=== PATIENT | male | born 1980 | race Caucasian/White ===

== ENCOUNTER → 2017-11-24 14:37 | Outpatient (CLI) | payer OTHER, SELFPAY ==
--- NOTE | 2017-11-24 14:41 | RAD_ITS ---
STUDY: X-RAY - RIGHT WRIST REASON FOR EXAM: Chronic pain. TECHNIQUE: 3 view(s) of the wrist were obtained. COMPARISON: None. FINDINGS: Normal visualized distal radius and ulna. Normal radiocarpal articulation. Normal distal radioulnar articulation. Normal carpal bones. Normal carpal articulations. Normal carpometacarpal articulation of the thumb. Normal second through fifth carpometacarpal articulations. Normal visualized metacarpal bones. The soft tissue structures are unremarkable. RAD/Wrist min 3 Views IMPRESSION: Normal x-ray examination of the right wrist. Electronically Signed: Josse Dumont MD at 16:17 EDT Tel , Service support ,
== END ==
PROVIDERS: Family Provider Family Medicine; PCP Family Medicine; Visit Provider Orthopaedic Surgery
DX: M25.531 Pain in right wrist (principal)
CPT/HCPCS: 73110

== ENCOUNTER → 2017-12-10 06:41 | Outpatient (CLI) | payer OTHER, SELFPAY ==
--- NOTE | 2017-12-10 06:46 | ECHOD_ITS ---
Reason For Study: PVC Procedure This was a 2D Doppler, Color Flow transthoracic echocardiogram. The exam was of poor technical quality due to body habitus. The study was technically difficult. Contrast injection was performed. Exam performed in department. Left Ventricle Normal LV size. Left ventricular systolic function is normal. The estimated ejection fraction is 60 %. No evidence for diastolic dysfunction. No regional wall motion abnormalities noted. Right Ventricle Normal RV size. Normal systolic function. Atria Normal left atrium. Normal right atrium. No doppler evidence for ASD. Mitral Valve There is no mitral annular calcification. Normal mitral valve. Trivial mitral valve insufficiency. Tricuspid Valve Normal tricuspid valve. Trivial tricuspid valve insufficiency. Unable to estimate RV systolic pressure/pulmonary artery pressure due to technically difficult study. Aortic Valve The aortic valve is not well visualized. Pulmonic Valve The pulmonic valve is not well visualized. Great Vessels Normal sized aortic root. Pericardium/Pleural No pericardial effusion. Medication Diluted definity 3ml given slow IV push to enhance endocardial definition. MMode/2D Measurements & Calculations LVIDd: 4.2 cm IVSd: 1.0 cm Ao root diam: 3.2 cm LVIDs: 2.9 cm LVPWd: 1.1 cm RVDd: 4.2 cm FS: 31.3 % LAV(MOD-bp): 49.5 ml EDV(MOD-sp4): 118.2 ml EDV(MOD-sp2): 125.6 ml LAV(MOD-bp) Indexed: 18.4 ml/m2 ESV(MOD-sp4): 48.7 ml EF(MOD-sp2): 60.9 % LAV(MOD-sp2): 53.4 ml EF(MOD-sp4): 58.8 % LAV(MOD-sp4): 47.7 ml SV(MOD-sp4): 69.5 ml SV(MOD-sp2): 76.4 ml LA A4 area: 18.3 cm2 RA A4 area: 14.3 cm2 Doppler Measurements & Calculations MV E max sav: 88.1 cm/sec Lat Peak E' Sav: 13.9 cm/sec Med Peak E' Sav: 10.8 cm/sec MV A max sav: 76.1 cm/sec E/E' lat: 6.3 E/E' med: 8.1 MV E/A: 1.2 Ao V2 max: 159.0 cm/sec LV V1 max: 146.6 cm/sec PA V2 max: 130.8 cm/sec Ao max P.1 mmHg LV V1 max P.6 mmHg Interpretation Summary The study was technically difficult. Contrast injection was performed. Left ventricular systolic function is normal. The estimated ejection fraction is 60 %. Trivial mitral valve insufficiency. Trivial tricuspid valve insufficiency. Unable to estimate RV systolic pressure/pulmonary artery pressure due to technically difficult study. No evidence for diastolic dysfunction. Ordering Physician: Gaston Matt Referring Physician: GASTON ARROYO Performed By: Becki Lema, TRAVISCS, RVT
--- NOTE | 2017-12-10 12:19 | STRESSREP_ITS ---
Stress Test Report Date: 12/10/2017 Procedure: Exercise tolerance test/imaging study Indications: Palpitations; PVCs Consent: Per the patient Procedure: The patient exercised on a Rick protocol for 7 minutes and 30 seconds completing Stage II and 1 minute 30 seconds of Stage III achieving a peak heart rate of 171 bpm (92% predicted maximal heart rate) with a peak blood pressure 180/84 mmHg and a peak MET capacity of 9 METs. The baseline ECG demonstrated normal sinus rhythm. The peak exercise ECG demonstrated somatic/motion artifact with no obvious ECG changes. There were no cardiac dysrhythmias pretest, during exercise, or recovery. The functional capacity was considered average. There was no complaint of chest discomfort during exercise or recovery. The examination was discontinued secondary to dyspnea. Impression: 1. Technically adequate (percent predicted maximal heart rate greater than 85% ) exercise tolerance test 2. Peak exercise ECG demonstrated somatic/motion artifact with no obvious ECG changes 3. There were no cardiac dysrhythmias pretest, during exercise, or recovery. 4. Nuclear images pending Myocardial perfusion imaging study: Technique: The patient was injected with 14.9 mCi of technetium 99m Cardiolite and subsequently rest SPECT Cardiolite nuclear imaging was obtained in the horizontal long, vertical long, and short axis views. The patient exercised on a Rick protocol for 7 minutes and 30 seconds completing Stage II and 1 minute 30 seconds of Stage III achieving a peak heart rate of 171 bpm (92 % predicted maximal heart rate) with a peak blood pressure 180/84 mmHg and a peak MET capacity of 9 METs. The patient was injected with 45 mCi of technetium 99m Cardiolite and subsequently stress SPECT Cardiolite nuclear imaging was obtained in the horizontal long, vertical long, and short axis views. A gated Cardiolite study at peak stress was obtained. Interpretation: Rest and stress SPECT Cardiolite nuclear imaging status post realignment, normalization, and attenuation correction, demonstrates the appearance of relative uniform tracer uptake and myocardial perfusion appearing within normal limits. There is end systolic thickening and brightening. The gated Cardiolite study demonstrates myocardial thickening and inward wall motion. The reported LVEF is 67 %. Impression: 1. Rest and stress SPECT Cardiolite nuclear imaging demonstrate relative uniform tracer uptake and myocardial perfusion appearing within normal limits. 2. The gated Cardiolite study reports an LVEF of 67 %. This note was generated with [employer] software. It may contain incorrect words, spelling, and punctuation that were not noted in checking the note before signing.
== END ==
LOC: CVS 06:42
PROVIDERS: Family Provider Family Medicine; PCP Family Medicine; Visit Provider Internal Medicine Cardiovascular Disease
DX: I49.3 Ventricular premature depolarization (principal)
CPT/HCPCS: 78452; 93017; 93306; A9500; A4216; C8929

== ENCOUNTER → 2017-12-10 06:51 | Outpatient (CLI) | payer OTHER, SELFPAY | LOC: CVS 06:52 | PROVIDERS: Family Provider Family Medicine; PCP Family Medicine; Visit Provider Internal Medicine Cardiovascular Disease | DX: I49.3 Ventricular premature depolarization (principal) | CPT/HCPCS: Q9957 ==

== ENCOUNTER → 2020-07-10 16:50 | Outpatient (CLI) | payer OTHER, SELFPAY ==
[2018-09-17 13:03] VITALS: BMI 50.5
== END ==
PROVIDERS: PCP Family Medicine; Visit Provider Registered Nurse
DX: U07.1 COVID-19 (principal)
CPT/HCPCS: 87635; U0003

== ENCOUNTER → 2021-01-02 14:15 | Outpatient (CLI) | payer OTHER, SELFPAY ==
[2018-09-17 13:03] VITALS: BMI 50.5
--- NOTE | 2021-01-02 14:19 | BI_ITS ---
MAMMOGRAPHY - BILATERAL DIAGNOSTIC REASON FOR EXAM: Male, 40 years old. Two-month history of right breast lump. PERTINENT HISTORY: Mother with breast cancer. Grandmother with breast cancer. Grandfather with breast cancer. TECHNIQUE: Digital bilateral breast ian (3D mammographic acquisition) in the CC and MLO projections. 2-D mediolateral oblique (MLO) and craniocaudad (CC) views of both breasts were obtained. CAD: Full Field Digital Mammography with Computer Added Detection was performed. COMPARISON: None. Baseline examination. FINDINGS: Breast Composition: The breasts are almost entirely fatty. Bilateral benign-appearing axillary lymph nodes. There is a 6.8 mm well-defined nodule in the retroareolar inferior thyroidal region of the left breast. A similar appearing nodule measuring 5.5 mm is seen adjacent. Correlation with ultrasound of the retroareolar region of the left breast is recommended as well as targeted ultrasound of the palpable lump in the right breast. No other significant abnormalities are identified. BI/DIAG MAMM W/CAD, BILAT IMPRESSION: 2 well-defined nodular densities in the retroareolar region of the left breast as described. Correlation with ultrasound of both breasts is recommended as described. ASSESSMENT CATEGORY: BIRADS Category 0: Incomplete. Need additional imaging evaluation. A letter regarding these results will be sent to the patient by the facility within 30 days. Approximately 10% of breast cancers are not detected by mammography. A normal mammogram should not delay biopsy of a clinically suspicious abnormality. Electronically Signed: Yann Peralta MD at 15:36 EDT , Service support ,
--- NOTE | 2021-01-02 14:19 | US_ITS ---
STUDY: ULTRASOUND BREAST - RIGHT REASON FOR EXAM: Male, 40 years old. Palpable lump in the right breast. TECHNIQUE: Axial and longitudinal images of the RIGHT breast were performed with a high resolution ultrasound transducer. # OF IMAGES: 31 COMPARISON: Comparison is made with prior mammogram done earlier in the day. FINDINGS: RIGHT Breast: The area of the palpable lump in the right breast was examined by ultrasound. This is in the lateral aspect of the right breast. No sonographic abnormality is seen. IMPRESSION: No sonographic abnormality is seen. ASSESSMENT CATEGORY: BIRADS Category 1: Negative. A letter regarding these results will be sent to the patient by the facility within 30 days. Electronically Signed: Yann Peralta MD at 15:44 EDT , Service support , STUDY: ULTRASOUND BREAST - LEFT REASON FOR EXAM: Male, 40 years old. Abnormal screening mammogram. TECHNIQUE: Axial and longitudinal images of the LEFT breast were performed with a high resolution ultrasound transducer. # OF IMAGES: 31 COMPARISON: Comparison is made with prior mammogram done earlier today. FINDINGS: LEFT Breast: There is a 4 mm x 4 mm x 2 mm cyst at the 5 o''clock position of the breast at 3 cm from the nipple. US/Breast Limited Unilateral IMPRESSION: 4 mm x 4 mm x 2 mm cyst at the 5 o''clock position in the breast at 3 cm from the nipple. ASSESSMENT CATEGORY: BIRADS Category 2: Benign. A letter regarding these results will be sent to the patient by the facility within 30 days. Electronically Signed: Yann Peralta MD at 15:44 EDT , Service support ,
== END ==
PROVIDERS: PCP Family Medicine; Referring Provider Family Medicine; Visit Provider Family Medicine
DX: N63.10 Unspecified lump in the right breast, unspecified quadrant (principal); R92.8 Other abnormal and inconclusive findings on diagnostic imaging of breast
CPT/HCPCS: 76642; 77062; 77066; G0279

== ENCOUNTER → 2021-05-27 | Outpatient (CLI) | payer OTHER, SELFPAY | END | disposition home or self-care (01) | PROVIDERS: PCP Family Medicine; Visit Provider Nurse Practitioner Family | DX: Z20.822 Contact with and (suspected) exposure to COVID-19 (principal) | CPT/HCPCS: 87635; U0005; U0003 ==

== ENCOUNTER 2022-05-04 15:09 | Inpatient (IN) | payer BC, SELFPAY ==
[2022-05-04] VITALS (11 sets, daily range): BP systolic 99–171; BP diastolic 61–96; PULSE 59–106; RESP 16–18; TEMP 36.1–37.3; O2SAT 92–98; BMI 48.7
--- NOTE | 2022-05-04 15:24 | RAD_ITS ---
EXAM: XR RIGHT FOOT COMPLETE, 3 OR MORE VIEWS CLINICAL INDICATION: trauma Technologist Notes injury to 1st and 2nd toe with lawnmower amputation of 2nd toe, wound to 1st toe TECHNIQUE: Frontal, lateral and oblique views of the right foot. This report was created using [email or web address] report generation technology. COMPARISON: None. FINDINGS: BONES/JOINTS: Traumatic amputation of the bone and soft tissue and fracture of the tuft of the 1st digit, amputation of the head of the 2nd proximal phalanx and entire 2nd middle and distal phalanx. There is a calcaneal spur. There is an enthesophyte involving the posterior superior calcaneus at the site of insertion of the Achilles tendon. Preservation of the joint space. No sclerotic or destructive changes observed. SOFT TISSUES: Unremarkable. No soft tissue swelling or gas. No radiopaque foreign body. RAD/Foot min 3 Views IMPRESSION: Traumatic amputation of the bone and soft tissue and fracture of the tuft of the 1st digit, amputation of the head of the 2nd proximal phalanx and entire 2nd middle and distal phalanx. Electronically Signed: Gen Kemp MD at 16:12 EDT ,
--- NOTE | 2022-05-04 15:29 | EX.ED.DYSGE1 ---
HPI <GARY Moses - Last Filed: 05/04/22 17:02> History of Present Illness Chief Complaint: Trauma Narrative Narrative: 41-year-old male with history of hypertension presents to the emergency department the right foot injury. Patient states that he was mowing, he fell backwards lifting of the mower striking his right foot into the mower. Patient presents the emergency department with almost complete amputation of his second right toe as well as significant damage to the right great toe. Patient states that this happened 45 minutes ago. He does have feeling, states that it feels a throbbing sensation, he cannot find the toe in the yard. Patient's tetanus vaccination is up-to-date and last 5 years. He denies any blood thinners. PFSH <GARY Moses - Last Filed: 05/04/22 17:02> [facility] Medical History (Updated 04/14/19 @ 15:15 by Ting Lynch) Essential hypertension REYES (obstructive sleep apnea) Palpitations Home Medications bupropion HCl 150 mg tablet,12 hr sustained-release (Wellbutrin SR) 150 mg PO BID 09/18/17 [History Last Taken Unknown] losartan 100 mg-hydrochlorothiazide 25 mg tablet (Hyzaar) 1 tab PO QDAY 09/18/17 [History Last Taken Unknown] atenolol 25 mg tablet 25 mg PO QDAY #90 tabs 08/07/21 [Rx Last Taken Unknown] Allergy/AdvReac Type Severity Reaction Status Date / Time No Known Allergies Allergy Verified 05/04/22 15:10 Family History Grandfather Myocardial infarction Grandfather Myocardial infarction Father Hypertension Grandmother Hypertension Grandmother Hypertension Surgical History History of shoulder surgery Social History (Updated 09/20/18 @ 08:34 by Alejandro Eubanks PET HOUSE SITTER, PET HOUSE SITTER-C) Smoking Status: Never smoker alcohol intake: never substance use type: does not use caffeine: Yes Type: coffee Number of servings: 2 what type of physical activity do you participate in: none ROS <GARY Moses - Last Filed: 05/04/22 17:02> ROS ED ROS Narrative Constitutional: Negative for fever, chills, weight loss, weakness Eyes: Negative for vision loss, vision change, double vision ENT: Negative for any sore throat, ear pain, congestion Cardiovascular: Negative for any chest pain, tightness, palpitations Respiratory: Negative for any cough, sputum production, hemoptysis, dyspnea, dyspnea on exertion, orthopnea Gastrointestinal: Negative for any abdominal pain, nausea, vomiting, diarrhea, constipation, blood in stool, blood in vomit : Negative for any urinary frequency, dysuria, retention, blood in urine Muscle skeletal: Negative for any muscle joint pain, stiffness, myalgias, arthralgias, neck pain, back pain. Positive right foot pain, right great toe, right second toe Neurological: Negative for any headache, syncope, numbness or tingling, dizziness Skin: Negative for any rashes, lumps, itching, abrasions, lacerations Psychiatric: Negative for any depression, anxiety, stress, suicidal ideation, homicidal ideation Hematologic: Negative for any easy bruising, excessive bruising, easy bleeding Allergies: Negative for any eczema, hives, rash EXAM <GARY Moses - Last Filed: 05/04/22 17:02> Physical Exam Narrative Exam Narrative: Vital signs reviewed. HEET: Head normocephalic atraumatic, TMs clear bilaterally. Posterior pharynx is clear, moist mucous membranes. Nares clear bilaterally. Neck: Supple with no lymphadenopathy or tenderness. No signs of meningismus, negative jolt sign. Cardiac: Regular rate and rhythm no murmurs gallops or rubs, equal peripheral pulses bilaterally. Respiratory: Lungs clear to auscultation bilaterally. No chest tenderness. Abdomen: Soft, nontender, nondistended. No abdominal bruit or pulsatile masses. No hepatosplenomegaly Extremities: Patient has obvious deformity of the right great toe, right second toe. Patient's right great toe sustained significant damage with bone exposure, patient's second toe is almost completely amputated. Patient does have feeling to the great toe, palpable pedal pulse. Neuro: Cranial nerves II through XII intact, no focal neurological deficits. Skin: Clean dry and intact with no rash, purpura, petechiae, vesicles or pustules. Backs/flank: No CVA tenderness, no midline spinal tenderness, no deformity. Psych: Normal mood and affect. No SI, HI or acute psychosis. Const Vital Signs: 05/04/22 15:10 05/04/22 16:46 Temperature 98.1 F 98.1 F Temperature Source Temporal Temporal Pulse Rate 106 H 79 Respiratory Rate 18 18 Blood Pressure 171/96 H 154/91 H Blood Pressure Mean 121 112 Blood Pressure Location Left Arm Pulse Ox 97 98 Oxygen Delivery Method Room Air Room Air Positive well nourished and well developed General Appearance ED: well developed <Dr. Guy Casas MD - Last Filed: 05/04/22 15:38> Physical Exam Const Vital Signs: 05/04/22 15:10 05/04/22 16:46 Temperature 98.1 F 98.1 F Temperature Source Temporal Temporal Pulse Rate 106 H 79 Respiratory Rate 18 18 Blood Pressure 171/96 H 154/91 H Blood Pressure Mean 121 112 Blood Pressure Location Left Arm Pulse Ox 97 98 Oxygen Delivery Method Room Air Room Air MDM <GARY Moses - Last Filed: 05/04/22 17:02> MDM Radiography Diagnostic Testing: Clinical Impression(s) from Imaging Studies Foot X-Ray 05/04/22 15:24 IMPRESSION: Traumatic amputation of the bone and soft tissue and fracture of the tuft of the 1st digit, amputation of the head of the 2nd proximal phalanx and entire 2nd middle and distal phalanx. Electronically Signed: Gen Kemp MD at 16:12 EDT Reading Location ID and State: [facility] / [place] , Service support , Treatment and Re-Evaluation Narrative: Patient presents to the emerge department in minor distress secondary to pain to the right foot. Patient did strike his right foot on a lawnmower while falling backwards. Patient is obvious deformity of the right foot. Patient did receive x-rays of the right foot, this did show a traumatic amputation of the bone of the soft tissue and fracture of the tuft of the first digit, amputation of the head of the second proximal phalanx and entire second middle and distal phalanx. Patient was given IV fluids, IV morphine 8 mg. He also was given IV Ancef. We did contact podiatry, the the plan will be to have surgery on the patient's foot today. Patient's last known eating or drinking was at noon today. Dr. Vuong was consulted Patient is stable for surgery. Patient received all proper medications. Patient is verbally understand that he is going to surgery, he is in a position of comfort. Patient stable for surgery <Dr. Guy Casas MD - Last Filed: 05/04/22 15:38> [facility] Narrative Medical decision making narrative: I have personally performed a face to face assessment of the patient and have reviewed the TANNER Note. I performed a substantive portion of the visit including all aspects of the following. My bailey findings include: History is [41-year-old male history of hypertension. Evaluate the patient with our nurse practitioner. Patient was cutting across grass slipped the mower went up in the air and he caused significant injury to his right great and second toe. The second toe is avulsed the distal end. This occurred less than an hour ago. His tetanus is up-to-date. He denies other injuries.] Exam is [41-year-old gentleman vital signs stable afebrile. HEENT exam normal. Neck nontender. Lungs are clear. Heart regular rhythm rate about 105 no murmur. Chest wall nontender. Abdomen soft nontender. Moving all 4 extremities. The right great toe the nail has been avulsed. There is injury to the nailbed. There is a laceration of the proximal anterior top of the great toe. Second toe has been avulsed on the distal half. It is an open wound and amputation. DP pulse intact. He is able to wiggle his toes.] Medical Decision Making [tetanus is up-to-date. He will be given IV Ancef. X-ray. Pain medication. Podiatry will be consulted.] Other additions or changes: [None] Radiography Diagnostic Testing: Clinical Impression(s) from Imaging Studies Foot X-Ray 05/04/22 15:24 IMPRESSION: Traumatic amputation of the bone and soft tissue and fracture of the tuft of the 1st digit, amputation of the head of the 2nd proximal phalanx and entire 2nd middle and distal phalanx. Electronically Signed: Gen Kemp MD at 16:12 EDT Reading Location ID and State: [facility] / [place] , Service support , Discharge Plan Triage Chief Complaint: Trauma ED Midlevel Provider: Gaston Lambert ED Provider: Guy Casas Dx/Rx/DC Orders Prescriptions: No Action bupropion HCl [Wellbutrin SR] 150 mg tablet extended release 12 hr 150 mg PO BID losartan-hydrochlorothiazide [Hyzaar] 100-25 mg tablet 1 tab PO QDAY atenolol 25 mg tablet 25 mg PO QDAY Qty: 90 4RF Primary Care Provider: Gaston Smith
[2022-05-04] MEDS: Ondansetron 4 MG/2 ML Vial IV (15:35)
[2022-05-04] MEDS: Morphine 4 MG/ML Syringe IV ×2 (15:35→15:48)
[2022-05-04] MEDS: Cefazolin 1 GM/50 ML BAG IV (16:04)
--- NOTE | 2022-05-04 16:24 | PCM.HP.STD ---
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 He was mowing his lawn today and blade his right foot, it sliced through 1st and 2nd toes, he is now missing part of 2nd toe and part of 1st toe, it went through the shoe. He presented to ER due to this. He was given a dose of IV antibiotic in the ER. He was given pain medication there as well so pain is controlled at this time. Bleeding is controlled at this time. The wounds are contaminated. He is afebrile. He has history of hypertension. 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 His is with him. [facility] Medical History (Updated 05/04/22 @ 17:04 by Alta Carlisle) Essential hypertension REYES (obstructive sleep apnea) Palpitations Home Medications bupropion HCl 150 mg tablet,12 hr sustained-release (Wellbutrin SR) 150 mg PO BID 09/18/17 [History Last Taken Unknown] losartan 100 mg-hydrochlorothiazide 25 mg tablet (Hyzaar) 1 tab PO QDAY 09/18/17 [History Last Taken Unknown] atenolol 25 mg tablet 25 mg PO QDAY #90 tabs 08/07/21 [Rx Last Taken Unknown] Allergy/AdvReac Type Severity Reaction Status Date / Time No Known Allergies Allergy Verified 05/04/22 15:10 Family History Grandfather Myocardial infarction Grandfather Myocardial infarction Father Hypertension Grandmother Hypertension Grandmother Hypertension Surgical History History of shoulder surgery Social History (Updated 09/20/18 @ 08:34 by Alejandro Eubanks QUALITY DIRECTOR, QUALITY DIRECTOR-C) Smoking Status: Never smoker alcohol intake: never substance use type: does not use caffeine: Yes Type: coffee Number of servings: 2 what type of physical activity do you participate in: none ROS Constitutional Constitutional: Denies fever(s) Vital Signs Vital Signs Vital Signs: 05/04/22 15:10 Temperature 98.1 F Temperature Source Temporal Pulse Rate 106 H Respiratory Rate 18 Blood Pressure 171/96 H Blood Pressure Mean 121 Pulse Ox 97 Oxygen Delivery Method Room Air Weight Weight: 154.221 kg Body Mass Index (BMI) 48.7 Physical Exam Narrative Right foot with partial 2nd toe amputation, as well as distal 1st toe amputation with lacerations and exposed bone, there is dried blood, no active bleeding at this time, pain appears controlled to the site, no other lacerations to the foot, ankle or leg. CFT < 2 seconds to 3, 4, 5 toes on the right foot, pedal pulses intact to the right foot, no evidence of compartment syndrome. Const alert, oriented x3 and no apparent distress Results Radiology Impression Foot X-Ray 05/04/22 15:24 IMPRESSION: Traumatic amputation of the bone and soft tissue and fracture of the tuft of the 1st digit, amputation of the head of the 2nd proximal phalanx and entire 2nd middle and distal phalanx. Electronically Signed: Gen Kemp MD at 16:12 EDT Reading Location ID and State: [facility] / [place] , Service support , Assessment & Plan Assessment/Plan (1) Traumatic amputation of toe: (2) Laceration of toe: (3) Fracture of toe, open: (4) Injury of foot, right: PLAN: Plan Evaluation performed. Reviewed diagnostic data, including labs and right foot xrays. I discussed with Dr. Casas the ER physician. Discussed options with patient and at this time we will plan to proceed to the OR for debridement and irrigation of the site. This was discussed with patient and he agreed. We will plan to admit patient for IV antibiotics as well. No weightbearing right foot, keep foot elevated. The patient has hx of hypertension, REYES, and also takes bupropion, the hospitalist will be consulted. Appreciate assistance.
[2022-05-04] MEDS: morphine 8 MG/ML Syringe 6 MG IV (16:39)
--- NOTE | 2022-05-04 18:00 | BON_PTH ---
PATIENT: SONAM GUPTA LOC: MS3 U#:[id number] AGE/SX: 41/M ROOM: MD317 RE05/04/[address]: Dr. Phillip Torrse DPM : 1980 BED: 1 DIS: 05/08/2022 SPEC #: [id number] RECD: 05/05/22 11:10 STATUS: SAMUEL RELaura #: [id number] KINDRA: 05/04/22 18:[address]: Phillip Torres DEPT: SURGICAL PATHOLOGY RECD BY: Meme Cullen ENTERED: 05/05/22 13:27 SP TYPE: Bone OTHR DR: MD Dr. Francisco Cameron DO Dr. David Kittoe, MD Dr. Efewongbe Oleghe, MD Dr. Loren Kirchner, MD Dr. Paul Nielsen, MD Dr. Robert Leininger, MD Barbara Tickton, TIMOTHY-C Param Archibald, FLAT BED KNITTERCurtisC TEJA Barillas Tissues: Foot, NOS Procedures: Decalcification bone/plaque Surgery Specimen Level IV HEADER OPERATION: Debridement wound first and second toes with primary closure PRE-OP DIAGNOSIS: Traumatic amputation of toe; laceration of toe, fracture of toe, right foot injury TISSUE SUBMITTED: Bone and soft tissue, right foot, first and second toes MICROSCOPIC DIAGNOSIS Bone and soft tissue of right foot first and second toes, amputations: Bone with focal reparative and reactive change. Skin with hyperkeratosis. AM:satish 05/08/2022 MICROSCOPIC DESCRIPTION Slides are reviewed. GROSS DESCRIPTION Received in fixative is one container labeled with the patient's name and designated bone and tissue right foot first and second toes. The specimen consists of multiple fragments of skin with underlying tissue and bone that in aggregate measure 8 x 5 x 2 cm. The skin with underlying tissue shows focal area of hemorrhage. [employer] sections are submitted in three cassettes as follows: 1 ? skin with underlying tissue, 2 & 3 ? bone after decalcification. / KEVIN:satish 05/05/2022 TC:5 CPT: 92846, 91055
--- NOTE | 2022-05-04 19:26 | RAD_ITS ---
EXAM: XR RIGHT FOOT COMPLETE, 3 OR MORE VIEWS CLINICAL INDICATION: post op TECHNIQUE: Frontal, lateral and oblique views of the right foot. This report was created using [employer] report generation technology. COMPARISON: Study done earlier today. FINDINGS: BONES/JOINTS: There hs been surgical amputation of the head of the 1st proximal phalanx and distal 1st digit. Surgical amputation of the head of the 2nd proximal phalanx and entire 2nd middle and distal phalanx. There is a calcaneal spur. There is an enthesophyte involving the posterior superior calcaneus at the site of insertion of the Achilles tendon. No acute fracture. No subluxation. Normal alignment. Preservation of the joint space. No sclerotic or destructive changes observed. SOFT TISSUES: Unremarkable. No soft tissue swelling or gas. No radiopaque foreign body. RAD/Foot min 3 Views IMPRESSION: There hs been surgical amputation of the head of the 1st proximal phalanx and distal 1st digit. Surgical amputation of the head of the 2nd proximal phalanx and entire 2nd middle and distal phalanx. Electronically Signed: Gen Kemp MD at 20:29 EDT ,
--- NOTE | 2022-05-04 19:27 | PCM.OPRPT ---
Report of Operation Date of Procedure: 05/04/22 Pre-Operative Diagnosis: Traumatic laceration and amputation of the 1st and 2nd toes, also subungual hematoma and onycholysis right 3rd toenail- right foot Post-Operative Diagnosis: Same Surgery/Procedure Performed:: Irrigation right foot. Debridement of all nonviable, necrotic, unhealthy soft tissue and bone right 1st and 2nd toes, avulsion/removal of right 3rd toenail Surgeon: Phillip Torres volcanology professor: None Type of Anesthesia: General and Local Specimen's removed: 1. Bone from right 1st and 2nd toes sent to microbiology 2. Deep wound culture right 1st and 2nd toes sent to microbiology 3. Debrided soft tissue and bone right 1st and 2nd toes sent to pathology Estimated Blood Loss (mL): 5mL Description of Procedure: Indications: This is a 41 year old gentleman who sustained a traumatic injury to the right foot at level of 1,2,3 toes. 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 There is severe injury to the does with partial amputation to the 1st and 2nd toes, the right 3rd toenail is loose with subungual hematoma. He had pain. The blade went through his shoe. He took his shoe off and came to the ER. Diagnostic data reviewed, including right foot xrays. The options were discussed with him and he elected to proceed with irritation and debridement of the right foot, as well as partial right 1st and 2nd toes. The procedure was discussed with him in detail, reviewed possible benefits vs risks, goals, expectations and estimated healing time. Advised patient the risks include, but not limited to pain, need for further surgery, infection, blood clots, numbness, nerve injury, swelling, nonhealing, delayed healing, deformity, loss of limb, loss of life. The consent form was reviewed with him and he freely signed it. All of his questions were answered. His was present. No guarantees were given nor implied. No warranties were given. Operative Procedure: The patient was brought back and placed on the operating room table in the supine position. The patient had recently had just received Ancef in the ER. A timeout was performed and the patient was properly identified and the surgical plan was confirmed. The patient was secured to the operating room table with a safety belt around his waist. The patient received anesthesia per the anesthesia team. The skin was cleansed with 70% Isopropyl alcohol and and 1st, 2nd and 3rd ray block was completed on the right foot using a total of 20mL of 0.25% Bupivacaine plain. A well padded pneumatic tourniquet was applied around the right ankle. The right foot was scrubbed, prepped, and draped in the usual aseptic fashion. Further attention was directed to the right foot - there was mangled 1st and 2nd toes - the distal phalanx of the 1st toe was destroyed and severely fragmented, part of it was missing as well, the nail and nail bed were completely gone on the 1st toe, the joints of the interphalangeal joint of the 1st toe was destroyed, there was dirt and grass in the wound of the distal to mid 1st toe down to bone, the surrounding soft tissues were shredded and nonviable from the interphalangeal joint distally. The right 2nd toe was missing from the head of the proximal phalanx to tip of the toe, the distal aspect of the remaining 2nd toe proximal phalanx was severely fragmented, and there was dirt and grass in the wound of the remaining distal aspect of the 2nd toe. The right foot was elevated and exsanguinated using an Esmarch bandage and the right ankle pneumatic tourniquet was inflated to 250mmHg. At this time all nonviable soft tissue and bone, fragmented bone and shredded soft tissue, as well as all dirt, grass and debris were debrided from the sites. This was done using a 15 scalpel blade, as well as a bone cutting rongeur, and also a powered sagittal saw. This was debrided down to healthy viable bone and soft tissue. The debrided tissue was sent to pathology. sample of the bone from the 1st and 2nd toes were sent to microbiology as culture. Also a deep wound culture was obtained of the 1st and 2nd toe wounds prior to debridement. The total area debrided measured 4cm x 2cm and down to bone. The sites were flushed with copious amounts of normal saline solution. The remaining tissues appeared healthy and viable. Flaps were created on the 1st and 2nd toes and the skin edges were reapproximated using 3-0 Nylon. Also of note the right 3rd toenail was lysed and there was subungual hematoma. The nail was avulsed. The underlying nail bed was healthy and viable with no lacerations. The site was flushed with copious amounts of normal saline solution. The pneumatic tourniquet was deflated. There was immediate return of perfusion to the foot and tissues. Total tourniquet time was 52 minutes. A dressing was applied which consisted of Betadine soaked adaptic, 4x4 gauze, kerlix and randlel bandage. The patient tolerated the above procedure well and anesthesia well with no complications. The patient was transported from the operating room to the recovery room with vital signs stable and in good condition. The patient will be admitted and followed as inpatient. Grafts/Implants Used: None Complications None
--- NOTE | 2022-05-04 21:05 | PCM.PN.HOSP ---
Documented by User: GARY Uribe 05/04/22 21:12 Subjective Subjective Patient seen and examined. Patient lying in bed no distress noted. Patient in PACU, at bedside. Patient drowsy but able to arouse and answer questions appropriately. Objective Data Objective Data Vital Signs: Vital Signs Temp Pulse Resp BP Pulse Ox O2 Del Method O2 Flow Rate 97 F L 68 16 150/88 H 93 Room Air 2 05/04/22 20:29 05/04/22 20:29 05/04/22 20:29 05/04/22 20:29 05/04/22 20:29 05/04/22 20:29 05/04/22 20:15 Oxygen Flow Rate (L/min) 2 Oxygen Delivery Method Room Air Weight: 340 lb Body Mass Index (BMI) 48.7 Intake & Output: Intake and Output for Last 24 Hours 05/02/22 05/03/22 05/04/22 23:59 23:59 23:59 Intake Total 1050 / 1050 Balance 1050 / 1050 Lab / Micro Data Result Diagrams: 05/04/22 21:26 05/04/22 21:26 Radiography Diagnostic Testing: Radiology Impression Foot X-Ray 05/04/22 15:24 IMPRESSION: Traumatic amputation of the bone and soft tissue and fracture of the tuft of the 1st digit, amputation of the head of the 2nd proximal phalanx and entire 2nd middle and distal phalanx. Electronically Signed: Gen Kemp MD at 16:12 EDT , Foot X-Ray 05/04/22 19:26 IMPRESSION: There hs been surgical amputation of the head of the 1st proximal phalanx and distal 1st digit. Surgical amputation of the head of the 2nd proximal phalanx and entire 2nd middle and distal phalanx. Electronically Signed: Gen Kemp MD at 20:29 EDT , Physical Exam Const alert, oriented x3 and no apparent distress Constitutional Narrative: Patient slightly drowsy postop HEENT head/scalp atraumatic and moist oral mucous membranes Eyes conjunctivae normal and no scleral icterus Neck full ROM, no lymphadenopathy and supple General: trachea midline Resp normal respiratory effort, normal air movement and clear to auscultation bilaterally Effort and Inspection: able to speak in complete sentences and symmetric chest movement Cardio regular rate, regular rhythm, S1 normal heart sound and S2 normal heart sound GI normal to inspection, nondistended, normoactive bowel sounds, soft to palpation and non-tender Extremity Extremity Narrative: Surgical dressing with Jesse wrap to right foot intact. Neuro oriented x3, moves all extremities, no focal motor deficits and no sensory deficits noted Psych affect normal Assessment & Plan Assessment/Plan (1) Palpitations: (2) Essential hypertension: PLAN: Plan 1. Hypertension -Continue losartan hydrochlorothiazide -Vital signs per protocol, currently stable -Educated patient that his blood pressure may be slightly elevated over the next few days due to pain, verbalized understanding -CBC and BMP ordered 2. Palpitations -Continue atenolol 3. Depression -Continue Wellbutrin 4. Sleep apnea -CPAP ordered 5. Traumatic laceration and amputation of the first and second toes -Pain management per podiatry -Zosyn IV per podiatry -Cultures pending -Nonweightbearing to right lower extremity -Elevate right lower extremity -Wound nurse consulted DVT prophylaxis-SCDs This patient was seen by GARY Uribe under the supervision of Dr. Gerber. 14 minutes spent in clinical coordination of patient's plan of care. Documented by User: Dr. Smith Gerber MD 05/04/22 23:46 Objective Data Lab / Micro Data Result Diagrams: 05/04/22 21:26 05/04/22 21:26 Assessment & Plan Assessment/Plan (1) Palpitations: (2) Essential hypertension: Charges/Coding Addendum Addendum: Patient was seen and examined independently. I agree with assessment and plan by Morena Gomes NP-Jamel Patient is a 41-year-old male with a significant history of hypertension; obstructive sleep apnea; palpitation who had traumatic laceration and amputation of the 1st and 2nd toes, also subungual hematoma and onycholysis right 3rd toenail- right foot- with the use of a lawnmower. Patient has been admitted to the Hospital by podiatry and has had Irrigation right foot. Debridement of all nonviable, necrotic, unhealthy soft tissue and bone right 1st and 2nd toes, avulsion/removal of right 3rd toenail postop day 0 Internal medicine service has been consulted to help with management of chronic medical conditions that includes hypertension; and obstructive sleep apnea. Physical exam: General: Well-nourished, well-developed. Head: Normocephalic, atraumatic, no tenderness Eyes: Vision is grossly intact. EOMI ENT, no trauma, moist mucous membranes, no rhinorrhea Neck: Nontender, full range of motion, no spinal tenderness, deformities, step-off CVS: Regular rate and rhythm. S1-S2 present. No murmur, gallop or rub. Respiratory : clear to auscultation bilaterally, chest wall nontender, no wheezing Abdomen: Soft, nontender, nondistended, normal bowel sounds, no masses : Deferred Back: Nontender, no CVA tenderness, no midline spinal tenderness, deformities, step-offs Extremities: Right foot with Jesse wrap. Left foot with no swelling. Skin: Normal color, no trauma, abrasions Neuro: Alert, oriented, cranial nerves II through XII grossly intact. Psychiatry: Normal mood. Normal affect. Not depressed. Not anxious. Assessment and plan Traumatic laceration and amputation of the 1st and 2nd toes, also subungual hematoma and onycholysis right 3rd toenail- right foot- with the use of a lawnmower s/p Irrigation right foot. Debridement of all nonviable, necrotic, unhealthy soft tissue and bone right 1st and 2nd toes, avulsion/removal of right 3rd toenail. CBC and BMP reviewed was unrevealing. Management by general surgery. Hypertension Blood pressure is not within goal Home blood pressure medication continued. Trend blood pressure and adjust blood pressure medications. Depression stable Bupropion continue Obstructive sleep apnea: BiPAP continued Morbid Obesity BMI: 48.8 kg/m?. Complicates care. Lifestyle modification recommended. DVT prophylaxis: Agree with SCDs. Fifteen minutes (15) spent independently seeing patient and reviewing charts. Visit Charges Inpatient E&M: 08843 Subs Hosp L2
[2022-05-04] MEDS: buPROPion (SR) 150 MG Tablet.SA PO (21:20)
[2022-05-04 21:38] LABS: Absolute Lymphocyte Count 1.51 X10^3/uL (0.83-4.51); Absolute Neutrophil Count 6.9 X10^3/uL (2.0-7.7); Basophil# 0.08 X10^3/uL; Basophil% 0.9 % (0-1); Eosinophil# 0.16 X10^3/uL; Eosinophils% 1.7 % (0-5); Hematocrit 44.6 % (40-54); Hemoglobin 14.9 g/dL (13.0-16.5); Lymphocyte # 1.51 X10^3/ul (0.83-4.51); Lymphocyte % 16.4 % (19-41); Mean Corp Hgb Conc 33.4 g/dL (32-36); Mean Corpuscular Hgb 29.7 pg (27.0-32.0); Mean Platelet Vol. 9.6 fl (6.2-12.0); Monocyte# 0.48 X10^3/uL; Monocyte% 5.2 % (0-10); NRBC Flagged by Analyzer 0 % (0-5); Neutrophil # 6.94 X10^3/uL (2.7-7.7); Neutrophil % 75.5 % (47-70); Platelet Count 302 K/mm3 (150-450); RBC Distribution Width SD 42.6 fl (35.1-43.9); Red Blood Count 5.01 M/mm3 (4.6-6.2); White Blood Count 9.2 K/mm3 (4.4-11.0)
[2022-05-04 21:50] LABS: Anion Gap 9 (5-15); BUN 16 mg/dL (7-18); BUN/Creat Ratio 17.8 RATIO (10-20); Calcium,Total 8.5 mg/dL (8.5-10.1); Chloride 106 mmol/L (98-107); EST Glomerular Filtration Rate 99 mL/min (>60); Est Glom Filt Rate - Afr Amer 120 mL/min (>60); Estimated Creatinine Clearance 113.78 ml/min; Glucose 130 mg/dL (74-106); Potassium 3.6 mmol/L (3.5-5.1); Sodium Level 142 mmol/L (136-145)
[2022-05-05] VITALS (7 sets, daily range): BP systolic 112–140; BP diastolic 56–79; PULSE 72–89; RESP 16–18; TEMP 36.6–37.4; O2SAT 96–100
[2022-05-05] MEDS: oxyCODONE 5 MG Tablet PO ×4 (03:05→21:37)
[2022-05-05] MEDS: HYDROmorphone 1 MG/ML Syringe IV ×4 (06:36→19:50)
[2022-05-05] MEDS: 0.9% Saline Lock 10 ML Syringe IV ×3 (06:36→14:50)
[2022-05-05 07:04] LABS: Absolute Lymphocyte Count 2.26 X10^3/uL (0.83-4.51); Absolute Neutrophil Count 6.8 X10^3/uL (2.0-7.7); Basophil# 0.07 X10^3/uL; Basophil% 0.7 % (0-1); Eosinophil# 0.26 X10^3/uL; Eosinophils% 2.5 % (0-5); Hematocrit 44.9 % (40-54); Lymphocyte # 2.26 X10^3/ul (0.83-4.51); Lymphocyte % 22.1 % (19-41); Mean Corp Hgb Conc 33.4 g/dL (32-36); Mean Corpuscular Hgb 29.9 pg (27.0-32.0); Mean Corpuscular Volume 89.6 fL (80-94); Mean Platelet Vol. 9.8 fl (6.2-12.0); Monocyte# 0.79 X10^3/uL; Monocyte% 7.7 % (0-10); NRBC Flagged by Analyzer 0 % (0-5); Neutrophil % 66.7 % (47-70); Platelet Count 291 K/mm3 (150-450); RBC Distribution Width CV 13.2 % (11.6-14.6); RBC Distribution Width SD 43.1 fl (35.1-43.9); Red Blood Count 5.01 M/mm3 (4.6-6.2); White Blood Count 10.2 K/mm3 (4.4-11.0)
--- NOTE | 2022-05-05 07:19 | PN_ITS ---
Subjective Subjective Patient was seen this morning for follow up on foot. He relates pain is controlled at this time. No fevers or any other complaints. Objective Data Objective Data Vital Signs: Vital Signs Temp Pulse Resp BP Pulse Ox O2 Del Method O2 Flow Rate 98.7 F 80 18 124/79 H 97 Room Air 2 05/05/22 06:22 05/05/22 06:22 05/05/22 06:22 05/05/22 06:22 05/05/22 06:22 05/05/22 06:22 05/04/22 20:15 FiO2 21 05/05/22 01:51 Oxygen Flow Rate (L/min) 2 Oxygen Delivery Method Room Air Weight: 154.221 kg Body Mass Index (BMI) 48.7 Intake & Output: Intake and Output for Last 24 Hours 05/03/22 05/04/22 05/05/22 23:59 23:59 23:59 Intake Total 1050 / 1290 490 / 490 Output Total 800 / 800 Balance 1050 / 1290 -310 / -310 Lab / Micro Data Result Diagrams: 05/05/22 06:38 05/05/22 06:38 Labs: Laboratory Results - last 24 hr 05/04/22 21:26: WBC 9.2, RBC 5.01, Hgb 14.9, Hct 44.6, MCV 89.0, MCH 29.7, MCHC 33.4, RDW Std Deviation 42.6, RDW Coeff of Samm 13.0, Plt Count 302, MPV 9.6, Immature Gran % (Auto) 0.300, Neut % (Auto) 75.5 H, Lymph % (Auto) 16.4 L, [place] % (Auto) 5.2, Eos % (Auto) 1.7, Baso % (Auto) 0.9, Absolute Neuts (auto) 6.9, Absolute Lymphs (auto) 1.51, Nucleated RBC % 0 05/04/22 21:26: Sodium 142, Potassium 3.6, Chloride 106, Carbon Dioxide 27.0, Anion Gap 9, BUN 16, Creatinine 0.90, Estim Creat Clear Calc 113.78, Est GFR (MDRD) Af Amer 120, Est GFR (MDRD) Non-Af 99, BUN/Creatinine Ratio 17.8, Glucose 130 H, Calcium 8.5 05/05/22 06:38: WBC 10.2, RBC 5.01, Hgb 15.0, Hct 44.9, MCV 89.6, MCH 29.9, MCHC 33.4, RDW Std Deviation 43.1, RDW Coeff of Samm 13.2, Plt Count 291, MPV 9.8, Immature Gran % (Auto) 0.300, Neut % (Auto) 66.7, Lymph % (Auto) 22.1, [place] % (Auto) 7.7, Eos % (Auto) 2.5, Baso % (Auto) 0.7, Absolute Neuts (auto) 6.8, Absolute Lymphs (auto) 2.26, Nucleated RBC % 0 Radiography Diagnostic Testing: Radiology Impression Foot X-Ray 05/04/22 15:24 IMPRESSION: Traumatic amputation of the bone and soft tissue and fracture of the tuft of the 1st digit, amputation of the head of the 2nd proximal phalanx and entire 2nd middle and distal phalanx. Electronically Signed: Gen Kemp MD at 16:12 EDT , Foot X-Ray 05/04/22 19:26 IMPRESSION: There hs been surgical amputation of the head of the 1st proximal phalanx and distal 1st digit. Surgical amputation of the head of the 2nd proximal phalanx and entire 2nd middle and distal phalanx. Electronically Signed: Gen Kemp MD at 20:29 EDT , Physical Exam Narrative Right foot with partial 1st and 2nd toe amputation, as well as absent 3rd toenail - no active bleeding, tissues are healthy and viable, CFT < 2 seconds to 1st and 2nd toe stumps, and to 3, 4, 5 toes on the right foot, pedal pulses intact to the right foot, no evidence of compartment syndrome, muscle strength intact, no cellulitis, no visible abscess, no streaking, no maloder, no fluctuance, no crepitus. Const alert, oriented x3 and no apparent distress Assessment & Plan Assessment/Plan (1) Traumatic amputation of toe: (2) Laceration of toe: (3) Fracture of toe, open: (4) Injury of foot, right: PLAN: Plan s/p right foot debridement - site healing well at this time. Cultures have been obtained and results pending - patient is on Zosyn at this time - Infectious Disease consultation. Wound care - betadine soln topically with overlying gauze, kerlix and randell - change daily. No weightbearing right foot, keep foot elevated. The patient has hx of hypertension, REYES, and also takes bupropion, the hospitalist was consulted. Appreciate assistance.
[2022-05-05 07:33] LABS: Anion Gap 8 (5-15); BUN 12 mg/dL (7-18); BUN/Creat Ratio 15.1 RATIO (10-20); Calcium,Total 8.8 mg/dL (8.5-10.1); Chloride 103 mmol/L (98-107); Creatinine, Serum 0.79 mg/dL (0.70-1.30); EST Glomerular Filtration Rate 115 mL/min (>60); Est Glom Filt Rate - Afr Amer 139 mL/min (>60); Estimated Creatinine Clearance 129.62 ml/min; Glucose 101 mg/dL (74-106); Potassium 3.3 mmol/L (3.5-5.1); Sodium Level 139 mmol/L (136-145)
--- NOTE | 2022-05-05 07:38 | WOUNDNOTE ---
wound photo: right foot
--- NOTE | 2022-05-05 07:48 | PCM.PN.HOSP ---
Subjective Subjective Patient is a 41-year-old gentleman with traumatic laceration amputation of the first and second toes with subsequent subungual hematoma who underwent irrigation and debridement of all nonviable necrotic and unhealthy soft tissue and avulsion/removal of the right third toenail by Dr. Torres on 05/04/2022 the hospitalist service was consulted to assist with management of patient medical comorbidities Objective Data Objective Data Vital Signs: Vital Signs Temp Pulse Resp BP Pulse Ox O2 Del Method O2 Flow Rate 98.7 F 80 18 124/79 H 97 Room Air 2 05/05/22 06:22 05/05/22 06:22 05/05/22 06:22 05/05/22 06:22 05/05/22 06:22 05/05/22 06:22 05/04/22 20:15 FiO2 21 05/05/22 01:51 Oxygen Flow Rate (L/min) 2 Oxygen Delivery Method Room Air Weight: 154.221 kg Body Mass Index (BMI) 48.7 Intake & Output: Intake and Output for Last 24 Hours 05/03/22 05/04/22 05/05/22 23:59 23:59 23:59 Intake Total 1050 / 1290 490 / 490 Output Total 800 / 800 Balance 1050 / 1290 -310 / -310 Lab / Micro Data Result Diagrams: 05/05/22 06:38 05/05/22 06:38 Labs: Laboratory Results - last 24 hr 05/04/22 21:26: WBC 9.2, RBC 5.01, Hgb 14.9, Hct 44.6, MCV 89.0, MCH 29.7, MCHC 33.4, RDW Std Deviation 42.6, RDW Coeff of Samm 13.0, Plt Count 302, MPV 9.6, Immature Gran % (Auto) 0.300, Neut % (Auto) 75.5 H, Lymph % (Auto) 16.4 L, [place] % (Auto) 5.2, Eos % (Auto) 1.7, Baso % (Auto) 0.9, Absolute Neuts (auto) 6.9, Absolute Lymphs (auto) 1.51, Nucleated RBC % 0 05/04/22 21:26: Sodium 142, Potassium 3.6, Chloride 106, Carbon Dioxide 27.0, Anion Gap 9, BUN 16, Creatinine 0.90, Estim Creat Clear Calc 113.78, Est GFR (MDRD) Af Amer 120, Est GFR (MDRD) Non-Af 99, BUN/Creatinine Ratio 17.8, Glucose 130 H, Calcium 8.5 05/05/22 06:38: WBC 10.2, RBC 5.01, Hgb 15.0, Hct 44.9, MCV 89.6, MCH 29.9, MCHC 33.4, RDW Std Deviation 43.1, RDW Coeff of Samm 13.2, Plt Count 291, MPV 9.8, Immature Gran % (Auto) 0.300, Neut % (Auto) 66.7, Lymph % (Auto) 22.1, [place] % (Auto) 7.7, Eos % (Auto) 2.5, Baso % (Auto) 0.7, Absolute Neuts (auto) 6.8, Absolute Lymphs (auto) 2.26, Nucleated RBC % 0 05/05/22 06:38: Sodium 139, Potassium 3.3 L, Chloride 103, Carbon Dioxide 28.0, Anion Gap 8, BUN 12, Creatinine 0.79, Estim Creat Clear Calc 129.62, Est GFR (MDRD) Af Amer 139, Est GFR (MDRD) Non-Af 115, BUN/Creatinine Ratio 15.1, Glucose 101, Calcium 8.8 Radiography Diagnostic Testing: Radiology Impression Foot X-Ray 05/04/22 15:24 IMPRESSION: Traumatic amputation of the bone and soft tissue and fracture of the tuft of the 1st digit, amputation of the head of the 2nd proximal phalanx and entire 2nd middle and distal phalanx. Electronically Signed: Gen Kemp MD at 16:12 EDT , Foot X-Ray 05/04/22 19:26 IMPRESSION: There hs been surgical amputation of the head of the 1st proximal phalanx and distal 1st digit. Surgical amputation of the head of the 2nd proximal phalanx and entire 2nd middle and distal phalanx. Electronically Signed: Gen Kepm MD at 20:29 EDT , Physical Exam Narrative GENERAL: cooperative HEENT: Atraumatic; normocephalic EYES; Anicteric, Normal Conjunctiva NECK; supple, normal thyroid, RESPIRATORY: Diminished to auscultation CARDIOVASCULAR: Regular S1 S2, GI: soft, normoactive bowel sounds, : No Renal angle tenderness; EXTREMITIES: Right foot in surgical dressing MUSCULOSKELETAL: no muscle wasting NEURO: Awake; no lateralizing signs. SKIN: No Rash PSYCH; Flat affect Assessment & Plan Assessment/Plan (1) Palpitations: (2) Essential hypertension: PLAN: Plan Patient is a 41-year-old gentleman with traumatic laceration amputation of the first and second toes with subsequent subungual hematoma who underwent irrigation and debridement of all nonviable necrotic and unhealthy soft tissue and avulsion/removal of the right third toenail by Dr. Trores on 05/04/2022 the hospitalist service was consulted to assist with management of patient medical comorbidities 1. Traumatic laceration and amputation of the first and second toes ? Status post debridement of all nonviable necrotic and unhealthy soft tissue and avulsion/removal of the right third toenail by Dr. Torres on 05/04/2022 2. Hypertension - Blood pressure controlled, home medications continued with dose adjustment as needed 3. Depression ? Patient is on Wellbutrin 4. Class III obesity with BMI of 48.8 ? Weight loss advised 5. Obstructive sleep apnea ? CPAP at night 6. DVT prophylaxis ? Will defer to primary service Charges/Coding Visit Charges Inpatient E&M: 62555 Subs Hosp L2
[2022-05-05] MEDS: Losartan Potassium 100 MG Tablet PO (08:41)
[2022-05-05] MEDS: hydroCHLOROthiazide 25 MG Tablet PO (08:41)
[2022-05-05] MEDS: Atenolol 25 MG Tablet PO (08:42)
[2022-05-05] MEDS: buPROPion (SR) 150 MG Tablet.SA PO ×2 (08:42→21:21)
--- NOTE | 2022-05-05 11:38 | CASEMGMT ---
JOVON BARRETT Assessment: Face to Face with pt for initial transition planning/care coordination assessment. JOVON BARRETT introduced self and role at [facility], pt voices understanding and consents to assessment. Pt is A/O x4 and answers all questions appropriately at this time. Pt sitting up in chair in no distress. Care providers, pharmacy, and demographics verified/updated. Admitting Dx: mangled toes PCP:Luis Specialists:Brian, pod; Shaka, cardio; Sibilia, pulm Preferred Pharmacy: [facility] Retail Insurance: [place] Prescription Benefit: yes LW/HPOA: Pt denies having a LW/DPOA and denies need for info regarding AD. LNOK: Kiley Powell, ; Guerita Powell, mother Living Arrangements: Pt lives with in a two story house with 3 steps to enter with a rail. Pt reports he is typically I in ADL's and denies concerns at home. Transportation: Pt drives self and denies concerns with transportation. Pt able to transport to medical appts as well. DME/HHC/SNF: Pt has a CPAP at home. He has a surgical shoe in the room. Pt is planning on borrowing a knee scooter and a shower chair from family. He will need a FWW per therapy. Provided pt with a local in network list of DME providers and pt chose [employer]. Pt states his is able to complete dressing changes for him. Pt states the wound nurse stated she will teach her. He declines need for HHC. Pt states no concerns with going home at time of dc. Once pt is in the home, he can live on the main level. Pt states no further concerns/needs. CM to follow. Advised pt to ask CM if any further question/concerns/needs arise, voices understanding. Pt Goal: Home Plan: Home, will set up with FWW.
--- NOTE | 2022-05-05 14:44 | PCM.RX.CS ---
Consult Pharmacy has been consulted to manage selected antiobiotic: Vancomycin Type of Consult: New start Suspected Infection: Skin/Soft tissue Prior Doses of Antibiotics Received/Current Regimen: 05/05/22 @ 1419 Labs: Sodium 139 mmol/L (136-145) 05/05/22 06:38 Potassium 3.3 mmol/L (3.5-5.1) L 05/05/22 06:38 Chloride 103 mmol/L (98-107) 05/05/22 06:38 Carbon Dioxide 28.0 mmol/L (21.0-32.0) 05/05/22 06:38 Anion Gap 8 (5-15) 05/05/22 06:38 BUN 12 mg/dL (7-18) 05/05/22 06:38 Creatinine 0.79 mg/dL (0.70-1.30) 05/05/22 06:38 Est GFR (MDRD) Af Amer 139 mL/min (>60) 05/05/22 06:38 Est GFR (MDRD) Non-Af 115 mL/min (>60) 05/05/22 06:38 BUN/Creatinine Ratio 15.1 RATIO (10-20) 05/05/22 06:38 Glucose 101 mg/dL (74-106) 05/05/22 06:38 Microbiology: Microbiology 05/04/22 Unknown Wound - Toe Gram Stain - Final 05/04/22 Unknown Wound - Toe Wound Culture - Preliminary Gram positive organism 05/04/22 Unknown Bone - Toe Gram Stain - Final 05/04/22 Unknown Bone - Toe Wound Culture - Preliminary Gram positive organism Weight used for dosin.2 kg Estimated Creatinine Clearance: 129 Goal Trough: 15-20 mcg/mL Pharmacy Plan for Drug Dosing: GIVE 1500MG EVERY 8 HOURS STARTING 05/05/22 @2200 Pharmacy Service will continue to monitor and adjust dosing as required. Follow-Up Labs: Trough Vancomycin Labs to be done on [date and time ordered]: 05/06/22 @ 3713
--- NOTE | 2022-05-05 14:55 | CON.PCM.ID_ITS ---
Assessment & Plan Assessment/Plan (1) Traumatic amputation of toe: PLAN: Lawnmower accident on 05/04 to R foot, taken to OR that day by Dr. Torres. Surg cxs with gram positive seen. On zosyn, will add vanc. Will follow, thank you HPI Consult Data Date of Consult: 05/05/22 HPI Narrative Reason for Consultation: foot infection HPI Narrative: SONAM GUPTA, is a 41 M who presented 05/04 after R foot got caught in lawnmower. Taken to OR emergently by Dr. Torres. Toe amputations done. On zosyn. Feeling ok, pain controlled, no fever. Full ROS performed and neg except as noted above. [facility] Medical History Essential hypertension REYES (obstructive sleep apnea) Palpitations Home Medications bupropion HCl 150 mg tablet,12 hr sustained-release (Wellbutrin SR) 150 mg PO BID 09/18/17 [History Last Taken Unknown] losartan 100 mg-hydrochlorothiazide 25 mg tablet (Hyzaar) 1 tab PO QDAY 09/18/17 [History Last Taken Unknown] atenolol 25 mg tablet 25 mg PO QDAY #90 tabs 08/07/21 [Rx Last Taken Unknown] Allergy/AdvReac Type Severity Reaction Status Date / Time No Known Allergies Allergy Verified 05/04/22 15:10 Family History Grandfather Myocardial infarction Grandfather Myocardial infarction Father Hypertension Grandmother Hypertension Grandmother Hypertension Surgical History History of shoulder surgery Social History (Updated 09/20/18 @ 08:34 by Alejandro Eubanks NP, PRO[employer]S MANAGER-[employer]) Smoking Status: Never smoker alcohol intake: never substance use type: does not use caffeine: Yes Type: coffee Number of servings: 2 what type of physical activity do you participate in: none Physical Exam Const alert, oriented x3 and no apparent distress General Appearance: cooperative HEENT normocephalic and head/scalp atraumatic Eyes PERRL and EOMs intact bilaterally Neck supple and No nodes Resp normal air movement and clear to auscultation bilaterally Cardio regular rate and regular rhythm GI soft to palpation, non-tender and non-distended Extremity General Extremity: Negative for edema Skin Skin Narrative: R foot wrapped, reviewed photo Lab / Micro Data Attestation: I reviewed the patient's lab results. Result Diagrams: 05/05/22 06:38 05/05/22 06:38 Labs: Laboratory Results - last 24 hr 05/04/22 21:26: WBC 9.2, RBC 5.01, Hgb 14.9, Hct 44.6, MCV 89.0, MCH 29.7, MCHC 33.4, RDW Std Deviation 42.6, RDW Coeff of Samm 13.0, Plt Count 302, MPV 9.6, Immature Gran % (Auto) 0.300, Neut % (Auto) 75.5 H, Lymph % (Auto) 16.4 L, [place] % (Auto) 5.2, Eos % (Auto) 1.7, Baso % (Auto) 0.9, Absolute Neuts (auto) 6.9, Absolute Lymphs (auto) 1.51, Nucleated RBC % 0 05/04/22 21:26: Sodium 142, Potassium 3.6, Chloride 106, Carbon Dioxide 27.0, Anion Gap 9, BUN 16, Creatinine 0.90, Estim Creat Clear Calc 113.78, Est GFR (MDRD) Af Amer 120, Est GFR (MDRD) Non-Af 99, BUN/Creatinine Ratio 17.8, Glucose 130 H, Calcium 8.5 05/05/22 06:38: WBC 10.2, RBC 5.01, Hgb 15.0, Hct 44.9, MCV 89.6, MCH 29.9, MCHC 33.4, RDW Std Deviation 43.1, RDW Coeff of Samm 13.2, Plt Count 291, MPV 9.8, Immature Gran % (Auto) 0.300, Neut % (Auto) 66.7, Lymph % (Auto) 22.1, [place] % (Auto) 7.7, Eos % (Auto) 2.5, Baso % (Auto) 0.7, Absolute Neuts (auto) 6.8, Absolute Lymphs (auto) 2.26, Nucleated RBC % 0 05/05/22 06:38: Sodium 139, Potassium 3.3 L, Chloride 103, Carbon Dioxide 28.0, Anion Gap 8, BUN 12, Creatinine 0.79, Estim Creat Clear Calc 129.62, Est GFR (MDRD) Af Amer 139, Est GFR (MDRD) Non-Af 115, BUN/Creatinine Ratio 15.1, Glucose 101, Calcium 8.8 Micro: Microbiology 05/04/22 Unknown Wound - Toe Gram Stain - Final 05/04/22 Unknown Wound - Toe Wound Culture - Preliminary Gram positive organism 05/04/22 Unknown Bone - Toe Gram Stain - Final 05/04/22 Unknown Bone - Toe Wound Culture - Preliminary Gram positive organism Radiology Impression Foot X-Ray 05/04/22 15:24 IMPRESSION: Traumatic amputation of the bone and soft tissue and fracture of the tuft of the 1st digit, amputation of the head of the 2nd proximal phalanx and entire 2nd middle and distal phalanx. Electronically Signed: Gen Kemp MD at 16:12 EDT , Foot X-Ray 05/04/22 19:26 IMPRESSION: There hs been surgical amputation of the head of the 1st proximal phalanx and distal 1st digit. Surgical amputation of the head of the 2nd proximal phalanx and entire 2nd middle and distal phalanx. Electronically Signed: Gen Kemp MD at 20:29 EDT ,
[2022-05-05] MEDS: Juven (unflavored) Packet 1 PACKET PO (17:11)
[2022-05-05] MEDS: Acetaminophen 325 MG Tablet 650 MG PO (17:11)
[2022-05-05] MEDS: Gabapentin 300 MG Capsule PO (18:59)
[2022-05-06 02:00] VITALS: BP 165/83; PULSE 85; RESP 16; TEMP 36.6; O2SAT 98
[2022-05-06] MEDS: Acetaminophen 325 MG Tablet 650 MG PO ×2 (03:30→18:41)
[2022-05-06] MEDS: Gabapentin 300 MG Capsule PO ×2 (06:20→15:41)
[2022-05-06 06:33] LABS: Absolute Lymphocyte Count 1.93 X10^3/uL (0.83-4.51); Basophil# 0.07 X10^3/uL; Basophil% 0.8 % (0-1); Eosinophil# 0.23 X10^3/uL; Eosinophils% 2.5 % (0-5); Hematocrit 45.7 % (40-54); Hemoglobin 15.3 g/dL (13.0-16.5); Lymphocyte # 1.93 X10^3/ul (0.83-4.51); Lymphocyte % 20.8 % (19-41); Mean Corp Hgb Conc 33.5 g/dL (32-36); Mean Corpuscular Hgb 30.1 pg (27.0-32.0); Mean Corpuscular Volume 89.8 fL (80-94); Mean Platelet Vol. 9.5 fl (6.2-12.0); Monocyte# 1.01 X10^3/uL; Monocyte% 10.9 % (0-10); NRBC Flagged by Analyzer 0 % (0-5); Neutrophil # 5.98 X10^3/uL (2.7-7.7); Neutrophil % 64.6 % (47-70); Platelet Count 281 K/mm3 (150-450); RBC Distribution Width CV 12.9 % (11.6-14.6); RBC Distribution Width SD 42.8 fl (35.1-43.9); Red Blood Count 5.09 M/mm3 (4.6-6.2); White Blood Count 9.3 K/mm3 (4.4-11.0)
[2022-05-06 07:09] LABS: Anion Gap 5 (5-15); BUN 14 mg/dL (7-18); BUN/Creat Ratio 14.9 RATIO (10-20); Calcium,Total 8.9 mg/dL (8.5-10.1); Chloride 101 mmol/L (98-107); Creatinine, Serum 0.94 mg/dL (0.70-1.30); EST Glomerular Filtration Rate 95 mL/min (>60); Est Glom Filt Rate - Afr Amer 115 mL/min (>60); Estimated Creatinine Clearance 108.94 ml/min; Glucose 116 mg/dL (74-106); Magnesium 2.2 mg/dL (1.6-2.6); Potassium 4.3 mmol/L (3.5-5.1); Sodium Level 138 mmol/L (136-145)
--- NOTE | 2022-05-06 07:15 | PCM.PROGNOTE ---
Subjective Subjective Patient was seen this morning for follow up on right foot. He relates right now the pain is well controlled, but was painful yesterday. He relates the Neurontin helped. He is currently afebrile. Objective Data Objective Data Vital Signs: Vital Signs Temp Pulse Resp BP Pulse Ox O2 Del Method O2 Flow Rate 97.8 F 85 16 165/83 H 98 CPAP 2 05/06/22 02:00 05/06/22 02:00 05/06/22 02:00 05/06/22 02:00 05/06/22 02:00 05/06/22 02:00 05/06/22 02:00 FiO2 21 05/06/22 02:00 Oxygen Flow Rate (L/min) 2 Oxygen Delivery Method CPAP Weight: 154.221 kg Body Mass Index (BMI) 48.7 Intake & Output: Intake and Output for Last 24 Hours 05/04/22 05/05/22 05/06/22 23:59 23:59 23:59 Intake Total 1050 / 1290 1660 / 2260 1150 / 1150 Output Total 2300 / 2800 950 / 950 Balance 1050 / 1290 -640 / -540 200 / 200 Lab / Micro Data Result Diagrams: 05/06/22 06:25 05/06/22 06:25 Labs: Laboratory Results - last 24 hr 05/05/22 06:38: Sodium 139, Potassium 3.3 L, Chloride 103, Carbon Dioxide 28.0, Anion Gap 8, BUN 12, Creatinine 0.79, Estim Creat Clear Calc 129.62, Est GFR (MDRD) Af Amer 139, Est GFR (MDRD) Non-Af 115, BUN/Creatinine Ratio 15.1, Glucose 101, Calcium 8.8 05/06/22 06:25: WBC 9.3, RBC 5.09, Hgb 15.3, Hct 45.7, MCV 89.8, MCH 30.1, MCHC 33.5, RDW Std Deviation 42.8, RDW Coeff of Samm 12.9, Plt Count 281, MPV 9.5, Immature Gran % (Auto) 0.400, Neut % (Auto) 64.6, Lymph % (Auto) 20.8, [place] % (Auto) 10.9 H, Eos % (Auto) 2.5, Baso % (Auto) 0.8, Absolute Neuts (auto) 6.0, Absolute Lymphs (auto) 1.93, Nucleated RBC % 0 05/06/22 06:25: Sodium 138, Potassium 4.3, Chloride 101, Carbon Dioxide 32.0, Anion Gap 5, BUN 14, Creatinine 0.94, Estim Creat Clear Calc 108.94, Est GFR (MDRD) Af Amer 115, Est GFR (MDRD) Non-Af 95, BUN/Creatinine Ratio 14.9, Glucose 116 H, Calcium 8.9, Magnesium 2.2 Micro: Microbiology 05/04/22 Unknown Wound - Toe Gram Stain - Final 05/04/22 Unknown Wound - Toe Wound Culture - Preliminary Gram positive organism 05/04/22 Unknown Bone - Toe Gram Stain - Final 05/04/22 Unknown Bone - Toe Wound Culture - Preliminary Gram positive organism Physical Exam Narrative Right foot with partial 1st and 2nd toe amputation, as well as absent 3rd toenail - no active bleeding, tissues are overall healthy and viable, there is noted to be some erythema to the dorsal forefoot, CFT < 2 seconds to 1st and 2nd toe stumps, and to 3, 4, 5 toes on the right foot, pedal pulses intact to the right foot, no evidence of compartment syndrome, muscle strength intact, no visible abscess, no streaking, no maloder, no fluctuance, no crepitus, no blistering. Const alert, oriented x3 and no apparent distress Assessment & Plan Assessment/Plan (1) Traumatic amputation of toe: (2) Laceration of toe: (3) Fracture of toe, open: (4) Injury of foot, right: PLAN: Plan s/p right foot debridement on 05/04/2022. There is noted to be development of some erythema to the dorsal forefoot. Cultures have been obtained and results pending but so far growing gram positive organism - patient is on Zosyn and Vancomycin at this time - Dr. Foley on consult - appreciate assistance. Will continue to follow cultures and monitor foot. Wound care - betadine soln topically with overlying gauze, kerlix and randell - change daily. No weightbearing right foot, keep foot elevated. Pain management - Dilaudid, Oxyir, Tyenol, and Neurontin. The patient has hx of hypertension, REYES, and also takes bupropion, the hospitalist was consulted. Appreciate assistance.
--- NOTE | 2022-05-06 07:56 | PCM.PN.HOSP ---
Subjective Subjective Patient wound cultures so far positive for gram-negative larissa as well as mixed gram-positive organisms final identification is pending. Patient remains on broad-spectrum antibiotic therapy ID on consult Objective Data Objective Data Vital Signs: Vital Signs Temp Pulse Resp BP Pulse Ox O2 Del Method O2 Flow Rate 97.8 F 85 16 165/83 H 98 CPAP 2 05/06/22 02:00 05/06/22 02:00 05/06/22 02:00 05/06/22 02:00 05/06/22 02:00 05/06/22 02:00 05/06/22 02:00 FiO2 21 05/06/22 02:00 Oxygen Flow Rate (L/min) 2 Oxygen Delivery Method CPAP Weight: 154.221 kg Body Mass Index (BMI) 48.7 Intake & Output: Intake and Output for Last 24 Hours 05/04/22 05/05/22 05/06/22 23:59 23:59 23:59 Intake Total 1050 / 1290 1660 / 2260 1150 / 1150 Output Total 2300 / 2800 950 / 950 Balance 1050 / 1290 -640 / -540 200 / 200 Lab / Micro Data Result Diagrams: 05/06/22 06:25 05/06/22 06:25 Labs: Laboratory Results - last 24 hr 05/06/22 06:25: WBC 9.3, RBC 5.09, Hgb 15.3, Hct 45.7, MCV 89.8, MCH 30.1, MCHC 33.5, RDW Std Deviation 42.8, RDW Coeff of Samm 12.9, Plt Count 281, MPV 9.5, Immature Gran % (Auto) 0.400, Neut % (Auto) 64.6, Lymph % (Auto) 20.8, [place] % (Auto) 10.9 H, Eos % (Auto) 2.5, Baso % (Auto) 0.8, Absolute Neuts (auto) 6.0, Absolute Lymphs (auto) 1.93, Nucleated RBC % 0 05/06/22 06:25: Sodium 138, Potassium 4.3, Chloride 101, Carbon Dioxide 32.0, Anion Gap 5, BUN 14, Creatinine 0.94, Estim Creat Clear Calc 108.94, Est GFR (MDRD) Af Amer 115, Est GFR (MDRD) Non-Af 95, BUN/Creatinine Ratio 14.9, Glucose 116 H, Calcium 8.9, Magnesium 2.2 Micro: Microbiology 05/04/22 Unknown Wound - Toe Gram Stain - Final 05/04/22 Unknown Wound - Toe Wound Culture - Preliminary Gram negative larissa Mixed Gram Positive Organisms 05/04/22 Unknown Bone - Toe Gram Stain - Final 05/04/22 Unknown Bone - Toe Wound Culture - Preliminary Gram positive organism Physical Exam Narrative GENERAL: cooperative HEENT: Atraumatic; normocephalic EYES; Anicteric, Normal Conjunctiva NECK; supple, normal thyroid, RESPIRATORY: Diminished to auscultation CARDIOVASCULAR: Regular S1 S2, GI: soft, normoactive bowel sounds, : No Renal angle tenderness; EXTREMITIES: Right foot in surgical dressing MUSCULOSKELETAL: no muscle wasting NEURO: Awake; no lateralizing signs. SKIN: No Rash PSYCH; Flat affect Assessment & Plan Assessment/Plan (1) Palpitations: (2) Essential hypertension: PLAN: Plan Patient is a 41-year-old gentleman with traumatic laceration amputation of the first and second toes with subsequent subungual hematoma who underwent irrigation and debridement of all nonviable necrotic and unhealthy soft tissue and avulsion/removal of the right third toenail by Dr. Torres on 05/04/2022 the hospitalist service was consulted to assist with management of patient medical comorbidities 1. Traumatic laceration and amputation of the first and second toes ? Status post debridement of all nonviable necrotic and unhealthy soft tissue and avulsion/removal of the right third toenail by Dr. Torres on 05/04/2022 05/06/2022; Patient wound cultures so far positive for gram-negative larissa as well as mixed gram-positive organisms final identification is pending. Patient remains on broad-spectrum antibiotic therapy ID on consult 2. Hypertension - Blood pressure controlled, home medications continued with dose adjustment as needed 3. Depression ? Patient is on Wellbutrin 4. Class III obesity with BMI of 48.8 ? Weight loss advised 5. Obstructive sleep apnea ? CPAP at night 6. DVT prophylaxis ? Will defer to primary service Charges/Coding Visit Charges Inpatient E&M: 04282 Subs Hosp L2
[2022-05-06 08:15] VITALS: BP 115/87; PULSE 80; RESP 18; TEMP 36.8; O2SAT 98
[2022-05-06] MEDS: Juven (unflavored) Packet 1 PACKET PO ×2 (08:36→16:50)
[2022-05-06] MEDS: buPROPion (SR) 150 MG Tablet.SA PO ×2 (08:37→21:35)
[2022-05-06] MEDS: hydroCHLOROthiazide 25 MG Tablet PO (08:37)
[2022-05-06] MEDS: oxyCODONE 5 MG Tablet PO ×2 (08:37→18:40)
[2022-05-06] MEDS: Losartan Potassium 100 MG Tablet PO (08:37)
[2022-05-06] MEDS: Atenolol 25 MG Tablet PO (08:37)
--- NOTE | 2022-05-06 08:42 | WOUNDNOTE ---
wound photo: right foot
[2022-05-06] MEDS: HYDROmorphone 1 MG/ML Syringe IV ×2 (12:09→21:34)
[2022-05-06] MEDS: 0.9% Saline Lock 10 ML Syringe IV ×2 (12:09→15:10)
--- NOTE | 2022-05-06 12:54 | PCM.PN.ID ---
Physical Exam Narrative Feeling better, pain improved, no fever, no n/v/d. Const alert and no apparent distress Resp normal air movement and clear to auscultation bilaterally Cardio regular rate and regular rhythm GI soft to palpation, non-tender and non-distended Skin Skin Narrative: reviewed photos ID ID: Route of nutrition/ use of supplements: [] Nutritional Intake: [] IV Site: [] Westfall Catheter: [] Assessment & Plan Assessment/Plan (1) Traumatic amputation of toe: PLAN: Lawnmower accident on 05/04 to R foot, taken to OR that day by Dr. Torres. Surg cxs with gram positive and GNR seen. On vanc/zosyn. Plan on 6 weeks abx, waiting on further identification. Foot with some mild redness this AM. Will follow, d/w human services case manager
[2022-05-06 14:01] VITALS: BP 120/56; PULSE 86; RESP 18; TEMP 37; O2SAT 99
[2022-05-06 14:11] LABS: Vancomycin, Trough Level 11.6 ug/mL (5.0-15.0)
--- NOTE | 2022-05-06 14:59 | PCM.RX.CS ---
Consult Pharmacy has been consulted to manage selected antiobiotic: Vancomycin Type of Consult: Follow-up Suspected Infection: Skin/Soft tissue Prior Doses of Antibiotics Received/Current Regimen: VANCOMYCIN 2000MG x1 05/05/22 @ 1419 VANCOMYCIN 1500MG 05/05/22 @ 2121 VANCOMYCIN 1500MG 05/06/22 @ 0611 VANCOMYCIN 1500MG 05/06/22 @ 1440 Labs: Sodium 138 mmol/L (136-145) 05/06/22 06:25 Potassium 4.3 mmol/L (3.5-5.1) 05/06/22 06:25 Chloride 101 mmol/L (98-107) 05/06/22 06:25 Carbon Dioxide 32.0 mmol/L (21.0-32.0) 05/06/22 06:25 Anion Gap 5 (5-15) 05/06/22 06:25 BUN 14 mg/dL (7-18) 05/06/22 06:25 Creatinine 0.94 mg/dL (0.70-1.30) 05/06/22 06:25 Est GFR (MDRD) Af Amer 115 mL/min (>60) 05/06/22 06:25 Est GFR (MDRD) Non-Af 95 mL/min (>60) 05/06/22 06:25 BUN/Creatinine Ratio 14.9 RATIO (10-20) 05/06/22 06:25 Glucose 116 mg/dL (74-106) H 05/06/22 06:25 Vancomycin Trough 11.6 ug/mL (5.0-15.0) 05/06/22 13:30 Microbiology: Microbiology 05/04/22 Unknown Bone - Toe Gram Stain - Final 05/04/22 Unknown Bone - Toe Wound Culture - Preliminary Staphylococcus species Gram negative larissa 05/04/22 Unknown Wound - Toe Gram Stain - Final 05/04/22 Unknown Wound - Toe Wound Culture - Preliminary Gram negative larissa Mixed Gram Positive Organisms Weight used for dosin.2 kg Estimated Creatinine Clearance: 109 Goal Trough: 15-20 mcg/mL Pharmacy Plan for Drug Dosing: Due to trough level of 11.6 increase Vancomycin to 1750mg q8h. Pharmacy Service will continue to monitor and adjust dosing as required. Follow-Up Labs: Trough Vancomycin Labs to be done on [date and time ordered]: 05/07/22@ 1400
[2022-05-06 20:29] VITALS: BP 151/74; PULSE 74; RESP 18; TEMP 36.6; O2SAT 98
--- NOTE | 2022-05-06 23:15 | CPS ---
Pt has own CPAP from home to use tonight.
[2022-05-06 23:44] VITALS: O2SAT 97
[2022-05-07] MEDS: Gabapentin 300 MG Capsule PO ×3 (00:23→20:35)
[2022-05-07 02:30] VITALS: BP 133/78; PULSE 73; RESP 18; TEMP 36.8; O2SAT 97
--- NOTE | 2022-05-07 07:13 | PN_ITS ---
Subjective Subjective Patient was seen this morning for follow up on right foot. He relates pain is not to bad today. He has no fever or any other complaints. Objective Data Objective Data Vital Signs: Vital Signs Temp Pulse Resp BP Pulse Ox O2 Del Method O2 Flow Rate 98.2 F 73 18 133/78 H 97 Room Air 2 05/07/22 02:30 05/07/22 02:30 05/07/22 02:30 05/07/22 02:30 05/07/22 02:30 05/07/22 02:30 05/07/22 02:30 FiO2 21 05/07/22 02:30 Oxygen Flow Rate (L/min) 2 Oxygen Delivery Method Room Air Weight: 154.221 kg Body Mass Index (BMI) 48.7 Intake & Output: Intake and Output for Last 24 Hours 05/05/22 05/06/22 05/07/22 23:59 23:59 23:59 Intake Total 1660 / 2260 3095 / 3495 800 / 800 Output Total 2300 / 2800 950 / 950 Balance -640 / -540 2145 / 2545 800 / 800 Lab / Micro Data Result Diagrams: 05/06/22 06:25 05/06/22 06:25 Labs: Laboratory Results - last 24 hr 05/06/22 13:30: Vancomycin Trough 11.6 Micro: Microbiology 05/04/22 Unknown Bone - Toe Gram Stain - Final 05/04/22 Unknown Bone - Toe Wound Culture - Preliminary Staphylococcus species Gram negative larissa 05/04/22 Unknown Wound - Toe Gram Stain - Final 05/04/22 Unknown Wound - Toe Wound Culture - Preliminary Gram negative larissa Mixed Gram Positive Organisms Physical Exam Narrative Right foot with partial 1st and 2nd toe amputation, as well as absent 3rd toenail - no active bleeding, tissues are overall healthy and viable, there is some devitalized edges of the 1st toe flap site, there is noted to be some erythema to the dorsal forefoot which is a little more today, CFT < 2 seconds to 1st and 2nd toe stumps, and to 3, 4, 5 toes on the right foot, pedal pulses intact to the right foot, no evidence of compartment syndrome, muscle strength intact, no visible abscess, no streaking, no maloder, no fluctuance, no crepitus, no blistering. Const alert, oriented x3 and no apparent distress Assessment & Plan Assessment/Plan (1) Traumatic amputation of toe: (2) Laceration of toe: (3) Fracture of toe, open: (4) Injury of foot, right: PLAN: Plan s/p right foot debridement on 05/04/2022. There is noted to be development of some erythema to the dorsal forefoot, and a little bit more today. Cultures have been obtained and results pending but so far growing mixed gram positive organisms and gram negative rods - patient is on Zosyn and Vancomycin at this time - Dr. Foley on consult - appreciate assistance. Ordered new right foot xrays. I recommend continuing continue to follow cultures and monitor foot. As noted above, there is a bit more erythema to the dorsal foot (more so at the lateral aspect), but there is no visible abscess, no fluctuance, no crepitus, but will consider revision debridement if needed. Wound care - betadine soln topically with overlying gauze, kerlix and randell - carmel nge daily. No weightbearing right foot, keep foot elevated. Pain management - Dilaudid, Oxyir, Tyenol, and Neurontin. The patient has hx of hypertension, REYES, and also takes bupropion, the hospita list was consulted. Appreciate assistance. Patient will need to stay for continued treatment and monitoring at this time.
--- NOTE | 2022-05-07 07:24 | RAD_ITS ---
STUDY: X-RAY - RIGHT FOOT CLINICAL: Male, 41 years old. Postsurgical evaluation. TECHNIQUE: 3 view(s) of the foot. COMPARISON: 05/04/2022. FINDINGS: Resection of the distal aspects of the proximal phalanges of the first and second digits, unchanged. Minimal soft tissue swelling at the resection sites. Stable mild osteoarthritic changes. The soft tissue structures are otherwise unremarkable. RAD/Foot min 3 Views IMPRESSION: Stable post surgical changes of the right foot. No complications. Electronically Signed: Adelso Narayanan, at 13:47 EDT ,
[2022-05-07 07:27] VITALS: BP 168/86; PULSE 89; RESP 18; TEMP 36.8; O2SAT 94
[2022-05-07 07:27] LABS: Absolute Lymphocyte Count 2.05 X10^3/uL (0.83-4.51); Absolute Neutrophil Count 5.8 X10^3/uL (2.0-7.7); Basophil# 0.11 X10^3/uL; Basophil% 1.2 % (0-1); Eosinophil# 0.27 X10^3/uL; Eosinophils% 2.9 % (0-5); Hematocrit 47.3 % (40-54); Hemoglobin 15.9 g/dL (13.0-16.5); Lymphocyte # 2.05 X10^3/ul (0.83-4.51); Lymphocyte % 22.1 % (19-41); Mean Corp Hgb Conc 33.6 g/dL (32-36); Mean Corpuscular Hgb 30.2 pg (27.0-32.0); Mean Corpuscular Volume 89.8 fL (80-94); Mean Platelet Vol. 9.9 fl (6.2-12.0); Monocyte# 1.02 X10^3/uL; NRBC Flagged by Analyzer 0 % (0-5); Neutrophil # 5.81 X10^3/uL (2.7-7.7); Neutrophil % 62.5 % (47-70); Platelet Count 307 K/mm3 (150-450); RBC Distribution Width CV 12.8 % (11.6-14.6); RBC Distribution Width SD 42.4 fl (35.1-43.9); Red Blood Count 5.27 M/mm3 (4.6-6.2); White Blood Count 9.3 K/mm3 (4.4-11.0)
[2022-05-07 07:30] VITALS: O2SAT 94
[2022-05-07] MEDS: HYDROmorphone 1 MG/ML Syringe IV ×3 (07:32→22:19)
[2022-05-07] MEDS: 0.9% Saline Lock 10 ML Syringe IV ×3 (07:32→15:33)
--- NOTE | 2022-05-07 07:36 | PN.HOSP_ITS ---
Subjective Subjective Patient seen pain is tolerable. Cultures still pending. Objective Data Objective Data Vital Signs: Vital Signs Temp Pulse Resp BP Pulse Ox O2 Del Method O2 Flow Rate 98.2 F 89 18 168/86 H 94 Room Air 2 05/07/22 07:27 05/07/22 07:27 05/07/22 07:27 05/07/22 07:27 05/07/22 07:27 05/07/22 07:27 05/07/22 02:30 FiO2 21 05/07/22 02:30 Oxygen Flow Rate (L/min) 2 Oxygen Delivery Method Room Air Weight: 154.221 kg Body Mass Index (BMI) 48.7 Intake & Output: Intake and Output for Last 24 Hours 05/05/22 05/06/22 05/07/22 23:59 23:59 23:59 Intake Total 1660 / 2260 3095 / 3495 800 / 800 Output Total 2300 / 2800 950 / 950 Balance -640 / -540 2145 / 2545 800 / 800 Lab / Micro Data Result Diagrams: 05/07/22 07:00 05/07/22 07:00 Labs: Laboratory Results - last 24 hr 05/06/22 13:30: Vancomycin Trough 11.6 05/07/22 07:00: WBC 9.3, RBC 5.27, Hgb 15.9, Hct 47.3, MCV 89.8, MCH 30.2, MCHC 33.6, RDW Std Deviation 42.4, RDW Coeff of Samm 12.8, Plt Count 307, MPV 9.9, Immature Gran % (Auto) 0.300, Neut % (Auto) 62.5, Lymph % (Auto) 22.1, [place] % (Auto) 11.0 H, Eos % (Auto) 2.9, Baso % (Auto) 1.2 H, Absolute Neuts (auto) 5.8, Absolute Lymphs (auto) 2.05, Nucleated RBC % 0 Micro: Microbiology 05/04/22 Unknown Bone - Toe Gram Stain - Final 05/04/22 Unknown Bone - Toe Wound Culture - Preliminary Staphylococcus species Gram negative larissa 05/04/22 Unknown Wound - Toe Gram Stain - Final 05/04/22 Unknown Wound - Toe Wound Culture - Preliminary Gram negative larissa Mixed Gram Positive Organisms Physical Exam Narrative GENERAL: cooperative HEENT: Atraumatic; normocephalic EYES; Anicteric, Normal Conjunctiva NECK; supple, normal thyroid, RESPIRATORY: Diminished to auscultation CARDIOVASCULAR: Regular S1 S2, GI: soft, normoactive bowel sounds, : No Renal angle tenderness; EXTREMITIES: Right foot in surgical dressing MUSCULOSKELETAL: no muscle wasting NEURO: Awake; no lateralizing signs. SKIN: No Rash PSYCH; Flat affect Assessment & Plan Assessment/Plan (1) Palpitations: (2) Essential hypertension: PLAN: Plan Patient is a 41-year-old gentleman with traumatic laceration amputation of the first and second toes with subsequent subungual hematoma who underwent irrigation and debridement of all nonviable necrotic and unhealthy soft tissue and avulsion/removal of the right third toenail by Dr. Torres on 05/04/2022 the hospitalist service was consulted to assist with management of patient medical comorbidities 1. Traumatic laceration and amputation of the first and second toes ? Status post debridement of all nonviable necrotic and unhealthy soft tissue and avulsion/removal of the right third toenail by Dr. Torres on 05/04/2022 05/06/2022; Patient wound cultures so far positive for gram-negative larissa as well as mixed gram-positive organisms final identification is pending. Patient girish ins on broad-spectrum antibiotic therapy ID on consult 05/07/2022; Patient seen pain is tolerable. Cultures still pending. Patient seen by Dr. Foley with ID plan for patient to be discharged home with 6 weeks of antibiotic therapy 2. Hypertension - Blood pressure controlled, home medications continued with dose adjustment as needed ? 05/07/2022 patient blood pressure control not optimal adjusted BP meds. Added amlodipine 10 mg daily 3. Depression ? Patient is on Wellbutrin 4. Class III obesity with BMI of 48.8 ? Weight loss advised 5. Obstructive sleep apnea ? CPAP at night 6. DVT prophylaxis ? Started patient on Lovenox 40 mg SC BID since patient is hardly mobile Charges/Coding Visit Charges Inpatient E&M: 20045 Subs Hosp L2
[2022-05-07] MEDS: Juven (unflavored) Packet 1 PACKET PO ×2 (07:37→17:39)
[2022-05-07 07:50] LABS: Anion Gap 6 (5-15); BUN 13 mg/dL (7-18); BUN/Creat Ratio 13.5 RATIO (10-20); Calcium,Total 9.2 mg/dL (8.5-10.1); Chloride 103 mmol/L (98-107); Creatinine, Serum 0.96 mg/dL (0.70-1.30); EST Glomerular Filtration Rate 92 mL/min (>60); Est Glom Filt Rate - Afr Amer 111 mL/min (>60); Estimated Creatinine Clearance 106.67 ml/min; Glucose 120 mg/dL (74-106); Potassium 4.2 mmol/L (3.5-5.1); Sodium Level 138 mmol/L (136-145)
--- NOTE | 2022-05-07 08:39 | WOUNDNOTE ---
wound photo: right foot
--- NOTE | 2022-05-07 08:40 | WOUNDNOTE ---
wound photo: right foot
[2022-05-07] MEDS: hydroCHLOROthiazide 25 MG Tablet PO (09:56)
[2022-05-07] MEDS: Atenolol 25 MG Tablet PO (09:56)
[2022-05-07] MEDS: amLODIPine 10 MG Tablet PO (09:56)
[2022-05-07] MEDS: Losartan Potassium 100 MG Tablet PO (09:56)
[2022-05-07] MEDS: buPROPion (SR) 150 MG Tablet.SA PO ×2 (09:56→22:15)
[2022-05-07] MEDS: Enoxaparin 40 MG/0.4 ML Syringe SC ×2 (10:02→17:38)
[2022-05-07 12:28] VITALS: BP 163/83; PULSE 88; RESP 18; TEMP 36.9; O2SAT 100
[2022-05-07] MEDS: oxyCODONE 5 MG Tablet PO ×2 (12:29→18:44)
[2022-05-07] MEDS: Acetaminophen 325 MG Tablet 650 MG PO ×2 (12:29→18:44)
--- NOTE | 2022-05-07 12:48 | PCM.PN.ID ---
Physical Exam Narrative Feeling ok, no fever, no n/v/d. Const alert and no apparent distress General Appearance: cooperative Resp normal air movement and clear to auscultation bilaterally Cardio regular rate and regular rhythm GI soft to palpation, non-tender and non-distended Skin Skin Narrative: reviewed photo, R foot much more red ID ID: Route of nutrition/ use of supplements: [] Nutritional Intake: [] IV Site: [] Westfall Catheter: [] Assessment & Plan Assessment/Plan (1) Traumatic amputation of toe: PLAN: Lawnmower accident on 05/04 to R foot, taken to OR that day by Dr. Torres. Surg cxs with steno, staph capitis, enterobacter, mixed GPC. On vanc/zosyn. Plan on 6 weeks abx. Redness worse. Will change to vanc, levaquin, flagyl to see if adding steno coverage will help redness. Will order MRI to look for deeper infection. Will follow, d/w nursing
--- NOTE | 2022-05-07 12:49 | MRI_ITS ---
HISTORY: R foot osteo, FOOT VS MOWER 10/ 1ST/2ND DIGIT AFFECTED. TECHNIQUE: Multiplanar and multisequence MR images of the right foot were obtained before and after the intravenous administration of 30 cc CLARISCAN. 298 images. COMPARISON: XR same day. FINDINGS: BONE: Amputation of the first and second proximal phalangeal heads, middle, and distal phalanges. Smooth cortical margin of the first toe without confluent T1 signal abnormality. Mild bone marrow edema and enhancement at the tip of the second proximal phalanx without cortical destruction or confluent T1 signal abnormality. Bone marrow edema and enhancement of the third distal phalanx without confluent T1 signal abnormality. Mild bone marrow enhancement of the fourth and fifth proximal and middle phalanges without significant edema or confluent T1 signal abnormality. JOINTS: Normal forefoot alignment. Degenerative osteophytes of the first metatarsophalangeal joint with mild joint effusion. LIGAMENTS: Intact Lisfranc ligament. TENDONS: Mild fluid in the extensor tendon sheath of the first and second digits. SOFT TISSUES: Wounds at the tips of the remaining first and second toes. Subcutaneous edema of the foot and toes. No peripherally enhancing fluid collection. MRI/Lower Ext No Joint W/WO Cont IMPRESSION: Partial amputations of the right first and second toes. Mild bone marrow edema at the tip of the second proximal phalanx and in the third distal phalanx without cortical erosion, likely postoperative or posttraumatic bone marrow edema. Osteomyelitis considered less likely. Soft tissue swelling of the right foot. Electronically Signed: Stacia Oliveira MD at 16:19 EDT ,
[2022-05-07] MEDS: levoFLOXacin 500 MG Tablet PO (13:31)
[2022-05-07] MEDS: metroNIDAZOLE 500 MG Tablet PO ×2 (13:31→22:15)
[2022-05-07 14:45] LABS: Vancomycin, Trough Level 15.8 ug/mL (5.0-15.0)
--- NOTE | 2022-05-07 14:55 | PCM.RX.CS ---
Consult Pharmacy has been consulted to manage selected antiobiotic: Vancomycin Type of Consult: Follow-up Prior Doses of Antibiotics Received/Current Regimen: current dose is 1750mg IV q8h Labs: Sodium 138 mmol/L (136-145) 05/07/22 07:00 Potassium 4.2 mmol/L (3.5-5.1) 05/07/22 07:00 Chloride 103 mmol/L (98-107) 05/07/22 07:00 Carbon Dioxide 29.0 mmol/L (21.0-32.0) 05/07/22 07:00 Anion Gap 6 (5-15) 05/07/22 07:00 BUN 13 mg/dL (7-18) 05/07/22 07:00 Creatinine 0.96 mg/dL (0.70-1.30) 05/07/22 07:00 Est GFR (MDRD) Af Amer 111 mL/min (>60) 05/07/22 07:00 Est GFR (MDRD) Non-Af 92 mL/min (>60) 05/07/22 07:00 BUN/Creatinine Ratio 13.5 RATIO (10-20) 05/07/22 07:00 Glucose 120 mg/dL (74-106) H 05/07/22 07:00 Vancomycin Trough 15.8 ug/mL (5.0-15.0) H 05/07/22 14:06 Microbiology: Microbiology 05/04/22 Unknown Wound - Toe Gram Stain - Final 05/04/22 Unknown Wound - Toe Wound Culture - Preliminary Stenotrophomonas maltophilia Mixed Gram Positive Organisms 05/04/22 Unknown Wound - Toe Anaerobic Culture - Preliminary No anaerobic bacteria isolated. 05/04/22 Unknown Bone - Toe Gram Stain - Final 05/04/22 Unknown Bone - Toe Wound Culture - Final Staphylococcus capitis Enterobacter cloacae complex 05/04/22 Unknown Bone - Toe Anaerobic Culture - Preliminary No growth in 48 hours. Weight used for dosin kg Estimated Creatinine Clearance: 154ml/min Goal Trough: 15-20 mcg/mL Pharmacy Plan for Drug Dosing: The vanc trough drawn at 14:06 today (approximately 8 hours after the previous dose) was 15.8. This is within goal range so will keep same dose. Repeat another trough in 2 days per protocol. The patient's CrCl of 154ml/min was calculated using an adjusted body weight. Pharmacy Service will continue to monitor and adjust dosing as required. Follow-Up Labs: Trough Vancomycin Labs to be done on [date and time ordered]: 05/09/22 13:30
[2022-05-07 18:40] VITALS: BP 145/64; PULSE 96; RESP 18; TEMP 36.8; O2SAT 97
[2022-05-07 20:17] VITALS: BP 137/74; PULSE 88; RESP 18; TEMP 36.5; O2SAT 98
[2022-05-08 02:43] VITALS: BP 139/76; PULSE 83; RESP 18; TEMP 36.4; O2SAT 97
[2022-05-08 02:50] VITALS: BP 139/76; PULSE 83; RESP 18; TEMP 36.4; O2SAT 97
[2022-05-08 05:37] LABS: Absolute Neutrophil Count 4.8 X10^3/uL (2.0-7.7); Basophil# 0.08 X10^3/uL; Eosinophil# 0.37 X10^3/uL; Eosinophils% 4.6 % (0-5); Hematocrit 45.9 % (40-54); Hemoglobin 15.5 g/dL (13.0-16.5); Lymphocyte % 23.6 % (19-41); Mean Corp Hgb Conc 33.8 g/dL (32-36); Mean Corpuscular Hgb 29.8 pg (27.0-32.0); Mean Corpuscular Volume 88.1 fL (80-94); Mean Platelet Vol. 9.5 fl (6.2-12.0); Monocyte# 0.84 X10^3/uL; Monocyte% 10.4 % (0-10); NRBC Flagged by Analyzer 0 % (0-5); Neutrophil # 4.82 X10^3/uL (2.7-7.7); Neutrophil % 59.9 % (47-70); Platelet Count 308 K/mm3 (150-450); RBC Distribution Width CV 12.7 % (11.6-14.6); RBC Distribution Width SD 40.9 fl (35.1-43.9); Red Blood Count 5.21 M/mm3 (4.6-6.2); White Blood Count 8.1 K/mm3 (4.4-11.0)
[2022-05-08 05:47] LABS: Anion Gap 7 (5-15); BUN 17 mg/dL (7-18); BUN/Creat Ratio 18.9 RATIO (10-20); Calcium,Total 8.8 mg/dL (8.5-10.1); Chloride 104 mmol/L (98-107); EST Glomerular Filtration Rate 100 mL/min (>60); Est Glom Filt Rate - Afr Amer 121 mL/min (>60); Estimated Creatinine Clearance 113.78 ml/min; Glucose 112 mg/dL (74-106); Potassium 3.6 mmol/L (3.5-5.1); Sodium Level 138 mmol/L (136-145)
[2022-05-08] MEDS: 0.9% Saline Lock 10 ML Syringe IV (05:55)
[2022-05-08] MEDS: levoFLOXacin 500 MG Tablet PO (05:56)
[2022-05-08] MEDS: metroNIDAZOLE 500 MG Tablet PO (05:56)
[2022-05-08] MEDS: Enoxaparin 40 MG/0.4 ML Syringe SC (05:56)
--- NOTE | 2022-05-08 07:52 | PCM.PN.HOSP ---
Subjective Subjective MRI of the right foot obtained the day prior did not show any evidence of abscess no osteomyelitis. Patient currently being assessed for possible discharge by podiatry Objective Data Objective Data Vital Signs: Vital Signs Temp Pulse Resp BP Pulse Ox O2 Del Method O2 Flow Rate 97.6 F L 83 18 139/76 H 97 Room Air 2 05/08/22 02:50 05/08/22 02:50 05/08/22 02:50 05/08/22 02:50 05/08/22 02:50 05/08/22 02:50 05/08/22 02:50 FiO2 21 05/08/22 02:50 Oxygen Flow Rate (L/min) 2 Oxygen Delivery Method Room Air Weight: 154.221 kg Body Mass Index (BMI) 48.7 Intake & Output: Intake and Output for Last 24 Hours 05/06/22 05/07/22 05/08/22 23:59 23:59 23:59 Intake Total 3095 / 3495 2870 / 3370 1535 / 1535 Output Total 950 / 950 Balance 2145 / 2545 2870 / 3370 1535 / 1535 Lab / Micro Data Result Diagrams: 05/08/22 05:25 05/08/22 05:25 Labs: Laboratory Results - last 24 hr 05/07/22 14:06: Vancomycin Trough 15.8 H 05/08/22 05:25: WBC 8.1, RBC 5.21, Hgb 15.5, Hct 45.9, MCV 88.1, MCH 29.8, MCHC 33.8, RDW Std Deviation 40.9, RDW Coeff of Samm 12.7, Plt Count 308, MPV 9.5, Immature Gran % (Auto) 0.500, Neut % (Auto) 59.9, Lymph % (Auto) 23.6, [place] % (Auto) 10.4 H, Eos % (Auto) 4.6, Baso % (Auto) 1.0, Absolute Neuts (auto) 4.8, Absolute Lymphs (auto) 1.90, Nucleated RBC % 0 05/08/22 05:25: Sodium 138, Potassium 3.6, Chloride 104, Carbon Dioxide 27.0, Anion Gap 7, BUN 17, Creatinine 0.90, Estim Creat Clear Calc 113.78, Est GFR (MDRD) Af Amer 121, Est GFR (MDRD) Non-Af 100, BUN/Creatinine Ratio 18.9, Glucose 112 H, Calcium 8.8 Micro: Microbiology 05/04/22 Unknown Wound - Toe Gram Stain - Final 05/04/22 Unknown Wound - Toe Wound Culture - Preliminary Stenotrophomonas maltophilia Staphylococcus saprophyticus 05/04/22 Unknown Wound - Toe Anaerobic Culture - Preliminary No anaerobic bacteria isolated. 05/04/22 Unknown Bone - Toe Gram Stain - Final 05/04/22 Unknown Bone - Toe Wound Culture - Final Staphylococcus capitis Enterobacter cloacae complex 05/04/22 Unknown Bone - Toe Anaerobic Culture - Preliminary No growth in 48 hours. Radiography Diagnostic Testing: Radiology Impression Foot X-Ray 05/07/22 07:24 IMPRESSION: Stable post surgical changes of the right foot. No complications. Electronically Signed: Adelso Narayanan, at 13:47 EDT , Lower Extremity MRI 05/07/22 12:49 IMPRESSION: Partial amputations of the right first and second toes. Mild bone marrow edema at the tip of the second proximal phalanx and in the third distal phalanx without cortical erosion, likely postoperative or posttraumatic bone marrow edema. Osteomyelitis considered less likely. Soft tissue swelling of the right foot. Electronically Signed: Stacia Oliveira MD at 16:19 EDT , Physical Exam Narrative GENERAL: cooperative HEENT: Atraumatic; normocephalic EYES; Anicteric, Normal Conjunctiva NECK; supple, normal thyroid, RESPIRATORY: Diminished to auscultation CARDIOVASCULAR: Regular S1 S2, GI: soft, normoactive bowel sounds, : No Renal angle tenderness; EXTREMITIES: Right foot in surgical dressing MUSCULOSKELETAL: no muscle wasting NEURO: Awake; no lateralizing signs. SKIN: No Rash PSYCH; Flat affect Assessment & Plan Assessment/Plan (1) Palpitations: (2) Essential hypertension: (3) Injury of foot, right: PLAN: Plan Patient is a 41-year-old gentleman with traumatic laceration amputation of the first and second toes with subsequent subungual hematoma who underwent irrigation and debridement of all nonviable necrotic and unhealthy soft tissue and avulsion/removal of the right third toenail by Dr. Torres on 05/04/2022 the hospitalist service was consulted to assist with management of patient medical comorbidities 1. Traumatic laceration and amputation of the first and second toes ? Status post debridement of all nonviable necrotic and unhealthy soft tissue and avulsion/removal of the right third toenail by Dr. Torres on 05/04/2022 05/06/2022; Patient wound cultures so far positive for gram-negative larissa as well as mixed gram-positive organisms final identification is pending. Patient remains on broad-spectrum antibiotic therapy ID on consult 05/07/2022; Patient seen pain is tolerable. Cultures still pending. Patient seen by Dr. Foley with ID plan for patient to be discharged home with 6 weeks of antibiotic therapy ? 05/08/2022;MRI of the right foot obtained the day prior did not show any evidence of abscess no osteomyelitis. Patient currently being assessed for possible discharge by podiatry 2. Hypertension - Blood pressure controlled, home medications continued with dose adjustment as needed ? 05/07/2022 patient blood pressure control not optimal adjusted BP meds. Added amlodipine 10 mg daily 3. Depression ? Patient is on Wellbutrin 4. Class III obesity with BMI of 48.8 ? Weight loss advised 5. Obstructive sleep apnea ? CPAP at night 6. DVT prophylaxis ? Started patient on Lovenox 40 mg SC BID since patient is hardly mobile Charges/Coding Visit Charges Inpatient E&M: 68163 Subs Hosp L2
[2022-05-08 08:30] VITALS: BP 136/73; PULSE 87; RESP 18; TEMP 36.5; O2SAT 96
[2022-05-08] MEDS: Juven (unflavored) Packet 1 PACKET PO (08:30)
--- NOTE | 2022-05-08 08:32 | PCM.PROGNOTE ---
Subjective Subjective Patient was seen this morning for follow up on right foot. He relates foot is feeling better. He has no fever, chills, nausea or vomiting. His WBC is normal. New right foot xrays obtained yesterday - no gas, and foot stable. MRI was obtained and no abscess noted. Objective Data Objective Data Vital Signs: Vital Signs Temp Pulse Resp BP Pulse Ox O2 Del Method O2 Flow Rate 97.6 F L 83 18 139/76 H 97 Room Air 2 05/08/22 02:50 05/08/22 02:50 05/08/22 02:50 05/08/22 02:50 05/08/22 02:50 05/08/22 02:50 05/08/22 02:50 FiO2 21 05/08/22 02:50 Oxygen Flow Rate (L/min) 2 Oxygen Delivery Method Room Air Weight: 154.221 kg Body Mass Index (BMI) 48.7 Intake & Output: Intake and Output for Last 24 Hours 05/06/22 05/07/22 05/08/22 23:59 23:59 23:59 Intake Total 3095 / 3495 2870 / 3370 2069 Output Total 950 / 950 Balance 2145 / 2545 2870 / 3370 2069 Lab / Micro Data Result Diagrams: 05/08/22 05:25 05/08/22 05:25 Labs: Laboratory Results - last 24 hr 05/07/22 14:06: Vancomycin Trough 15.8 H 05/08/22 05:25: WBC 8.1, RBC 5.21, Hgb 15.5, Hct 45.9, MCV 88.1, MCH 29.8, MCHC 33.8, RDW Std Deviation 40.9, RDW Coeff of Samm 12.7, Plt Count 308, MPV 9.5, Immature Gran % (Auto) 0.500, Neut % (Auto) 59.9, Lymph % (Auto) 23.6, [place] % (Auto) 10.4 H, Eos % (Auto) 4.6, Baso % (Auto) 1.0, Absolute Neuts (auto) 4.8, Absolute Lymphs (auto) 1.90, Nucleated RBC % 0 05/08/22 05:25: Sodium 138, Potassium 3.6, Chloride 104, Carbon Dioxide 27.0, Anion Gap 7, BUN 17, Creatinine 0.90, Estim Creat Clear Calc 113.78, Est GFR (MDRD) Af Amer 121, Est GFR (MDRD) Non-Af 100, BUN/Creatinine Ratio 18.9, Glucose 112 H, Calcium 8.8 Micro: Microbiology 05/04/22 Unknown Wound - Toe Gram Stain - Final 05/04/22 Unknown Wound - Toe Wound Culture - Preliminary Stenotrophomonas maltophilia Staphylococcus saprophyticus 05/04/22 Unknown Wound - Toe Anaerobic Culture - Preliminary No anaerobic bacteria isolated. 05/04/22 Unknown Bone - Toe Gram Stain - Final 05/04/22 Unknown Bone - Toe Wound Culture - Final Staphylococcus capitis Enterobacter cloacae complex 05/04/22 Unknown Bone - Toe Anaerobic Culture - Preliminary No growth in 48 hours. Radiography Diagnostic Testing: Radiology Impression Foot X-Ray 05/07/22 07:24 IMPRESSION: Stable post surgical changes of the right foot. No complications. Electronically Signed: Adelso Narayanan at 13:47 EDT , Lower Extremity MRI 05/07/22 12:49 IMPRESSION: Partial amputations of the right first and second toes. Mild bone marrow edema at the tip of the second proximal phalanx and in the third distal phalanx without cortical erosion, likely postoperative or posttraumatic bone marrow edema. Osteomyelitis considered less likely. Soft tissue swelling of the right foot. Electronically Signed: Stacia Oliveira MD at 16:19 EDT , Physical Exam Narrative Right foot with partial 1st and 2nd toe amputation, as well as absent 3rd toenail - no active bleeding, tissues are overall healthy and viable, there is some devitalized edges of the 1st toe flap site, there is noted to be some erythema to the dorsal forefoot with areas of improvement but there is noted to be area of light erythema over the dorsal lateral hindfoot, CFT < 2 seconds to 1st and 2nd toe stumps, and to 3, 4, 5 toes on the right foot, pedal pulses intact to the right foot, no evidence of compartment syndrome, muscle strength intact, no visible abscess, no streaking, no maloder, no fluctuance, no crepitus, no blistering. Const alert, oriented x3 and no apparent distress Assessment & Plan Assessment/Plan (1) Traumatic amputation of toe: (2) Laceration of toe: (3) Fracture of toe, open: (4) Injury of foot, right: PLAN: Plan s/p right foot debridement on 05/04/2022. Cultures have been obtained and reviewed results - patient is on Vancomycin, Levofloxacin, and Metronidazole at this time - Dr. Foley on consult - appreciate assistance. Reviewed new right foot xrays and MRI - no gas, no abscess, bone noted to be c/w post traumatic changes. Clinically there is no visible abscess, no fluctuance, no crepitus. There is areas of improved erythema to the foot, there is noted to be slight erythema extending to lateral hindfoot which was marked today. Wound care - betadine soln topically with overlying gauze, kerlix and randell - change daily. No weightbearing right foot, keep foot elevated. Pain management - Dilaudid, Oxyir, Tyenol, and Neurontin. The patient has hx of hypertension, REYES, and also takes bupropion, the hospitalist was consulted. Appreciate assistance. Plan to discharge today with close out patient follow up.
[2022-05-08] MEDS: HYDROmorphone 1 MG/ML Syringe IV (08:39)
[2022-05-08 09:00] VITALS: BP 136/73; PULSE 96; RESP 18; TEMP 36.5; O2SAT 96
[2022-05-08] MEDS: Atenolol 25 MG Tablet PO (10:29)
[2022-05-08] MEDS: hydroCHLOROthiazide 25 MG Tablet PO (10:29)
[2022-05-08] MEDS: buPROPion (SR) 150 MG Tablet.SA PO (10:29)
[2022-05-08] MEDS: Losartan Potassium 100 MG Tablet PO (10:29)
[2022-05-08] MEDS: amLODIPine 10 MG Tablet PO (10:29)
--- NOTE | 2022-05-08 10:43 | PN.ID_ITS ---
Physical Exam Const Constitutional Narrative: Feeling better, redness improved, mild diarrhea, no abd pain Resp normal air movement and clear to auscultation bilaterally Cardio regular rate and regular rhythm GI soft to palpation, non-tender and non-distended Skin Skin Narrative: foot wrapped ID ID: Route of nutrition/ use of supplements: [] Nutritional Intake: [] IV Site: [] [place] Catheter: [] Assessment & Plan Assessment/Plan (1) Traumatic amputation of toe: PLAN: Lawnmower accident on 05/04 to R foot, taken to OR that day by Dr. Torres. Surg cxs with steno, staph capitis, enterobacter, CoNS. Plan on 6 weeks abx. Redness worsened while on vanc/zosyn. 05/07, changed to vanc, levaquin, flagyl to see if adding steno coverage will help redness. MRI showed no deeper infection. Redness improved today. Ok for home with po levaquin/flagyl, ID followup in 2 weeks. Pt counseled to avoid etoh while on flagyl and monitor for fever, redness, diarrhea, tendonopathy. Will follow, d/w disease case manager
--- NOTE | 2022-05-08 10:52 | CASEMGMT ---
JOVON CM in to pt room. Pt present. She states that now she has also obtained a walker for pt to use that is borrowed from a family member. Pt denies need for any DME. Pt states she is comfortable with performing dressing changes. Pt and still deny need for HHC and pt denies further homegoing needs.
--- NOTE | 2022-05-08 12:37 | DCINST_ITS ---
Discharge Instructions Activity Discharge Activity: May Not Drive, Use Walker and Use Crutches Weight Bearing Status: No weight bearing (No weightbearing right foot.) Keep extremity elevated above heart level: Right Leg (Keep right foot elevated for at least 50 minutes of every hour.) Dressing / Incision Call your doctor if your incision/area has: Continuous Slow Oozing, Sudden Increased Bleeding, Increased Pain/ Swelling, Increased Redness and Foul Smelling Discharge Call your doctor if you observe: Fever of 101 or Higher, Shortness of breath, Chest pain, Increased palpitations (irregular heartbeat), Calf discomfort and Uncontrolled pain Change Dressing in: 1 day Cleanse incision/area with: Normal Saline (Cleanse right foot with normal saline solution once daily, apply betadine solution topically to 1st, 2nd and 3rd toes, apply overlying gauze, kerlix gauze roll, and randell bandage - change daily.) Follow Up Care Please Follow Up With: Phillip Torres DPM When: Follow up with Dr. Torres at the [facility] on Thursday05/12/2022 - sooner if needed. Office Address: [address] [place] [address] Office phone number: [phone] Pager: [phone] Cell Test Results: Test results from this visit will be discussed in further detail at your follow- up appointment, if applicable. Discharge Plan Admission Admit Date/Time: 05/04/22 20:40 Attending Provider: Phillip Torres Primary Care Provider: Gaston Smith Consulting Providers: Yessenia Tay ; Francisco Koenig ; Fernando Zamora ; Reyna Vogel ; Italia Jeronimo NP ; Praam Archibald NP ; Lisbeth Fuchs ; Misael Hannah ; Cory Foley Discharge Orders/Prescriptions Prescriptions: New gabapentin [Neurontin] 300 mg capsule 300 mg PO TID Qty: 30 0RF oxycodone-acetaminophen [Percocet] 5-325 mg tablet 1 tab PO Q6H PRN (Reason: pain) 7 Days Qty: 30 0RF metronidazole 500 mg Tablet 500 mg PO TID Qty: 120 0RF amlodipine 10 mg Tablet 10 mg PO DAILY Qty: 60 0RF levofloxacin 500 mg Tablet 500 mg PO DAILY@0600 Qty: 40 0RF Tevin (with collagen) 7-7-1.5 gram Powder In Packet 1 packet PO BIDCM Qty: 60 0RF Continued bupropion HCl [Wellbutrin SR] 150 mg tablet extended release 12 hr 150 mg PO BID losartan-hydrochlorothiazide [Hyzaar] 100-25 mg tablet 1 tab PO QDAY atenolol 25 mg tablet 25 mg PO QDAY Qty: 90 4RF Referrals / Follow Up: Gaston Smith MD [Primary Care Provider] -
--- NOTE | 2022-05-08 12:50 | DS.PCM_ITS ---
Providers Date of Admission: 05/04/22 Date of Discharge: 05/08/22 Primary Care Physician: Dr. Gaston Smith MD Consultations 05/04/22 16:30 Consult: Hospitalist Routine Consulting Provider: [facility] Reason for Consult: medical mangement, hypertension EMERGENT Consult: No Notified: Yes Date Notified: 05/04/22 Time Notified: 16:30 Method of Notification: Verbal 05/04/22 17:35 Consult: Onc/Wound/professor of medicine Routine Comment: 05/05/22 07:37 Consult: Infectious Disease Routine Consulting Provider: Cory Foley Reason for Consult: open fractures 1st and 2nd toes EMERGENT Consult: No Notified: Yes Date Notified: 05/05/22 Time Notified: 07:37 Method of Notification: Text Reason For Visit: MANGLED TOES Diagnosis Discharge Diagnosis (1) Traumatic amputation of toe: Status: Acute Code(s): S98.139A - Complete traumatic amputation of one unspecified lesser toe, initial encounter (2) Laceration of toe: Status: Acute Code(s): S91.119A - Laceration without foreign body of unspecified toe without damage to nail, initial encounter (3) Fracture of toe, open: Status: Acute Code(s): S92.919B - Unspecified fracture of unspecified toe(s), initial encounter for open fracture (4) Injury of foot, right: Status: Acute Code(s): S99.921A - Unspecified injury of right foot, initial encounter Plan s/p right foot debridement on 05/04/2022. Cultures have been obtained and reviewed results - patient is on Vancomycin, Levofloxacin, and Metronidazole at this time - Dr. Foley on consult - appreciate assistance. Reviewed new right foot xrays and MRI - no gas, no ab scess, bone noted to be c/w post traumatic changes. Clinically there is no visible abscess, no fluctuance, no crepitus. There is areas of improved erythema to the foot, there is noted to be slight erythema extending to lateral hindfoot which was marked today. Wound care - betadine soln topically with overlying gauze, kerlix and randell - change daily. No weightbearing right foot, keep foot elevated. Pain management - Dilaudid, Oxyir, Tyenol, and Neurontin. The patient has hx of hypertension, REYES, and also takes bupropion, the hospitalist was consulted. Appreciate assistance. Plan to discharge today with close out patient follow up. Medications at Discharge Home Medications bupropion HCl 150 mg tablet,12 hr sustained-release (Wellbutrin SR) 150 mg PO BID 09/18/17 losartan 100 mg-hydrochlorothiazide 25 mg tablet (Hyzaar) 1 tab PO QDAY 09/18/17 atenolol 25 mg tablet 25 mg PO QDAY #90 tabs 08/07/21 amlodipine 10 mg tablet 10 mg PO DAILY #60 tabs 05/08/22 arginine 7 gram-glutam 7 gram-CaHMB 1.5 [id number]-min oral pwd pkt (Tevin (with collagen)) 1 packet PO BIDCM #60 ea 05/08/22 gabapentin 300 mg capsule (Neurontin) 300 mg PO TID #30 caps 05/08/22 levofloxacin 500 mg tablet 500 mg PO DAILY@0600 #40 tabs 05/08/22 metronidazole 500 mg tablet 500 mg PO TID #120 tabs 05/08/22 oxycodone-acetaminophen 5 mg-325 mg tablet (Percocet) 1 tab PO Q6H PRN pain 7 days #30 tabs 05/08/22 Hospital Course Summary of Care Provided Hospital Course: Patient sustained a lawnmower accident, he was taken for emergent irrigation and debridement on Thursday05/04/2022, which went well. He was on IV antibiotics Zosyn. Infectious Disease was consulted and added Vancomycin. Patient developed some cellulitis and antibiotics were adjusted based on culture results. Patient's foot is improving, patient is afebrile, WBC is normal, and xrays st able and no abscess on MRI. Patient is going to be dischargedhome on oral antibiotics Levofloxacin and Flagyl. Wound care has been reviewed and discussed with him in detail. He is going to follow up in office next week, sooner if needed. Physical Exam Narrative See the podiatry, infectious disease and hospitalist notes from today 05/08/22 for findings. Weight / BMI Weight Weight: 154.221 kg Body Mass Index (BMI) 48.7 ABG / Lab / Microbiology Data Result Diagrams: 05/08/22 05:25 05/08/22 05:25 Laboratory: Laboratory Results - last 24 hr 05/07/22 14:06: Vancomycin Trough 15.8 H 05/08/22 05:25: WBC 8.1, RBC 5.21, Hgb 15.5, Hct 45.9, MCV 88.1, MCH 29.8, MCHC 33.8, RDW Std Deviation 40.9, RDW Coeff of Samm 12.7, Plt Count 308, MPV 9.5, Immature Gran % (Auto) 0.500, Neut % (Auto) 59.9, Lymph % (Auto) 23.6, [place] % (Auto) 10.4 H, Eos % (Auto) 4.6, Baso % (Auto) 1.0, Absolute Neuts (auto) 4.8, Absolute Lymphs (auto) 1.90, Nucleated RBC % 0 05/08/22 05:25: Sodium 138, Potassium 3.6, Chloride 104, Carbon Dioxide 27.0, Anion Gap 7, BUN 17, Creatinine 0.90, Estim Creat Clear Calc 113.78, Est GFR (MDRD) Af Amer 121, Est GFR (MDRD) Non-Af 100, BUN/Creatinine Ratio 18.9, Glucose 112 H, Calcium 8.8 Microbiology: Microbiology 05/04/22 Unknown Wound - Toe Gram Stain - Final 05/04/22 Unknown Wound - Toe Wound Culture - Preliminary Stenotrophomonas maltophilia Staphylococcus saprophyticus 05/04/22 Unknown Wound - Toe Anaerobic Culture - Preliminary No anaerobic bacteria isolated. 05/04/22 Unknown Bone - Toe Gram Stain - Final 05/04/22 Unknown Bone - Toe Wound Culture - Final Staphylococcus capitis Enterobacter cloacae complex 05/04/22 Unknown Bone - Toe Anaerobic Culture - Preliminary No growth in 48 hours. Radiography Diagnostic Testing: Radiology Impression Foot X-Ray 05/07/22 07:24 IMPRESSION: Stable post surgical changes of the right foot. No complications. Electronically Signed: Adelso Narayanan, at 13:47 EDT , Lower Extremity MRI 05/07/22 12:49 IMPRESSION: Partial amputations of the right first and second toes. Mild bone marrow edema at the tip of the second proximal phalanx and in the third distal phalanx without cortical erosion, likely postoperative or posttraumatic bone marrow edema. Osteomyelitis considered less likely. Soft tissue swelling of the right foot. Electronically Signed: Stacia Oliveira MD at 16:19 EDT , D/C Instructions Weight Bearing Status: No weight bearing (No weightbearing right foot.) Keep extremity elevated above heart level: Right Leg (Keep right foot elevated for at least 50 minutes of every hour.) Call your doctor if your incision/area has: Continuous Slow Oozing, Sudden Increased Bleeding, Increased Pain/ Swelling, Increased Redness and Foul Smelling Discharge Call your doctor if you observe: Fever of 101 or Higher, Shortness of breath, Chest pain, Increased palpitations (irregular heartbeat), Calf discomfort and Uncontrolled pain Cleanse incision/area with: Normal Saline (Cleanse right foot with normal saline solution once daily, apply betadine solution topically to 1st, 2nd and 3rd toes, apply overlying gauze, kerlix gauze roll, and randell bandage - change daily.) Please Follow Up With: Phillip Torres DPM When: Follow up with Dr. Torres at the [facility] on Thursday05/12/2022 - sooner if needed. Office Address: [address] [place] [address] [place] [address] Office phone number: [phone] Pager: [phone] Cell Meaningful Use Info Meaningful Use Diagnoses (Choose all that apply): None applicable Discharge Plan Admission Admit Date/Time: 05/04/22 20:40 Attending Provider: Phillip Torres Primary Care Provider: Gaston Smith Consulting Providers: Yessenia Tay ; Francisco Koenig ; Fernando Zamora ; Reyna Vogel ; Italia Jeronimo NP ; Param Archibald NP ; Lisbeth Fuchs ; Misael Hannah ; Cory Foley Discharge Orders/Prescriptions Prescriptions: New gabapentin [Neurontin] 300 mg capsule 300 mg PO TID Qty: 30 0RF oxycodone-acetaminophen [Percocet] 5-325 mg tablet 1 tab PO Q6H PRN (Reason: pain) 7 Days Qty: 30 0RF metronidazole 500 mg Tablet 500 mg PO TID Qty: 120 0RF amlodipine 10 mg Tablet 10 mg PO DAILY Qty: 60 0RF levofloxacin 500 mg Tablet 500 mg PO DAILY@0600 Qty: 40 0RF Tevin (with collagen) 7-7-1.5 gram Powder In Packet 1 packet PO BIDCM Qty: 60 0RF Continued bupropion HCl [Wellbutrin SR] 150 mg tablet extended release 12 hr 150 mg PO BID losartan-hydrochlorothiazide [Hyzaar] 100-25 mg tablet 1 tab PO QDAY atenolol 25 mg tablet 25 mg PO QDAY Qty: 90 4RF Referrals / Follow Up: Gaston Smith MD [Primary Care Provider] - Disposition Discharge Orders: Discharge Patient (Routine); Ordered 05/08/22 Ordered By: Dr. Phillip Torres
== END 2022-05-08 14:30 | disposition home or self-care (01) | DRG 908 ==
LOC: ED 15:35 → SDC 17:04 → MS3 20:41
PROVIDERS: Internal Medicine; Internal Medicine Infectious Disease; Nurse Practitioner Family; Admitting Provider Podiatrist; Emergency Provider Emergency Medicine; PCP Family Medicine; Visit Provider Podiatrist
PROC: 0Y6P0Z0 Detachment at Right 1st Toe, Complete, Open Approach (ICD-10-PCS; principal; 2022-05-04 17:45)
DX: S98.139A Complete traumatic amputation of one unspecified lesser toe, initial encounter (principal); Z68.42 Body mass index [BMI] 45.0-49.9, adult; L03.90 Cellulitis, unspecified; E66.01 Morbid (severe) obesity due to excess calories; G47.33 Obstructive sleep apnea (adult) (pediatric); S92.919 Unspecified fracture of unspecified toe(s); I10 Essential (primary) hypertension; F32.A Depression, unspecified; R00.2 Palpitations
CPT/HCPCS: 36415; 73630; 73720; 80048; 80202; 83735; 85025; 87070; 87075; 87077; 87186; 87205; 88305; 88307; 88311; 94660; 94762; 97161; 97166; 99284; A9575; J7030; J7040; J7050; A4216; J2405

== ENCOUNTER → 2022-05-20 | Outpatient (CLI) | payer BC, SELFPAY ==
[2022-05-20 12:39] LABS: Absolute Lymphocyte Count 1.79 X10^3/uL (0.83-4.51); Absolute Neutrophil Count 4.2 X10^3/uL (2.0-7.7); Basophil% 1.4 % (0-1); Eosinophil# 0.36 X10^3/uL; Eosinophils% 5.1 % (0-5); Hematocrit 46.3 % (40-54); Hemoglobin 15.6 g/dL (13.0-16.5); Lymphocyte # 1.79 X10^3/ul (0.83-4.51); Lymphocyte % 25.5 % (19-41); Mean Corp Hgb Conc 33.7 g/dL (32-36); Mean Corpuscular Hgb 29.9 pg (27.0-32.0); Mean Corpuscular Volume 88.7 fL (80-94); Mean Platelet Vol. 9.7 fl (6.2-12.0); Monocyte# 0.58 X10^3/uL; Monocyte% 8.3 % (0-10); NRBC Flagged by Analyzer 0 % (0-5); Neutrophil # 4.16 X10^3/uL (2.7-7.7); Neutrophil % 59.3 % (47-70); Platelet Count 332 K/mm3 (150-450); RBC Distribution Width CV 13.2 % (11.6-14.6); Red Blood Count 5.22 M/mm3 (4.6-6.2)
[2022-05-20 13:02] LABS: ALB/GLOB Ratio 0.9 RATIO (0.9-2.4); AST(SGOT) 29 U/L (15-37); Alanine Aminotransfer ALT/SGPT 41 U/L (16-61); Albumin, Serum 3.6 g/dL (3.2-5.0); Alkaline Phosphatase 75 U/L (45-117); Anion Gap 9 (5-15); BUN 17 mg/dL (7-18); BUN/Creat Ratio 19.2 RATIO (10-20); Calcium,Total 8.8 mg/dL (8.5-10.1); Chloride 103 mmol/L (98-107); Cholesterol 134 mg/dL (200); Creatinine, Serum 0.88 mg/dL (0.70-1.30); EST Glomerular Filtration Rate 102 mL/min (>60); Est Glom Filt Rate - Afr Amer 123 mL/min (>60); Globulin 3.9 g/dL (2.2-4.2); Glucose 111 mg/dL (74-106); High Density Lipoprotein 37 mg/dL; Potassium 3.8 mmol/L (3.5-5.1); Protein, Total 7.5 g/dL (6.4-8.2); Sodium Level 139 mmol/L (136-145); Triglycerides 101 mg/dL; Very Low Density Lipoprotein 20 mg/dL (5-40)
== END | disposition home or self-care (01) ==
LOC: MTLAB 09:14
PROVIDERS: PCP Family Medicine; Referring Provider Nurse Practitioner Family; Visit Provider Nurse Practitioner Family
DX: L03.115 Cellulitis of right lower limb (principal); Z13.1 Encounter for screening for diabetes mellitus; Z13.220 Encounter for screening for lipoid disorders
CPT/HCPCS: 36415; 80053; 80061; 85025

== ENCOUNTER → 2022-06-02 | Outpatient (CLI) | payer BC, SELFPAY ==
--- NOTE | 2022-06-02 13:30 | VDLE_ITS ---
Reason For Study: Swelling RIGHT GSV is normal. CFV is compressible, spontaneous, phasic, competent and demonstrates normal augmentation. FV is compressible, spontaneous, phasic, competent and demonstrates normal augmentation. POP V is compressible, spontaneous, phasic, competent and demonstrates normal augmentation. T/P Trunk is compressible. PTV is compressible. RT PerV is compressible. Procedure This is a venous duplex using B-mode, color flow and spectral Doppler. Exam performed in department. A preliminary report was called and/or faxed to Brian. VL/Venous Duplex US, Unilateral Interpretation Summary Deep veins of the right lower extremity are patent and compressible segmentally . There is no evidence of right lower extremity deep vein thrombosis. Valvular competence samy ears intact within the proximal deep venous system on the right . The right great saphenous vein a ppears patent and compressible segmentally. Ordering Physician: Phillip Torres Referring Physician: Gaston Smith Performed By: Linda Kline RVT
== END | disposition home or self-care (01) ==
LOC: CVS 13:27
PROVIDERS: PCP Family Medicine; Referring Provider Podiatrist; Visit Provider Podiatrist
DX: M79.604 Pain in right leg (principal); M79.89 Other specified soft tissue disorders
CPT/HCPCS: 93971

== ENCOUNTER 2022-09-24 17:27 | Emergency (ER) | payer OTHER, SELFPAY ==
[2022-09-24 17:28] VITALS: BP 166/89; PULSE 92; RESP 16; TEMP 36.4; O2SAT 99; BMI 48.2
[2022-09-24 17:30] VITALS: BP 166/89; PULSE 90; RESP 16; TEMP 36.4; O2SAT 98
--- NOTE | 2022-09-24 18:00 | EX.ED.DYSGE1 ---
HPI History of Present Illness Chief Complaint: Rash Narrative Narrative: Patient states that over the last days developed a rash on both lower extremities. It does not itch or hurt but he does note it. He states it is nowhere else. He was placed on Keflex and Bactrim about 4 days ago for a cyst did open it has drained a lot. The swelling is down markedly. Its not red. He states is not hurting anymore. It is still present but it has shown marked improvement. He does not feel sick. He states before he was seen for this abscess he had some feverish feelings but those have been gone now for about 3 days. He is eating and drinking normally. He does not feel diffusely or systemically ill at all. Patient is on Keflex and Bactrim for the above infection. He has been on Keflex and amoxicillin and penicillins many times. He has only been on Bactrim once before. [facility] Medical History Essential hypertension REYES (obstructive sleep apnea) Palpitations Home Medications bupropion HCl 150 mg tablet,12 hr sustained-release (Wellbutrin SR) 150 mg PO BID 09/18/17 [History Last Taken Unknown] losartan 100 mg-hydrochlorothiazide 25 mg tablet (Hyzaar) 1 tab PO QDAY 09/18/17 [History Last Taken Unknown] atenolol 25 mg tablet 25 mg PO QDAY #90 tabs 08/07/21 [Rx Last Taken Unknown] amlodipine 10 mg tablet 10 mg PO DAILY #60 tabs 05/08/22 [Rx Last Taken Unknown] arginine 7 gram-glutam 7 gram-CaHMB 1.5 [id number]-[id number]-min oral pwd pkt (Tevin (with collagen)) 1 packet PO BIDCM #60 ea 05/08/22 [Rx Last Taken Unknown] gabapentin 300 mg capsule (Neurontin) 300 mg PO TID #30 caps 05/08/22 [Rx Last Taken Unknown] levofloxacin 500 mg tablet 500 mg PO DAILY@0600 #40 tabs 05/08/22 [Rx Last Taken Unknown] metronidazole 500 mg tablet 500 mg PO TID #120 tabs 05/08/22 [Rx Last Taken Unknown] oxycodone-acetaminophen 5 mg-325 mg tablet (Percocet) 1 tab PO Q6H PRN pain 7 days #30 tabs 05/08/22 [Rx Last Taken Unknown] cephalexin 500 mg capsule 500 mg PO Q6 #12 CAPSULES 09/24/22 [Rx Last Taken Unknown] doxycycline monohydrate 100 mg capsule 100 mg PO BID #10 CAPSULES 09/24/22 [Rx Last Taken Unknown] Allergy/AdvReac Type Severity Reaction Status Date / Time No Known Allergies Allergy Verified 09/24/22 17:30 Family History Grandfather Myocardial infarction Grandfather Myocardial infarction Father Hypertension Grandmother Hypertension Grandmother Hypertension Surgical History History of shoulder surgery Social History Smoking Status: Never smoker alcohol intake: never substance use type: does not use caffeine: Yes Type: coffee Number of servings: 2 what type of physical activity do you participate in: none ROS ROS ED Constitutional Constitutional ED: Denies chills, fever(s) or subjective ENT ENT ED: Denies rhinorrhea or sore throat Cardiovascular Cardiovascular: Denies chest pain or palpitations Respiratory/Chest Respiratory/Chest: Denies cough, dyspnea or sputum Gastrointestinal Gastrointestinal: Denies nausea or vomiting Genitourinary Genitourinary ED: Reports other Details: See history of present illness. No trouble urinating at all ; Denies dysuria or hematuria Musculoskeletal Musculoskeletal: Denies back pain or myalgias Integumentary Reports rash Neurologic Neurologic: Denies headache(s) Endocrine Endocrinology: Denies polydipsia or polyuria Hematologic/Lymphatic Hematologic/Lymphatic: Denies easy bleeding, easy bruising or lymphadenopathy Allergic/Immunologic Allergic/Immunologic ED: Denies urticaria EXAM Physical Exam Narrative Exam Narrative: Patient awake alert no acute distress sitting comfortably on bed. HEENT shows no trauma Heart is regular without murmur gallop or rub Lungs are clear. Abdomen is obese but benign. Inguinal area does show some swelling and induration in the left inguinal region and right at the base of the penis and testicles. There is an area that look like it was draining recently. But is not tender. Its not really red. Patient states it is markedly reduced in size. Extremities do show nonpalpable red blanching rash to lower shins really from the ankle up. This is bilateral. No other areas. Const Vital Signs: 09/24/22 17:28 09/24/22 17:30 Temperature 97.6 F L 97.6 F L Temperature Source Temporal Temporal Pulse Rate 92 90 Respiratory Rate 16 16 Blood Pressure 166/89 H 166/89 H Blood Pressure Mean 114 114 Pulse Ox 99 98 Oxygen Delivery Method Room Air Room Air MDM MDM MDM Narrative Medical decision making narrative: Patient was originally put on 7 days of antibiotics. I will write enough so he gets a full 10 days as his abscess has not completely resolved. However, it is markedly improved. Because he has been on penicillin and cephalosporins many times without reaction and Bactrim is only twice, I think the rash is most likely due to Bactrim. The rash is only on the legs. No intraoral rash or mucous membrane rash or petechiae found. I will switch his Bactrim to doxycycline. He will stay on his Keflex and I will write enough meds so he can complete 10 days total of antibiotics. We discussed reasons to return. Discharge Plan Triage Chief Complaint: Rash ED Provider: Jesus Manuel Charles Dx/Rx/DC Orders Clinical Impression: Adverse reaction to sulfa antibiotic Instructions: ED Drug Reaction, Other Prescriptions: New cephalexin [cephalexin] 500 mg capsule 500 mg PO Q6 Qty: 12 0RF doxycycline monohydrate 100 mg capsule 100 mg PO BID Qty: 10 0RF No Action bupropion HCl [Wellbutrin SR] 150 mg tablet extended release 12 hr 150 mg PO BID losartan-hydrochlorothiazide [Hyzaar] 100-25 mg tablet 1 tab PO QDAY gabapentin [Neurontin] 300 mg capsule 300 mg PO TID Qty: 30 0RF oxycodone-acetaminophen [Percocet] 5-325 mg tablet 1 tab PO Q6H PRN (Reason: pain) 7 Days Qty: 30 0RF metronidazole 500 mg Tablet 500 mg PO TID Qty: 120 0RF amlodipine 10 mg Tablet 10 mg PO DAILY Qty: 60 0RF levofloxacin 500 mg Tablet 500 mg PO DAILY@0600 Qty: 40 0RF Tevin (with collagen) 7-7-1.5 gram Powder In Packet 1 packet PO BIDCM Qty: 60 0RF atenolol 25 mg tablet 25 mg PO QDAY Qty: 90 4RF Primary Care Provider: Gaston Smith Referrals: Gaston Smith MD [Primary Care Provider] - 3-5 Days if not improving Disposition Disposition: Home, Self Care
== END 2022-09-24 19:44 | disposition home or self-care (01) ==
PROVIDERS: Emergency Provider Emergency Medicine; PCP Family Medicine; Visit Provider Emergency Medicine
DX: R21 Rash and other nonspecific skin eruption (principal); L02.91 Cutaneous abscess, unspecified; T37.0X5A Adverse effect of sulfonamides, initial encounter; I10 Essential (primary) hypertension
CPT/HCPCS: 99281; 99282

== ENCOUNTER → 2023-10-21 | Outpatient (CLI) | payer OTHER, SELFPAY ==
[2023-10-21 17:40] LABS: Absolute Lymphocyte Count 1.89 X10^3/uL (0.83-4.51); Absolute Neutrophil Count 6.6 X10^3/uL (2.0-7.7); Basophil# 0.11 X10^3/uL; Basophil% 1.2 % (0-1); Eosinophil# 0.32 X10^3/uL; Eosinophils% 3.3 % (0-5); Hematocrit 44.4 % (40-54); Hemoglobin 15.3 g/dL (13.0-16.5); Lymphocyte # 1.89 X10^3/ul (0.83-4.51); Lymphocyte % 19.8 % (19-41); Mean Corp Hgb Conc 34.5 g/dL (32-36); Mean Corpuscular Hgb 29.3 pg (27.0-32.0); Mean Corpuscular Volume 85.1 fL (80-94); Mean Platelet Vol. 9.4 fl (6.2-12.0); Monocyte# 0.63 X10^3/uL; Monocyte% 6.6 % (0-10); NRBC Flagged by Analyzer 0 % (0-5); Neutrophil # 6.58 X10^3/uL (2.7-7.7); Neutrophil % 68.8 % (47-70); Platelet Count 344 K/mm3 (150-450); RBC Distribution Width CV 12.5 % (11.6-14.6); RBC Distribution Width SD 38.2 fl (35.1-43.9); Red Blood Count 5.22 M/mm3 (4.6-6.2); White Blood Count 9.6 K/mm3 (4.4-11.0)
[2023-10-21 17:53] LABS: Anion Gap 7 (5-15); BUN 14 mg/dL (7-18); BUN/Creat Ratio 18.8 RATIO (10-20); Calcium,Total 9.1 mg/dL (8.5-10.1); Chloride 103 mmol/L (98-107); Creatinine, Serum 0.75 mg/dL (0.70-1.30); EST Glomerular Filtration Rate 123 mL/min (>60); Est Glom Filt Rate - Afr Amer 149 mL/min (>60); Glucose 96 mg/dL (74-106); Magnesium 2.2 mg/dL (1.6-2.6); Potassium 3.3 mmol/L (3.5-5.1); Sodium Level 138 mmol/L (136-145)
== END | disposition home or self-care (01) ==
LOC: MFPLAB 16:48
PROVIDERS: PCP Family Medicine; Visit Provider Family Medicine
DX: R00.2 Palpitations (principal)
CPT/HCPCS: 36415; 80048; 83735; 85025

== ENCOUNTER → 2024-05-02 | Outpatient (CLI) | payer OTHER, SELFPAY ==
[2024-05-02 18:13] LABS: Anion Gap 8 (5-15); BUN 8 mg/dL (7-18); BUN/Creat Ratio 9.2 RATIO (10-20); Calcium,Total 9.2 mg/dL (8.5-10.1); Chloride 102 mmol/L (98-107); Cholesterol 153 mg/dL (200); Creatinine, Serum 0.87 mg/dL (0.70-1.30); EST Glomerular Filtration Rate 102 mL/min (>60); Est Glom Filt Rate - Afr Amer 123 mL/min (>60); Glucose 103 mg/dL (74-106); High Density Lipoprotein 39 mg/dL; Potassium 3.3 mmol/L (3.5-5.1); Sodium Level 137 mmol/L (136-145); Thyroid Stim Hormone (TSH) 0.517 uIU/mL (0.358-3.740); Triglycerides 170 mg/dL; Very Low Density Lipoprotein 34 mg/dL (5-40)
== END | disposition home or self-care (01) ==
PROVIDERS: PCP Family Medicine; Visit Provider Family Medicine
DX: Z00.00 Encounter for general adult medical examination without abnormal findings (principal)
CPT/HCPCS: 36415; 80048; 80061; 84403; 84443

== ENCOUNTER → 2024-08-11 | Outpatient (CLI) | payer OTHER, SELFPAY ==
--- NOTE | 2024-08-11 16:50 | RAD_ITS ---
STUDY: X-RAY - LEFT KNEE REASON FOR EXAM: Male, 43 years old. PAIN TECHNIQUE: 4 views of the left knee. COMPARISON: None. FINDINGS: Normal visualized distal femur. Normal visualized proximal tibia and fibula. Normal proximal tibiofibular articulation. There is no demonstrated fracture. Normal medial femorotibial compartment. Normal lateral femorotibial compartment. Normal patellofemoral articulation. There is a tiny joint effusion. The soft tissue structures are unremarkable. RAD/Knee 4 or More Views IMPRESSION: Tiny joint effusion. No demonstrated fracture. Electronically Signed: Gael Townsend MD at 13:50 EST ,
== END | disposition home or self-care (01) ==
LOC: MTRAD 16:47
PROVIDERS: PCP Family Medicine; Referring Provider Family Medicine; Visit Provider Family Medicine
DX: M25.562 Pain in left knee (principal)
CPT/HCPCS: 73564

== ENCOUNTER → 2024-10-31 | Outpatient (CLI) | payer OTHER, SELFPAY ==
--- NOTE | 2024-10-31 16:03 | RAD_ITS ---
PROCEDURE: L/S SPINE MIN 4 VIEWS 10/31/2024 REASON FOR EXAM: BACK ACHE TECHNIQUE: Five views; AP, lateral, bilateral obliques and coned-down L5-S1 view COMPARISON: None available FINDINGS: 5 [id number] lumbar vertebral bodies identified. No fracture or malalignment. No spondylolysis identified. L2-3: Moderate appearing disc space narrowing. L5-S1: Disc space narrowing and vacuum effect. No osseous lesion identified. RAD/L/S Spine Min 4 Views IMPRESSION: L2-3 and L5-S1 spondylosis/discogenic change. Reading Location: [id number]
== END | disposition home or self-care (01) ==
LOC: MTRAD 15:59
PROVIDERS: PCP Family Medicine; Referring Provider Family Medicine; Visit Provider Family Medicine
DX: M54.50 Low back pain, unspecified (principal)
CPT/HCPCS: 72110

== ENCOUNTER 2024-12-05 17:30 | Outpatient (RCR) | payer OTHER, SELFPAY ==
--- NOTE | 2024-11-14 17:45 | HP.PTEVAL ---
Patient's Visit Information Visit Information Visit Information: SONAM GUPTA is a 44 year old M referred to Physical Therapy by Dr. Gaston Smith MD with a diagnosis of LBP. 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 Pt reports he has been seeing a chiropractor over this time span. pt reports the pain has progressively worsened over this time span. Pt reports he finally went to PCP secondary to not improving from home care manager. Pt notes he had recent x-rays which revealed compression to the L4-5 region. Pt reports he has numbness in L lateral thigh which has been present for 4 years. Pt notes he gets intermittent R LE radiculopathy intermittently that descends to the knee region. Pt reports sleep difficulty at this time secondary to pain. 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 Pt reports lifting activity, and trasnsferring sit to stand all increase his pain. Pt reports Ibuprophen and stretching helps to decrease his pain. Icing also helps to decrease his pain. LBP is currently rated at 4/10, increases to 10/10 at worst Pain LBP: Pain Intensity (Out of 10): 4 Pain Intensity Range: 10 Objective Objective: Neuro: B LE sensation is WNL to light touch MMT: B LE's are grossly 5/5 throughout ROM: Pt is minimally limited with extension Repeated movements: RFIS 10x1 increased pain. REIL 10x2 decreased LBP Balance/Special Test Scores Oswestry Low Back Score: 21 Goals Goal 1:: Decrease LBP x 50% to aid with sleep Goal Time Frame: 4-6 Weeks Goal 2:: Decrease B LE radiculopathy x 50% to aid with ambulation Goal Time Frame: 4-6 Weeks Goal 3:: I with HEP Goal Time Frame: 4-6 Weeks Rehabilitation Potential Physical Therapy Diagnosis: Pt has LBP, B LE radiculopathy, and limited L/S ROM secondary to L/S disc derangement Rehabilitation Potential: Good Anticipated Interventions Patient/Client Instruction: Educate patient on: Condition and Plan of Care For the Purpose of:: To improve self management Therapeutic Exercise to Include: Strength training, Endurance training, Body mechanics, Postural training, Dynamic Lumbar Stabilization and Paolo Exercises For the Purpose of:: To decrease pain, To increase ROM and To improve muscle performance and motor function Text: Thank you for the opportunity to evaluate your patient. For Medicare and Medicare HMO plans, please review the plan of care and approve it. It will need to be FAXED BACK to us at [phone] for Medicare purposes. For Medicare only, by signing this I certify the plan of care. Please let me know if there are questions or concerns regarding this plan of care. Physician Signature: Date:
--- NOTE | 2024-11-14 17:45 | HP.PTEVAL ---
Patient's Visit Information Visit Information Visit Information: SONAM GUPTA is a 44 year old M referred to Physical Therapy by Dr. Gaston Smith MD with a diagnosis of LBP. 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 Pt reports he has been seeing a chiropractor over this time span. pt reports the pain has progressively worsened over this time span. Pt reports he finally went to PCP secondary to not improving from home care consultant. Pt notes he had recent x-rays which revealed compression to the L4-5 region. Pt reports he has numbness in L lateral thigh which has been present for 4 years. Pt notes he gets intermittent R LE radiculopathy intermittently that descends to the knee region. Pt reports sleep difficulty at this time secondary to pain. 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 Pt reports lifting activity, and trasnsferring sit to stand all increase his pain. Pt reports Ibuprophen and stretching helps to decrease his pain. Icing also helps to decrease his pain. LBP is currently rated at 4/10, increases to 10/10 at worst Pain LBP: Pain Intensity (Out of 10): 4 Pain Intensity Range: 10 Objective Objective: Neuro: B LE sensation is WNL to light touch MMT: B LE's are grossly 5/5 throughout ROM: Pt is minimally limited with extension Repeated movements: RFIS 10x1 increased pain. REIL 10x2 decreased LBP Balance/Special Test Scores Oswestry Low Back Score: 21 Goals Goal 1:: Decrease LBP x 50% to aid with sleep Goal Time Frame: 4-6 Weeks Goal 2:: Decrease B LE radiculopathy x 50% to aid with ambulation Goal Time Frame: 4-6 Weeks Goal 3:: I with HEP Goal Time Frame: 4-6 Weeks Rehabilitation Potential Physical Therapy Diagnosis: Pt has LBP, B LE radiculopathy, and limited L/S ROM secondary to L/S disc derangement Rehabilitation Potential: Good Anticipated Interventions Patient/Client Instruction: Educate patient on: Condition and Plan of Care For the Purpose of:: To improve self management Therapeutic Exercise to Include: Strength training, Endurance training, Body mechanics, Postural training, Dynamic Lumbar Stabilization and Paolo Exercises For the Purpose of:: To decrease pain, To increase ROM and To improve muscle performance and motor function Text: Thank you for the opportunity to evaluate your patient. For Medicare and Medicare HMO plans, please review the plan of care and approve it. It will need to be FAXED BACK to us at [phone] for Medicare purposes. For Medicare only, by signing this I certify the plan of care. Please let me know if there are questions or concerns regarding this plan of care. Physician Signature: Date:
--- NOTE | 2025-02-01 13:15 | HP.PTDCNRP_ITS ---
Patient Information Patient Information: SONAM GUPTA was seen in my office for initial evaluation on 11/14/24. The following Plan of Care was established for this patient: POC Established Initial Frequency: 2x /Week Initial Duration: 2 Weeks Anticipated Interventions Patient/Client Instruction: Educate patient on: Condition and Plan of Care For the Purpose of:: To improve self management Therapeutic Exercise to Include: Strength training, Endurance training, Body mechanics, Postural training, Dynamic Lumbar Stabilization and Paolo Exercise s For the Purpose of:: To decrease pain, To increase ROM and To improve muscle performance and motor function Last Seen Last Seen: This patient was last seen in our office . Pertinent comments regarding their Physical therapy will appear below: Pt has not returned for greater than 30 days and is discontinued at this time. At this point I will be discontinuing this patient from physical therapy. I would be happy to see this patient again in the future if found appropriate by the physician. Thank you! Gen Bolivar, PT, ATC Balance/Gait/Functional tests Balance/Special Test Scores Oswestry Low Back Score: 21
== END 2024-12-05 19:00 | disposition home or self-care (01) ==
LOC: PT 17:30
PROVIDERS: PCP Family Medicine; Referring Provider Family Medicine; Visit Provider Family Medicine
DX: M54.9 Dorsalgia, unspecified (principal)
CPT/HCPCS: 97110; 97161

== ENCOUNTER → 2025-03-27 | Outpatient (CLI) | payer OTHER, SELFPAY ==
--- NOTE | 2025-03-27 11:13 | RAD_ITS ---
PROCEDURE: ACUTE ABDOMEN INC CHEST 03/27/2025 REASON FOR EXAM: PAIN TECHNIQUE: 6 view ACUTE ABDOMEN INC CHEST COMPARISON: Lumbar spine series of 10/31/2024. RAD/Acute Abdomen Inc Chest IMPRESSION: Mild right hemidiaphragm elevation/eventration is noted on the chest x-ray. Lungs appear clear. No pleural effusion or pneumothorax is seen. The cardiomediastinal silhouette is within the normal range. No evidence of pneumoperitoneum. The bowel-gas pattern is unremarkable. No mass or mass effect is seen. No urinary tract calcification is definitively identified. [id number] degenerative changes are seen throughout the visualized spine. Reading Location: [place] [id number]
[2025-03-27 15:28] LABS: Hematocrit 44.7 % (40-54); Hemoglobin 15.6 g/dL (13.0-16.5); Immature Granulocytes Count 0.060 X10^3/uL (0.0-0.0); Mean Corp Hgb Conc 34.9 g/dL (32-36); Mean Corpuscular Volume 85.6 fL (80-94); Mean Platelet Vol. 9.6 fl (6.2-12.0); NRBC Flagged by Analyzer 0 % (0-5); Platelet Count 327 K/mm3 (150-450); RBC Distribution Width CV 11.9 % (11.6-14.6); RBC Distribution Width SD 37.4 fl (35.1-43.9); Red Blood Count 5.22 M/mm3 (4.6-6.2); White Blood Count 9.9 K/mm3 (4.4-11.0)
[2025-03-27 16:13] LABS: AST(SGOT) 34 U/L (<=37); Alanine Aminotransfer ALT/SGPT 34 U/L (<=46); Albumin, Serum 4.3 g/dL (3.5-5.0); Alkaline Phosphatase 93 U/L (40-129); Anion Gap 15 (5-15); BUN 10 mg/dL (4-19); BUN/Creat Ratio 12.3 RATIO (10-20); Calcium,Total 9.2 mg/dL (7.6-11.0); Carbon Dioxide 23.2 mmol/L (21.0-32.0); Chloride 100 mmol/L (98-108); Globulin 3.4 g/dL (2.2-4.2); Glucose 115 mg/dL (70-99); Lipase 31 U/L (13-75); Potassium 3.3 mmol/L (3.3-5.1)
== END | disposition home or self-care (01) ==
LOC: MTRAD 11:13 → MTLAB 11:15
PROVIDERS: PCP Family Medicine; Referring Provider Nurse Practitioner Family; Visit Provider Nurse Practitioner Family
DX: R10.9 Unspecified abdominal pain (principal)
CPT/HCPCS: 36415; 74022; 80053; 83690; 85025

== ENCOUNTER 2025-07-05 05:29 | Day surgery (SDC) | payer OTHER, SELFPAY ==
--- NOTE | 2025-07-03 15:18 | PAT.ANESEVAL ---
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 When Was Last Pacemaker Check QUESTION #4 FULL TEXT: You/Your Family Experience fever (hyperthermia) with Anesthesia Last Oral Intake Last Oral intake: Last Oral Intake NPO since Meds taken in AM with sips of water? 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 Has anyone observed you stop breathing during sleep? STOP Results Positive 07/03/25 08:51 QUESTION #5 FULL TEXT : Do you snore loudly (louder than talking or can be heard through closed doors)? 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 Specify any problems Hx of Preganancy in last 3 N/A 07/03/25 08:51 Months Nurse Filling Out Transfusion [id number] 07/03/25 08:51 & Questions: Date: 07/03/25 07/03/25 08:51 Time: 08:53 07/03/25 08:51 Patient unable to answer at this time (ie. 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[employer]: /Reproductive Hx- [employer] Hx Now Gestational Age (in weeks): EDC: Hx Hx Para Hx Section SAB Does the father of the baby or his family experience fever w Father of the baby Malignant Hypertension history comment [facility] Medical History (Updated 07/03/25 @ 08:58 by David Holden) Anxiety Depression Marijuana use Hypertension History of IBS Former smoker Sleep apnea CPAP (continuous positive airway pressure) dependence History of Holter monitoring History of echocardiogram History of stress test Cardiology follow-up encounter Apnea Abdominal pain Edema Diarrhea Family history of colon cancer IBS (irritable bowel syndrome) Hemoglobin A1c less than 7.0% ED (erectile dysfunction) BMI 40.0-44.9, adult Fracture of toe, open Laceration of toe Traumatic amputation of toe Injury of foot, right Essential hypertension REYES (obstructive sleep apnea) Palpitations Home Medications ?Medication ?Instructions ?Recorded ?Last Taken ?Type bupropion HCl 150 mg tablet,12 hr 150 mg PO BID 09/18/17 Unknown History sustained-release (Wellbutrin SR) losartan 100 1 tab PO QDAY 09/18/17 Unknown History mg-hydrochlorothiazide 25 mg tablet (Hyzaar) sildenafil 50 mg tablet 50 mg PO DAILY PRN sexual activity 11/27/23 Unknown History atenolol 25 mg tablet 25 mg PO QDAY #90 tabs 08/01/24 Unknown Rx amlodipine 5 mg tablet 5 mg PO DAILY #90 tabs 12/30/24 Unknown Rx clonazepam 0.5 mg tablet (Klonopin) 0.5 mg PO BID 04/17/25 Unknown History sertraline 50 mg tablet 50 mg PO QDAY 04/17/25 Unknown History Allergy/AdvReac Type Severity Reaction Status Date / Time sulfamethoxazole (From Allergy Intermediate Hives Verified 07/03/25 08:49 Bactrim) trimethoprim (From Bactrim) Allergy Intermediate Hives Verified 07/03/25 08:49 Family History Grandfather Myocardial infarction Grandfather Myocardial infarction Father Hypertension Diabetes Grandmother Hypertension Grandmother Hypertension Mother Colon cancer Surgical History Hx of foot surgery (~05/04/22) History of shoulder surgery Social History Smoking Status: Former smoker how long ago did patient quit smokin alcohol intake: never substance use type: does not use caffeine: Yes Audit: Pertinent Findings Pertinent Findings Consult pertinent findings: Cardiology visit 01/06/2024. The patient had a 4-day history of continuous palpitations that created extreme fatigability the point he could not go to work. In retrospect this may have be related to his aggressive dietary modifications with increased free water intake. The patient wore a monitor from October 20 to October 28, 2023. His average heart rate was 76 bpm minimum heart rate of 43 and the maximum heart rate of 154. There was no atrial fibrillation documented. The patient should be continued on the atenolol at 25 mg daily should he have recurrent symptoms I would recommend increasing this to 50 mg daily and discontinue the amlodipine. Recommendation Anesthesia Recommendation Anesthesia recommendation: OPTIMIZED for anesthesia
[2025-07-05] VITALS (8 sets, daily range): BP systolic 98–131; BP diastolic 52–70; PULSE 61–72; RESP 16–20; TEMP 36.2–36.8; O2SAT 92–95; BMI 46.5
--- OUTSIDE RECORDS SUMMARY | 2025-07-05 05:32 | XMS RPT_ITS | CCD ---
Author Organization [facility] Care Team Providers Care [employer] F[employer] Operator Name Role Phone Dr. Gaston Arroyo Primary Care Provider Dr. Guy Casas Emergency Provider [phone] Yessenia Tay Other Provider [phone] Francisco Koenig Other Provider [phone] Dr. Fernando Zamora Other Provider [phone] Dr. Reyna Vogel Other Provider [phone] Kandace LEGISLATIVE ASSISTANT, LEGISLATIVE ASSISTANT-C [place] Other Provider Unavail able Cristela LEGISLATIVE ASSISTANT, LEGISLATIVE ASSISTANT-C Param Other Provider [phone] TEJA Fuchs Other Provider Unavailable Dr. Phillip Torres Admit Provider Dr. Phillip Torres Other Provider Mireya, LEGISLATIVE ASSISTANT-C [place] Attending Provider Unavail able Dr. Misael Hannah Attending Provider Unavailable Dr. Misael Hannah Other Provider Unavailable Dr. Cory Foley Other Provider Dr. Phillip Torres Referring Provider Dr. Smith Gerber Attending Provider [phone] Dr. Gaston Arroyo Primary Care Provider [phone] Guy Casas Emergency Provider Dr. Yessenia Tay Other Provider [phone] Francisco Koenig Other Provider [phone] Dr. Fernando Zamora Other Provider [phone] Dr. Reyna Vogel Other Provider Kandace LEGISLATIVE ASSISTANT, LEGISLATIVE ASSISTANT-C [place] Other Provider Unavail able Cristela LEGISLATIVE ASSISTANT, LEGISLATIVE ASSISTANT-C Param Other Provider TEJA Fuchs Other Provider Unavailable Dr. Phillip Torres Admit Provider Dr. Phillip Torres Referring Provider Dr. Phillip Torres Other Provider Dr. Smith Gerber Attending Provider Dr. Misael Hannah Attending Provider Unavailable Dr. Misael Hannah Other Provider Unavailable Dr. Cory Foley Other Provider Gaston Arroyo Unavailable Turner Patterson Unavailable Unavailable Raul, MsDeb Angelinabecky Maguire Attending Unavailable Dr. Gaston Arroyo Primary Care Unavail able Ms. Turner Patterson Attending Chrissie Arroyo MD, Gaston Tabares Primary Care Provider Luis WHITE, Gaston Tabares Primary Care Provider Luis WHITE, Dr. Feldman Primary Care Provider Luis WHITE, Dr. Feldman Attending Provider Luis WHITE, Dr. Feldman Referring Provider Luis WHITE, Dr. Feldman Primary Care Provider Luis WHITE, Dr. Feldman Attending Provider Luis WHITE, Dr. Feldman Referring Provider Gaston Arroyo MD Primary Care Provider GASTON ARROYO Primary Care Unavailable CHAY SEWELL Attending Unavailable GASTON ARROYO Primary Care Unavailable Luis WHITE, Dr. Feldman Primary Care Provider Luis WHITE, Dr. Feldman Attending Provider Luis WHITE, Dr. Feldman Referring Provider Mireille LEGISLATIVE ASSISTANT-C, Geovanna Attending Provider Mireille LEGISLATIVE ASSISTANT-Geovanna Mccullough Referring Provider Gaston Arroyo Referring Unavailable Luis, Gaston Primary Care Unavailable Luis, Gaston Attending Unavailable Luis, Gaston Referring Unavailable Luis, Gaston Primary Care Unavailable Luis, Gaston Attending Unavailable Luis, Gaston Referring Unavailable Arroyo, Gaston Primary Care Unavailable Arroyo, Gaston Attending Unavailable Luis, Gaston Primary Care Unavailable Mireille LEGISLATIVE ASSISTANT, Geovanna Attending Unavailable Mireille LEGISLATIVE ASSISTANT, Geovanna Referring Unavailable Luis, Gaston Referring Unavailable Luis, Gaston Primary Care Unavailable Kecia Santos Attending Unavailable Allergies Allergy Classification Reported Allergen(s) Allergy Type Date of Onset Reaction(s) Facility (6 sources) Sulfamethoxazole / Trimethoprim; Translations: [SULFAMETHOXAZOLE-TR IMETHOPRIM] Drug Allergy 3 [facility] (3 sources) Sulfamethoxazole Drug Allergy 4 [facility] (3 sources) Trimethoprim Drug Allergy 4 [facility] (1 source) Sulfamethoxazole Drug Allergy 5 [facility] (1 source) Trimethoprim Drug Allergy 5 [facility] Medications Current Medications Medication Drug Class(es) Dates Sig (Normalized) Sig (Original) amLODIPine 5 mg oral tablet (20 sources) Dihydropyridine Calcium Channel Debra Start: 01-06-2024 End: 12-30-2024 take 1 tablet by mouth once daily Amlodipine 5 mg tablet Active 5 mg PO DAILY 90 3 December 30, 2024 4:44pm Start: 05-08-2022 End: 01-06-2024 take 1 tablet by mouth once daily Amlodipine 10 mg Tablet Discontinued 10 mg PO DAILY 60 0 May 08, 2022 12:00am January 06, 2024 3:33pm amLODIPine Quant ity: 0 Refills: 0 Ordered: 14-Jul-2022 Leela Cerrato Generic Substitution Allowed Comment on above: Take by mouth. 12 hr buPROPion hydrochloride 150 mg extended release oral tablet (20 sources) Aminoketone Start: 03-19-2017 take 1 tablet by mouth twice daily Bupropion Hcl (Wellbutrin Sr) 150 mg tablet extended release 12 hr Active 150 mg PO TWICE A DAY September 18, 2017 1:00am Start: 12-01-2014 End: 09-18-2017 take 1 tablet by mouth once daily Bupropion Hcl 300 MG tablet extended release 24 hr Discontinued 300 mg PO DAILY December 01, 2014 12:00am September 18, 2017 3:12pm Wellbutrin SR Qu antity: 0 Refills: 0 Ordered: 14-Jul-2022 Leela Cerrato Generic Substitution Allowed Comment on above: Take 150 mg by mouth twice daily. cephalexin 500 mg oral capsule (7 sources) Cephalosporin Antibacterial Start: 3 End: take 1 capsule by mouth twice daily cephALEXin (KEFLEX) 500 mg capsule Indications: Abscess of nose Take 1 capsule by mouth twice daily for 7 days. 14 capsule 0 01/19/2023 01/26/2023 Active Start: 09-24-2022 End: 11-27-2023 take 1 capsule by mouth every six hours Cephalexin 500 mg capsule Discontinued 500 mg PO EVERY 6 HOURS 12 0 September 24, 2022 1:00am November 27, 2023 1:02pm Start: 08-05-2022 End: 08-14-2022 take 1 tablet by mouth three times daily cephalexin 500 mg oral tablet ; 1 tab(s) orally 3 times a day x 10 days Quantity: 30 Refills: 0 Ordered: 05-Aug-2022 Turner Patterson Start: 05-Aug-2022 End: 14-Aug-2022 Generic Substitution Allowed Comments: Finish all this medication unless otherwise directed by prescriber. Comment on above: Finish all this medi cation unless otherwise directed by prescriber. Take 1 capsule by [facility] twice daily for 7 days. cetirizine hydrochloride 10 mg oral tablet (5 sources) Histamine-1 Receptor Antagonist Start: take 1 tablet by mouth once daily as needed Cetirizine (Zyrtec) 10 mg tablet Active 10 mg PO DAILY as needed January 06, 2024 12:00am ZyrTEC Quantity: 0 Refills: 0 Ordered: 14-Jul-2022 Leela Cerrato Generic Substitution Allowed dicyclomine hydrochloride 20 mg oral tablet (8 sources) Anticholinergic Start: 01-14-2023 take 1 tablet by mouth four times daily Dicyclomine 20 mg tablet Active 20 mg PO 4 TIMES DAILY November 27, 2023 12:00am Comment on above: Take 20 mg by mouth four times daily. doxycycline hyclate 100 mg oral tablet (7 sources) Tetracycline-class Drug Start: 02-01-2024 End: 02-08-2024 take 1 tablet by mouth twice daily doxycycline (VIBRA-TABS) 100 mg tablet Take 1 tablet by mouth two times a day for 7 days. 14 tablet 0 02/01/2024 02/08/2024 Active Start: 09-24-2022 End: 11-27-2023 take 1 capsule by mouth twice daily Doxycycline Monohydrate 100 mg capsule Discontinued 100 mg PO TWICE A DAY 10 0 September 24, 2022 1:00am November 27, 2023 1:02pm Comment on above: Take 1 capsule by mo [facility] twice daily for 7 days. hydroCHLOROthiazide 25 mg / losartan potassium 100 mg oral tablet (11 sources) Thiazide Diuretic, Angiotensin 2 Receptor Debra Start: take 1 tablet by mouth once losartan-hydro CHLOROthiazide (HYZAAR) 100-25 mg per tablet Take 1 tablet by mouth every afternoon. 02/15/2024 Active Start: 09-18-2017 Losartan-[place] chlorothiazide (Hyzaar) 100-25 mg tablet Active 1 {tbl} PO daily September 18, 2017 1:00am losartan potassium 50 mg oral tablet (7 sources) Angiotensin 2 Receptor Debra take 1 tablet by mouth once daily losartan (COZAAR) 50 mg tablet Take 50 mg by mouth once daily. Active losartan Quantit y: 0 Refills: 0 Ordered: 14-Jul-2022 Leela Cerrato Generic Substitution Allowed Comment on above: Take 50 mg by mouth once daily. olopatadine 1 mg/ml ophthalmic solution (1 source) Histamine-1 Receptor Inhibitor Start: End: take 1 drop(s) into the eye(s) twice daily olopatadine (PATANOL) 0.1 % ophthalmic solution Use 1 Drop in both eyes two times a day for 7 days. 5 mL 04/15/2024 04/22/2024 Active predniSONE 10 mg oral tablet (1 source) Start: 023 End: take 4 tablets by mouth once daily predniSONE (DELTASONE) 10 mg tablet Take 4 tablets by mouth once daily for 3 days. 12 tablet 0 04/30/2023 05/03/2023 Active Comment on above: Take 4 tablets by mo [facility] once daily for 3 days. sildenafil 50 mg oral tablet (3 sources) Phosphodiesterase 5 Inhibitor Start: Sildenafil 50 mg tablet Active 50 mg PO DAILY as needed November 27, 2023 12:00am administer 30 minutes to 4 hours before activity sulfamethoxazole 800 mg / trimethoprim 160 mg oral tablet (1 source) Dihydrofolate Reductase Inhibitor Antibacterial, Sulfonamide Antimicrobial Start: End: take 1 tablet by mouth twice daily Bactrim DS 800 mg-160 mg oral tablet ; 1 tab(s) orally 2 times a day Quantity: 20 Refills: 0 Ordered: 05-Aug-2022 AdilsonTurner ambrosio Start: 05-Aug-2022 End: 14-Aug-2022 Generic Substitution Allowed Comments: Avoid prolonged or excessive exposure to direct and/or artificial sunlight while taking this medication.Finish all this medication unless otherwise directed by prescriber.Medicat ion should be taken with plenty of water. Comment on above: Avoid prolonged or e xcessive exposure to direct and/or artificial sunlight while taking this medication.Finish all this medication unless otherwise directed by prescriber.Medication should be taken with plenty of water. Completed/Discontinued Medications Medication Drug Class(es) Dates Sig (Normalized) Sig (Original) acetaminophen 325 mg / oxyCODONE hydrochloride 5 mg oral tablet (17 sources) Opioid Agonist Start: 05-08-2022 End: 11-27-2023 Oxycodone-Acetamino phen (Percocet) 5-325 mg tablet Discontinued 1 {tbl} PO EVERY 6 HOURS as needed for pain 30 7 0 May 08, 2022 November 27, 2023 1:03pm Injury of right foot Unspecified injury of right foot, initial encounter Start: 12-06-2014 End: 09-18-2017 Oxycodone-Acetaminophen 1 TA BLET tablet Discontinued 1 - 2 {tbl} PO EVERY 6 HOURS NEEDED as needed for Pain 60 December 06, 2014 12:00am September 18, 2017 3:13pm Start: 12-06-2014 End: 09-18-2017 take 1 tablet by mouth every six hours as needed Oxycodone-Acetaminophen Discontinued 1 - 2 TABLET PO EVERY 6 HOURS NEEDED 60 December 06, 2014 12:00am September 18, 2017 3:13pm Dosjh-Xpjy-Utbit-Collag-Mv-M in (Tevin (With Collagen)) 7-7-1.5 gram Powder In Packet (8 sources) Start: 05-08-2022 End: 11-27-2023 Vccfv-Ixve-Bjrbf-Collag-Mv-M in (Tevin (With Collagen)) 7-7-1.5 gram Powder In Packet Discontinued 1 NMA PO TWICE DAILY WITH MEALS 60 0 May 08, 2022 12:00am November 27, 2023 1:02pm Start: 05-08-2022 End: 11-27-2023 Pouyq-Fceb-Tacno-Collag-Mv-M in (Tevin (With Collagen)) 7-7-1.5 gram Powder In Packet Discontinued 1 NMA PO TWICE DAILY WITH MEALS 60 May 08, 2022 12:00am November 27, 2023 1:02pm Start: 05-08-2022 Aeslt-Ejzv-Bkr yr-Qlqqvz-Ji-Min (Tevin (With Collagen)) 7-7-1.5 gram Powder In Packet Active 1 PACKET PO TWICE DAILY WITH MEALS May 07, 2022 11:00pm Start: 05-08-2022 Rnxyc-Thom-Znr kb-Qnzosk-Vp-Min (Tevin (With Collagen)) 7-7-1.5 gram Powder In Packet Active 1 PACKET PO TWICE DAILY WITH MEALS May 08, 2022 12:00am atenolol 25 mg oral tablet (20 sources) beta-Adrenergic Debra Start: 12-15-2017 End: 08-01-2024 take 1 tablet by mouth once daily Atenolol 25 mg tablet Discontinued 25 mg PO daily 90 4 July 08, 2023 3:12pm August 01, 2024 9:57am atenolol Quantit y: 0 Refills: 0 Ordered: 14-Jul-2022 Leela Cerrato Generic Substitution Allowed Calcium (1 source) Phosphate Binder, Calcium End: 01-19-2023 CALCIUM ORAL Take by mouth. 0 01/19/2023 Discontinued Comment on above: Take by mouth. calcium carbonate 1500 mg / cholecalciferol 800 unt chewable tablet (9 sources) Vitamin D Start: 09-18-2017 End: 12-15-2017 take 1 tablet by mouth twice daily Calcium Carbonate-Vitamin D3 (Caltrate 600 Plus D) 600 mg (1,500 mg)-800 unit tablet,chewable Discontinued 1 {tbl} PO TWICE A DAY September 18, 2017 1:00am December 15, 2017 3:54pm gabapentin 300 mg oral capsule (8 sources) Anti-epileptic Agent Start: 05-08-2022 End: 11-27-2023 take 1 capsule by mouth three times daily Gabapentin (Neurontin) 300 mg capsule Discontinued 300 mg PO THREE TIMES A DAY 30 0 May 08, 2022 12:00am November 27, 2023 1:03pm levoFLOXacin 500 mg oral tablet (8 sources) Quinolone Antimicrobial Start: 05-08-2022 End: 11-27-2023 take 1 tablet by mouth once daily Levofloxacin 500 mg Tablet Discontinued 500 mg PO DAILY@0600 40 May 08, 2022 12:00am November 27, 2023 1:02pm lorcaserin hydrochloride 10 mg oral tablet (9 sources) Serotonin-2c Receptor Agonist Start: 12-01-2014 End: 09-18-2017 take 1 tablet by mouth twice daily Lorcaserin 10 MG tablet Discontinued 10 mg PO TWICE A DAY December 01, 2014 12:00am September 18, 2017 3:12pm metoprolol tartrate 25 mg oral tablet (9 sources) beta-Adrenergic Debra Start: 12-01-2014 End: 09-18-2017 take 1 tablet by mouth twice daily Metoprolol Tartrate 25 MG tablet Discontinued 25 mg PO TWICE A DAY December 01, 2014 12:00am September 18, 2017 3:13pm metroNIDAZOLE 500 mg oral tablet (8 sources) Nitroimidazole Antimicrobial Start: 05-08-2022 End: 11-27-2023 take 1 tablet by mouth three times daily Metronidazole 500 mg Tablet Discontinued 500 mg PO THREE TIMES A DAY 120 0 May 08, 2022 12:00am November 27, 2023 1:03pm Multivitamin With Folic Acid (6 sources) Start: 12-01-2014 End: 09-18-2017 take 1 tablet by mouth once daily Multivitamin With Folic Acid Discontinued 1 TABLET PO DAILY November 30, 2014 11:00pm September 18, 2017 2:48pm Start: 12-01-2014 End: 09-18-2017 take 1 tablet by mouth once daily Multivitamin With Folic Acid Discontinued 1 TABLET PO DAILY December 01, 2014 12:00am September 18, 2017 3:48pm Multivitamin With Folic Acid 1 TABLET tablet (3 sources) Start: 12-01-2014 End: 09-18-2017 take 1 tablet by mouth once daily Multivitamin With Folic Acid 1 TABLET tablet Discontinued 1 {tbl} PO DAILY December 01, 2014 12:00am September 18, 2017 3:48pm nebivolol 2.5 mg oral tablet (9 sources) Start: 09-18-2017 End: 12-15-2017 take 1 tablet by mouth once daily Nebivolol (Bystolic) 2.5 mg tablet Discontinued 2.5 mg PO daily 30 3 September 18, 2017 1:00am December 15, 2017 4:00pm Nortriptyline (1 source) Tricyclic Antidepressant End: 01-19-2023 nortriptyline HCl (NORTRIPTYLINE ORAL) Take by mouth. 0 01/19/2023 Discontinued Comment on above: Take by mouth. ondansetron 4 mg disintegrating oral tablet (10 sources) Serotonin-3 Receptor Antagonist Start: 03-20-2021 End: 01-19-2023 take 1 tablet by mouth every eight hours as needed ondansetron orally disintegrating (ZOFRAN ODT) 4 mg disintegrating tablet Take 1 tablet by mouth every 8 hours as needed. 12 tablet 0 03/20/2021 01/19/2023 Discontinued Start: 12-06-2014 End: 09-18-2017 take 1 tablet by mouth every eight hours as needed for nausea Ondansetron Hcl 8 MG tablet Discontinued 8 mg PO EVERY 8 HOURS NEEDED as needed for Nausea 20 0 December 06, 2014 12:00am September 18, 2017 3:13pm Comment on above: Take 1 tablet by [facility] every 8 hours as needed. traZODone hydrochloride 50 mg oral tablet (9 sources) Serotonin Reuptake Inhibitor Start: 5 End: 8 take 1 tablet by mouth at bedtime Trazodone 50 MG tablet Discontinued 50 mg PO AT BEDTIME December 01, 2014 12:00am September 18, 2017 3:13pm zolpidem tartrate 5 mg oral tablet (9 sources) gamma-Aminobutyric Acid-ergic Agonist Start: 5 End: 8 take 1 tablet by mouth at bedtime as needed Zolpidem 5 MG tablet Discontinued 5 mg PO AT BEDTIME NEEDED as needed for Insomnia 14 0 December 06, 2014 12:00am September 18, 2017 3:13pm Problems Active Problems Problem Classification Problem Date Documented Da te Episodic/Chronic Abdominal pain (1 source) Unspecified abdominal pain; Translations: [Unspecified abdominal pain] Onset: 03-31-2025 Episodic Cardiac dysrhythmias (12 sources) Palpitations; Translations: [Palpitations] Episodic Diseases of mouth; excluding dental (2 sources) Oral lesion; Translations: [Other and unspecified diseases of the oral soft tissues] 08-05-2022 Episodic E Codes: Adverse effects of medical drugs (5 sources) Sulfonamide antibiotic adverse reaction; Translations: [Adverse effect of sulfonamides, initial encounter] 09-24-2022 Episodic Essential hypertension (12 sources) Essential hypertension; Translations: [Essential (primary) hypertension] Chronic Fracture of lower limb (13 sources) Open fracture of phalanx of foot; Translations: [Unspecified fracture of unspecified toe(s), initial encounter for open fracture] Episodic Gastritis and duodenitis (2 sources) Viral gastritis; Translations: [Gastritis, unspecified, without bleeding] Onset: 03-23-2025 03-23-2025 Episodic Headache; including migraine (1 source) Headache; including migraine; Translations: [Headache, unspecified] Onset: 07-14-2022 Immunizations and screening for infectious disease (1 source) Patient encounter status; Translations: [Encounter for immunization] 02-01-2024 Episodic Inflammation; infection of eye (except that caused by tuberculosis or sexually transmitteddisease) (1 source) Allergic conjunctivitis of bilateral eyes; Translations: [Acute atopic conjunctivitis, bilateral] 04-15-2024 Episodic Malaise and fatigue (1 source) Other malaise; Translations: [Other malaise] Onset: 07-14-2022 Episodic Open wounds of extremities (13 sources) Traumatic amputation of toe; 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, initial encounter] Chronic Open wounds of extremities (14 sources) Laceration of toe; Translations: [Laceration without foreign body of unspecified toe without damage to nail, initial encounter] Episodic Other connective tissue disease (1 source) Swelling of upper limb; Translations: [Other specified soft tissue disorders] 04-30-2023 Episodic Other gastrointestinal disorders (1 source) Other fecal abnormalities; Translations: [Other fecal abnormalities] Onset: 06-02-2025 Episodic Other injuries and conditions due to external causes (9 sources) Injury of right foot; Translations: [Unspecified injury of right foot, initial encounter] 05-04-2022 Episodic Other injuries and conditions due to external causes (4 sources) Unspecified injury of right foot, initial encounter; Translations: [Knee, leg, ankle, and foot injury] Episodic Other male genital disorders (3 sources) Male erectile dysfunction, unspecified; Translations: [Erectile dysfunction] 11-27-2023 Chronic Other nutritional; endocrine; and metabolic disorders (3 sources) Body mass index 40+ - severely obese; Translations: [Body mass index (BMI) 40.0-44.9, adult] 11-27-2023 Chronic Other nutritional; endocrine; and metabolic disorders (3 sources) Obesity; Translations: [Obesity, unspecified] 01-06-2024 Chronic Other upper respiratory disease (1 source) Abscess of nose; Translations: [Abscess, furuncle and carbuncle of nose] Episodic Other upper respiratory infections (1 source) Acute upper respiratory infection, unspecified; Translations: [Acute upper respiratory infection, unspecified] Onset: 07-14-2022 Episodic Poisoning by nonmedicinal substances (1 source) Bee sting; Translations: [Toxic effect of venom of bees, accidental (unintentional), initial encounter] 04-30-2023 Episodic Residual codes; unclassified (9 sources) Obstructive sleep apnea syndrome; Translations: [Obstructive sleep apnea (adult) (pediatric)] 12-15-2017 Chronic Unclassified (2 sources) CONGESTION SINUS PAIN 07-14-2022 Comment on above: CONGESTION SINUS GUALBERTO N Unclassified (1 source) Contact with and (suspected) exposure to COVID-19; Translations: [Contact with and (suspected) exposure to COVID-19] Onset: 07-14-2022 Unclassified (1 source) Cough, unspecified; Translations: [Cough, unspecified] Onset: 07-14-2022 Unclassified (2 sources) SWOLLEN LIP 08-05-2022 Comment on above: SWOLLEN LIP Unclassified (1 source) Oral lesion 08-05-2022 Unclassified (1 source) Abscess of lip 08-05-2022 Unclassified (1 source) Low back pain, unspecified; Translations: [Low back pain, unspecified] Onset: 11-03-2024 Past or Other Problems Problem Classification Problem Date Documented Da te Episodic/Chronic Other non-traumatic joint disorders (1 source) Pain in left knee; Translations: [Pain in left knee] Onset: 09-01-2024 Episodic Results Test Name Value Interpretation Reference Range Facility Gastroenterology Visit Repor ton 06-02-2025 Gastroenterology Visit Report [facility] [address] [place] [address] OFFICE VISIT Date of Service: 06/02/25 MR#: [id number] Acct: [id number] Name: SONAM GUPTA Rep #: [id number] : 1980 Provider: TEJA Cutler Age/Sex: 44/M Location: [facility] [place] [place] Status: Signed Intake Vital Signs 01/06/24 14:54 Height 5 ft 10 in Intake Visit Reasons: IBS FAMILY HX OF COLON CANCER Chief Complaint: Left lower quadrant pain Allergies sulfamethoxazole (From Bactrim) Allergy (Intermediate, Verified 06/02/25 15:42) Hives trimethoprim (From Bactrim) Allergy (Intermediate, Verified 06/02/25 15:42) Hives Medications ???Medication ???Instructions ???Recorded ???Confirmed ???Type bupropion HCl 150 mg tablet,12 hr 150 mg PO BID 09/18/17 06/02/25 H istory sustained-release (Wellbutrin SR) losartan 100 1 tab PO QDAY 09/18/17 06/02/25 Hi story mg-hydrochlorothiazid e 25 mg tablet (Hyzaar) sildenafil 50 mg tablet 50 mg PO DAILY PRN 11/27/23 History atenolol 25 mg tablet 25 mg PO QDAY #90 tabs 08/01/24 Rx amlodipine 5 mg tablet 5 mg PO DAILY #90 tabs 12/30/24 Rx clonazepam 0.5 mg tablet (Klonopin) 0.5 mg PO BID 04/17/25 06/02/25 History cyclobenzaprine 10 mg tablet 10 mg PO HS 04/17/25 06/02/25 Hist ory meloxicam 15 mg tablet 15 mg PO QDAY 04/17/25 06/02/25 Hi story metoprolol tartrate 25 mg tablet 25 mg PO QDAY 04/17/25 06/02/25 Hi story sertraline 50 mg tablet 50 mg PO QDAY 04/17/25 06/02/25 Hi story PFSH Medical History Apnea Abdominal pain Edema Diarrhea Family history of colon cancer IBS (irritable bowel syndrome) Hemoglobin A1c less than 7.0% ED (erectile dysfunction) BMI 40.0-44.9, adult Fracture of toe, open Laceration of toe Traumatic amputation of toe Injury of foot, right Essential hypertension REYES (obstructive sleep apnea) Palpitations Surgical History Hx of foot surgery ( 05/04/22) History of shoulder surgery Family History Grandfather Myocardial infarction Grandfather Myocardial infarction Father Hypertension Diabetes Grandmother Hypertension Grandmother Hypertension Mother Colon cancer Social History Smoking Status: Former smoker how long ago did patient quit smokin alcohol intake: never substance use type: does not use caffeine: Yes HPI HPI Chief Complaint: Left lower quadrant pain Details: SONAM GUPTA, is a 44 M who presents to the office today for establishment. Patient having monthly episodes of severe left lower quadrant pain. When this happens it will be intermittent for around 4 days and associated with nausea and vomiting. During this he will be unable to go to work. Sometimes it may be relieved by bowel movement but not always. Patient admits that certain foods may trigger it such as milk or ice cream. Over the past year he has had watery loose stool up to 4 times per day. Prior to this he had daily formed bowel movements. He does not have blood in his stool, fevers or unintentional weight loss. Patient has lost 80 pounds intentionally. Patient's mother was diagnosed with colon cancer at age 62 and underwent surgical resection and chemotherapy. Patient has never had a colonoscopy. ROS Const Constitutional: Positive for fatigue; No fever(s) or weight change ENT ENT: Positive for difficulty swallowing Gastro GI: Positive for abdominal pain, bloating, constipation, diarrhea, difficulty swallowing and excessive flatus; No belching, change in bowel habits, change in stool character, coffee ground emesis, cramping, heartburn, feeling full early, incontinent of stools, Vomiting blood/hematemesis, Blood in stool, loose stools, Black,tarry stools, nausea/dyspepsia, pain with swallowing, vomiting or other Musc Musculoskeletal: Positive for back pain, joint swelling and muscle cramps; No joint pain Skin Skin: No yellowing of the eye or itchy eyes Psych Psychiatric: Positive for anxiety and Positive for depression Endo Endocrine: Positive for fatigue; No weight change Aller/Imm Allergy/Immunologic: No itchy eyes Ki/Lymp Hematologic/Lymphatic : No easy bleeding or easy bruising Exam Const General: cooperative, comfortable and well developed Nutritional Appearance: overweight Orientation: alert HENMT Head: normal to inspection Eyes General: appearance normal, both eyes and all related structures Neck Neck: normal visual inspection Chest Chest palpation inspection: normal inspection of the chest Resp Effort Inspection: normal respiratory effort Cardio (more content not included)... Normal [facility] Absolute lymphocyte countOrd ered By: Geovanna Kendrick on 03-27-2025 Lymphocytes Auto (Unsp spec) [#/Vol] 1.33 10*3/uL 0.83-4.51 [facility] Absolute neutrophil countOrd ered By: Geovanna Kendrick on 03-27-2025 Neutrophils (Bld) [#/Vol] 7.6 10*3/uL 2.0-7.7 [facility] Acute Abdomen Inc Cheston Acute Abdomen Inc Chest [facility] Imaging Services [address] [place] [address] [id number] Acute Abdomen Inc Chest MR#: [id number] Acct: [id number] Name: SONAM GUPTA Rep #: [id number] : 1980 M 44 From: Misael Carl PCP: Dr. Gaston Arroyo MD Status: REG CLI Study: Acute Abdomen Inc Chest Date of Exam: 03/27/25 Exam# [id number] Ordering Dr: Geovanna Kendrick LEGISLATIVE ASSISTANT LEGISLATIVE ASSISTANT-C PROCEDURE: ACUTE ABDOMEN INC CHEST 03/27/2025 REASON FOR EXAM: PAIN TECHNIQUE: 6 view ACUTE ABDOMEN INC CHEST COMPARISON: Lumbar spine series of 10/31/2024. RAD/Acute Abdomen Inc Chest IMPRESSION: Mild right hemidiaphragm elevation/eventration is noted on the chest x-ray. Lungs appear clear. No pleural effusion or pneumothorax is seen. The cardiomediastinal silhouette is within the normal range. No evidence of pneumoperitoneum. The bowel-gas pattern is unremarkable. No mass or mass effect is seen. No urinary tract calcification is definitively identified. [id number] degenerative changes are seen throughout the visualized spine. Reading Location: [place] [address] CC: GARY Kendrick; Dr. Gaston Arroyo MD [employer] [place] Paper: Signed Normal [facility] Anion gap in Serum or Plasma Ordered By: Geovanna Kendrick on 03-27-2025 Anion gap [Moles/Vol] 15 mmol/L 5-15 [facility] Automated lymphocyte count a s percentage of total leukocytesOrdered By: Geovanna Kendrick on 03-27-2025 Lymphocytes/100 WBC Auto (Unsp spec) 13.5 % Low 19-41 [facility] BUN/creatinine ratioOrdered By: Geovannared Kendrick on 03-27-2025 Urea nitrogen/Creatinine [Mass ratio] 12.3 mg/mg 10-20 [facility] Basophil percentageOrdered B y: Geovanna Kendrick on 03-27-2025 Basophils/100 WBC (Bld) 1.0 % 0-1 [facility] Bilirubin, totalOrdered By: Geovanna Kendrick on 03-27-2025 Bilirubin [Mass/Vol] 0.54 mg/dL 0.00-1.30 [facility] CBC W/Diff, Automatedon 03-04 Absolute Lymph 1.33 X10 3/uL Normal 0.83-4.51 [facility] Comment on above: Order Comment: Order Date: 03/27/25 Order Info: 0184-1 - CBCD Performed By: #### L 500.4050, L100.0100, L501.2450 #### [facility] [address] [place], [address] Absolute Neut 7.6 X10 3/uL Normal 2.0-7.7 [facility] Comment on above: Order Comment: Order Date: 03/27/25 Order Info: 0184-1 - CBCD Performed By: #### L 500.4050, L100.0100, L501.2450 #### [facility] [address] [place], [address] Basophils/100 WBC (Bld) 1.0 % Normal 0-1 [facility] Comment on above: Order Comment: Order Date: 03/27/25 Order Info: 0184-1 - CBCD Performed By: #### L 500.4050, L100.0100, L501.2450 #### [facility] [address] [place], [address] Eosinophils/100 WBC (Bld) 1.5 % Normal 0-5 [facility] Comment on above: Order Comment: Order Date: 03/27/25 Order Info: 0184-1 - CBCD Performed By: #### L 500.4050, L100.0100, L501.2450 #### [facility] [address] [place], [address] Erythrocyte distribution width (RBC) [Ratio] 11.9 % Normal 11.6-14.6 [facility] Comment on above: Order Comment: Order Date: 03/27/25 Order Info: 0184-1 - CBCD Performed By: #### L 500.4050, L100.0100, L501.2450 #### [facility] [address] [place], [address] Hematocrit (Bld) [Volume fraction] 44.7 % Normal 40-54 [facility] Comment on above: Order Comment: Order Date: 03/27/25 Order Info: 0184-1 - CBCD Performed By: #### L 500.4050, L100.0100, L501.2450 #### [facility] [address] [place], [address] Hemoglobin (Bld) [Mass/Vol] 15.6 g/dL Normal 13.0-16.5 [facility] Comment on above: Order Comment: Order Date: 03/27/25 Order Info: 0184- - CBCD Performed By: #### L 500.4050, L100.0100, L501.2450 #### [facility] [address] [place], [address] IG% 0.600 Normal 0.0-0.9 [facility] Comment on above: Order Comment: Order Date: 03/27/25 Order Info: 018- - CBCD Result Comment: IG% - Immature Granulocytes (promyelocytes, myelocytes and metamyelocytes) > 1% indicates that a LEFT SHIFT is Present. Performed By: #### L 500.4050, L100.0100, L501.2450 #### [facility] [address] [place], [address] Lymphocytes/100 WBC (Bld) 13.5 % Low 19-41 [facility] Comment on above: Order Comment: Order Date: 03/27/25 Order Info: 018- - CBCD Performed By: #### L 500.4050, L100.0100, L501.2450 #### [facility] [address] [place], [address] MCH (RBC) [Entitic mass] 29.9 pg Normal 27.0-32.0 [facility] Comment on above: Order Comment: Order Date: 03/27/25 Order Info: 0184- - CBCD Performed By: #### L 500.4050, L100.0100, L501.2450 #### [facility] [address] [place], [address] MCHC (RBC) [Mass/Vol] 34.9 g/dL Normal 32-36 [facility] Comment on above: Order Comment: Order Date: 03/27/25 Order Info: 0184- - CBCD Performed By: #### L 500.4050, L100.0100, L501.2450 #### [facility] [address] [place], [address] MCV (RBC) [Entitic vol] 85.6 fL Normal 80-94 [facility] Comment on above: Order Comment: Order Date: 03/27/25 Order Info: 0184-1 - CBCD Performed By: #### L 500.4050, L100.0100, L501.2450 #### [facility] [address] [place], [address] Monocytes/100 WBC (Bld) 6.5 % Normal 0-10 [facility] Comment on above: Order Comment: Order Date: 03/27/25 Order Info: 0184-1 - CBCD Performed By: #### L 500.4050, L100.0100, L501.2450 #### [facility] [address] [place], [address] Neutrophils/100 WBC (Bld) 76.9 % High 47-70 [facility] Comment on above: Order Comment: Order Date: 03/27/25 Order Info: 0184-1 - CBCD Performed By: #### L 500.4050, L100.0100, L501.2450 #### [facility] [address] [place], [address] Nucleated RBC (Bld) [#/Vol] 0 10*3/uL Normal 0-5 [facility] Comment on above: Order Comment: Order Date: 03/27/25 Order Info: 0184-1 - CBCD Performed By: #### L 500.4050, L100.0100, L501.2450 #### [facility] [address] [place], [address] Platelet mean volume (Bld) [Entitic vol] 9.6 fL Normal 6.2-12.0 [facility] Comment on above: Order Comment: Order Date: 03/27/25 Order Info: 0184-1 - CBCD Performed By: #### L 500.4050, L100.0100, L501.2450 #### [facility] [address] [place], [address] Platelets (Bld) [#/Vol] 327 10*3/uL Normal 150-450 [facility] Comment on above: Order Comment: Order Date: 03/27/25 Order Info: 0184-1 - CBCD Performed By: #### L 500.4050, L100.0100, L501.2450 #### [facility] [address] [place], [address] RBC (Bld) [#/Vol] 5.22 10*6/uL Normal 4.6-6.2 [facility] Comment on above: Order Comment: Order Date: 03/27/25 Order Info: 0184- - CBCD Performed By: #### L 500.4050, L100.0100, L501.2450 #### [facility] [address] [place], [address] RDW SD 37.4 fl Normal 35.1-43.9 [facility] Comment on above: Order Comment: Order Date: 03/27/25 Order Info: 0184- - CBCD Performed By: #### L 500.4050, L100.0100, L501.2450 #### [facility] [address] [place], [address] WBC (Bld) [#/Vol] 9.9 10*3/uL Normal 4.4-11.[address] [facility] Comment on above: Order Comment: Order Date: 03/27/25 Order Info: 0184-1 - CBCD Performed By: #### L 500.4050, L100.0100, L501.2450 #### [facility] [address] [place], [address] Carbon dioxide, total [Moles /volume] in Central venous bloodOrdered By: Geovanna Kendrick on 03-27-2025 CO2 [Moles/Vol] 23.2 mmol/L 21.0-32.0 [facility] Chloride assayOrdered By: Bart Kendrick on 03-27-2025 Chloride [Moles/Vol] 100 mmol/L 98-108 [facility] Comprehensive Metabolic Prof ilon 03-27-2025 Albumin [Mass/Vol] 4.3 g/dL Normal 3.5-5.[address] [facility] Comment on above: Order Comment: Order Date: 03/27/25 Order Info: 0786-1 - CMP Order Info: 3040-3 - LIPASE Performed By: #### L 500.4050, L100.0100, L501.2450 #### [facility] [address] [place], [address] Albumin/Globulin [Mass ratio] 1.3 {ratio} Normal 0.9-2.4 [facility] Comment on above: Order Comment: Order Date: 03/27/25 Order Info: 0786-1 - CMP Order Info: 3040-3 - LIPASE Performed By: #### L 500.4050, L100.0100, L501.2450 #### [facility] [address] [place], [address] ALK PHOS 93 U/L Normal 40-129 [facility] Comment on above: Order Comment: Order Date: 03/27/25 Order Info: 0786-1 - CMP Order Info: 3040-3 - LIPASE Performed By: #### L 500.4050, L100.0100, L501.2450 #### [facility] [address] [place], [address] ALT [Catalytic activity/Vol] 34 U/L Normal <=46 [facility] Comment on above: Order Comment: Order Date: 03/27/25 Order Info: 0786-1 - CMP Order Info: 3040-3 - LIPASE Performed By: #### L 500.4050, L100.0100, L501.2450 #### [facility] [address] [place], [address] AST [Catalytic activity/Vol] 34 U/L Normal <=37 [facility] Comment on above: Order Comment: Order Date: 03/27/25 Order Info: 0786-1 - CMP Order Info: 3040-3 - LIPASE Performed By: #### L 500.4050, L100.0100, L501.2450 #### [facility] [address] [place], [address] Bilirubin [Mass/Vol] 0.54 mg/dL Normal 0.00-1.30 [facility] Comment on above: Order Comment: Order Date: 03/27/25 Order Info: 0786-1 - CMP Order Info: 3040-3 - LIPASE Performed By: #### L 500.4050, L100.0100, L501.2450 #### [facility] [address] [place], [address] BUN/CRE 12.3 RATIO Normal 10-20 [facility] Comment on above: Order Comment: Order Date: 03/27/25 Order Info: 0786-1 - CMP Order Info: 3040-3 - LIPASE Performed By: #### L 500.4050, L100.0100, L501.2450 #### [facility] [address] [place], [address] Calcium [Mass/Vol] 9.2 mg/dL Normal 7.6-11.[address] [facility] Comment on above: Order Comment: Order Date: 03/27/25 Order Info: 0786-1 - CMP Order Info: 3040-3 - LIPASE Performed By: #### L 500.4050, L100.0100, L501.2450 #### [facility] [address] [place], [address] Chloride [Moles/Vol] 100 mmol/L Normal 98-108 [facility] Comment on above: Order Comment: Order Date: 03/27/25 Order Info: 0786-1 - CMP Order Info: 3040-3 - LIPASE Performed By: #### L 500.4050, L100.0100, L501.2450 #### [facility] [address] [place], [address] CO2 [Moles/Vol] 23.2 mmol/L Normal 21.0-32.0 [facility] Comment on above: Order Comment: Order Date: 03/27/25 Order Info: 0786-1 - CMP Order Info: 3040-3 - LIPASE Performed By: #### L 500.4050, L100.0100, L501.2450 #### [facility] [address] [place], [address] Creatinine [Mass/Vol] 0.81 mg/dL Normal 0.70-1.20 [facility] Comment on above: Order Comment: Order Date: 03/27/25 Order Info: 0786-1 - CMP Order Info: 3040-3 - LIPASE Performed By: #### L 500.4050, L100.0100, L501.2450 #### [facility] [address] [place], [address] GAP 15 Normal 5-15 [facility] Comment on above: Order Comment: Order Date: 03/27/25 Order Info: 0786-1 - CMP Order Info: 3040-3 - LIPASE Performed By: #### L 500.4050, L100.0100, L501.2450 #### [facility] [address] [place], [address] GFR/1.73 sq M.predicted among non-blacks MDRD (S/P/Bld) [Vol rate/Area] 113 mL/min/{1.73_m2} Normal >60 [facility] Comment on above: Order Comment: Order Date: 03/27/25 Order Info: 0786-1 - CMP Order Info: 3040-3 - LIPASE Result Comment: mL/m in/1.73m2 CKD-EPI Creatinine Equation (2020) Performed By: #### L 500.4050, L100.0100, L501.2450 #### [facility] [address] [place], [address] Globulin (S) [Mass/Vol] 3.4 g/dL Normal 2.2-4.[address] [facility] Comment on above: Order Comment: Order Date: 03/27/25 Order Info: 0786-1 - CMP Order Info: 3040-3 - LIPASE Performed By: #### L 500.4050, L100.0100, L501.2450 #### [facility] [address] [place], [address] Glucose [Mass/Vol] 115 mg/dL High 70-[address] [facility] Comment on above: Order Comment: Order Date: 03/27/25 Order Info: 0786-1 - CMP Order Info: 3040-3 - LIPASE Performed By: #### L 500.4050, L100.0100, L501.2450 #### [facility] [address] [place], [address] Potassium [Moles/Vol] 3.3 mmol/L Normal 3.3-5.1 [facility] Comment on above: Order Comment: Order Date: 03/27/25 Order Info: 0786-1 - CMP Order Info: 3040-3 - LIPASE Performed By: #### L 500.4050, L100.0100, L501.2450 #### [facility] [address] [place], [address] Sodium [Moles/Vol] 139 mmol/L Normal 133-[address] [facility] Comment on above: Order Comment: Order Date: 03/27/25 Order Info: 0786-1 - CMP Order Info: 3040-3 - LIPASE Performed By: #### L 500.4050, L100.0100, L501.2450 #### [facility] [address] [place], [address] T PROT 7.7 g/dL Normal 5.9-8.4 [facility] Comment on above: Order Comment: Order Date: 03/27/25 Order Info: 0786-1 - CMP Order Info: 3040-3 - LIPASE Performed By: #### L 500.4050, L100.0100, L501.2450 #### [facility] [address] [place], [place], [address] Urea nitrogen [Mass/Vol] 10 mg/dL Normal 4-19 [facility] Comment on above: Order Comment: Order Date: 03/27/25 Order Info: 0786-1 - CMP Order Info: 3040-3 - LIPASE Performed By: #### L 500.4050, L100.0100, L501.2450 #### [facility] [address] [place], [place], [address] Eosinophil percentageOrdered By: Geovanna Kendrick on 03-27-2025 Eosinophils/100 WBC (Bld) 1.5 % 0-5 [facility] Erythrocyte distribution wid th ratioOrdered By: Geovanna Kendrick on 03-27-2025 Erythrocyte distribution width (RBC) [Ratio] 11.9 % 11.6-14.6 [facility] Erythrocyte distribution wid th standard deviationOrdered By: Geovanna Kendrick on 03-27-2025 Erythrocyte distribution width (RBC) [Ratio] 37.4 fl 35.1-43.9 [facility] Glomerular filtration rate ( GFR) estimation/1.73 sq m using serum, plasma, or whole bOrdered By: Geovanna Kendrick on 03-27-2025 GFR/1.73 sq M.predicted among non-blacks MDRD (S/P/Bld) [Vol rate/Area] 113 mL/min/{1.73_m2} >60 [facility] Comment on above: mL/min/1.73m2 CKD-EP I Creatinine Equation (2020) Hematocrit Auto (Bld) [Volum e fraction]Ordered By: Geovanna Kendrick on 03-27-2025 Hematocrit (Bld) [Volume fraction] 44.7 % 40-54 [facility] Hemoglobin measurementOrdere d By: Geovanna Kendrick on 03-27-2025 Hemoglobin (Bld) [Mass/Vol] 15.6 g/dL 13.0-16.5 [facility] Immature granulocytes/100 WB C Auto (Bld)Ordered By: Geovanna Kendrick on 03-27-2025 Immature granulocytes/100 WBC (Bld) 0.600 % 0.0-0.9 [facility] Comment on above: IG% - Immature Granu locytes (promyelocytes, myelocytes and metamyelocytes) > 1% indicates that a LEFT SHIFT is Present. Laboratory - Chemistry and C hemistry - challengeOrdered By: Geovanna Kendrick on 03-27-2025 AST [Catalytic activity/Vol] 34 U/L <38 [facility] Lipaseon 03-27-2025 Lipase [Catalytic activity/Vol] 31 U/L Normal 13-75 [facility] Comment on above: Order Comment: Order Date: 03/27/25 Order Info: 0786-1 - CMP Order Info: 3040-3 - LIPASE Result Comment: Emerald patel note: LIPASE revised reference range effective 22. New Lipase methodology. Expected to produce lower values than the previous assay method. NEW Reference Range: 13 - 75 U/L Performed By: #### L 500.4050, L100.0100, L501.2450 #### [facility] [address] [place], [place], [address] Lipase measurementOrdered By : Geovanna Kendrick on 03-27-2025 Lipase [Catalytic activity/Vol] 31 U/L 13-75 [facility] Comment on above: Please note:LIPASE r evised reference range effective 22. New Lipase methodology. Expected to produce lower values than the previous assay method. NEW Reference Range: 13 - 75 U/L MCV (mean corpuscular volume ) determinationOrdered By: Geovanna Kendrick on 03-27-2025 MCV (RBC) [Entitic vol] 85.6 fL 80-94 [facility] Mean corpuscular hemoglobin (MCH) determinationOrdered By: Geovanna Kendrick on 03-27-2025 MCH (RBC) [Entitic mass] 29.9 pg 27.0-32.0 [facility] Mean corpuscular hemoglobin concentration (MCHC) determinationOrdered By: Geovanna Kendrick on 03-27-2025 MCHC (RBC) [Mass/Vol] 34.9 g/dL 32-36 [facility] Mean platelet volume determi nationOrdered By: Geovanna Kendrick on 03-27-2025 Platelet mean volume (Bld) [Entitic vol] 9.6 fL 6.2-12.0 [facility] Monocyte percentageOrdered B y: Geovanna Kendrick on 03-27-2025 Monocytes/100 WBC (Bld) 6.5 % 0-10 [facility] Neutrophil percentageOrdered By: Geovanna Kendrick on 03-27-2025 Neutrophils/100 WBC (Bld) 76.9 % High 47-70 [facility] Nucleated red blood cell per centageOrdered By: Geovanna Kendrick on 03-27-2025 Nucleated RBC/100 WBC (Bld) [Ratio] 0 % 0-5 [facility] Platelet countOrdered By: Bart Kendrick on 03-27-2025 Platelets (Bld) [#/Vol] 327 10*3/uL 150-450 [facility] Potassium measurement (mass/ volume)Ordered By: Geovanna Kendrick on 03-27-2025 Potassium (Unsp spec) [Mass/Vol] 3.3 mmol/L 3.3-5.1 [facility] RBC Auto (Bld) [#/Vol]Ordere d By: Geovanna Kendrick on 03-27-2025 RBC (Bld) [#/Vol] 5.22 10*6/uL 4.6-6.2 [facility] Serum creatinine measurement (mass/volume)Ordered By: Geovanna Kendrick on 03-27-2025 Creatinine [Mass/Vol] 0.81 mg/dL 0.70-1.20 [facility] Serum globulin measurementOr dered By: Geovanna Kendrick on 03-27-2025 Globulin (S) [Mass/Vol] 3.4 g/dL 2.2-4.[address] [facility] Serum glucose measurement (m ass/volume)Ordered By: Geovanna Kendrick on 03-27-2025 Glucose [Mass/Vol] 115 mg/dL High 70-[address] [facility] Serum or plasma alanine sanchez otransferase (ALT) measurementOrdered By: Geovanna Kendrick on 03-27-2025 ALT [Catalytic activity/Vol] 34 U/L <47 [facility] Serum or plasma albumin saroj urement (mass/volume)Ordered By: Geovanna Kendrick on 03-27-2025 Albumin [Mass/Vol] 4.3 g/dL 3.5-5.[address] [facility] Serum or plasma albumin/glob ulin mass ratioOrdered By: Geovanna Kendrick on 03-27-2025 Albumin/Globulin [Mass ratio] 1.3 {ratio} 0.9-2.4 [facility] Serum or plasma alkaline timur sphatase measurementOrdered By: Geovanna Kendrick on 03-27-2025 ALP [Catalytic activity/Vol] 93 U/L 40-129 [facility] Serum or plasma calcium saroj urement (mass/volume)Ordered By: Geovanna Kendrick on 03-27-2025 Calcium [Mass/Vol] 9.2 mg/dL 7.6-11.[address] [facility] Serum or plasma urea nitroge n measurement (mass/volume)Ordered By: Geovanna Kendrick on 03-27-2025 Urea nitrogen [Mass/Vol] 10 mg/dL 4-19 [facility] Sodium levelOrdered By: Geovanna Kendrick on 03-27-2025 Sodium [Moles/Vol] 139 mmol/L 133-[address] [facility] Total proteinOrdered By: Cassie Kendrick on 03-27-2025 Protein [Mass/Vol] 7.7 g/dL 5.9-8.[address] [facility] White blood cell (WBC) count Ordered By: Geovanna Kendrick on 03-27-2025 WBC (Bld) [#/Vol] 9.9 10*3/uL 4.4-11.[address] [facility] CNOVon 03-23-2025 CNOV Office Visit ([facility]) SONAM GUPTA ([id number]) 1980 M Date Time Provider Department 03/23/25 9:15 AM [facility] During your visit today, we recorded the following information about you: Temperature Pulse Respiration Blood pressure 97.3 degrees 89/minute 18/minute 136/88 Weight 147.2 kg Chay Sewell APRN.CNP 03/23/2025 9:23 AM Signed Subjective Sonam Gupta is a 44 year old male. HPI Patient presents today complaining of 1 day of fever, vomiting, headache, diarrhea, and chills. Denies any sore throat cough or congestion. Denies any specific abdominal pain. Review of Systems As above Objective BP 136/88 Pulse 89 Temp 36.3 ?C (97.3 ?F) Resp 18 Wt (!) 147.2 kg (324 lb 8.3 oz) SpO2 97% Physical Exam Vitals and nursing note reviewed. Constitutional: General: He is not in acute distress. Appearance: Normal appearance. He is not ill-appearing. HENT: Head: Normocephalic. Mouth/Throat: Mouth: Mucous membranes are moist. Eyes: Conjunctiva/sclera: Conjunctivae normal. Cardiovascular: Rate and Rhythm: Normal rate and regular rhythm. Pulmonary: Effort: Pulmonary effort is normal. Breath sounds: Normal breath sounds. Abdominal: Palpations: Abdomen is soft. Tenderness: There is no abdominal tenderness. Musculoskeletal: General: Normal range of motion. Cervical back: Normal range of motion. Skin: General: Skin is warm and dry. Neurological: General: No focal deficit present. Mental Status: He is alert. Psychiatric: Mood and Affect: Mood normal. Behavior: Behavior normal. ASSESSMENT/PLAN: 1. Viral gastritis - ICD9: 535.50, ICD10: K29.70 - Evaluation patient's abdomen was soft nontender. Patient had no left lower quadrant or right lower quadrant tenderness so my concern for diverticulitis and/or appendicitis was minimal. Discussed with him the importance of staying hydrated including the use of Gatorade and or Ensure for electrolyte replacement. Discussed with him the importance of maintaining hydration and ensuring that he is urinating at least 3-4 times per day. Reviewed with him the importance of going to the emergency department if it anytime he feels as though his becoming dehydrated and otherwise recommended plenty of rest and fluids and follow-up with PCP if symptoms not improving. 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 - dicyclomine (BENTYL) 20 mg tablet Take 20 mg by mouth four times daily. - amLODIPine (NORVASC) 10 mg tablet Take by mouth. - atenolol (TENORMIN) 25 mg tablet - losartan (COZAAR) 50 mg tablet Take 50 mg by mouth once daily. - buPROPion SR (ZYBAN SR; WELLBUTRIN SR) 150 mg 12 hr tablet Take 150 mg by mouth twice daily. Problem List As Of Date: 03/23/2025 (None) Letter Text Encounter Status:Closed by CHAY SEWELL on 03/23/25 Normal [facility] Inital Evaluation (1) - PTon 11-14-2024 Inital Evaluation (1) - PT [facility] [address] [place] [address] [address] [place] [address] / REHABILITATION SERVICES INITIAL EVALUATION MR#: [id number] Acct: [id number] Name: SONAM GUPTA Rep #: [id number] : 1980 44 From: Gen Bolivar PT, ATC Referring Dr.: Dr. Gaston Arroyo MD Status: REG R Insurance: [employer] SELF [employer]Y INSURANCE Patient's Visit Information Visit Information Visit Information: SONAM GUPTA is a 44 year old M referred to Physical Therapy by Dr. Gaston Arroyo MD with a diagnosis of LBP. 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 Pt reports he has been seeing a chiropractor over this time span. pt reports the pain has progressively worsened over this time span. Pt reports he finally went to PCP secondary to not improving from critical care technician. Pt notes he had recent x-rays which revealed compression to the L4-5 region. Pt reports he has numbness in L lateral thigh which has been present for 4 years. Pt notes he gets intermittent R LE radiculopathy intermittently that descends to the knee region. Pt reports sleep difficulty at this time secondary to pain. 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 Pt reports lifting activity, and trasnsferring sit to stand all increase his pain. Pt reports Ibuprophen and stretching helps to decrease his pain. Icing also helps to decrease his pain. LBP is currently rated at 4/10, increases to 10/10 at worst Pain LBP: Pain Intensity (Out of 10): 4 Pain Intensity Range: 10 Objective Objective: Neuro: B LE sensation is WNL to light touch MMT: B LE's are grossly 5/5 throughout ROM: Pt is minimally limited with extension Repeated movements: RFIS 10x1 increased pain. REIL 10x2 decreased LBP Balance/Special Test Scores Oswestry Low Back Score: 21 Goals Goal 1:: Decrease LBP x 50% to aid with sleep Goal Time Frame: 4-6 Weeks Goal 2:: Decrease B LE radiculopathy x 50% to aid with ambulation Goal Time Frame: 4-6 Weeks Goal 3:: I with HEP Goal Time Frame: 4-6 Weeks Rehabilitation Potential Physical Therapy Diagnosis: Pt has LBP, B LE radiculopathy, and limited L/S ROM secondary to L/S disc derangement Rehabilitation Potential: Good Anticipated Interventions Patient/Client Instruction: Educate patient on: Condition and Plan of Care For the Purpose of:: To improve self management Therapeutic Exercise to Include: Strength training, Endurance training, Body mechanics, Postural training, Dynamic Lumbar Stabilization and Paolo Exercises For the Purpose of:: To decrease pain, To increase ROM and To improve muscle performance and motor function Text: Thank you for the opportunity to evaluate your patient. For Medicare and Medicare HMO plans, please review the plan of care and approve it. It will need to be FAXED BACK to us at [phone] for Medicare purposes. For Medicare only, by signing this I certify the plan of care. Please let me know if there are questions or concerns regarding this plan of care. Physician Signature: Date : 11/14/24 1746 CC: Dr. Gaston Arroyo MD [facility] Signed Normal [facility] L/S Spine Min 4 Viewson 10-03 L/S Spine Min 4 Views [facility] Imaging Services [address] [place] [place], [place] [address] L/S Spine Min 4 Views MR#: [id number] Acct: [id number] Name: SONAM GUPTA Rep #: [id number] : 1980 M 44 From: Cory Saba MD PCP: Dr. Gaston Arroyo MD Status: REG CLI Study: L/S Spine Min 4 Views Date of Exam: 10/31/24 Exam# [id number] Ordering Dr: Gaston Arroyo MD PROCEDURE: L/S SPINE MIN 4 VIEWS 10/31/2024 REASON FOR EXAM: BACK ACHE TECHNIQUE: Five views; AP, lateral, bilateral obliques and coned-down L5-S1 view COMPARISON: None available FINDINGS: 5 [id number] lumbar vertebral bodies identified. No fracture or malalignment. No spondylolysis identified. L2-3: Moderate appearing disc space narrowing. L5-S1: Disc space narrowing and vacuum effect. No osseous lesion identified. RAD/L/S Spine Min 4 Views IMPRESSION: L2-3 and L5-S1 spondylosis/discogeni c change. Reading Location: [facility] CC: Dr. Gaston Arroyo MD [place] Paper: Signed Normal [facility] Knee 4 or More Viewson 08-11 Knee 4 or More Views [facility] Imaging Services [address] [place] [address] Knee 4 or More Views MR#: [id number] Acct: [id number] Name: SONAM GUPTA Rep #: [id number] : 1980 M 43 From: Gael Townsend MD PCP: Dr. Gaston Arroyo MD Status: REG CLI Study: Knee 4 or More Views Date of Exam: 08/11/24 Exam# [id number] Ordering Dr: Gaston Arroyo MD [id number] STUDY: X-RAY - LEFT KNEE REASON FOR EXAM: Male, 43 years old. PAIN TECHNIQUE: 4 views of the left knee. COMPARISON: None. FINDINGS: Normal visualized distal femur. Normal visualized proximal tibia and fibula. Normal proximal tibiofibular articulation. There is no demonstrated fracture. Normal medial femorotibial compartment. Normal lateral femorotibial compartment. Normal patellofemoral articulation. There is a tiny joint effusion. The soft tissue structures are unremarkable. RAD/Knee 4 or More Views IMPRESSION: Tiny joint effusion. No demonstrated fracture. Electronically Signed: Gael Townsend MD at 13:50 EST , CC: Dr. Gaston Arroyo MD [place] Paper: Signed Normal [facility] CNOVon 04-15-2024 CNOV Office Visit (UCWSTR ) SONAM GUPTA ([id number]) 1980 M Date Time Provider Department 04/15/24 10:15 AM [facility] During your visit today, we recorded the following information about you: Temperature Pulse Respiration Blood pressure 97.7 degrees 73/minute 18/minute 130/78 Weight 143.6 kg Phillip Castillo APRN.MMD UNIT TEACHER 04/15/2024 10:20 AM Signed Subjective HPI Nontoxic-appearing male presents urgent care chief complaint possible pinkeye. Duration of symptoms 2 days. Associated symptoms I drainage and redness. Patient states drainage is most prominent in the morning and is stringy. Does have prominent eye pruritus. Has been sneezing and has had a runny nose as well. No visual changes flashes of light or floaters. No eye trauma. No foreign body sensation. No ocular history other than glasses. Overall feels well. Denies any fever body aches chills productive cough chest pain shortness of breath pleuritic pain hemoptysis nausea vomiting abdominal pain change in bowel or bladder habits. Past medical history prescription medication use and allergies reviewed. .Patient presents with: Conjunctivitis: Bilateral x2 days PAST MEDICAL HISTORY Diagnosis Date Hypertension No past surgical history on file. ALLERGIES Bactrim [Sulfamethoxazole-Tri methoprim] MEDICATIONS losartan-hydroCHLOROt hiazide (HYZAAR) 100-25 mg per tablet Take 1 tablet by mouth every afternoon. dicyclomine (BENTYL) 20 mg tablet Take 20 mg by mouth four times daily. amLODIPine (NORVASC) 10 mg tablet Take by mouth. atenolol (TENORMIN) 25 mg tablet buPROPion SR (ZYBAN SR; WELLBUTRIN SR) 150 mg 12 hr tablet Take 150 mg by mouth twice daily. losartan (COZAAR) 50 mg tablet Take 50 mg by mouth once daily. (Patient not taking: Reported on 04/15/2024) No family history on file. Social History Tobacco Use Smoking status: Former Types: Cigarettes Smokeless tobacco: Never Substance Use Topics Alcohol use: Never Drug use: Never BP 130/78 Pulse 73 Temp 36.5 ?C (97.7 ?F) Resp 18 Wt (!) 143.6 kg (316 lb 9.3 oz) SpO2 98% Review of Systems Constitutional: Negative for chills, fever and malaise/fatigue. HENT: Negative for congestion, ear discharge, ear pain, sinus pain and sore throat. Eyes: Positive for discharge and redness. Negative for blurred vision, double vision, photophobia and pain. Respiratory: Negative for cough, hemoptysis, sputum production, shortness of breath, wheezing and stridor. Cardiovascular: Negative for chest pain. Gastrointestinal: Negative for abdominal pain, diarrhea, nausea and vomiting. Musculoskeletal: Negative for myalgias. Skin: Negative for itching and rash. Neurological: Negative for dizziness and headaches. Objective Physical Exam Constitutional: General: He is not in acute distress. Appearance: He is not toxic-appearing. HENT: Head: Normocephalic. Nose: Nose normal. Eyes: General: Lids are normal. Lids are everted, no foreign bodies appreciated. Vision grossly intact. Right eye: Discharge present. No foreign body or hordeolum. Left eye: Discharge present.No foreign body or hordeolum. Conjunctiva/sclera: Right eye: Right conjunctiva is injected. No chemosis, exudate or hemorrhage. Left eye: Left conjunctiva is injected. No chemosis, exudate or hemorrhage. Pupils: Pupils are equal, round, and reactive to light. Comments: Visual acuity unchanged. Limbus clear. No evidence of orbital periorbital cellulitis. Cardiovascular: Rate and Rhythm: Normal rate. Pulmonary: Effort: Pulmonary effort is normal. No respiratory distress. Musculoskeletal: Cervical back: Normal range of motion. Skin: General: Skin is warm and dry. Neurological: General: No focal deficit present. Mental Status: He is alert. ASSESSMENT/PLAN: 1. Allergic conjunctivitis of both eyes - ICD9: 372.14, ICD10: H10.13 - see medication orders - course and contagiousness issues discussed, including hand washing. - Instructed to call if high fever, development of periorbital redness or swelling, eye pain, visual changes, concerns or if symptoms persist. Patient was educated on supportive therapies. Patient will follow up with primary care provider as needed. Patient was instructed to immediately proceed to emergency room for any new, worsening, or symptoms lasting longer than anticipated. The patient's clinical presentation is otherwise unremarkable at this time. Based on exam and clinical finding, the patient is stable for discharge. Plan of care was discussed with patient. Patient verbalizes understanding and agrees to plan of care. This note was generated using [employer] software. It may contain errors in wording, punctuation, or spelling. Phillip Castillo APRN.MMD UNIT TEACHER Allergies As of Date: 04/15/2024 Noted Allergy Reaction BACTRIM (SULFAMETHOXAZOLE-TRI METH*01/19/2023 (more content not included)... Normal [facility] Absolute lymphocyte countOrd ered By: Gaston Arroyo on 10-21-2023 Lymphocytes Auto (Unsp spec) [#/Vol] 1.89 10*3/uL 0.83-4.51 [facility] Automated lymphocyte count a s percentage of total leukocytesOrdered By: Gaston Arroyo on 10-21-2023 Lymphocytes/100 WBC Auto (Unsp spec) 19.8 % 19-41 [facility] Basophil percentageOrdered B y: Gaston Arroyo on 10-21-2023 Basophils/100 WBC (Bld) 1.2 % 0-1 [facility] Chloride [Moles/Vol] 103 mmol/L 98-107 [facility] Eosinophils/100 WBC (Bld) 3.3 % 0-5 [facility] Glucose [Mass/Vol] 96 mg/dL 74-[address] [facility] Hemoglobin (Bld) [Mass/Vol] 15.3 g/dL 13.0-16.5 [facility] Monocytes/100 WBC (Bld) 6.6 % 0-10 [facility] Neutrophils (Bld) [#/Vol] 6.6 10*3/uL 2.0-7.7 [facility] Neutrophils/100 WBC (Bld) 68.8 % 47-70 [facility] Potassium [Moles/Vol] 3.3 mmol/L 3.5-5.1 [facility] Sodium [Moles/Vol] 138 mmol/L 136-[address] [facility] WBC (Bld) [#/Vol] 9.6 10*3/uL 4.4-11.[address] [facility] Determination of erythrocyte mean corpuscular volume (MCV)Ordered By: Gaston Arroyo on 10-21-2023 MCV (RBC) [Entitic vol] 85.1 fL 80-94 [facility] Erythrocyte distribution wid th ratioOrdered By: Gaston Arroyo on 10-21-2023 Erythrocyte distribution width (RBC) [Ratio] 12.5 % 11.6-14.6 [facility] Erythrocyte distribution wid th standard deviationOrdered By: Gaston Arroyo on 10-21-2023 Erythrocyte distribution width (RBC) [Entitic vol] 38.2 fL 35.1-43.9 [facility] Hematocrit Auto (Bld) [Volum e fraction]Ordered By: Gaston Arroyo on 10-21-2023 Hematocrit (Bld) [Volume fraction] 44.4 % 40-54 [facility] Immature granulocytes/100 WB C Auto (Bld)Ordered By: Gaston Arroyo on 10-21-2023 Immature granulocytes/100 WBC (Bld) 0.300 % 0.0-0.9 [facility] Comment on above: IG% - Immature Granu locytes (promyelocytes, myelocytes and metamyelocytes) > 1% indicates that a LEFT SHIFT is Present. Laboratory - Chemistry and C hemistry - challengeOrdered By: Gaston Arroyo on 10-21-2023 CO2 [Moles/Vol] 28.0 mmol/L 21.0-32.0 [facility] Magnesium [Mass/Vol] 2.2 mg/dL 1.6-2.6 [facility] Urea nitrogen/Creatinine [Mass ratio] 18.8 mg/mg 10-20 [facility] Laboratory - Hematology and Cell countsOrdered By: Gaston Arroyo on 10-21-2023 MCH (RBC) [Entitic mass] 29.3 pg 27.0-32.0 [facility] MCHC (RBC) [Mass/Vol] 34.5 g/dL 32-36 [facility] Nucleated RBC/100 WBC (Bld) [Ratio] 0 % 0-5 [facility] Platelet mean volume (Bld) [Entitic vol] 9.4 fL 6.2-12.0 [facility] Platelets (Bld) [#/Vol] 344 10*3/uL 150-450 [facility] No Panel InformationOrdered By: Gaston Arroyo on 10-21-2023 Estimated GFR (MDRD) Amer 149 mL/min >60 [facility] Comment on above: GFR Calc Estimated GFR (MDRD) Non-Af Amer 123 mL/min >60 [facility] Comment on above: Non- GFR Calc RBC Auto (Bld) [#/Vol]Ordere d By: Gaston Arroyo on 10-21-2023 RBC (Bld) [#/Vol] 5.22 10*6/uL 4.6-6.2 [facility] Serum or plasma calcium saroj urement (mass/volume)Ordered By: Gaston Arroyo on 10-21-2023 Calcium [Mass/Vol] 9.1 mg/dL 8.5-10.[address] [facility] Serum or plasma creatinine m easurement (mass/volume)Ordered By: Gaston Arroyo on 10-21-2023 Creatinine [Mass/Vol] 0.75 mg/dL 0.70-1.30 [facility] Comment on above: The validity of the calculated GFR & GFRAA in patients over 70 years has not been determined. Clinical correlation is essential. Serum or plasma urea nitroge n measurement (mass/volume)Ordered By: Gaston Arroyo on 10-21-2023 Urea nitrogen [Mass/Vol] 14 mg/dL 7-18 [facility] Thin prep Papanicolaou smear with manual screeningOrdered By: Gaston Arroyo on 10-21-2023 Thin prep Papanicolaou smear with manual screening 7 5-15 [facility] Covid 19 Resultson 2 SARS-CoV-2 (COVID-19) RNA EVELYN+probe Ql (Unsp spec) NEGATIVE COVID-19 Test Coronaviruses are common world-wide and are the cause of many common colds. SARS-COV2 is a new coronavirus that began circulating worldwide in 2019 so we are calling it COVID-19. It has been estimated that four out of five patients with COVID-19 will recover at home without the need for medical attention. Symptoms of COVID-19 may include cough, fever, shortness of breath, loss of taste or smell and other flu-like symptoms including chills, sore muscles, sore throat, and headache. Severe illness is more common in older people and people with other health problems such as high blood pressure, obesity, and immune system problems. If the test is positive, you have COVID-19. You will be contacted by the ordering physicians office and instructed to remain on home isolation, in accordance with CDC guidelines. You may also be contacted by the [place] [facility] to see if any of your close contacts may have been exposed to the virus and need to quarantine. If the test is negative, you likely do not have COVID-19 at this time, but you still may have a different illness that can spread to other people (like Influenza, or the Flu) and could still be at risk for getting COVID-19. We recommend that you stay away from other people to limit the spread of illness until your symptoms are improving and you are fever-free for 24 hours without the use of fever lowering medications such as acetaminophen or ibuprofen. No test is 100% accurate so if you are still concerned you may have COVID-19, talk to your doctor about the need to continue to stay away from others. Medicines Unless your provider told you not to use the following: Acetaminophen (Tylenol and others) is generally safe. Anti-inflammatory medications, such as Ibuprofen (Advil or Motrin) or Naproxen (Aleve) can also be used. Jglp-unu-pgvrodp cough and cold medicines can be used according to the instructions on the package. Some kxni-nwf-uxfewzs medicines also contain acetaminophen. Make sure you are not taking more than your recommended dose. For those not hospitalized, there is no specific treatment available for this illness. Antibiotics do not treat Coronaviruses. Follow-Up Follow up with your doctor by scheduling a virtual visit or consider follow-up at one of our urgent care fever clinics. If you are having difficulty breathing, or are very weak and having difficulty standing, this is a medical emergency. Call 911 or have someone take you to the nearest emergency room immediately. If possible, wear a facemask. Additional guidance from the CDC for patients who tested POSITIVE for COVID-19 How to isolate: Isolate yourself in a specific room at home and limit your contact with others. Use a separate bathroom from other members of the household, when possible. Leave home only to get essential medical care. Do not go to work, school or public areas. Avoid using public transportation, ride-sharing, or taxis. Restrict contact with pets and other animals. If you must care for your pet or be around animals while you are sick, wash your hands before and after your interaction and wear a facemask. Make sure that shared spaces in the home have good airflow, such as by an air conditioner or an opened window, weather permitting. Personal Hygiene Procedures: Wear a face mask when in the same room as other people or pets. If a face mask interferes with your breathing, others should wear a mask when sharing space with you. Frequent hand-washing: wash your hands with soap and water for at least 20 seconds. If soap and water are not available, use alcohol-based hand ground intelligence officer. Avoid touching your eyes, nose, and mouth with unwashed hands. Household Hygiene Procedures: Avoid sharing personal household items such as dishes, glassware, cups, eating utensils, towels or bedding with other people or pets in your home. After use, these items should be washed with soap and hot water. Disinfect all high-touch surfaces every day with antibacterial cleaning solutions such as Lysol wipes, bleach, cleansers, etc. High-touch surfaces include tabletops, doorknobs, bathroom fixtures, toilets, phones, keyboards, tablets and bedside tables. Immediately clean any surfaces that may have blood, poop or body fluids on them, using antibacterial cleaning solutions such as Lysol wipes, bleach, cleansers, etc. If clothing or bedding come into contact with blood, poop or body fluids, they should be washed immediately. Follow the directions on the laundry detergent and clothing labels but hot water is recommended when possible. Stopping home isolation precautions: If possible, consult your doctor before stopping home isolation precautions. According to the CDC, you can discontinue home isolation precautions when you have met both of these criteria: Your fever and respiratory symptoms have been gone for 24 denice (more content not included)... Normal [facility] INFLUENZA A/B, COVID 2019 PC R,SYMPTOMATICon 07-14-2022 INFLUENZA A, PCR Not detected Normal Not Detected [facility] Comment on above: Result Comment: Resp iratory virus testing is performed routinely by PCR for Influenza A/B and RSV. Not Detected results do not preclude Influenza A/B or RSV infections since the adequacy of sample collection or low viral burden may impact the clinical sensitivity of this test method. Performed By: #### C [facility] #### [id number] [place] [address] INFLUENZA B, PCR Not detected Normal Not Detected [facility] Comment on above: Result Comment: Resp iratory virus testing is performed routinely by PCR for Influenza A/B and RSV. Not Detected results do not preclude Influenza A/B or RSV infections since the adequacy of sample collection or low viral burden may impact the clinical sensitivity of this test method. Performed By: #### [facility] #### [place] [address] SARS-CoV-2 (COVID-19) RNA EVELYN+probe Ql (Unsp spec) Not detected Normal Not Detected [facility] Comment on above: Result Comment: . This test has received FDA Emergency Use Authorization (EUA) and has been verified by [facility]. This test is only authorized for the duration of time that circumstances exist to justify the authorization of the emergency use of in vitro diagnostic tests for the detection of SARS-CoV-2 virus and/or diagnosis of COVID-19 infection under section 564(b)(1) of the Act, 21 U.S.C. 360bbb-3(b)(1), unless the authorization is terminated or revoked sooner. [facility] is certified under CLIA-88 as qualified to perform high complexity testing. Testing is performed in the [facility] laboratory located at [address] [place] [address]. SARS-CoV-2/Flu/RSV Multiplex Test: Fact sheet for providers: https://www.fda.gov/media/570922/download Fact sheet for patients: https://www.fda.gov/media/153862/download Performed By: #### [facility] #### [place] [address] Lab Specimen Source Nasal, Nasopharyngeal Normal [facility] Comment on above: Performed By: #### C [facility] #### [place] [address] Provider Note - ED v3on 07-03 Provider Note - ED v3 Provider Note: Chart Review: ED NOTES ED NOTES: Presents for evaluation of URI. Symptoms including cough, congestion, body aches, malaise, and headache have been present for several days and refractory to OTC meds. No fever, chills, loss of taste/smell, nausea, vomiting, abdominal pain, CP, or SOB. No exacerbating factors. No known COVID 19/flu exposure but coworkers and family members have been ill with unknown illnesses. HISTORY OF PRESENTING ILLNESS SONAM is a 41 year old Male and was seen by me at 14-Jul-2022 11:16. Triage Information: Most recent Vital Sign Value Date PAST MEDICAL HISTORY ALLERGIES/INTOLERANCE S: No Known Allergies HEALTH HISTORY: No documented data. OUTPATIENT MEDICATIONS: Home Medications Review Status for Reconciliation: Complete Med Status: Patient Currently Takes Medications Drug Name: atenolol Instructions: null Drug Name: Wellbutrin SR Instructions: null Drug Name: losartan Instructions: null Drug Name: amLODIPine Instructions: null Drug Name: ZyrTEC Instructions: null SIGNIFICANT EVENTS: No documented data. REVIEW OF SYSTEMS All other systems reviewed and are negative REVIEW OF SYSTEMS: Comments See HPI PHYSICAL EXAM CONSTITUTIONAL: Appears fatigued, dull nasally voice, frequent nasal sniffling. Well nourished, awake, alert, oriented to person, place, time/situation and in no apparent distress. HENMT: Airway patent, ears with clear tympanic membranes bilaterally. Nasal mucosa clear. Mouth with normal mucosa. Throat has no vesicles, no oropharyngeal exudates and uvula is midline. Face with cervical lymphadenopathy bilaterally. EYES: Clear bilaterally, pupils equal, round and reactive to light. CARDIOVASCULAR: Normal rate, regular rhythm. Heart sounds S1, S2. No murmurs, rubs or gallops. PMI non-displaced. RESPIRATORY: Breath sounds clear and equal bilaterally. NEUROLOGICAL: Alert and oriented, no focal deficits, no motor or sensory deficits. SKIN: Skin normal color for race, warm, dry and intact. No evidence of trauma. PSYCHIATRIC: Alert and oriented to person, place, time/situation. normal mood and affect. No apparent risk to self or others. CRITICAL CARE VITAL SIGNS: T PRBP SpO2O2(LPM) %FiO2 Method 14-Jul-2022 11:00:[id number] MDM MDM/ED COURSE: Discussed Findings with: patient Data Reviewed: vital signs Treatment Plan: Swab obtained for flu and COVID testing. Rx Medrol Dosepak. Encouraged pt to continue otc cold remedies, push by mouth fluids and rest. Patient's clinical presentation is otherwise unremarkable at this time. Patient is discharged with instructions to follow-up with primary care or seek emergency medical attention for worsening symptoms or any new concerns. DISPOSITION Diagnosis/Annotation: ED Dx Name:Acute upper respiratory infection Code:J06.9 Disposition: discharged Type: home CONSULT CRITICAL CARE TIME Is this a critically ill patient: no Electronic Signatures: Turner Patterson (EARLY CHILDHOOD AIDE CLASSROOM-MMD UNIT TEACHER) (Signed 14-Jul-2022 11:22) Authored: ED Notes, HPI, PMH, ROS, PE, Results/Vital Signs, MDM/ED Course, Clinical Impression, Attestation, Chart Review, Scores Last Updated: 14-Jul-2022 11:22 by Turner Patterson (EARLY CHILDHOOD AIDE CLASSROOM-MMD UNIT TEACHER) [facility] Absolute lymphocyte counton 05-20-2022 Lymphocytes Auto (Unsp spec) [#/Vol] 1.79 10*3/uL 0.83-4.51 [facility] Work Phone: Basophil percentageon 2021 Basophils/100 WBC (Bld) 1.4 % 0-1 [facility] Work Phone: Eosinophils/100 WBC (Bld) 5.1 % 0-5 [facility] Work Phone: Neutrophils (Bld) [#/Vol] 4.2 10*3/uL 2.0-7.7 [facility] Work Phone: Neutrophils/100 WBC (Bld) 59.3 % 47-70 [facility] Work Phone: WBC (Bld) [#/Vol] 7.0 10*3/uL 4.4-11.[address] [facility] Work Phone: Bilirubin [Mass/Vol] 0.50 mg/dL 0.20-1.00 [facility] Work Phone: Comment on above: For patients on eltr ombopag therapy, use of Dimension Burnett TBIL is not recommended. Chloride [Moles/Vol] 103 mmol/L 98-107 [facility] Work Phone: Cholesterol [Mass/Vol] 134 mg/dL <200 [facility] Work Phone: Comment on above: <200 mg/dL Desirable 200-240 mg/dL Borderline >240 mg/dL High Risk Glucose [Mass/Vol] 111 mg/dL 74-[address] [facility] Work Phone: [phone] Comment on above: Fasting Glucose resu lt from 100 to 125 mg/dL suggests IMPAIRED HOMEOSTASIS per A.D.A. criteria. Potassium [Moles/Vol] 3.8 mmol/L 3.5-5.1 [facility] Work Phone: [phone] Protein [Mass/Vol] 7.5 g/dL 6.4-8.[address] [facility] Work Phone: [phone] Sodium [Moles/Vol] 139 mmol/L 136-[address] [facility] Work Phone: [phone] Triglyceride [Mass/Vol] 101 mg/dL <199 [facility] Work Phone: [phone] Comment on above: The drugs N-Acetylcy steine and Metamizole may falsely depress this assay.Serum Triglycerides Reference Interval Normal <150 mg/dL Borderline high 150 - 199 mg/dL High 200 - 499 mg/dL Very High > or = 500 mg/dL Blood erythrocytes count (nu mber/volume)on 05-20-2022 RBC (Bld) [#/Vol] 5.22 10*6/uL 4.6-6.2 [facility] Work Phone: [phone] Blood hemoglobin measurement (mass/volume)on 05-20-2022 Hemoglobin (Bld) [Mass/Vol] 15.6 g/dL 13.0-16.5 [facility] Work Phone: [phone] Blood lymphocytes/100 leukoc yteson 05-20-2022 Lymphocytes/100 WBC (Bld) 25.5 % 19-41 [facility] Work Phone: [phone] Blood monocytes/100 leukocyt eson 05-20-2022 Monocytes/100 WBC (Bld) 8.3 % 0-10 [facility] Work Phone: [phone] Blood platelet mean volumeon 05-20-2022 Platelet mean volume (Bld) [Entitic vol] 9.7 fL 6.2-12.0 [facility] Work Phone: [phone] Determination of erythrocyte mean corpuscular volume (MCV)on 05-20-2022 MCV (RBC) [Entitic vol] 88.7 fL 80-94 [facility] Work Phone: [phone] Hematocrit Auto (Bld) [Volum e fraction]on 05-20-2022 Hematocrit (Bld) [Volume fraction] 46.3 % 40-54 [facility] Work Phone: Laboratory - Chemistry and C hemistry - challengeon 05-20-2022 ALP [Catalytic activity/Vol] 75 U/L 45-117 [facility] Work Phone: ALT [Catalytic activity/Vol] 41 U/L 16-61 [facility] Work Phone: [phone] CO2 [Moles/Vol] 27.0 mmol/L 21.0-32.0 [facility] Work Phone: [phone] Globulin (S) [Mass/Vol] 3.9 g/dL 2.2-4.2 [facility] Work Phone: [phone] Urea nitrogen/Creatinine [Mass ratio] 19.2 mg/mg 10-20 [facility] Work Phone: [phone] Laboratory - Hematology and Cell countson 05-20-2022 Erythrocyte distribution width (RBC) [Entitic vol] 43.0 fL 35.1-43.9 [facility] Work Phone: [phone] Erythrocyte distribution width (RBC) [Ratio] 13.2 % 11.6-14.6 [facility] Work Phone: [phone] Immature granulocytes/100 WBC (Bld) 0.400 % 0.0-0.9 [facility] Work Phone: Comment on above: IG% - Immature Granu locytes (promyelocytes, myelocytes and metamyelocytes) > 1% indicates that a LEFT SHIFT is Present. MCH (RBC) [Entitic mass] 29.9 pg 27.0-32.0 [facility] Work Phone: Nucleated RBC/100 WBC (Bld) [Ratio] 0 % 0-5 [facility] Work Phone: MCHC Auto (RBC) [Mass/Vol]on 05-20-2022 MCHC (RBC) [Mass/Vol] 33.7 g/dL 32-36 [facility] Work Phone: No Panel Informationon 05-20 Estimated GFR (MDRD) Amer 123 mL/min >60 [facility] Work Phone: Comment on above: GFR Calc Estimated GFR (MDRD) Non-Af Amer 102 mL/min >60 [facility] Work Phone: Comment on above: Non- GFR Calc Platelets bldon 05-20-2022 Platelets (Bld) [#/Vol] 332 10*3/uL 150-450 [facility] Work Phone: [phone] Serum or plasma albumin saroj urement (mass/volume)on 05-20-2022 Albumin [Mass/Vol] 3.6 g/dL 3.2-5.[address] [facility] Work Phone: [phone] Serum or plasma albumin/glob ulin mass ratioon 05-20-2022 Albumin/Globulin [Mass ratio] 0.9 {ratio} 0.9-2.4 [facility] Work Phone: [phone] Serum or plasma calcium saroj urement (mass/volume)on 05-20-2022 Calcium [Mass/Vol] 8.8 mg/dL 8.5-10.[address] [facility] Work Phone: [phone] Serum or plasma cholesterol in HDL measurement (mass/volume)on 05-20-2022 Cholesterol in HDL [Mass/Vol] 37 mg/dL >40 [facility] Work Phone: Comment on above: The drugs N-Acetylcy steine and Metamizole may falsely depress this assay. Reference Range HDL <40 mg/dL Low HDL Cholesterol HDL >or= 60 mg/dL High HDL Cholesterol Serum or plasma cholesterol in VLDL measurement (mass/volume)on 05-20-2022 Cholesterol in VLDL [Mass/Vol] 20 mg/dL 5-40 [facility] Work Phone: [phone] Serum or plasma creatinine m easurement (mass/volume)on 05-20-2022 Creatinine [Mass/Vol] 0.88 mg/dL 0.70-1.30 [facility] Work Phone: Comment on above: The validity of the calculated GFR & GFRAA in patients over 70 years has not been determined. Clinical correlation is essential. Serum or plasma low density lipoprotein (LDL) cholesterol measurement (mass/volume)on 05-20-2022 Cholesterol in LDL [Mass/Vol] 77 mg/dL 0-130 [facility] Work Phone: Serum or plasma urea nitroge n measurement (mass/volume)on 05-20-2022 Urea nitrogen [Mass/Vol] 17 mg/dL 7-18 [facility] Work Phone: Thin prep Papanicolaou smear with manual screeningon 05-20-2022 Thin prep Papanicolaou smear with manual screening 29 U/L 15-37 [facility] Work Phone: Thin prep Papanicolaou smear with manual screening 9 5-15 [facility] Work Phone: Absolute lymphocyte counton 05-08-2022 Lymphocytes Auto (Unsp spec) [#/Vol] 1.90 10*3/uL 0.83-4.51 [facility] Work Phone: Basophil percentageon 2021 Basophils/100 WBC (Bld) 1.0 % 0-1 [facility] Work Phone: Chloride [Moles/Vol] 104 mmol/L 98-107 [facility] Work Phone: Eosinophils/100 WBC (Bld) 4.6 % 0-5 [facility] Work Phone: [phone] Glucose [Mass/Vol] 112 mg/dL 74-[address] [facility] Work Phone: Comment on above: Fasting Glucose resu lt from 100 to 125 mg/dL suggests IMPAIRED HOMEOSTASIS per A.D.A. criteria. Neutrophils (Bld) [#/Vol] 4.8 10*3/uL 2.0-7.7 [facility] Work Phone: Neutrophils/100 WBC (Bld) 59.9 % 47-70 [facility] Work Phone: Potassium [Moles/Vol] 3.6 mmol/L 3.5-5.1 [facility] Work Phone: Sodium [Moles/Vol] 138 mmol/L 136-[address] [facility] Work Phone: WBC (Bld) [#/Vol] 8.1 10*3/uL 4.4-11.[address] [facility] Work Phone: Blood erythrocytes count (nu mber/volume)on 05-08-2022 RBC (Bld) [#/Vol] 5.21 10*6/uL 4.6-6.2 [facility] Work Phone: Blood hemoglobin measurement (mass/volume)on 05-08-2022 Hemoglobin (Bld) [Mass/Vol] 15.5 g/dL 13.0-16.5 [facility] Work Phone: Blood lymphocytes/100 leukoc yteson 05-08-2022 Lymphocytes/100 WBC (Bld) 23.6 % 19-41 [facility] Work Phone: Blood monocytes/100 leukocyt eson 05-08-2022 Monocytes/100 WBC (Bld) 10.4 % 0-10 [facility] Work Phone: [phone] Blood platelet mean volumeon 05-08-2022 Platelet mean volume (Bld) [Entitic vol] 9.5 fL 6.2-12.0 [facility] Work Phone: Determination of erythrocyte mean corpuscular volume (MCV)on 05-08-2022 MCV (RBC) [Entitic vol] 88.1 fL 80-94 [facility] Work Phone: Hematocrit Auto (Bld) [Volum e fraction]on 05-08-2022 Hematocrit (Bld) [Volume fraction] 45.9 % 40-54 [facility] Work Phone: Laboratory - Chemistry and C hemistry - challengeon 05-08-2022 CO2 [Moles/Vol] 27.0 mmol/L 21.0-32.0 [facility] Work Phone: [phone] Urea nitrogen/Creatinine [Mass ratio] 18.9 mg/mg 10-20 [facility] Work Phone: [phone] Laboratory - Hematology and Cell countson 05-08-2022 Erythrocyte distribution width (RBC) [Entitic vol] 40.9 fL 35.1-43.9 [facility] Work Phone: [phone] Erythrocyte distribution width (RBC) [Ratio] 12.7 % 11.6-14.6 [facility] Work Phone: [phone] Immature granulocytes/100 WBC (Bld) 0.500 % 0.0-0.9 [facility] Work Phone: [phone] Comment on above: IG% - Immature Granu locytes (promyelocytes, myelocytes and metamyelocytes) > 1% indicates that a LEFT SHIFT is Present. MCH (RBC) [Entitic mass] 29.8 pg 27.0-32.0 [facility] Work Phone: [phone] Nucleated RBC/100 WBC (Bld) [Ratio] 0 % 0-5 [facility] Work Phone: [phone] MCHC Auto (RBC) [Mass/Vol]on 05-08-2022 MCHC (RBC) [Mass/Vol] 33.8 g/dL 32-36 [facility] Work Phone: [phone] Panel Informationon 05-08 Estimated Creatinine Clearance Calc 113.78 ml/min [facility] Work Phone: [phone] Estimated GFR (MDRD) Amer 121 mL/min >60 [facility] Work Phone: [phone] Comment on above: GFR Calc Estimated GFR (MDRD) Non-Af Amer 100 mL/min >60 [facility] Work Phone: [phone] Comment on above: Non- GFR Calc Platelets bldon 05-08-2022 Platelets (Bld) [#/Vol] 308 10*3/uL 150-450 [facility] Work Phone: [phone] Serum or plasma calcium saroj urement (mass/volume)on 05-08-2022 Calcium [Mass/Vol] 8.8 mg/dL 8.5-10.[address] [facility] Work Phone: [phone] Serum or plasma creatinine m easurement (mass/volume)on 05-08-2022 Creatinine [Mass/Vol] 0.90 mg/dL 0.70-1.30 [facility] Work Phone: [phone] Comment on above: The validity of the calculated GFR & GFRAA in patients over 70 years has not been determined. Clinical correlation is essential. Serum or plasma urea nitroge n measurement (mass/volume)on 05-08-2022 Urea nitrogen [Mass/Vol] 17 mg/dL 7-18 [facility] Work Phone: [phone] Thin prep Papanicolaou smear with manual screeningon 05-08-2022 Thin prep Papanicolaou smear with manual screening 7 5-15 [facility] Work Phone: [phone] Vancomycin troughon 05-07-20 Vancomycin trough [Mass/Vol] 15.8 ug/mL 5.0-15.0 [facility] Work Phone: Comment on above: VANCOMYCIN STANDARED DRUG THERAPY TROUGH LEVEL: 5.0 - 15.0 mg/L VANCOMYCIN HIGH INTENSITY THERAPY TROUGH LEVEL: 15.0 - 20.0 mg/L High Intensity therapy recommended for serious lifethreatening infections include:- Tsgqyemkjg-Gyvnfyppfwtb-Dfoyxvzzu (Ventilator/Healtcare Associated)-Sepsis PLEASE CONTACT PHARMACY SERVICES (#[id number]) FOR INTERPRETATIONOF RESULTS. Laboratory - Chemistry and C hemistry - challengeon 05-06-2022 Magnesium [Mass/Vol] 2.2 mg/dL 1.6-2.6 [facility] Work Phone: [phone] Bacteria identified Anaer cx Nom (Unsp spec) Anaerobic microbial culture No anaerobic bacteria isolated. [facility] Work Phone: [phone] Bacteria identified Cx Nom ( Wound) Wound Culture Stenotrophomonas maltophilia [facility] Work Phone: [phone] Wound Culture Staphylococcus saprophyticus [facility] Work Phone: [phone] Wound Culture Pseudomonas oryzihabitans [facility] Work Phone: Wound Culture Staphylococcus xylosus [facility] Work Phone: Gram stain for investigation of transfusion reaction Microscopic observation Gram stain Nom (Unsp spec) [facility] Work Phone: [phone] Vital Signs Date Time Vital Sign Value Performing Clinician Facility 03-23-2025 09:13-0400 Body temperature 97.3 [degF] Chay Moomaw EARLY CHILDHOOD AIDE [employer]SROOM.MMD UNIT TEACHER Work Phone: [facility] 03-23-2025 09:13-0400 Body weight 147.2 kg Chay Moomaw EARLY CHILDHOOD AIDE CLASSROOM.MMD UNIT TEACHER Work Phone: [facility] 03-23-2025 09:13-0400 Diastolic blood pressure 88 mm[Hg] Chay Moomaw EARLY CHILDHOOD AIDE CLASSROOM.MMD UNIT TEACHER Work Phone: [facility] 03-23-2025 09:13-0400 Heart rate 89 /min Chay Moomaw EARLY CHILDHOOD AIDE CLASSROOM.MMD UNIT TEACHER Work Phone: [facility] 03-23-2025 09:13-0400 Respiratory rate 18 /min Chay Moomaw EARLY CHILDHOOD AIDE CLASSROOM.MMD UNIT TEACHER Work Phone: [facility] 03-23-2025 09:13-0400 SaO2% (BldA) [Mass fraction] 97 % Chay Moomaw EARLY CHILDHOOD AIDE CLASSROOM.MMD UNIT TEACHER Work Phone: [facility] 03-23-2025 09:13-0400 Systolic blood pressure 136 mm[Hg] Chay Moomaw EARLY CHILDHOOD AIDE CLASSROOM.MMD UNIT TEACHER Work Phone: [facility] 04-15-2024 10:10-0400 Body temperature 97.7 [degF] Phillip Pendlesimón EARLY CHILDHOOD AIDE CLASSROOM.MMD UNIT TEACHER Work Phone: [facility] 04-15-2024 10:10-0400 Body weight 143.6 kg Phillip Castillo EARLY CHILDHOOD AIDE CLASSROOM.MMD UNIT TEACHER Work Phone: [facility] 04-15-2024 10:10-0400 Diastolic blood pressure 78 mm[Hg] Phillip Pendlebury EARLY CHILDHOOD AIDE CLASSROOM.MMD UNIT TEACHER Work Phone: [facility] 04-15-2024 10:10-0400 Heart rate 73 /min Phillip Pendlebury EARLY CHILDHOOD AIDE CLASSROOM.MMD UNIT TEACHER Work Phone: [facility] 04-15-2024 10:10-0400 Respiratory rate 18 /min Phillip Pendlebury EARLY CHILDHOOD AIDE CLASSROOM.MMD UNIT TEACHER Work Phone: [facility] 04-15-2024 10:10-0400 SaO2% (BldA) [Mass fraction] 98 % Phillip Pendlebury EARLY CHILDHOOD AIDE CLASSROOM.MMD UNIT TEACHER Work Phone: [facility] 04-15-2024 10:10-0400 Systolic blood pressure 130 mm[Hg] Phillip Pendlebury EARLY CHILDHOOD AIDE CLASSROOM.MMD UNIT TEACHER Work Phone: [facility] 02-01-2024 16:49-0400 Body temperature 97.5 [degF] Becca Atwood EARLY CHILDHOOD AIDE CLASSROOM.MMD UNIT TEACHER Work Phone: [facility] 02-01-2024 16:49-0400 Body weight 140 kg Becca Atwood EARLY CHILDHOOD AIDE CLASSROOM.MMD UNIT TEACHER Work Phone: [facility] 02-01-2024 16:49-0400 Diastolic blood pressure 86 mm[Hg] Becca Atwood EARLY CHILDHOOD AIDE CLASSROOM.MMD UNIT TEACHER Work Phone: [facility] 02-01-2024 16:49-0400 Heart rate 90 /min Becca Atwood EARLY CHILDHOOD AIDE CLASSROOM.MMD UNIT TEACHER Work Phone: [facility] 02-01-2024 16:49-0400 Respiratory rate 21 /min Becca Atwood EARLY CHILDHOOD AIDE CLASSROOM.MMD UNIT TEACHER Work Phone: [facility] 02-01-2024 16:49-0400 SaO2% (BldA) [Mass fraction] 98 % Becca Atwood EARLY CHILDHOOD AIDE CLASSROOM.MMD UNIT TEACHER Work Phone: [facility] 02-01-2024 16:49-0400 Systolic blood pressure 142 mm[Hg] Becca Atwood EARLY CHILDHOOD AIDE CLASSROOM.MMD UNIT TEACHER Work Phone: [facility] 04-30-2023 14:21-0400 Body temperature 98.71 [degF] Phillip Pendlebury EARLY CHILDHOOD AIDE CLASSROOM.MMD UNIT TEACHER Work Phone: [facility] 04-30-2023 14:21-0400 Body weight 141.34 kg Phillip Pendlebury EARLY CHILDHOOD AIDE CLASSROOM.MMD UNIT TEACHER Work Phone: [facility] 04-30-2023 14:21-0400 Diastolic blood pressure 85 mm[Hg] Phillip Pendlebury EARLY CHILDHOOD AIDE CLASSROOM.MMD UNIT TEACHER Work Phone: [facility] 04-30-2023 14:21-0400 Heart rate 89 /min Phillip Pendlebury EARLY CHILDHOOD AIDE CLASSROOM.MMD UNIT TEACHER Work Phone: [facility] 04-30-2023 14:21-0400 Respiratory rate 18 /min Phillip Pendlebury EARLY CHILDHOOD AIDE CLASSROOM.MMD UNIT TEACHER Work Phone: [facility] 04-30-2023 14:21-0400 SaO2% (BldA) [Mass fraction] 98 % Phillip Pendlebury EARLY CHILDHOOD AIDE CLASSROOM.MMD UNIT TEACHER Work Phone: [facility] 04-30-2023 14:21-0400 Systolic blood pressure 142 mm[Hg] Phillip Pendlebury EARLY CHILDHOOD AIDE CLASSROOM.MMD UNIT TEACHER Work Phone: [facility] 01-19-2023 14:32-0400 Body temperature 98.01 [degF] James Nova MD Work Phone: [facility] 01-19-2023 14:32-0400 Body weight 148.6 kg James Nova MD Work Phone: [facility] 01-19-2023 14:32-0400 Diastolic blood pressure 78 mm[Hg] James Nova MD Work Phone: [facility] 01-19-2023 14:32-0400 Heart rate 79 /min James Nova MD Work Phone: [facility] 01-19-2023 14:32-0400 Respiratory rate 18 /min James Nova MD Work Phone: [facility] 01-19-2023 14:32-0400 SaO2% (BldA) [Mass fraction] 98 % James Nova MD Work Phone: [facility] 01-19-2023 14:32-0400 Systolic blood pressure 136 mm[Hg] James Nova MD Work Phone: [facility] 09-24-2022 17:30-0500 Body temperature 97.6 [degF] [facility] 09-24-2022 17:30-0500 Diastolic blood pressure 89 mm[Hg] [facility] 09-24-2022 17:30-0500 Heart rate 90 /min [facility] 09-24-2022 17:30-0500 Respiratory rate 16 /min [facility] 09-24-2022 17:30-0500 SaO2% (BldA) [Mass fraction] 98 % [facility] 09-24-2022 17:30-0500 Systolic blood pressure 166 mm[Hg] [facility] 09-24-2022 17:28-0500 Body height 177.8 cm [facility] 09-24-2022 17:28-0500 Body mass index (BMI) [Ratio] 48.2 kg/m2 [facility] 09-24-2022 17:28-0500 Body weight 152.3 kg [facility] 08-05-2022 14:28-0500 Body height 178 cm Gaston Arroyo Other Phone: [facility] 08-05-2022 14:28-0500 Body temperature 98.24 [degF] Gaston Arroyo Other Phone: [facility] 08-05-2022 14:28-0500 Diastolic blood pressure 80 mm[Hg] Gaston Arroyo Other Phone: [facility] 08-05-2022 14:28-0500 Heart rate 86 /min Gaston Arroyo Other Phone: [facility] 08-05-2022 14:28-0500 Respiratory rate 22 /min Gaston Arrooy Other Phone: [facility] 08-05-2022 14:28-0500 SaO2% (BldA) [Mass fraction] 97 % Gaston Arroyo Other Phone: [facility] 08-05-2022 14:28-0500 Systolic blood pressure 136 mm[Hg] Gaston Arroyo Other Phone: [facility] 07-14-2022 13:00-0500 Body height 178 cm Gaston Arroyo Other Phone: [facility] 07-14-2022 13:00-0500 Body temperature 98.6 [degF] Gaston Arroyo Other Phone: [facility] 07-14-2022 13:00-0500 Diastolic blood pressure 88 mm[Hg] Gaston Arroyo Other Phone: [facility] 07-14-2022 13:00-0500 Heart rate 94 /min Gaston Arroyo Other Phone: [facility] 07-14-2022 13:00-0500 Respiratory rate 14 /min Gaston Arroyo Other Phone: [facility] 07-14-2022 13:00-0500 SaO2% (BldA) [Mass fraction] 97 % Gaston Arroyo Other Phone: [facility] 07-14-2022 13:00-0500 Systolic blood pressure 142 mm[Hg] Gaston Arroyo Other Phone: [facility] 05-08-2022 09:00-0400 Body temperature 97.7 [degF] Dr. Gaston Arroyo Work Phone: [facility] Work Phone: 05-08-2022 09:00-0400 Diastolic blood pressure 73 mm[Hg] Dr. Gaston Arroyo Work Phone: [facility] Work Phone: 05-08-2022 09:00-0400 Heart rate 96 /min Dr. Gaston Arroyo Work Phone: [facility] Work Phone: 05-08-2022 09:00-0400 Respiratory rate 18 /min Dr. Gaston Arroyo Work Phone: [facility] Work Phone: 05-08-2022 09:00-0400 SaO2% (BldA) [Mass fraction] 96 % Dr. Gaston Arroyo Work Phone: [facility] Work Phone: 05-08-2022 09:00-0400 Systolic blood pressure 136 mm[Hg] Dr. Gaston Arroyo Work Phone: [facility] Work Phone: 05-08-2022 02:50-0400 Inhaled oxygen concentration 21 % Dr. Gaston Arroyo Work Phone: [facility] Work Phone: 05-08-2022 02:50-0400 Inhaled oxygen flow rate 2 L/min Dr. Gaston Arroyo Work Phone: [facility] Work Phone: 05-05-2022 10:43-0400 Body height 177.[address] Gaston Arroyo Work Phone: [facility] Work Phone: 05-05-2022 10:43-0400 Body weight 154.[address] Gaston Arroyo Work Phone: [facility] Work Phone: 05-04-2022 21:02-0400 Body mass index (BMI) [Ratio] 48.7 kg/m2 Dr. Gaston Arroyo Work Phone: [facility] Work Phone: 05-04-2022 17:03-0400 Body temperature 98.1 [degF] [facility] Work Phone: 05-04-2022 17:03-0400 Diastolic blood pressure 91 mm[Hg] [facility] Work Phone: 05-04-2022 17:03-0400 Heart rate 79 /min [facility] Work Phone: 05-04-2022 17:03-0400 Respiratory rate 18 /min [facility] Work Phone: 05-04-2022 17:03-0400 SaO2% (BldA) [Mass fraction] 98 % [facility] Work Phone: 05-04-2022 17:03-0400 Systolic blood pressure 154 mm[Hg] [facility] Work Phone: 05-04-2022 16:46-0400 Body height 177.8 cm [facility] Work Phone: 05-04-2022 16:46-0400 Body mass index (BMI) [Ratio] 48.7 kg/m2 [facility] Work Phone: 05-04-2022 16:46-0400 Body weight 154.22 kg [facility] Work Phone: Encounters Encounter Date Encounter Type Care Provider Facility Start: 06-02-2025 End: 06-02-2025 ambulatory Gaston Arroyo Facility:[facility] [place] [place] Start: 03-27-2025 End: 03-27-[address] Gaston Arroyo MD Work Phone: -[facility] [place] Start: 03-27-2025 End: 03-27-2025 Patient encounter procedure Geovannared Dotsonner LEGISLATIVE ASSISTANT-C -[facility] [place] Work Phone: Start: 03-27-2025 End: 03-27-2025 ambulatory Gaston Arroyo Facility:[facility] Start: 03-23-2025 End: 03-23-2025 Patient encounter procedure Chay Sewell EARLY CHILDHOOD AIDE CLASSROOM.MMD UNIT TEACHER Work Phone: [facility] Comment on above: Viral gastritis (Ashley lana Dx) Start: 03-23-2025 End: 03-23-2025 ambulatory GASTON ARROYO Facility:[facility] Start: 12-05-2024 End: 12-05-[address] Gaston Arroyo MD Work Phone: -Physical Therapy Start: 12-05-2024 End: 12-05-[address] Gaston Arroyo MD -Physical Therapy Work Phone: Start: 10-31-2024 End: 10-31-[address] Gaston Arroyo MD Work Phone: [facility] Work Phone: Start: 10-31-2024 End: 10-31-[address] Gaston Arroyo MD -[facility] [place] Work Phone: Start: 10-31-2024 End: 10-31-2024 ambulatory Gaston Arroyo Facility:[facility] Start: 08-11-2024 End: 08-11-[address] Gaston Arroyo MD -Radiology, [place] Work Phone: Start: 08-11-2024 End: 08-11-2024 ambulatory Gaston Arroyo Facility:[facility] Start: 04-15-2024 End: 04-15-2024 ambulatory GASTON ARROYO Facility:[facility] Start: 04-15-2024 End: 04-15-2024 Office outpatient visit 15 minutes Phillip Castillo APRN.MMD UNIT TEACHER Work Phone: [facility] Comment on above: Allergic conjunctivi tis of both eyes (Primary Dx) Start: 02-01-2024 End: 02-01-2024 Patient encounter procedure Becca Atwood EARLY CHILDHOOD AIDE CLASSROOM.MMD UNIT TEACHER Work Phone: [facility] Comment on above: Laceration of right thumb without damage to nail, foreign body presence unspecified, initial encounter (Primary Dx); Encounter for immunization Start: 10-21-2023 End: 10-21-2023 ambulatory [facility] Work Phone: Start: 10-21-2023 End: 10-21-2023 Patient encounter procedure [facility] Start: 04-30-2023 End: 04-30-2023 Office outpatient visit 15 minutes Phillip Castillo APRN.MMD UNIT TEACHER Work Phone: [facility] Comment on above: Arm swelling (Primar y Dx); Bee sting, accidental or unintentional, initial encounter Start: 01-19-2023 End: 01-19-2023 Patient encounter procedure James Nova MD Work Phone: [facility] Comment on above: Abscess of nose (Ashley lana Dx) Start: 09-24-2022 End: 09-24-2022 Emergency department patient visit [facility]-Emergency Department Start: 08-05-2022 End: 08-05-2022 Emergency department patient visit [facility] Start: 07-14-2022 End: 07-14-2022 Emergency department patient visit [facility] Start: 06-02-2022 End: 06-02-[address] Gaston Arroyo Work Phone: [facility] Work Phone: Start: 06-02-2022 End: 06-02-[address] Gaston Arroyo Work Phone: [facility]-Cardiovascul ar Services Start: 05-20-2022 End: 05-20-[address] Gaston Arroyo Work Phone: [facility] Work Phone: Start: 05-20-2022 End: 05-20-[address] Gaston Arroyo Work Phone: [facility] Start: 05-08-2022 Non-patient / Non-visit Dr. Teja Arroyo Work Phone: [facility] Start: 05-07-2022 Non-patient / Non-visit Dr. Teja Arroyo Work Phone: [facility] Start: 05-06-2022 Non-patient / Non-visit Dr. Teja Arroyo Work Phone: [facility] Start: 05-05-2022 Non-patient / Non-visit Dr. Teja Arroyo Work Phone: [facility] Start: 05-04-2022 Non-patient / Non-visit Dr. Teja Arroyo Work Phone: [facility] Start: 05-04-2022 End: 05-08-2022 Evaluation and management of inpatient Dr. Gaston Arroyo Work Phone: [facility]-Medical Surgical 3 Start: 05-04-2022 Admission to [facility] [place] Start: 05-04-2022 ambulatory [facility] Work Phone: Start: 10-10-2021 ambulatory Ms. Angelina Carter Facility:[id number] Procedures Date Procedure Procedure Detail Performing Clinician Start: 03-27-2025 Plain X-ray abdomen Dr. Gaston Arroyo MD Work Phone: Start: 10-31-2024 X-ray of lumbosacral spine Dr. Gaston Arroyo MD Work Phone: Start: 08-11-2024 X-ray of knee, four or more views Dr. Gaston Arroyo MD Work Phone: Start: 01-19-2023 Cul bact xcpt urine blood/stool aerobic isol James Nova MD Work Phone: Start: 05-07-2022 MRI of lower limb wi th contrast Dr. Gaston Arroyo Work Phone: Start: 05-07-2022 X-ray of both feet Dr. Gaston Arroyo Work Phone: Start: 05-04-2022 X-ray of both feet Dr. Gaston Arroyo Work Phone: Start: 05-04-2022 Debridement Wound wi th Primary Closure (Right) Dr. Gaston Arroyo Work Phone: Start: 05-04-2022 X-ray of both feet Anaerobic microbial culture Dr. Gaston Arroyo Work Phone: Investigation of transfusion reaction Dr. Gaston Arroyo Work Phone: Microbial culture, routine D hermelinda Arroyo Work Phone: Plan of Treatment Date Care Activity Detail Author Start: 01-31-2034 Urine microalbumin profile DTaP,Tdap,Td Vaccine (3 - Td or Tdap) [facility] Start: 04-03-2025 Influenza vaccination Influenza Vaccine (#1) [facility] Start: 04-03-2024 Covid-19 Vaccine ( season) Covid-19 Vaccine ( season) [facility] Start: 04-03-2024 Influenza vaccination Influenza Vaccine (#1) [facility] Start: 08-03-2023 Behavioral Health Screening Behavioral Health Screening [facility] Start: 04-03-2023 Covid-19 Vaccine ( season) Covid-19 Vaccine () [facility] Start: 04-03-2023 Influenza vaccination Influenza Vaccine (#1) [facility] Start: 08-03-2022 DEPRESSION ASSESSMENT DEPRESSION ASSESSMENT [facility] Start: 05-08-2022 Patient discharge [facility] Work Phone: Start: 05-05-2022 Wound care [facility] Work Phone: Start: 05-05-2022 Consultation [facility] Work Phone: Start: 05-05-2022 Continuous pulse oximetry [facility] Work Phone: Start: 05-04-2022 Following clinical pathway protocol [facility] Work Phone: Start: 05-04-2022 Referral to occupational therapist [facility] Work Phone: Start: 05-04-2022 Referral to service [facility] Work Phone: Start: 05-04-2022 End: 05-04-2022 [facility] Work Phone: Start: 05-04-2022 Application of intermittent pneumatic compression device [facility] Work Phone: Start: 05-04-2022 Catheterization of vein [facility] Work Phone: Start: 05-04-2022 Consultation for treatment [facility] Work Phone: Start: 05-04-2022 Elevation of affected extremity [facility] Work Phone: Start: 05-04-2022 Incentive spirometry [facility] Work Phone: Start: 05-04-2022 Vital signs measurements [facility] Work Phone: Start: 05-04-2022 Admission procedure [facility] Work Phone: Start: 05-04-2022 Consultation [facility] Work Phone: Start: 2017 Lipid 1996 panel - Serum or Plasma Lipid Screening [facility] Start: 2017 Lipid panel Lipid Screening [facility] Start: 2017 LIPID SCREEN LIPID SCREEN [facility] Start: 2009 HPV Vaccine (1 - 3-dose SCDM series) HPV Vaccine (1 - 3-dose SCDM series) [facility] Start: 2001 Hepatitis B Vaccine (1 of 3 - 19+ 3-dose series) Hepatitis B Vaccine (1 of 3 - 19+ 3-dose series) [facility] Start: 2001 Urine microalbumin profile [facility] Start: 2000 Anxiety Screening Anxiety Screening [facility] Start: 2000 Depression Screening Depression Screening [facility] Start: 2000 HEPATITIS C SCREENING HEPATITIS C SCREENING [facility] Start: 2000 Hepatitis C screening Hepatitis C Screening [facility] Start: 2000 HIV SCREENING HIV SCREENING [facility] Start: 2000 HIV screening HIV Screening [facility] Start: 1982 HEPATITIS B (1 of 3 - 3-dose series) HEPATITIS B (1 of 3 - 3-dose series) [facility] Start: 1982 Hepatitis B Vaccine (1 of 3 - 3-dose series) Hepatitis B Vaccine (1 of 3 - 3-dose series) [facility] Anaerobic microbial culture Anaerobic Culture [facility] Work Phone: Bacteria identified in Wound by Culture ABSCESS AND WOUND CULTURE WITH GRAM STAIN Microbiology Routine Abscess of nose 01/19/2023 2:53 PM EDT [facility] Work Phone: Microbial culture, routine Wound Culture [facility] Work Phone: Patient Education ED Drug Reaction, Other [facility] Work Phone: Patient referral [facility] Work Phone: Immunizations Immunization Date Immunization Notes Care Provider Azael valladares 02-01-2024 tetanus toxoid, reduced diphtheria toxoid, and acellular pertussis vaccine, adsorbed Becca Atwood EARLY CHILDHOOD AIDE CLASSROOM.MMD UNIT TEACHER Work Phone: [facility] 06-18-2022 influenza virus vaccine, unspecified formulation Phillip Castillo EARLY CHILDHOOD AIDE CLASSROOM.MMD UNIT TEACHER Work Phone: [facility] 08-05-2021 Covid (Pfizer) Dr. Gaston vásquez Work Phone: [facility] 12-06-2020 Covid (Moderna) Dr. Gaston perez Work Phone: [facility] 11-08-2020 Covid (Moderna) Dr. Gaston perez Work Phone: [facility] Payers Date Payer Category Payer Unknown [id number] 2024 Self-pay [id number] 2023 Private Health Insurance [id number] 2022 Private Health Insurance [id number] 2014 Unknown [facility] [id number] 1982 Unknown [id number] Private Health Insurance [employer] [id number] Unknown [id number] Unknown Unknown [id number] Unknown [id number] Unknown [id number] Unknown [id number] Unknown [id number] Social History Date Type Detail Facility Start: 05-04-2022 End: 09-24-2022 Tobacco smoking status NVIS Unknown if ever smoked [facility] Start: 1980 Sex Assigned At Male [facility] Start: 09-07-2022 End: 01-06-2024 Tobacco smoking status NVIS Ex-smoker [facility] History of tobacco use Current smoker [facility] History of tobacco use Cigarette Smoker [facility] Start: 09-07-2022 Tobacco use and exposure Smokeless tobacco non-user [facility] Start: 01-19-2023 End: 03-23-2025 Alcohol intake Lifetime non-drinker (finding) [facility] Start: 1980 Sex Assigned At Not on file [facility] Start: 07-11-2020 End: 04-30-2023 History of Social function [facility] Start: 07-11-2020 End: 04-30-2023 Tobacco use panel [facility] Start: 03-13-2013 National Score (1-100), lower number is lower risk Not on file [facility] Start: 11-03-2024 Sex Male (finding) [facility] Goals Date Patient Goal Desired Activity /State Functional Status Date Assessment Result Facility 05-08-2022 Functional status Ambulates;Bathroom Priv ilege [facility] Work Phone: Mental Status Date Assessment Result Facility 05-08-2022 Cognitive function Voice/Name [facility] Work Phone: Clinical Notes 09-24-2022 to 03-27-2025 Chay Sewell, JOELLE.MMD UNIT TEACHER - 03/23/2025 9:19 AM EDT Note Date & Type Note Facility 03-27-2025 Radiology Diagnostic study note [facility] Imaging Services [address] [place], [place] [address] Acute [facility]domen Inc Chest MR#: [id number] Acct: [id number] Name: SONAM GUPTA Rep #: [id number] : 1980 M 44 From: Galindo Billings MD PCP: Dr. Gaston Arroyo MD Status: REG C LI Study:Acute Abdomen Inc Chest Date of Exam: 03/27/25 Exam# [id number] Ordering Dr: Humberto Kendrick LEGISLATIVE ASSISTANT LEGISLATIVE ASSISTANT-C PROCEDURE: ACUTE ABDOMEN INC CHEST 03/27/2025 REASON FOR EXAM: PAIN TECHNIQUE: 6 view ACUTE ABDOMEN INC CHEST COMPARISON: Lumbar spine series of 10/31/2024. RAD/Acute [facility]domen Inc Chest IMPRESSION: Mild right hemidiaphragm elevation/eventration is noted on the chest x-ray. Lungs appear clear. No pleural effusion or pneumothorax is seen. The cardiomediastinal silhouette is within the normal range. No evidence of pneumoperitoneum. The bowel-gas pattern is unremarkable. No mass or mass effect is seen. No urinary tract calcification is definitively identified. [id number]-mxehubtv degenerative changes are seen throughout the visualized spine. Reading Location: [place] [address] CC: LEGISLATIVE ASSISTANT-C Geovanna Kendrick; Dr. Gaston Arroyo MD ~ [employer] [place] Paper: Signed [facility] 03-23-2025 Note HNO ID: [id number] Author: CHAY SEWELL APRN.MMD UNIT TEACHER Service: ? Author Type: Nurse Practitioner Type: Progress Notes Filed: 03/23/2025 09:23 Note Text: Subjective Sonam Gupta is a 44 year old male. HPI Patient presents today complaining of 1 day of fever, vomiting, headache, diarrhea, and chills. Denies any sore throat cough or congestion. Denies any specific abdominal pain. Review of Systems As above Objective BP 136/88 Pulse 89 Temp 36.3 ?C (97.3 ?F) Resp 18 Wt (!) 147.2 kg (324 lb 8.3 oz) SpO2 97% Physical Exam Vitals and nursing note reviewed. Constitutional: General: He is not in acute distress. Appearance: Normal appearance. He is not ill-appearing. HENT: Head: Normocephalic. Mouth/Throat: Mouth: Mucous membranes are moist. Eyes: Conjunctiva/sclera: Conjunctivae normal. Cardiovascular: Rate and Rhythm: Normal rate and regular rhythm. Pulmonary: Effort: Pulmonary effort is normal. Breath sounds: Normal breath sounds. Abdominal: Palpations: Abdomen is soft. Tenderness: There is no abdominal tenderness. Musculoskeletal: General: Normal range of motion. Cervical back: Normal range of motion. Skin: General: Skin is warm and dry. Neurological: General: No focal deficit present. Mental Status: He is alert. Psychiatric: Mood and Affect: Mood normal. Behavior: Behavior normal. ASSESSMENT/PLAN: 1. Viral gastritis - ICD9: 535.50, ICD10: K29.70 - Evaluation patient's abdomen was soft nontender. Patient had no left lower quadrant or right lower quadrant tenderness so my concern for diverticulitis and/or appendicitis was minimal. Discussed with him the importance of staying hydrated including the use of Gatorade and or Ensure for electrolyte replacement. Discussed with him the importance of maintaining hydration and ensuring that he is urinating at least 3-4 times per day. Reviewed with him the importance of going to the emergency department if it anytime he feels as though his becoming dehydrated and otherwise recommended plenty of rest and fluids and follow-up with PCP if symptoms not improving. Chay Sewell APRN.[facility] 03-23-2025 History of Present illness Narrative Subjective Sonam Gupta is a 44 year old male. HPI Patient presents today complaining of 1 day of fever, vomiting, headache, diarrhea, and chills. Denies any sore throat cough or congestion. Denies any specific abdominal pain. Review of Systems As above Objective BP 136/88 Pulse 89 Temp 36.3 C (97.3 F) Resp 18 Wt (!) 147.2 kg (324 lb 8.3 oz) SpO2 97% Physical Exam Vitals and nursing note reviewed. Constitutional: General: He is not in acute distress. Appearance: Normal appearance. He is not ill-appearing. HENT: Head: Normocephalic. Mouth/Throat: Mouth: Mucous membranes are moist. Eyes: Conjunctiva/sclera: Conjunctivae normal. Cardiovascular: Rate and Rhythm: Normal rate and regular rhythm. Pulmonary: Effort: Pulmonary effort is normal. Breath sounds: Normal breath sounds. Abdominal: Palpations: Abdomen is soft. Tenderness: There is no abdominal tenderness. Musculoskeletal: General: Normal range of motion. Cervical back: Normal range of motion. Skin: General: Skin is warm and dry. Neurological: General: No focal deficit present. Mental Status: He is alert. Psychiatric: Mood and Affect: Mood normal. Behavior: Behavior normal. ASSESSMENT/PLAN: 1. Viral gastritis - ICD9: 535.50, ICD10: K29.70 - Evaluation patient's abdomen was soft nontender. Patient had no left lower quadrant or right lower quadrant tenderness so my concern for diverticulitis and/or appendicitis was minimal. Discussed with him the importance of staying hydrated including the use of Gatorade and or Ensure for electrolyte replacement. Discussed with him the importance of maintaining hydration and ensuring that he is urinating at least 3-4 times per day. Reviewed with him the importance of going to the emergency department if it anytime he feels as though his becoming dehydrated and otherwise recommended plenty of rest and fluids and follow-up with PCP if symptoms not improving. Chay Sewell APRN.YUE documented in this encounter [facility] 02-01-2025 Discharge summary Note Date/Time February 01, 2025 1:15p [facility] [address] [place] [address] [address] [place] [address] / REHABILITATION SERVICES DISCHARGE SUMMARY MR#: [id number] Acct: [id number] Name: SONAM GUPTA Rep #: [id number] : 1980 44 From: Gen Bolivar PT, ATC Referring Dr.: Dr. Gaston Arroyo MD Status: REG RCR Insurance: [employer] SELF PAY INSURANCE Patient Information Patient Information: SONAM GUPTA was seen in my office for initial evaluation on 11/14/24. The following Plan of Care was established for this patient: POC Established Initial Frequency: 2x /Week Initial Duration: 2 Weeks Anticipated Interventions Patient/Client Instruction: Educate patient on: Condition and Plan of Care For the Purpose of:: To improve self management Therapeutic Exercise to Include: Strength training, Endurance training, Body mechanics, Postural training, Dynamic Lumbar Stabilization and Paolo Exercises For the Purpose of:: To decrease pain, To increase ROM and To improve muscle performance and motor function Last Seen Last Seen: This patient was last seen in our office . Pertinent comments regarding their Physical therapy will appear below: Pt has not returned for greater than 30 days and is discontinued at this time. At this point I will be discontinuing this patient from physical therapy. I would be happy to see this patient again in the future if found appropriate by the physician. Thank you! Gen Bolivar PT, ATC Balance/Gait/Functional tests Balance/Special Test Scores Oswestry Low Back Score: 21 <Electronically signed by Gen Bolivar PT ATC> 02/01/25 1315 CC: Dr. Gaston Arroyo MD ~ [facility] Signed [facility] Work Phone: 1(807) 308-484407-02-2025 Discharge summary [facility] Physical Therapy [address] [place] [address] / REHABILITATION SERVICES DISCHARGE SUMMARY MR#: [id number] Acct: [id number] Name: SONAM GUPTA Rep #: [id number] : 1980 44 From: Gen Bolivar PT, ATC Referring Dr.: Dr. Gaston Arroyo MD Status: REG RCR Insurance: [employer] SELF PAY INSURANCE Patient Information Patient Information: SONAM GUPTA was seen in my office for initial evaluation on 11/14/24. The following Plan of Care was established for this patient: POC Established Initial Frequency: 2x /Week Initial Duration: 2 Weeks Anticipated Interventions Patient/Client Instruction: Educate patient on: Condition and Plan of Care For the Purpose of:: To improve self management Therapeutic Exercise to Include: Strength training, Endurance training, Body mechanics, Postural training, Dynamic Lumbar Stabilization and Paolo Exercises For the Purpose of:: To decrease pain, To increase ROM and To improve muscle performance and motor function Last Seen Last Seen: This patient was last seen in our office . Pertinent comments regarding their Physical therapy willappear below: Pt has not returned for greater than 30 days and is discontinued at this time. At this point I will be discontinuing this patient from physical therapy. I would be happy to see this patient again in the future if found appropriate by the physician. Thank you! Gen Bolivar, PT, ATC Balance/Gait/Functional tests Balance/Special Test Scores Oswestry Low Back Score: 21 02/01/25 1315 CC: Dr. Gaston Arroyo MD ~ [facility] Signed [facility]04-01-2025 Radiology Diagnostic study note [facility] Imaging Services [address] [place], [place] [address] L/S Spine Min 4 Views MR#: [id number] Acct: [id number] Name: SONAM GUPTA Rep #: [id number] : 1980 M 44 From: Florin Saba MD PCP: Dr. Gaston Arroyo MD Status: REG C KYLE Study:L/S Spine Min 4 Views Date of Exam: 10/31/24 Exam# [id number] Ordering Dr: Gaston Arroyo MD PROCEDURE: L/S SPINE MIN 4 VIEWS 10/31/2024 REASON FOR EXAM: BACK ACHE TECHNIQUE: Five views; AP, lateral, bilateral obliques and coned-down L5-S1 view COMPARISON: None available FINDINGS: 5 gwi-qir-vkloszv lumbar vertebral bodies identified. No fracture or malalignment. No spondylolysisidentified. L2-3: Moderate appearing disc space narrowing. L5-S1: Disc space narrowing and vacuum effect. No osseous lesion identified. RAD/L/S Spine Min 4 Views IMPRESSION: L2-3 and L5-S1 spondylosis/discogenic change. Reading Location: [facility] CC: Dr. aGston Arroyo MD ~ [place] Paper: Signed [facility]09-13-2024 NoteHNO ID: [id number] Author: PHILLIP CASTILLO APRN.MMD UNIT TEACHER Service: ? Author Type: Nurse Practitioner Type: Progress Notes Filed: 04/15/2024 10:20 Note Text: Subjective HPI Nontoxic-appearing male presents urgent care chief complaint possible pinkeye. Duration of symptoms 2 days. Associated symptoms I drainage and redness. Patient states drainage is most prominent in the morning and is stringy. Does have prominent eye pruritus. Has been sneezing and has had a runny nose as well. No visual changes flashes of light or floaters. No eye trauma. No foreign body sensation. No ocular history other than glasses. Overall feels well. Denies any fever body aches chills productive cough chest pain shortness of breath pleuritic pain hemoptysis nausea vomiting abdominal pain change in bowel or bladder habits. Past medical history prescription medication use and allergies reviewed. .Patient presents with: Conjunctivitis: Bilateral x2 days PAST MEDICAL HISTORY Diagnosis Date Hypertension No past surgical history on file. ALLERGIES Bactrim [Sulfamethoxazole-Trimethoprim] MEDICATIONS losartan-hydroCHLOROthiazide (HYZAAR) 100-25 mg per tablet Take 1 tablet by mouth every afternoon. dicyclomine (BENTYL) 20 mg tablet Take 20 mg by mouth four times daily. amLODIPine (NORVASC) 10 mg tablet Take by mouth. atenolol (TENORMIN) 25 mg tablet buPROPion SR (ZYBAN SR; WELLBUTRIN SR) 150 mg 12 hr tablet Take 150 mg by mouth twice daily. losartan (COZAAR) 50 mg tablet Take 50 mg by mouth once daily. (Patient not taking: Reported on 04/15/2024) No family history on file. Social History Tobacco Use Smoking status: Former Types: Cigarettes Smokeless tobacco: Never Substance Use Topics Alcohol use: Never Drug use: Never BP 130/78 Pulse 73 Temp 36.5 ?C (97.7 ?F) Resp 18 Wt (!) 143.6 kg (316 lb 9.3 oz) SpO2 98% Review of Systems Constitutional: Negative for chills, fever and malaise/fatigue. HENT: Negative for congestion, ear discharge, ear pain, sinus pain and sore throat. Eyes: Positive for discharge and redness. Negative for blurred vision, double vision, photophobia and pain. Respiratory: Negative for cough, hemoptysis, sputum production, shortness of breath, wheezing and stridor. Cardiovascular: Negative for chest pain. Gastrointestinal: Negative for abdominal pain, diarrhea, nausea and vomiting. Musculoskeletal: Negative for myalgias. Skin: Negative for itching and rash. Neurological: Negative for dizziness and headaches. Objective Physical Exam Constitutional: General: He is not in acute distress. Appearance: He is not toxic-appearing. HENT: Head: Normocephalic. Nose: Nose normal. Eyes: General: Lids are normal. Lids are everted, no foreign bodies appreciated. Vision grossly intact. Right eye: Discharge present. No foreign body or hordeolum. Left eye: Discharge present.No foreign body or hordeolum. Conjunctiva/sclera: Right eye: Right conjunctiva is injected. No chemosis, exudate or hemorrhage. Left eye: Left conjunctiva is injected. No chemosis, exudate or hemorrhage. Pupils: Pupils are equal, round, and reactive to light. Comments: Visual acuity unchanged. Limbus clear. No evidence of orbital periorbital cellulitis. Cardiovascular: Rate and Rhythm: Normal rate. Pulmonary: Effort: Pulmonary effort is normal. No respiratory distress. Musculoskeletal: Cervical back: Normal range of motion. Skin: General: Skin is warm and dry. Neurological: General: No focal deficit present. Mental Status: He is alert. ASSESSMENT/PLAN: 1. Allergic conjunctivitis of both eyes - ICD9: 372.14, ICD10: H10.13 - see medication orders - course and contagiousness issues discussed, including hand washing. - Instructed to call if high fever, development of periorbital redness or swelling, eye pain, visual changes, concerns or if symptoms persist. Patient was educated on supportive therapies. Patient will follow up with primary care provider as needed. Patient was instructed to immediately proceed to emergency room for any new, worsening, or symptoms lasting longer than anticipated. The patient's clinical presentation is otherwise unremarkable at this time. Based on exam and clinical finding, the patient is stable for discharge. Plan of care was discussed with patient. Patient verbalizes understanding and agrees to plan of care. This note was generated using Desecuritrex software. It may contain errors in wording, punctuation, or spelling. Phillip Castillo APRN.[facility]09-13-2024 History of Present illness Narrative* Phillip Castillo APRN.[facility] - 04/15/2024 10:11 AM EDT Subjective HPI Nontoxic-appearing male presents urgent care chief complaint possible pinkeye. Duration of symptoms2 days. Associated symptoms I drainage and redness. Patient states drainage is most prominent in the morning and is stringy. Does have prominent eye pruritus. Has been sneezing and has had a runny nose as well. No visual changes flashes of light or floaters. No eye trauma. No foreign body sensation. No ocular history other than glasses. Overall feels well. Denies any fever body aches chills productive cough chest pain shortness of breath pleuritic pain hemoptysis nausea vomiting abdominal pain change in bowel or bladder habits. Past medical history prescription medication use and allergies reviewed. .Patient presents with: Conjunctivitis: Bilateral x2 days PAST MEDICAL HISTORY Diagnosis Date Hypertension No past surgical history on file. ALLERGIES Bactrim [Sulfamethoxazole-Trimethoprim] MEDICATIONS losartan-hydroCHLOROthiazide (HYZAAR) 100-25 mg per tablet Take 1 tablet by mouth every afternoon. dicyclomine (BENTYL) 20 mg tablet Take 20 mg by mouth four times daily. amLODIPine (NORVASC) 10 mg tablet Take by mouth. atenolol (TENORMIN) 25 mg tablet buPROPion SR (ZYBAN SR; WELLBUTRIN SR) 150 mg 12 hr tablet Take 150 mg by mouth twice daily. losartan (COZAAR) 50 mg tablet Take 50 mg by mouth once daily. (Patient not taking: Reported on 04/15/2024) No family history on file. Social History Tobacco Use Smoking status: Former Types: Cigarettes Smokeless tobacco: Never Substance Use Topics Alcohol use: Never Drug use: Never BP 130/78 Pulse 73 Temp 36.5 C (97.7 F) Resp 18 Wt (!) 143.6 kg (316 lb 9.3 oz) SpO2 98% Review of Systems Constitutional: Negative for chills, fever and malaise/fatigue. HENT: Negative for congestion, ear discharge, ear pain, sinus pain and sore throat. Eyes: Positive for discharge and redness. Negative for blurred vision, double vision, photophobia and pain. Respiratory: Negative for cough, hemoptysis, sputum production, shortness of breath, wheezing and stridor. Cardiovascular: Negative for chest pain. Gastrointestinal: Negative for abdominal pain, diarrhea, nausea and vomiting. Musculoskeletal: Negative for myalgias. Skin: Negative for itching and rash. Neurological: Negative for dizziness and headaches. Objective Physical Exam Constitutional: General: He is not in acute distress. Appearance: He is not toxic-appearing. HENT: Head: Normocephalic. Nose: Nose normal. Eyes: General: Lids are normal. Lids are everted, no foreign bodies appreciated. Vision grossly intact. Right eye: Discharge present. No foreign body or hordeolum. Left eye: Discharge present.No foreign body or hordeolum. Conjunctiva/sclera: Right eye: Right conjunctiva is injected. No chemosis, exudate or hemorrhage. Left eye: Left conjunctiva is injected. No chemosis, exudate or hemorrhage. Pupils: Pupils are equal, round, and reactive to light. Comments: Visual acuity unchanged. Limbus clear. No evidence of orbital periorbital cellulitis. Cardiovascular: Rate and Rhythm: Normal rate. Pulmonary: Effort: Pulmonary effort is normal. No respiratory distress. Musculoskeletal: Cervical back: Normal range of motion. Skin: General: Skin is warm and dry. Neurological: General: No focal deficit present. Mental Status: He is alert. ASSESSMENT/PLAN: 1. Allergic conjunctivitis of both eyes - ICD9: 372.14, ICD10: H10.13 - see medication orders - course and contagiousness issues discussed, including hand washing. - Instructed to call if high fever, development of periorbital redness or swelling, eye pain, visual changes, concerns or if symptoms persist. Patient was educated on supportive therapies. Patient will follow up with primary care provider as needed. Patient was instructed to immediately proceed to emergency room for any new, worsening, or symptoms lasting longer than anticipated. The patient's clinical presentation is otherwise unremarkable at this time. Based on exam and clinical finding, the patient is stable for discharge. Plan of care was discussed with patient. Patient verbalizes understanding and agrees to plan of care. This note was generated using Desecuritrex software. It may contain errors in wording, punctuation, or spelling. Phillip Castillo APRN.[facility] documented [facility] History of Present illness Narrative* Becca Atwood APRN.[facility] [employer] - 02/01/2024 4:55 PM EDT This note was created using Mobincuberiter. Subjective Sonam Gupta is a 43 year old male. 43 year old male with PMH HTN presents for thumb injury. 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 The history is provided by the patient. No bullet swaging machine adjuster was used. Trauma This is a new problem. The current episode started today. The problem occurs constantly. The problem has been rapidly improving. Pertinent negatives include no abdominal pain, anorexia, arthralgias, change in bowel habit, chest pain, chills, congestion, coughing, diaphoresis, fatigue, fever, headaches, joint swelling, myalgias, nausea, neck pain, numbness, rash, sore throat, swollen glands, urinary symptoms, vertigo, visual change, vomiting or weakness. Nothing aggravates the symptoms. Treatments tried: removed FB. The treatment provided significant relief. PAST MEDICAL HISTORY Diagnosis Date Hypertension No past surgical history on file. ALLERGIES Bactrim [Sulfamethoxazole-Trimethoprim] MEDICATIONS dicyclomine (BENTYL) 20 mg tablet Take 20 mg by mouth four times daily. amLODIPine (NORVASC) 10 mg tablet Take by mouth. atenolol (TENORMIN) 25 mg tablet losartan (COZAAR) 50 mg tablet Take 50 mg by mouth once daily. buPROPion SR (ZYBAN SR; WELLBUTRIN SR) 150 mg 12 hr tablet Take 150 mg by mouth twice daily. doxycycline (VIBRA-TABS) 100 mg tablet Take 1 tablet by mouth two times a day for 7 days. No family history on file. Social History Tobacco Use Smoking status: Former Types: Cigarettes Smokeless tobacco: Never Substance Use Topics Alcohol use: Never Drug use: Never Review of Systems Constitutional: Negative for chills, diaphoresis, fatigue and fever. HENT: Negative for congestion and sore throat. Respiratory: Negative for apnea, cough, choking and chest tightness. Cardiovascular: Negative for chest pain. Gastrointestinal: Negative for abdominal pain, anorexia, change in bowel habit, nausea and vomiting. Musculoskeletal: Negative for arthralgias, joint swelling, myalgias and neck pain. Skin: Positive for wound. Negative for color change, pallor and rash. Allergic/Immunologic: Negative for environmental allergies, food allergies and immunocompromised state. Neurological: Negative for dizziness, vertigo, facial asymmetry, weakness, numbness and headaches. Hematological: Negative for adenopathy. Does not bruise/bleed easily. Psychiatric/Behavioral: Negative for agitation and behavioral problems. Objective BP 142/86 Pulse 90 Temp 36.4 C (97.5 F) Resp 21 Wt (!) 140 kg (308 lb 10.3 oz) SpO2 98% Physical Exam Vitals and nursing note reviewed. Constitutional: General: He is not in acute distress. Appearance: Normal appearance. He is not ill-appearing, toxic-appearing or diaphoretic. HENT: Head: Normocephalic and atraumatic. Right Ear: External ear normal. Left Ear: External ear normal. Nose: Nose normal. No congestion or rhinorrhea. Mouth/Throat: Mouth: Mucous membranes are moist. Pharynx: Oropharynx is clear. No oropharyngeal exudate or posterior oropharyngeal erythema. Eyes: General: Right eye: No discharge. Left eye: No discharge. Extraocular Movements: Extraocular movements intact. Conjunctiva/sclera: Conjunctivae normal. Pupils: Pupils are equal, round, and reactive to light. Cardiovascular: Rate and Rhythm: Normal rate and regular rhythm. Pulses: Normal pulses. Heart sounds: Normal heart sounds. No murmur heard. No friction rub. No gallop. Pulmonary: Effort: Pulmonary effort is normal. No respiratory distress. Breath sounds: Normal breath sounds. No stridor. No wheezing, rhonchi or rales. Chest: Chest wall: No tenderness. Abdominal: General: Abdomen is flat. There is no distension. Palpations: Abdomen is soft. There is no mass. Tenderness: There is no abdominal tenderness. There is no guarding or rebound. Hernia: No hernia is present. Musculoskeletal: General: Tenderness and signs of injury present. No swelling or deformity. Normal range of motion. Cervical back: Normal range of motion and neck supple. No rigidity or tenderness. Right lower leg: No edema. Left lower leg: No edema. Comments: Right thumb with laceration noted to base of right thumb Finger pad with superficial linear like laceration No active bleeding No FB palpated or appreciated. +flexion +extension Brisk cap refill +neuro + sensation Lymphadenopathy: Cervical: No cervical adenopathy. Skin: General: Skin is warm and dry. Capillary Refill: Capillary refill takes less than 2 seconds. Coloration: Skin is not jaundiced or pale. Findings: No bruising, lesion or rash. Neurological: General: No focal deficit present. Mental Status: He is alert and oriented to person, place, and time. Cranial Nerves: No cranial nerve deficit. Sensory: No sensory deficit. Motor: No weakness. Coordination: Coordination normal. Gait: Gait normal. Deep Tendon Reflexes: Reflexes normal. Psychiatric: Mood and Affect: Mood normal. Behavior: Behavior normal. Thought Content: Thought content normal. Assessment and Plan ASSESSMENT/PLAN: 1. 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 Encounter for immunization - ICD9: V03.89, ICD10: Z23 Tdap VIS provided Becca Atwood APRN.CNP documented [facility] this [facility]-28-[facility] History of Present illness Narrative* Phillip Castillo APRN.CNP - 04/30/2023 2:24 PM EDT Images from the original note were not included. Subjective HPI Nontoxic-appearing male presents urgent care chief complaint insect sting. Patient states was stungby yellow jackets 2 days ago. Presents today due to redness and swelling. Has some itching. Some pain. Itching is most predominant. Denies any other concerns. States initially during sting he had pain. There is no GI issues or respiratory issues or facial or mouth swelling signs of angioedema. Denies OTC medications today. Did take Tylenol and Benadryl last night. This helps some. Denies any fever body aches chills productive cough chest pain shortness of breath pleuritic pain hemoptysis nauseavomiting abdominal pain change in bowel or bladder habits. Past medical history prescription medication use and allergies reviewed. .Patient presents with: Insect Bite: L upper arm bee sting x2 days PAST MEDICAL HISTORY Diagnosis Date Hypertension History reviewed. No pertinent surgical history. ALLERGIES Bactrim [Sulfamethoxazole-Trimethoprim] MEDICATIONS dicyclomine (BENTYL) 20 mg tablet Take 20 mg by mouth four times daily. amLODIPine (NORVASC) 10 mg tablet Take by mouth. atenolol (TENORMIN) 25 mg tablet losartan (COZAAR) 50 mg tablet Take 50 mg by mouth once daily. buPROPion SR (ZYBAN SR; WELLBUTRIN SR) 150 mg 12 hr tablet Take 150 mg by mouth twice daily. History reviewed. No pertinent family history. Social History Tobacco Use Smoking status: Former Types: Cigarettes Smokeless tobacco: Never Substance Use Topics Alcohol use: Never Drug use: Never BP 142/85 Pulse 89 Temp 37.1 C (98.7 F) Resp 18 Wt (!) 141.3 kg (311 lb 9.6 oz) SpO2 98% Review of Systems Constitutional: Negative for chills, fever and malaise/fatigue. HENT: Negative for congestion, ear discharge, ear pain, sinus pain and sore throat. Eyes: Negative for blurred vision, pain, discharge and redness. Respiratory: Negative for cough, hemoptysis, sputum production, shortness of breath, wheezing and stridor. Cardiovascular: Negative for chest pain. Gastrointestinal: Negative for abdominal pain, diarrhea, nausea and vomiting. Musculoskeletal: Negative for myalgias. Skin: Positive for itching. Negative for rash. Neurological: Negative for dizziness and headaches. Objective Physical Exam Constitutional: General: He is not in acute distress. Appearance: He is not toxic-appearing. HENT: Head: Normocephalic. Nose: Nose normal. Eyes: Pupils: Pupils are equal, round, and reactive to light. Cardiovascular: Rate and Rhythm: Normal rate. Pulmonary: Effort: Pulmonary effort is normal. No respiratory distress. Musculoskeletal: Cervical back: Normal range of motion. Skin: General: Skin is warm and dry. Comments: Area representing insect sting noted on posterior aspect left upper arm. Mild edema erythema noted. No adenopathy. Neurological: General: No focal deficit present. Mental Status: He is alert. ASSESSMENT/PLAN: 1. Arm swelling - ICD9: 729.81, ICD10: M79.89 (primary diagnosis) 2. Bee sting, accidental or unintentional, initial encounter - ICD9: 989.5, E905.3, ICD10: T63.441A Diagnosed with bee sting and or swelling. Placed on prednisone burst. Treat as localized inflammation. No evidence of bacterial infection. Red flags prompt elevation discussed. Use second-generation antihistamines. Patient was educated on supportive therapies. Patient will follow up with primary care provider as needed. Patient was instructed to immediately proceed to emergency room for any new, worsening, or symptoms lasting longer than anticipated. The patient's clinical presentation is otherwise unremarkable at this time. Based on exam and clinical finding, the patient is stable for discharge. Plan of care was discussed with patient. Patient verbalizes understanding and agrees to plan of care. This note was generated using Desecuritrex software. It may contain errors in wording, punctuation,or spelling. Phillip Castillo APRN.[facility] [employer] documented in this encounterCos[facility]06-19-2023 History of Present illness Narrative* James Nova MD - 01/19/2023 2:51 PM EDT Patient presents with: Abscess: L nostril x4 days, 3rd in 6 months HPI: Skin Lesion: Location: left nostril Duration: 4 days. Reports in the last 6 months he has had an infection on his upper lip (herpes negative) and in his groin. Pruritis/Pain: painful. Pain radiates to the teeth and cheek. Change: increasing. 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 He has had hives with bactrim in September PAST MEDICAL HISTORY Diagnosis Date Hypertension MEDICATIONS: dicyclomine (BENTYL) 20 mg tablet Take 20 mg by mouth four times daily. amLODIPine (NORVASC) 10 mg tablet Take by mouth. atenolol (TENORMIN) 25 mg tablet losartan (COZAAR) 50 mg tablet Take 50 mg by mouth once daily. buPROPion SR (ZYBAN SR; WELLBUTRIN SR) 150 mg 12 hr tablet Take 150 mg by mouth twice daily. ALLERGIES: ALLERGIES Allergen Reactions Bactrim [Sulfametho* Hives VITALS: BP 136/78 Pulse 79 Temp 36.7 C (98 F) Resp 18 Wt (!) 148.6 kg (327 lb 9.6 oz) SpO2 98% PHYSICAL EXAM: GEN: pleasant, no acute distress, alert HEENT: PERRL, EOMI, MMM Nose: swelling at the lateral base of the left nostril with induration into the cheek lateral to the nostril. Patient was able to express a small amount of yellowish fluid for culture NECK: supple, no discrete lymphadenopathy, left lymph nodes are uncomfortable, no thyromegaly HEART: regular rate, regular rhythm, no murmurs LUNGS: clear to auscultation, no wheezes or crackles, no increased WOB EXT: no clubbing, no cyanosis, no edema ASSESSMENT/PLAN: 1. Abscess of nose - ICD9: 478.19, ICD10: J34.0 - ABSCESS AND WOUND CULTURE WITH GRAM STAIN - DOXYCYCLINE MONOHYDRATE 100 MG CAPSULE - CEPHALEXIN 500 MG CAPSULE Follow up with ENT or the ED if symptoms worsen for I&D evaluation. James Nova MD documented in this encounterCos[facility]02-22-[address] [facility] September 24, 2022 6:30pm Note Date/Time September 24, 2022 6:01pm [facility] Medical Records Department [address] [place] [address] Emergency Department Summary 09/24/22 MR#: [id number] Acct: [id number] Name: SONAM GUPTA Rep #:[id number] : 1980 41 From: Jesus Manuel Charles MD PCP: Dr. Gaston Arroyo MD Status:PRE E R Location: ED HPI History of Present Illness Chief Complaint: Rash Narrative Narrative: Patient states that over the last days developed a rash on both lower extremities. It does not itch or hurt but he does note it. He states it is nowhere else. He was placed on Keflex and Bactrim about 4 days ago for a cyst did open it has drained a lot. The swelling is down markedly. Its not red. He states is not hurting anymore. It is still present but it has shown marked improvement. He does not feel sick. He states before he was seen for this abscess he had some feverish feelings but those have been gone now for about 3 days. He is eating and drinking normally. He does not feel diffusely or systemically ill at all. Patient is on Keflex and Bactrim for the above infection. He has been on Keflexand amoxicillin and penicillins many times. He has only been on Bactrim once before. [facility] Medical History Essential hypertension REYES (obstructive sleep apnea) Palpitations Home Medications bupropion HCl 150 mg tablet,12 hr sustained-release (Wellbutrin SR) 150 mg PO BID 09/18/17 [History Last Taken Unknown] losartan 100 mg-hydrochlorothiazide 25 mg tablet (Hyzaar) 1 tab PO QDAY 09/18/17[History Last Taken Unknown] atenolol 25 mg tablet 25 mg PO QDAY #90 tabs 08/07/21 [Rx Last Taken Unknown] amlodipine 10 mg tablet 10 mg PO DAILY #60 tabs 05/08/22 [Rx Last Taken Unknown] arginine 7 gram-glutam 7 gram-CaHMB 1.5 [id number] oral pwd pkt (Tevin (with collagen)) 1 packet PO BIDCM #60 ea 05/08/22 [Rx Last Taken Unknown] gabapentin 300 mg capsule (Neurontin) 300 mg PO TID #30 caps 05/08/22 [Rx Last Taken Unknown] levofloxacin 500 mg tablet 500 mg PO DAILY@0600 #40 tabs 05/08/22 [Rx Last Taken Unknown] metronidazole 500 mg tablet 500 mg PO TID #120 tabs 05/08/22 [Rx Last Taken Unknown] oxycodone-acetaminophen 5 mg-325 mg tablet (Percocet) 1 tab PO Q6H PRN pain 7 days #30 tabs 05/08/22 [Rx Last Taken Unknown] cephalexin 500 mg capsule 500 mg PO Q6 #12 CAPSULES 09/24/22 [Rx Last Taken Unknown] doxycycline monohydrate 100 mg capsule 100 mg PO BID #10 CAPSULES 09/24/22 [Rx Last Taken Unknown] Allergy/AdvReac Type Severity Reaction Status Date / Time No Known Allergies Allergy Verified 09/24/22 17:30 Family History Grandfather Myocardial infarction Grandfather Myocardial infarction Father Hypertension Grandmother Hypertension Grandmother Hypertension Surgical History History of shoulder surgery Social History Smoking Status: Never smoker alcohol intake: never substance use type: does not use caffeine: Yes Type: coffee Number of servings: 2 what type of physical activity do you participate in: none ROS ROS ED Constitutional Constitutional ED: Denies chills, fever(s) or subjective ENT ENT ED: Denies rhinorrhea or sore throat Cardiovascular Cardiovascular: Denies chest pain or palpitations Respiratory/Chest Respiratory/Chest: Denies cough, dyspnea or sputum Gastrointestinal Gastrointestinal: Denies nausea or vomiting Genitourinary Genitourinary ED: Reports other Details: See history of present illness. No trouble urinating at all ; Denies dysuria or hematuria Musculoskeletal Musculoskeletal: Denies back pain or myalgias Integumentary Reports rash Neurologic Neurologic: Denies headache(s) Endocrine Endocrinology: Denies polydipsia or polyuria Hematologic/Lymphatic Hematologic/Lymphatic: Denies easy bleeding, easy bruising or lymphadenopathy Allergic/Immunologic Allergic/Immunologic ED: Denies urticaria EXAM Physical Exam Narrative Exam Narrative: Patient awake alert no acute distress sitting comfortably on bed. HEENT shows no trauma Heart is regular without murmur gallop or rub Lungs are clear. Abdomen is obese but benign. Inguinal area does show some swelling and induration in the left inguinal regionand right at the base of the penis and testicles. There is an area that look like it was draining recently. But is not tender. Its not really red. Patientstates it is markedly reduced in size. Extremities do show nonpalpable red blanching rash to lower shins really from the ankle up. This is bilateral. No other areas. Const Vital Signs: 09/24/22 17:28 09/24/22 17:30 Temperature 97.6 F L 97.6 F L Temperature Source Temporal Temporal Pulse Rate 92 90 Respiratory Rate 16 16 Blood Pressure 166/89 H 166/89 H Blood Pressure Mean 114 114 Pulse Ox 99 98 Oxygen Delivery Method Room Air Room Air MDM MDM MDM Narrative Medical decision making narrative: Patient was originally put on 7 days of antibiotics. I will write enough so he gets a full 10 days as his abscess has not completely resolved. However, it is markedly improved. Because he has been on penicillin and cephalosporins many times without reaction and Bactrim is only twice, I think the rash is most likely due to Bactrim. The rash is only on the legs. No intraoral rash or mucous membrane rash or petechiae found. I will switch his Bactrim to doxycycline. He will stay on his Keflex and I will write enough meds so he can complete 10 days total of antibiotics. We discussed reasons to return. Discharge Plan Triage Chief Complaint: Rash ED Provider: Jesus Manuel Charles Dx/Rx/DC Orders Clinical Impression: Adverse reaction to sulfa antibiotic Instructions: ED Drug Reaction, Other Prescriptions: New cephalexin [cephalexin] 500 mg capsule 500 mg PO Q6 Qty: 12 0RF doxycycline monohydrate 100 mg capsule 100 mg PO BID Qty: 10 0RF No Action bupropion HCl [Wellbutrin SR] 150 mg tablet extended release 12 hr 150 mg PO BID losartan-hydrochlorothiazide [Hyzaar] 100-25 mg tablet 1 tab PO QDAY gabapentin [Neurontin] 300 mg capsule 300 mg PO TID Qty: 30 0RF oxycodone-acetaminophen [Percocet] 5-325 mg tablet 1 tab PO Q6H PRN (Reason: pain) 7 Days Qty: 30 0RF metronidazole 500 mg Tablet 500 mg PO TID Qty: 120 0RF amlodipine 10 mg Tablet 10 mg PO DAILY Qty: 60 0RF levofloxacin 500 mg Tablet 500 mg PO DAILY@0600 Qty: 40 0RF Tevin (with collagen) 7-7-1.5 gram Powder In Packet 1 packet PO BIDCM Qty: 60 0RF atenolol 25 mg tablet 25 mg PO QDAY Qty: 90 4RF Primary Care Provider: Gaston Arroyo Referrals: Gaston Arroyo MD [Primary Care Provider] - 3-5 Days if not improving Disposition Disposition: Home, Self Care What to do if you have Problems For any increased pain, shortness of breath, bleeding, nausea or vomiting, chestpain, or any unexpected problems, contact your Primary Care Provider. Call [facility] ([phone]) or report to the closest Emergency Room. Call 911 if necessary. 09/24/22 1830 <Electronically signed by Jesus Manuel Charles MD> Cosigner Signature (if applicable): CC: Dr. Gaston Arroyo MD ~ Signed [facility] Work Phone: Evaluation note* Diagnosis Onset Date Resolution Status Fracture of toe, open acute Injury of foot, right acute Laceration of toe acute Traumatic amputation of toe acute [facility] Work Phone: Evaluation note* Diagnosis Onset Date Resolution Status Fracture of toe, open acute Injury of foot, right acute Laceration of toe acute Traumatic amputation of toe acute Essential hypertension chron ic Palpitations chronic [facility] Work Phone: Evaluation noteNo assessment information available [facility] Work Phone: Evaluation note* Diagnosis Abscess of nose- Primary Other diseases of nasal cavity and sinuses [facility] Diagnosis Arm swelling- Primary Swelling of limb Bee sting, accidental or unintentional, initial encounter [facility] this [facility]* Diagnosis Laceration of right thumb without damage to nail, foreign body presence unspecified, initial encounter- Primary Encounter for immunization Need for other specified prophylactic vaccination against single bacterial disease [facility]* Diagnosis Allergic conjunctivitis of both eyes- Primary Other chronic allergic conjunctivitis [facility] [place] [facility]* Diagnosis Viral gastritis- Primary Unspecified gastritis and gastroduodenitis without mention of hemorrhage documented in this encounter [facility] for referral (narrative)No reason for referral [facility] Work Phone: Chief Complaint and Reason for Visit Chief Complaint amputation of toes Reason for Visit Fracture of toe, ope n Injury of foot, right Laceration of toe Traumatic amputation of toe Chief Complaint MANGLED TOES MANGLED TOES MANGLED TOES MANGLED TOES MANGLED TOES MANGLED TOES Reason for Visit Fracture of toe, ope n Injury of foot, right Laceration of toe Traumatic amputation of toe Essential hypertension Palpitations Chief Complaint MANGLED TOES MANGLED TOES MANGLED TOES MANGLED TOES MANGLED TOES MANGLED TOES EORDER AND ADDT ORDER Reason for Visit Fracture of toe, ope n Injury of foot, right Laceration of toe Traumatic amputation of toe Essential hypertension Palpitations Chief Complaint MANGLED TOES MANGLED TOES MANGLED TOES MANGLED TOES MANGLED TOES MANGLED TOES EORDER AND ADDT ORDER RIGHT CALF SWELLING, DVT Reason for Visit Fracture of toe, ope n Injury of foot, right Laceration of toe Traumatic amputation of toe Essential hypertension Palpitations Chief Complaint RIGHT CALF SWELLING, DVT RASH ANDREW LOWER Chief Complaint Admit Date BACK PAIN. RX HERE December 05, 2024 5:30pm Chief Complaint Admit Date BACK PAIN. RX HERE December 05, 2024 5:30pm pain-abdominal pain/ lab eorders March 27, 2025 11:12am Family History No Family History Records Found Relationship Condition Age at Onset Recorded Date/T lore grandfather Myocardial infarction Unknown father Hypertension Unknown grandmother Hypertension Unknown Relationship Condition Age at Onset Recorded Date/T lore grandfather Myocardial infarction Unknown father Hypertension Unknown Diabetes mellitus Unknown grandmother Hypertension Unknown Advance Directives No Advanced Directives Records Found Advance Directive Response Recorded Date/ Time Advance Directives No December 01, 2014 2:44pm Living Will No May 04 2 3:32pm Power of Cinder Block Mason No May 04 022 3:32pm Advance Directive Response Recorded Date/ Time Advance Directives No December 01, 2014 2:44pm Living Will No May 04 2 9:05pm Power of Cinder Block Mason No May 04 2 022 9:05pm Advance Directive Response Recorded Date/ Time Advance Directives No December 01, 2014 1:44pm Living Will No May 04 2 8:05pm Power of Cinder Block Mason No May 04 2 022 8:05pm Advance Directive Response Recorded Date/ Time Advance Directives No December 01, 2014 1:44pm Living Will No September 24, 2 023 5:30pm Power of Cinder Block Mason No September 24, 2022 5:30pm Advance Directive Response Recorded Date/ Time Advance Directives No December 01, 2014 2:44pm Living Will No September 24, 2 023 6:30pm Power of Cinder Block Mason No September 24, 2022 6:30pm Advance Directive Response Recorded Date/ Time Advance Directives No December 01, 2014 2:44pm Summary Purpose Additional Source Comments Goals (unrecognized section and content) Goals may be documented in a n alternate sectionGoals may be documented in an alternate sectionGoals may be documented in an alternate sectionGoals may be documented in an alternate sectionGoals may be documented in an alternate sectionGoals may be documented in an alternate section <item><item> Privacy Markings (unrecogniz ed section and content) Section Author: Nisha De La Cruz PROHIBITION ON REDISCLOSURE OF CONFIDENTIAL INFORMATION This notice accompanies a disclosure of information concerning a client made to you with the consent of such client. Section Author: Nisha De La Cruz PROHIBITION ON REDISCLOSURE OF CONFIDENTIAL INFORMATION This notice accompanies a disclosure of information concerning a client made to you with the consent of such client. (unrecognized sect ion and content) No Status Records FoundNo Status Records FoundNo Status Records FoundNo Status Records Found INFORMATION SOURCE (unrecogn ized section and content) DATE CREATED AUTHOR 07/15/2022 [facility] DATE CREATED AUTHOR AUTHOR'S ORGANIZ ATION 07/23/2022 [facility] DATE CREATED AUTHOR AUTHOR'S ORGANIZ ATION 03/25/2025 [facility] DATE CREATED AUTHOR AUTHOR'S ORGANIZ ATION 06/04/2025 [facility] Care Teams (unrecognized sec tion and content) Team Status: Active Member Role Status Dates Dr. Gaston Arroyo MD Family Provider Active Dr. Gaston Arroyo MD Primary Care Provider Active Team Status: Inactive Member Role Status Dates Dr. Gaston Arroyo MD Primary Care Provider Active Dr. Phillip Torres DPM Attending Provider, Referrin g Provider Active Team Status: Inactive Member Role Status Dates Dr. Gaston Arroyo MD Primary Care Provider Active Dr. 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 Gaston Arroyo MD Primary Care Provider Active Start: August 11, 2024 End: August 11, 2024 Dr. Gaston Arroyo MD Attending Provider Active Start: August 11, 2024 End: August 11, 2024 Dr. Gaston Arroyo MD Referring Provider Active Start: August 11, 2024 End: August 11, 2024 Team Status: Inactive Member Role Status Dates Dr. Gaston Arroyo MD Primary Care Provider Active Start: October 31, 2024 End: October 31, 2024 Dr. Gaston Arroyo MD Attending Provider Active Start: October 31, 2024 End: October 31, 2024 Dr. Gaston Arroyo MD Referring Provider Active Start: October 31, 2024 End: October 31, 2024 Team Status: Active Member Role/Relationship Status Dates Dr. Gaston Arroyo MD Primary Care Provider Active Team Status: Inactive Member Role/Relationship Status Dates Dr. Gaston Arroyo MD Primary Care Provider Active Start: October 31, 2024 End: October 31, 2024 Dr. Gaston Arroyo MD Attending Provider Active Start: October 31, 2024 End: October 31, 2024 Dr. Gaston Arroyo MD Referring Provider Active Start: October 31, 2024 End: October 31, 2024 Team Status: Inactive Member Role/Relationship Status Dates Dr. Gaston Arroyo MD Primary Care Provider Active Start: December 05, 2024 End: December 05, 2024 Dr. Gaston Arroyo MD Attending Provider Active Start: December 05, 2024 End: December 05, 2024 Dr. Gaston Arroyo MD Referring Provider Active Start: December 05, 2024 End: December 05, 2024 Electric Fork Operator Relationship Specialty Start Date End Date Gaston Arroyo MD PCP - General Family Medicine 03/13/13 Team Status: Inactive Member Role/Relationship Status Dates Dr. Gaston Arroyo MD Primary Care Provider Active Start: December 05, 2024 End: December 05, 2024 Dr. Gaston Arroyo MD Attending Provider Active Start: December 05, 2024 End: December 05, 2024 Dr. Gaston Arroyo MD Referring Provider Active Start: December 05, 2024 End: December 05, 2024 Team Status: Inactive Member Role/Relationship Status Dates Dr. Gaston Arroyo MD Primary Care Provider Active Start: March 27, 2025 End: March 27, 2025 Geovanna Kendrick NP LEGISLATIVE ASSISTANT-C Attending Provider Active S tart: March 27, 2025 End: March 27, 2025 Geovanna Kendrick NP LEGISLATIVE ASSISTANT-C Referring Provider Active S tart: March 27, 2025 End: March 27, 2025 Source Comments (unrecognize d section and content) In the event this informatio n is protected by the Federal Confidentiality of Alcohol and Drug Abuse Patient Records regulations: The Federal rules restrict any use of the information to criminally investigate or prosecute any alcohol or drug abuse patient.[facility] the event this information is protected by the Federal Confidentiality of Alcohol and Drug Abuse Patient Records regulations: The Federal rules restrict any use of the information to criminally investigate or prosecute any alcohol or drug abuse patient.[facility] the event this information is protected by the Federal Confidentiality of Alcohol and Drug Abuse Patient Records regulations: The Federal rules restrict any use of the information to criminally investigate or prosecute any alcohol or drug abuse patient.[facility] the event this information is protected by the Federal Confidentiality of Alcohol and Drug Abuse Patient Records regulations: The Federal rules restrict any use of the information to criminally investigate or prosecute any alcohol or drug abuse patient.[facility] the event this information is protected by the Federal Confidentiality of Alcohol and Drug Abuse Patient Records regulations: The Federal rules restrict any use of the information to criminally investigate or prosecute any alcohol or drug abuse patient.[facility] Reason for Visit (unrecogniz ed section and content) Reason Comments Abscess L nostril x4 days, 3 rd in 6 months Reason Comments Insect Bite L upper arm bee stin g x2 days Reason Comments Trauma Foreign object in ri ght thumb, pt removed the object. Happened today. Reason Comments Conjunctivitis Bilateral x2 days Reason Comments Flu Like Symptoms Fever, vomiting, jimmy rrhea, CARDOZA, chills and sweating x2 days FOR RECORDS PERTAINING TO PATIENTS WHO ARE OR HAVE BEEN ENROLLED IN A CHEMICAL DEPENDENCY/SUBSTANCEABUSE PROGRAM, SOME INFORMATION MAY BE OMITTED. This clinical summary was aggregated from multiple sources. Caution should be exercised in using it in the provision of clinical care. This summary normalizes information from multiple sources, and as a consequence, information in this document may materially change the coding, format and clinical context of patient data. In addition, data may be omitted in some cases. CLINICAL DECISIONS SHOULD BE BASED ON THE PRIMARY CLINICAL RECORDS. [employer] [facility]. provides no warranty or guarantee of the accuracy or completeness of information in this document.
[2025-07-05] MEDS: Lactated Ringers 1,000 ML 15 ML IV (06:01)
--- NOTE | 2025-07-05 06:30 | COLBX_PTH ---
PATIENT: SONAM GUPTA LOC: EN U#:[id number] AGE/SX: 44/M ROOM: RE07/05/[address]: Dr. Mynor Nelson DO : 1980 BED: DIS: 07/05/2025 SPEC #: [id number] RECD: 07/05/25 09:05 STATUS: SAMUEL DILIP #: [id number] KINDRA: 07/05/25 06:[address]: Mynor Nelson DEPT: SURGICAL PATHOLOGY RECD BY: Turner Gibbons ENTERED: 07/05/25 10:28 SP TYPE: COLON BX HEYDI DR: Dr. Gaston Smith MD Tissues: A - Ileum, NOS B - COLON BIOPSY Procedures: Surgery Specimen Level IV HEADER OPERATION: Colonoscopy with biopsy PRE-OP DIAGNOSIS: Left lower quadrant pain, loose stools TISSUE SUBMITTED: A- Terminal ileum biopsy, B- Random colon biopsy MICROSCOPIC DIAGNOSIS A. Small intestine, terminal ileum, biopsies: - Benign ileal mucosa without active inflammation or architectural distortion B. Large intestine, random: * Benign colonic mucosa without active inflammation or architectural distortion MICROSCOPIC DESCRIPTION Slides are reviewed. GROSS DESCRIPTION A. Received in fixative is one container labeled with the patient's name and designated Terminal ileum biopsy. The specimen consists of multiple irregular fragments of luciano tissue that in aggregate measure 1.4 x 0.5 x 0.1 cm. The specimen is totally submitted in one cassette. B. Received in fixative is one container labeled with the patient's name and designated Random colon biopsy. The specimen consists of multiple irregular fragments of luicano tissue that in aggregate measure 1.3 x 0.5 x 0.1 cm. The specimen is totally submitted in one cassette. ID 07/05/2025 CPT:[id number]
--- NOTE | 2025-07-05 06:32 | PCM.PRE.AN2 ---
ASA Classification* ASA Classification ASA Classification: 3 Assessment & Plan Anesthesia* Anesthesia Assessment Anesthesia Assessment: Discussed sedation and/or anesthesia options, risks, benefits, and alternatives with patient/parents/legal guardian/POA. Questions invited. The patient/parents/legal guardian/POA seems to understand and agrees to proceed with anesthesia plan. Reviewed the physical assessment, medical history, allergy history and patient home medications list prior to surgery/procedure/anesthetic and documented any changes. Performed airway and anesthesia risk assessments. Anesthesia Type Anesthesia Type: MAC Anesthesia Focused Assessment* Temperature: 98.2 F Pulse Rate: 69 Blood Pressure: 131/70 Respiratory Rate: 20 Pulse Ox: 94 Airway Assessment Mouth opens: >3 cm Mallampati Score: II Labs Anesthesia Preop lab: CBC WBC, (4.4-11.0) 9.9 K/mm3 03/27/25, 11:18 RBC, (4.6-6.2) 5.22 M/mm3 03/27/25, 11:18 Hgb, (13.0-16.5) 15.6 g/dL 03/27/25, 11:18 Hct, (40-54) 44.7 % 03/27/25, 11:18 Plt Count, (150-450) 327 K/mm3 03/27/25, 11:18 CHEMISTRY Potassium, (3.3-5.1) 3.3 mmol/L 03/27/25, 11:18 Sodium, (133-145) 139 mmol/L 03/27/25, 11:18 Magnesium, (1.6-2.6) 2.2 mg/dL 10/21/23, 16:48 BUN, (4-19) 10 mg/dL 03/27/25, 11:18 Creatinine, (0.70-1.20) 0.81 mg/dL 03/27/25, 11:18 Glucose, (70-99) 115 mg/dL H 03/27/25, 11:18 TSH, (0.358-3.740) 0.517 uIU/mL 05/02/24, 15:04 COAG Pre-Assessment Diagnosis/Proposed Procedure Planned Operative Procedure(s): COLONOSCOPY Anesthesia History 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 When Was Last Pacemaker Check QUESTION #4 FULL TEXT: You/Your Family Experience fever (hyperthermia) with Anesthesia Last Oral Intake Last Oral intake: Last Oral Intake NPO since 02:30 07/05/25 05:51 Meds taken in AM with sips of No 07/05/25 05:51 water? Meds patient instructed to take am of surgery PONV PONV - wide area network engineer: PONV - wide area network engineer Female No 07/03/25 08:51 HX of Motion Sickness No 07/03/25 08:51 HX of N/V After Surgery No 07/03/25 08:51 Non-Smoker Yes 07/03/25 08:51 Duration of Surgery greater No 07/03/25 08:51 than 60 minutes Number of Risk Factors 1 07/03/25 08:51 PONV Score Low Risk 07/03/25 08:51 Height & Weight Height & Weight: Anesthesia: Height & Weight Height 5 ft 10 in 07/05/25 05:51 Weight: 147 kg 07/05/25 05:51 Body Mass Index (BMI) 46.5 07/05/25 05:51 Respiratory Assessment Respiratory Assessment - wide area network engineer: Respiratory Tract Infection Hx - wide area network engineer Hx Respiratory Tract Infection No 07/03/25 08:51 STOP Sleep Apnea STOP Sleep Apnea - wide area network engineer: STOP Sleep Apnea - wide area network engineer Hx Hypertension Yes: CONTROLLED WITH MEDS 07/03/25 08:51 Hx Sleep Apnea Yes 07/03/25 08:51 CPAP Yes 07/03/25 08:51 BIPAP No 07/03/25 08:51 Do you snore loudly (louder than talking or can be heard Do you often feel tired/ fatigued/ sleepy during daytime? Has anyone observed you stop breathing during sleep? STOP Results Positive 07/03/25 08:51 QUESTION #5 FULL TEXT : Do you snore loudly (louder than talking or can be heard through closed doors)? 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 Specify any problems Hx of Preganancy in last 3 N/A 07/03/25 08:51 Months Nurse Filling Out Transfusion [id number] 07/03/25 08:51 & Questions: Date: 07/03/25 07/03/25 08:51 Time: 08:53 07/03/25 08:51 Patient unable to answer at this time (ie. confused, unrespo /Reproduction History /Reproductive History - wide area network engineer: /Reproductive Hx- wide area network engineer Hx Now Gestational Age (in weeks): EDC: Hx Hx Para Hx Section SAB Does the father of the baby or his family experience fever w Father of the baby Malignant Hypertension history comment Active Medications Active Medications: Current Medications Generic Name Dose Route Start Last Admin Trade Name Freq PRN Reason Stop Dose Admin Lactated Ringer's 1,000 mls @ 15 mls/hr 07/05/25 05:45 07/05/25 06:01 IV 15 mls/hr .Q48H GRETA Administration PFSH Medical History Anxiety Depression Marijuana use Hypertension History of IBS Former smoker Sleep apnea CPAP (continuous positive airway pressure) dependence History of Holter monitoring History of echocardiogram History of stress test Cardiology follow-up encounter Apnea Abdominal pain Edema Diarrhea Family history of colon cancer IBS (irritable bowel syndrome) Hemoglobin A1c less than 7.0% ED (erectile dysfunction) BMI 40.0-44.9, adult Fracture of toe, open Laceration of toe Traumatic amputation of toe Injury of foot, right Essential hypertension REYES (obstructive sleep apnea) Palpitations Home Medications ?Medication ?Instructions ?Recorded ?Last Taken ?Type bupropion HCl 150 mg tablet,12 hr 150 mg PO BID 09/18/17 07/04/25 History sustained-release (Wellbutrin SR) losartan 100 1 tab PO QDAY 09/18/17 07/04/25 History mg-hydrochlorothiazide 25 mg tablet (Hyzaar) sildenafil 50 mg tablet 50 mg PO DAILY PRN sexual activity 11/27/23 Unknown History atenolol 25 mg tablet 25 mg PO QDAY #90 tabs 08/01/24 07/04/25 Rx amlodipine 5 mg tablet 5 mg PO DAILY #90 tabs 12/30/24 07/04/25 Rx sertraline 50 mg tablet 50 mg PO QDAY 04/17/25 07/04/25 History Allergy/AdvReac Type Severity Reaction Status Date / Time sulfamethoxazole (From Allergy Intermediate Hives Verified 07/05/25 05:50 Bactrim) trimethoprim (From Bactrim) Allergy Intermediate Hives Verified 07/05/25 05:50 Family History Grandfather Myocardial infarction Grandfather Myocardial infarction Father Hypertension Diabetes Grandmother Hypertension Grandmother Hypertension Mother Colon cancer Surgical History Hx of foot surgery (~05/04/22) History of shoulder surgery Social History Smoking Status: Former smoker how long ago did patient quit smokin alcohol intake: never substance use type: does not use caffeine: Yes Review of Systems (Anesthesia) ROS Narrative System reviewed and no additional complaints, except as documented.
--- NOTE | 2025-07-05 06:47 | HP.PCM_ITS ---
HPI - General General Date of Admission: 07/05/25 Date of Service: 07/05/25 Chief Complaint: Abdominal pain and diarrhea HPI Narrative SONAM GUPTA, is a 44 M who presents [ Chief Complaint: Left lower quadrant pain Patient having monthly episodes of severe left lower quadrant pain. When this happens it will be intermittent for around 4 days and associated with nausea and vomiting. During this he will be unable to go to work. Sometimes it may be relieved by bowel movement but not always. Patient admits that certain foods may trigger it such as milk or ice cream. Over the past year he has had watery loose stool up to 4 times per day. Prior to this he had daily formed bowel movements. He does not have blood in his stool, fevers or unintentional weight loss. Patient has lost 80 pounds intentionally. Patient's mother was diagnosed with colon cancer at age 62 and underwent surgical resection and chemotherapy. Patient has never had a colonoscopy. ] [facility] Medical History Anxiety Depression Marijuana use Hypertension History of IBS Former smoker Sleep apnea CPAP (continuous positive airway pressure) dependence History of Holter monitoring History of echocardiogram History of stress test Cardiology follow-up encounter Apnea Abdominal pain Edema Diarrhea Family history of colon cancer IBS (irritable bowel syndrome) Hemoglobin A1c less than 7.0% ED (erectile dysfunction) BMI 40.0-44.9, adult Fracture of toe, open Laceration of toe Traumatic amputation of toe Injury of foot, right Essential hypertension REYES (obstructive sleep apnea) Palpitations Home Medications ?Medication ?Instructions ?Recorded ?Last Taken ?Type bupropion HCl 150 mg tablet,12 hr 150 mg PO BID 07/04/25 History sustained-release (Wellbutrin SR) losartan 100 1 tab PO QDAY 09/18/1707/04 History mg-hydrochlorothiazide 25 mg tablet (Hyzaar) sildenafil 50 mg tablet 50 mg PO DAILY PRN sexual ac tivity 11/27/23 Unknown History atenolol 25 mg tablet 25 mg PO QDAY #90 tabs 08/0107/04/25 Rx amlodipine 5 mg tablet 5 mg PO DAILY #90 tabs 12/3007/04/25 Rx sertraline 50 mg tablet 50 mg PO QDAY 04/17/2507/04 History Allergy/AdvReac Type Severity Reaction Status Date / Time sulfamethoxazole (From Allergy Intermediate Hives Verified 07/05/25 05:50 Bactrim) trimethoprim (From Bactrim) Allergy Intermediate Hives Verified 07/05/25 05:50 Family History Grandfather Myocardial infarction Grandfather Myocardial infarction Father Hypertension Diabetes Grandmother Hypertension Grandmother Hypertension Mother Colon cancer Surgical History Hx of foot surgery (~05/04/22) History of shoulder surgery Social History Smoking Status: Former smoker how long ago did patient quit smokin alcohol intake: never substance use type: does not use caffeine: Yes ROS Constitutional Constitutional: Denies fatigue, fever(s), poor appetite, weight gain or weight l oss Gastrointestinal Gastrointestinal: Denies belching, bloating, change in bowel habits, change in stool character, chewing difficulty, coffee ground emesis, constipation, cramping, diarrhea, dyspepsia, dysphagia, early satiety, excessive flatus, fecal incontinence, heartburn, hematemesis, hematochezia, hemorrhoids, loose stools, melena, nausea, odynophagia, rectal bleeding, tenesmus, vomiting or weight changes Vital Signs Vital Signs Vital Signs: 07/05/25 05:51 07/05/25 05:51 07/05/25 05:51 Temperature 98.2 F Temperature Source Temporal Pulse Rate 69 Respiratory Rate 20 H Respiratory Pattern Normal Blood Pressure 131/70 H Blood Pressure Mean 90 Blood Pressure Source Monitor Blood Pressure Position Semi-Fowlers Blood Pressure Location Left Arm Baseline BP 131/70 Pulse Ox 94 Oxygen Delivery Method Room Air 07/05/25 06:32 Temperature 98.2 F Temperature Source Pulse Rate 69 Respiratory Rate 20 H Respiratory Pattern Blood Pressure 131/70 H Blood Pressure Mean Blood Pressure Source Blood Pressure Position Blood Pressure Location Baseline BP Pulse Ox 94 Oxygen Delivery Method Weight Weight: 324 lb 1.272 oz Body Mass Index (BMI) 46.5 Physical Exam Const alert, oriented x3, no apparent distress and healthy appearing General Appearance: cooperative GI normal to inspection, nondistended, normoactive bowel sounds, soft to palpation, non-tender and non-distended Percussion: normal to percussion Rectal Exam: deferred Assessment & Plan Assessment/Plan (1) Left lower quadrant pain: (2) Loose stools: PLAN: Assessment and Plan Assessment and Plan (1) Loose stools: Status: Acute (2) Left lower quadrant pain: Status: Acute Plan: Teddy is a pleasant 44-year-old male patient with past medical history of obesity, hypertension and obstructive sleep apnea here today for evaluation. Patient has monthly episodes of left lower quadrant abdominal pain associated with nausea and vomiting. Patient also noting over the past year he has had liquid stools up to 4 times per day. Recommended stool testing for chronic infectious causes of loose stool and calprotectin for inflammation. Keeping in mind his family history of colon cancer in his mother and symptoms I have recommended colonoscopy. Patient was agreeable and he was scheduled for this today. Pending results will consider further workup and/or treatment. - Stool studies for infectious cause of diarrhea - Calprotectin - Colonoscopy - Follow-up after procedures Note: Portions of this note may have been selectively carried forward from previous documentation to ensure continuity and accuracy of the clinical record. All imported information has been reviewed and updated as necessary to reflect the current patient status, findings, and clinical decision-making for this encounter. [employer] speech recognition concrete mixing plant superintendent software was used to create portions of this document. Sound alike and misspelled words, as well as other concrete mixing plant superintendent errors may be contained in the documentation. Orders: Orders ENTERIC PATHOGEN PANEL STOOL Today K58.9 - Irritable bowel syndrome, unspecified, R19.5 - Other fecal abnormalities Giardia Lamblia, Stool EIA Today R19.5 - Other fecal abnormalities CDIFF (PCR) Today R19.5 - Other fecal abnormalities Calprotectin, Stool Today R19.5 - Other fecal abnormalities Ova and Parasites 8623 Today K58.9 - Irritable bowel syndrome, unspecified, R19.5 - Other fecal abnormalities
--- NOTE | 2025-07-05 07:23 | PCM.POST.ANE ---
Anesthesia: Postop Eval I Current Vital Signs Temperature: 97.6 F Pulse Rate: 72 Blood Pressure: 119/52 Respiratory Rate: 16 Pulse Ox: 95 Oxygen Delivery Method: Room Air Assessment Airway patent: Yes Spontaneous unlabored respirations: Yes Mental status: Asleep nausea: No Vomiting: No Anesthesia Complication: No Fluid Hydration Crystalloid volume administer (ml): 600 Total IV fluid infused: 600 Progress Note Anesthesia document: Postop Eval 1 completed: Yes
--- NOTE | 2025-07-05 07:28 | OP.COLON_ITS ---
Patient Name: Philip Powell Procedure Date: 07/05/2025 6:19 AM Date of : 1980 Age: 44 Procedure: Colonoscopy Indications: Generalized abdominal pain, Chronic diarrhea Providers: Mynor Nelson DO Referring MD: Gaston Smith MD Medicines: Propofol per Anesthesia Patient Profile: This is a 44 year old male. Refer to note in patient chart for documentation of history and physical. Last Colonoscopy: none. The patient's first colonoscopy is today. Complications: No immediate complications. Procedure: Pre-Anesthesia Assessment: - Prior to the procedure, a History and Physical was performed, and patient medications and allergies were reviewed. The patient is competent. The risks and benefits of the procedure and the sedation options and risks were discussed with the patient. All questions were answered and informed consent was obtained. Patient identification and proposed procedure were verified by the physician in the pre-procedure area. Mental Status Examination: alert and oriented. Airway Examination: normal oropharyngeal airway and neck mobility. Respiratory Examination: clear to auscultation. CV Examination: normal. Prophylactic Antibiotics: The patient does not require prophylactic antibiotics. Prior Anticoagulants: The patient has taken no anticoagulant or antiplatelet agents. ASA Grade Assessment: II - A patient with mild systemic disease. After reviewing the risks and benefits, the patient was deemed in satisfactory condition to undergo the procedure. The anesthesia plan was to use monitored anesthesia care (MAC). Immediately prior to administration of medications, the patient was re-assessed for adequacy to receive sedatives. The heart rate, respiratory rate, oxygen saturations, blood pressure, adequacy of pulmonary ventilation, and response to care were monitored throughout the procedure. The physical status of the patient was re-assessed after the procedure. After I obtained informed consent, the scope was passed under direct vision. Throughout the procedure, the patient's blood pressure, pulse, and oxygen saturations were monitored continuously. The Colonoscope was introduced through the anus and advanced to the terminal ileum. The colonoscopy was performed without difficulty. The patient tolerated the procedure well. The quality of the bowel preparation was adequate. The terminal ileum, ileocecal valve, appendiceal orifice, and rectum were photographed. Scope In: 6:58:06 AM Scope Withdrawal Time 0 hours 14 minutes 5 seconds Scope Out: 7:14:44 AM Total Procedure Duration Time 0 hours 16 minutes 38 seconds Findings: An area of mildly congested mucosa was found in the recto-sigmoid colon, in the sigmoid colon and in the descending colon. Biopsies were taken with a cold forceps for histology. Verification of patient identification for the specimen was done. Estimated blood loss was minimal. Multiple small and large-mouthed diverticula were found in the recto-sigmoid colon and sigmoid colon. Localized mild inflammation characterized by congestion (edema), erosions and erythema was found in the terminal ileum and in the ileocecal valve. Biopsies were taken with a cold forceps for histology. Verification of patient identification for the specimen was done. Estimated blood loss was minimal. Impression: - Congested mucosa in the recto-sigmoid colon, in the sigmoid colon and in the descending colon. Biopsied. - Diverticulosis in the recto-sigmoid colon and in the sigmoid colon. - Mild inflammation was found in the ileum secondary to ileitis. Biopsied. Recommendation: - Discharge patient to home. - Resume previous diet. - Continue present medications. - Await pathology results. - Repeat colonoscopy in 5 years for surveillance based on pathology results. Procedure Code(s): --- Professional --- 47617, Colonoscopy, flexible; with biopsy, single or multiple CPT copyright 2021 [employer]. All rights reserved. The codes documented in this report are preliminary and upon statistician review may be revised to meet current compliance requirements. Mynor Nelson DO 07/05/2025 7:28:03 AM This report has been signed electronically. Number of Addenda: 0 Note Initiated On: 07/05/2025 6:19 AM
--- NOTE | 2025-07-05 07:29 | OP.PROVAT_ITS ---
07/05/2025 Gaston Smith MD [address] [phone] Re : Colonoscopy procedure for Philip Powell Dear Dr. Smith This procedure was performed on Saturday, July 05, 2025. My impressions and recommendations are as follows: Impressions : - Congested mucosa in the recto-sigmoid colon, in the sigmoid colon and in the descending colon. Biopsied. - Diverticulosis in the recto-sigmoid colon and in the sigmoid colon. - Mild inflammation was found in the ileum secondary to ileitis. Biopsied. Recommendations : - Discharge patient to home. - Resume previous diet. - Continue present medications. - Await pathology results. - Repeat colonoscopy in 5 years for surveillance based on pathology results. My findings are described in the full procedure note, which is enclosed. If I can be of further assistance, please feel free to contact me at . Sincerely, Mynor Nelson, 07/05/2025 7:28:03 AM This report has been signed electronically.
--- NOTE | 2025-07-05 07:41 | PCM.POSTANE2 ---
Anesthesia Postop Eval I Sum Postop Eval Completion status Anesthesia document: Postop Eval 1 completed: Yes Anesthesia Postop Eval I Summary Anesthesia Postop Eval I Summary: Anesthesia Postop Eval I: Assessment Summary Airway patent Yes 07/05/25 07:24 [email or web address] Spontaneous unlabored Yes 07/05/25 07:24 [email or web address] respirations Mental status Asleep 07/05/25 07:24 [email or web address] nausea No 07/05/25 07:24 [email or web address] Vomiting No 07/05/25 07:24 [email or web address] Anesthesia Postop Eval I: Fluid Summary Crystalloid volume administer 600 07/05/25 07:24 [email or web address] (ml) Colloids volume administered ( ml) Blood Product volume administered (ml) Total IV fluid infused 600 07/05/25 07:24 [email or web address] Anesthesia Postop Eval I: Summary Notes Anesthesia Complication No 07/05/25 07:24 [email or web address] Anesthesia Complication Comment: Post-operative progress note Anesthesia: Postop Eval II Evaluation Mental status: Awake Pain Level: 0 nausea: No Vomiting: No
== END 2025-07-05 08:03 | disposition home or self-care (01) ==
LOC: EN 05:30 → AC 05:31
PROVIDERS: PCP Family Medicine; Referring Provider Family Medicine; Visit Provider Internal Medicine Gastroenterology
PROC: 0DJD8ZZ Inspection of Lower Intestinal Tract, Via Natural or Artificial Opening Endoscopic (ICD-10-PCS; CPT 45378; principal; 2025-07-05 06:25)
DX: R10.32 Left lower quadrant pain (principal); K57.30 Diverticulosis of large intestine without perforation or abscess without bleeding; I10 Essential (primary) hypertension; Z87.891 Personal history of nicotine dependence; Z80.0 Family history of malignant neoplasm of digestive organs; G47.33 Obstructive sleep apnea (adult) (pediatric); Z99.89 Dependence on other enabling machines and devices; F41.9 Anxiety disorder, unspecified; F32.A Depression, unspecified; Z79.899 Other long term (current) drug therapy; R19.5 Other fecal abnormalities; K63.89 Other specified diseases of intestine; K52.9 Noninfective gastroenteritis and colitis, unspecified
CPT/HCPCS: 45380; 88305; J2405

== ENCOUNTER 2025-07-14 17:32 | Emergency (ER) | payer OTHER, SELFPAY ==
[2025-07-14 17:33] VITALS: BP 165/88; PULSE 88; RESP 18; TEMP 38.1; O2SAT 97; BMI 46.0
[2025-07-14 17:35] VITALS: BP 165/88; PULSE 88; RESP 18; TEMP 38.1; O2SAT 97
--- NOTE | 2025-07-14 18:32 | CT_ITS ---
PROCEDURE: CT ABDOMEN/PELVIS W IV CONT ONLY 07/14/2025 REASON FOR EXAM: LEFT LOWER QUADRANT ABDOMINAL PAIN TECHNIQUE: Procedure Code: [id number] Modality: CT Procedure: ABDOMEN/PELVIS W IV CONT ONLY Coronal and Sagittal reconstruction series were provided. CONTRAST: Isovue 370 VOLUME: 96 mL One or more dose reduction techniques were used (e.g., Automated exposure control, adjustment of the mA and/or kV according to patient size, use of iterative reconstruction technique. RADIATION DOSE SUMMARY: DLP: 1359.49 mGycm COMPARISON: None. FINDINGS: Lung bases: Mild bibasilar dependent atelectasis. Several small subcentimeter scattered bibasilar predominantly subpleural pulmonary nodules, most likely benign and postinflammatory. Liver: Diffuse hepatic steatosis. Gallbladder: Unremarkable. Spleen: Unremarkable. Pancreas: Unremarkable. Adrenals: Unremarkable. Kidneys: Unremarkable. No hydronephrosis. Bladder: Unremarkable. Reproductive Organs: Unremarkable. Bowel: Unremarkable stomach and small bowel. No evidence of obstruction. Normal appendix. Fluid throughout the colon suggesting diarrhea. Segmental wall thickening and inflammatory fat stranding/edema involving the proximal-mid sigmoid colon reflecting acute diverticulitis/colitis. No free fluid collection or air appreciated to indicate perforation. Lymph nodes: No suspicious lymph node enlargement. Vasculature: Normal in course and caliber. Bones: Mild degenerative changes of the spine most pronounced at the lumbosacral junction. CT/Abdomen/Pelvis W IV Cont ONLY IMPRESSION: Acute uncomplicated sigmoid diverticulitis/colitis. Hepatic steatosis. Reading Location: [id number]
[2025-07-14 18:35] VITALS: BP 126/71; PULSE 80; RESP 16; TEMP 37.4; O2SAT 99
[2025-07-14 18:42] LABS: Hematocrit 46.1 % (40-54); Hemoglobin 15.9 g/dL (13.0-16.5); Immature Granulocytes Count 0.060 X10^3/uL (0.0-0.0); Mean Corp Hgb Conc 34.5 g/dL (32-36); Mean Corpuscular Volume 85.8 fL (80-94); Mean Platelet Vol. 9.3 fl (6.2-12.0); NRBC Flagged by Analyzer 0 % (0-5); Platelet Count 334 K/mm3 (150-450); RBC Distribution Width CV 12.6 % (11.6-14.6); RBC Distribution Width SD 39.0 fl (35.1-43.9); Red Blood Count 5.37 M/mm3 (4.6-6.2); White Blood Count 14.2 K/mm3 (4.4-11.0)
[2025-07-14] MEDS: 0.9% Normal Saline (1000mL) 1,000 ML 999 ML IV (18:42)
--- NOTE | 2025-07-14 18:42 | EX.ED.DYSGE1 ---
HPI History of Present Illness Chief Complaint: Abd Pain Narrative Narrative: Chief complaint and HPI: 44-year-old male with past medical history of HTN presents for evaluation of left lower quadrant abdominal pain. Patient states he has had chronic diarrhea in which he had a colonoscopy performed by Dr. Nelson on 07/05. Patient states he was diagnosed with diverticulosis and Crohn's. He has yet to start any new medication. Patient states since Thursday he has been having left lower quadrant abdominal pain. He denies any fever, chills, shortness of breath, chest pain, nausea, vomiting, dysuria. Review of systems: See HPI Medications: As listed on the chart Allergies: As listed on the chart PFSH: Per chart Vital signs: As listed on the chart. Reviewed. Physical exam: Gen: A&O x3, NAD Head: Normocephalic, atraumatic Eyes: No sclera icterus, conjunctiva clear ENT: Moist mucous membranes CV: RRR, no murmurs Resp: Lungs CTA BL, no w/r/c GI: Abd soft, non-distended, mildly tender to palpation in the left lower quadrant, no r/r/g Musc: Full ROM, no deformity Skin: Warm, dry Neuro: Alert, oriented, grossly intact, sensation intact Psych: Cooperative, appropriate mood and affect [facility] Medical History Anxiety Depression Marijuana use Hypertension History of IBS Former smoker Sleep apnea CPAP (continuous positive airway pressure) dependence History of Holter monitoring History of echocardiogram History of stress test Cardiology follow-up encounter Apnea Abdominal pain Edema Diarrhea Family history of colon cancer IBS (irritable bowel syndrome) Hemoglobin A1c less than 7.0% ED (erectile dysfunction) BMI 40.0-44.9, adult Fracture of toe, open Laceration of toe Traumatic amputation of toe Injury of foot, right Essential hypertension REYES (obstructive sleep apnea) Palpitations Home Medications ?Medication ?Instructions ?Recorded ?Last Taken ?Type bupropion HCl 150 mg tablet,12 hr 150 mg PO BID 09/18/17 07/04/25 History sustained-release (Wellbutrin SR) losartan 100 1 tab PO QDAY 09/18/17 07/04/25 History mg-hydrochlorothiazide 25 mg tablet (Hyzaar) sildenafil 50 mg tablet 50 mg PO DAILY PRN sexual activity 11/27/23 Unknown History atenolol 25 mg tablet 25 mg PO QDAY #90 tabs 08/01/24 07/04/25 Rx amlodipine 5 mg tablet 5 mg PO DAILY #90 tabs 12/30/24 07/04/25 Rx sertraline 50 mg tablet 50 mg PO QDAY 04/17/25 07/04/25 History Allergy/AdvReac Type Severity Reaction Status Date / Time sulfamethoxazole (From Allergy Intermediate Hives Verified 07/14/25 17:34 Bactrim) trimethoprim (From Bactrim) Allergy Intermediate Hives Verified 07/14/25 17:34 Family History Grandfather Myocardial infarction Grandfather Myocardial infarction Father Hypertension Diabetes Grandmother Hypertension Grandmother Hypertension Mother Colon cancer Surgical History Hx of foot surgery (~05/04/22) History of shoulder surgery Social History Smoking Status: Former smoker how long ago did patient quit smokin alcohol intake: never substance use type: does not use caffeine: Yes EXAM Physical Exam Const Vital Signs: 07/14/25 17:33 07/14/25 17:35 07/14/25 18:35 Temperature 100.5 F H 100.5 F H 99.3 F H Temperature Source Oral Oral Oral Pulse Rate 88 88 80 Respiratory Rate 18 18 16 Blood Pressure 165/88 H 165/88 H 126/71 H Blood Pressure Mean 113 113 89 Pulse Ox 97 97 99 Oxygen Delivery Method Room Air Room Air Room Air 07/14/25 19:33 07/14/25 21:52 Temperature Temperature Source Pulse Rate 73 70 Respiratory Rate 16 Blood Pressure 123/62 H 123/68 H Blood Pressure Mean 82 86 Pulse Ox 96 97 Oxygen Delivery Method Room Air MDM MDM MDM Narrative Medical decision making narrative: 44-year-old male with past medical history of HTN presents for evaluation of left lower quadrant abdominal pain. Patient states he has had chronic diarrhea in which he had a colonoscopy performed by Dr. Nelson on 07/05. Patient states he was diagnosed with diverticulosis and Crohn's. He has yet to start any new medication. Patient states since Thursday he has been having left lower quadrant abdominal pain. On chart review, patient had a colonoscopy on 07/[address] Nelson. Showed congested mucosa in the rectosigmoid colon which was biopsied. Diverticulosis. Mild inflammation was found in the ileum secondary to ileitis. Biopsied. On chart review, patient does have a fever of 100.5 ?F. Tylenol ordered. Differential diagnosis includes but is not limited to diverticulitis, colitis, gastroenteritis, UTI, urolithiasis. NS bolus ordered. Patient offered pain medicine but declined. Laboratory workup ordered including CT abdomen pelvis. CBC with leukocytosis of 14.2. No anemia. CMP relatively unremarkable. Lipase unremarkable. CT abdomen pelvis shows acute uncomplicated sigmoid diverticulitis/colitis. Hepatic steatosis. Patient had a prolonged stay in the emergency department secondary to his urine. His UA is negative for UTI. Patient symptoms are secondary to uncomplicated diverticulitis. He received his first dose of Augmentin here in the emergency department. Follow-up with general surgery and GI. Return precautions explained. He confirmed understand the plan. Patient was discharged home. Impression: 1. Acute uncomplicated diverticulitis Lab Data Labs: Laboratory Results - last 24 hr 07/14/25 07/14/25 18:30 19:47 WBC 14.2 H RBC 5.37 Hgb 15.9 Hct 46.1 MCV 85.8 MCH 29.6 MCHC 34.5 RDW Std Deviation 39.0 RDW Coeff of Samm 12.6 Plt Count 334 MPV 9.3 Immature Gran % (Auto) 0.400 Neut % (Auto) 76.2 H Lymph % (Auto) 12.4 L Morton % (Auto) 9.4 Eos % (Auto) 0.9 Baso % (Auto) 0.7 Absolute Neuts (auto) 10.8 H Absolute Lymphs (auto) 1.76 Nucleated RBC % 0 Sodium 134 Potassium 3.6 Chloride 97 L Carbon Dioxide 24.2 Anion Gap 13 BUN 10 Creatinine 0.87 Estim Creat Clear Calc 159.53 Est GFR (MDRD) Non-Af 111 BUN/Creatinine Ratio 12.0 Glucose 107 H Calcium 9.4 Total Bilirubin 1.49 H AST 22 ALT 20 Alkaline Phosphatase 94 Total Protein 8.0 Albumin 4.3 Globulin 3.7 Albumin/Globulin Ratio 1.2 Lipase 27 Urine Color Viki Urine Clarity Sl. Cloudy Urine pH 7.0 Ur Specific [place] 1.010 Urine Protein 30 H Urine Glucose (UA) Normal Urine Ketones Negative Urine Occult Blood Negative Urine Nitrite Negative Urine Bilirubin 1 H Urine Urobilinogen 8 H Ur Leukocyte Esterase 25 H Urine RBC 0-5 SEEN Urine WBC 0-5 SEEN Ur Squamous Epith Cells 0-5 SEEN Urine Bacteria 1+ Urine Mucus 1+ Radiography Diagnostic Testing: Clinical Impression(s) from Imaging Studies Abdomen/Pelvis CT 07/14/25 18:32 IMPRESSION: Acute uncomplicated sigmoid diverticulitis/colitis. Hepatic steatosis. Reading Location: [id number] Discharge Plan Triage Chief Complaint: Abd Pain ED Provider: Melvin Crawford Dx/Rx/DC Orders Prescriptions: No Action bupropion HCl [Wellbutrin SR] 150 mg tablet extended release 12 hr 150 mg PO BID losartan-hydrochlorothiazide [Hyzaar] 100-25 mg tablet 1 tab PO QDAY sildenafil 50 mg tablet 50 mg PO DAILY PRN (Reason: sexual activity) Rx Instructions: administer 30 minutes to 4 hours before activity sertraline 50 mg tablet 50 mg PO QDAY atenolol 25 mg tablet 25 mg PO QDAY Qty: 90 4RF amlodipine 5 mg tablet 5 mg PO DAILY Qty: 90 3RF Primary Care Provider: Gaston Smith Referrals: Gaston Smith MD [Primary Care Provider, Family Practice] Print Language: [place] Island[place]
--- OUTSIDE RECORDS SUMMARY | 2025-07-14 18:43 | XMS RPT_ITS | CCD ---
Author Organization [facility] Care Team Providers Care Seniour Insight Manager Name Role Phone Dr. Gaston Arroyo Primary Care Provider Dr. Guy Casas Emergency Provider [phone] Yessenia Tay Other Provider [phone] Francisco Koenig Other Provider [phone] Dr. Fernando Zamora Other Provider [phone] Dr. Reyna Vogel Other Provider [phone] Kandace SENIOR RESEARCH CONSULTANT, SENIOR RESEARCH CONSULTANT-C [place] Other Provider Unavail able Cristela SENIOR RESEARCH CONSULTANT, SENIOR RESEARCH CONSULTANT-C Param Other Provider [phone] TEJA Fuchs Other Provider Unavailable Dr. Phillip Torres Admit Provider Dr. Phillip Torres Other Provider Mireya, SENIOR RESEARCH CONSULTANT-C [place] Attending Provider Unavail able Dr. Misael Hannah Attending Provider Unavailable Dr. Misael Hannah Other Provider Unavailable Dr. Cory Foley Other Provider [phone] Dr. Phillip Torres Referring Provider Dr. Smith Gerber Attending Provider Dr. Gaston Arroyo Primary Care Provider [phone] Guy Casas Emergency Provider Dr. Yessenia Tay Other Provider [phone] Francisco Koenig Other Provider [phone] Dr. Fernando Zamora Other Provider [phone] Dr. Reyna Vogel Other Provider Kandace SENIOR RESEARCH CONSULTANT, SENIOR RESEARCH CONSULTANT-C [place] Other Provider Unavail able Cristela SENIOR RESEARCH CONSULTANT, SENIOR RESEARCH CONSULTANT-C Param Other Provider TEJA Fuchs Other Provider [...] Luis WHITE, Dr. Feldman Referring Provider Mireille SENIOR RESEARCH CONSULTANT-C, Geovanna Attending Provider Mireille SENIOR RESEARCH CONSULTANT-Geovanna Mccullough Referring Provider Gaston Arroyo Referring Unavailable Luis, Gaston Primary Care Unavailable Luis, Gaston Attending Unavailable Luis, Gaston Referring Unavailable Luis, Gaston Primary Care Unavailable Luis, Gaston Attending Unavailable Luis, Gaston Referring Unavailable Arroyo, Gaston Primary Care Unavailable Arroyo, Gaston Attending Unavailable Luis, Gaston Primary Care Unavailable Mireille SENIOR RESEARCH CONSULTANT, Geovanna Attending Unavailable Mireille SENIOR RESEARCH CONSULTANT, Geovanna Referring Unavailable Luis, Gaston Referring Unavailable Luis, Gaston Primary Care Unavailable Kecia Santos Attending Unavailable Allergies Allergy Classification Reported Allergen(s) Allergy Type Date of Onset Reaction(s) Facility (6 sources) Sulfamethoxazole / Trimethoprim; Translations: [SULFAMETHOXAZOLE-TR IMETHOPRIM] Drug Allergy 3 [facility] (3 sources) Sulfamethoxazole Drug Allergy 4 [facility] (3 sources) Trimethoprim Drug Allergy 4 [facility] (1 source) Sulfamethoxazole Drug Allergy 5 [facility] (1 source) Trimethoprim Drug Allergy 5 [facility] Medications Current Medications Medication Drug Class(es) [...] directed by prescriber. Take 1 capsule by [facility] twice daily for 7 days. cetirizine hydrochloride [...] on above: Take 1 capsule by [facility] twice daily for 7 days. hydroCHLOROthiazide 25 mg / losartan potassium 100 mg oral tablet (11 sources) Thiazide Diuretic, Angiotensin 2 Receptor Debra Start: take 1 tablet by mouth once losartan-hydro CHLOROthiazide (HYZAAR) 100-25 mg per tablet Take 1 tablet by mouth every afternoon. 02/15/2024 Active Start: 09-18-2017 Losartan-[place] chlorothiazide (Hyzaar) 100-25 mg tablet Active 1 [...] on above: Take 4 tablets by [facility] once daily for 3 days. sildenafil 50 [...] 06, 2014 12:00am September 18, 2017 3:13pm Iemmc-Xyjn-Etfyq-Collag-Mv-M in (Tevin (With Collagen)) 7-7-1.5 gram Powder In Packet (8 sources) Start: 05-08-2022 End: 11-27-2023 Copzy-Elxb-Ingso-Collag-Mv-M in (Tevin (With Collagen)) 7-7-1.5 gram Powder In Packet Discontinued 1 NMA PO TWICE DAILY WITH MEALS 60 0 May 08, 2022 12:00am November 27, 2023 1:02pm Start: 05-08-2022 End: 11-27-2023 Ieame-Zret-Gkoww-Collag-Mv-M in (Tevin (With Collagen)) 7-7-1.5 gram Powder In Packet Discontinued 1 NMA PO TWICE DAILY WITH MEALS 60 May 08, 2022 12:00am November 27, 2023 1:02pm Start: 05-08-2022 Yicna-Acqv-Mbm oc-Xtiyqo-Ow-Min (Tevin (With Collagen)) 7-7-1.5 gram Powder In Packet Active 1 PACKET PO TWICE DAILY WITH MEALS May 07, 2022 11:00pm Start: 05-08-2022 Rxtns-Xrjf-Yxq rh-Vnynsu-Rp-Min (Tevin (With Collagen)) 7-7-1.5 gram Powder In [...] Comment on above: Take 1 tablet by [facility] every 8 hours as needed. traZODone hydrochloride [...] Visit Repor ton 06-02-2025 Gastroenterology Visit Report [facility] [address] [place] [address] OFFICE VISIT Date of Service: 06/02/25 MR#: [id number] Acct: [id number] Name: SONAM GUPTA Rep #: [id number] : 1980 Provider: TEJA Cutler Age/Sex: 44/M [place] [facility] [place]: Signed Intake Vital Signs 01/06/24 14:54 [...] effort Cardio (more content not included)... Normal [facility] Absolute lymphocyte countOrd ered By: Geovanna Kendrick on 03-27-2025 Lymphocytes Auto (Unsp spec) [#/Vol] 1.33 10*3/uL 0.83-4.51 [facility] Absolute neutrophil countOrd ered By: Geovanna Kendrick on 03-27-2025 Neutrophils (Bld) [#/Vol] 7.6 10*3/uL 2.0-7.7 [facility] Acute Abdomen Inc Cheston Acute Abdomen Inc Chest [facility] [address] [place] [address] [id number] Acute Abdomen Inc Chest MR#: [id number] Acct: [id number] Name: SONAM GUPTA Rep #: [id number] : 1980 M 44 From: Misael Carl PCP: Dr. Gaston Arroyo MD Status: REG CLI Study: Acute Abdomen Inc Chest Date of Exam: 03/27/25 Exam# [id number] Ordering Dr: Geovanna Kendrick SENIOR RESEARCH CONSULTANT SENIOR RESEARCH CONSULTANT-C PROCEDURE: ACUTE ABDOMEN INC CHEST 03/27/2025 REASON [...] No urinary tract calcification is definitively identified. Arwj-ry-kdssmmxl degenerative changes are seen throughout the visualized spine. Reading Location: [place] [address] CC: GARY Kendrick; Dr. Gaston Arroyo MD [place] Man: Signed Normal [facility] Anion gap in Serum or Plasma Ordered By: Geovanna Kendrick on 03-27-2025 Anion gap [Moles/Vol] 15 mmol/L 5-15 [facility] Automated lymphocyte count a s percentage of total leukocytesOrdered By: Geovanna Kendrick on 03-27-2025 Lymphocytes/100 WBC Auto (Unsp spec) 13.5 % Low 19-41 [facility] BUN/creatinine ratioOrdered By: Geovannared Kendrick on 03-27-2025 Urea nitrogen/Creatinine [Mass ratio] 12.3 mg/mg 10-20 [facility] Basophil percentageOrdered B y: Geovanna Kendrick on 03-27-2025 Basophils/100 WBC (Bld) 1.0 % 0-1 [facility] Bilirubin, totalOrdered By: Geovanna Kendrick on 03-27-2025 Bilirubin [Mass/Vol] 0.54 mg/dL 0.00-1.30 [facility] CBC W/Diff, Automatedon 03-04 Absolute Lymph 1.33 X10 3/uL Normal 0.83-4.51 [facility] Comment on above: Order Comment: Order Date: 03/27/25 Order Info: 0184-1 - CBCD Performed By: #### L 500.4050, L100.0100, L501.2450 #### [facility] Laboratory [address] [place], [address] Absolute Neut 7.6 X10 3/uL Normal 2.0-7.7 [facility] Comment on above: Order Comment: Order Date: 03/27/25 Order Info: 0184-1 - CBCD Performed By: #### L 500.4050, L100.0100, L501.2450 #### [facility] Laboratory [address] [place], [address] Basophils/100 WBC (Bld) 1.0 % Normal 0-1 [facility] Comment on above: Order Comment: Order Date: 03/27/25 Order Info: 0184-1 - CBCD Performed By: #### L 500.4050, L100.0100, L501.2450 #### [facility] Laboratory [address] [place], [address] Eosinophils/100 WBC (Bld) 1.5 % Normal 0-5 [facility] Comment on above: Order Comment: Order Date: 03/27/25 Order Info: 0184-1 - CBCD Performed By: #### L 500.4050, L100.0100, L501.2450 #### [facility] Laboratory [address] [place], [address] Erythrocyte distribution width (RBC) [Ratio] 11.9 % Normal 11.6-14.6 [facility] Comment on above: Order Comment: Order Date: 03/27/25 Order Info: 0184-1 - CBCD Performed By: #### L 500.4050, L100.0100, L501.2450 #### [facility] Laboratory [address] [place], [address] Hematocrit (Bld) [Volume fraction] 44.7 % Normal 40-54 [facility] Comment on above: Order Comment: Order Date: 03/27/25 Order Info: 0184-1 - CBCD Performed By: #### L 500.4050, L100.0100, L501.2450 #### [facility] Laboratory [address] [place], [address] Hemoglobin (Bld) [Mass/Vol] 15.6 g/dL Normal 13.0-16.5 [facility] Comment on above: Order Comment: Order Date: 03/27/25 Order Info: 0184- - CBCD Performed By: #### L 500.4050, L100.0100, L501.2450 #### [facility] Laboratory [address] [place], [address] IG% 0.600 Normal 0.0-0.9 [facility] Comment on above: Order Comment: Order Date: 03/27/25 Order Info: 018- - CBCD Result Comment: IG% - Immature Granulocytes (promyelocytes, myelocytes and metamyelocytes) > 1% indicates that a LEFT SHIFT is Present. Performed By: #### L 500.4050, L100.0100, L501.2450 #### [facility] Laboratory [address] [place], [address] Lymphocytes/100 WBC (Bld) 13.5 % Low 19-41 [facility] Comment on above: Order Comment: Order Date: 03/27/25 Order Info: 018- - CBCD Performed By: #### L 500.4050, L100.0100, L501.2450 #### [facility] Laboratory [address] [place], [address] MCH (RBC) [Entitic mass] 29.9 pg Normal 27.0-32.0 [facility] Comment on above: Order Comment: Order Date: 03/27/25 Order Info: 0184- - CBCD Performed By: #### L 500.4050, L100.0100, L501.2450 #### [facility] Laboratory [address] [place], [address] MCHC (RBC) [Mass/Vol] 34.9 g/dL Normal 32-36 [facility] Comment on above: Order Comment: Order Date: 03/27/25 Order Info: 0184- - CBCD Performed By: #### L 500.4050, L100.0100, L501.2450 #### [facility] Laboratory [address] [place], [address] MCV (RBC) [Entitic vol] 85.6 fL Normal 80-94 [facility] Comment on above: Order Comment: Order Date: 03/27/25 Order Info: 0184-1 - CBCD Performed By: #### L 500.4050, L100.0100, L501.2450 #### [facility] Laboratory [address] [place], [address] Monocytes/100 WBC (Bld) 6.5 % Normal 0-10 [facility] Comment on above: Order Comment: Order Date: 03/27/25 Order Info: 0184-1 - CBCD Performed By: #### L 500.4050, L100.0100, L501.2450 #### [facility] Laboratory [address] [place], [address] Neutrophils/100 WBC (Bld) 76.9 % High 47-70 [facility] Comment on above: Order Comment: Order Date: 03/27/25 Order Info: 0184-1 - CBCD Performed By: #### L 500.4050, L100.0100, L501.2450 #### [facility] Laboratory [address] [place], [address] Nucleated RBC (Bld) [#/Vol] 0 10*3/uL Normal 0-5 [facility] Comment on above: Order Comment: Order Date: 03/27/25 Order Info: 0184-1 - CBCD Performed By: #### L 500.4050, L100.0100, L501.2450 #### [facility] Laboratory [address] [place], [address] Platelet mean volume (Bld) [Entitic vol] 9.6 fL Normal 6.2-12.0 [facility] Comment on above: Order Comment: Order Date: 03/27/25 Order Info: 0184-1 - CBCD Performed By: #### L 500.4050, L100.0100, L501.2450 #### [facility] Laboratory [address] [place], [address] Platelets (Bld) [#/Vol] 327 10*3/uL Normal 150-450 [facility] Comment on above: Order Comment: Order Date: 03/27/25 Order Info: 0184-1 - CBCD Performed By: #### L 500.4050, L100.0100, L501.2450 #### [facility] Laboratory [address] [place], [address] RBC (Bld) [#/Vol] 5.22 10*6/uL Normal 4.6-6.2 [facility] Comment on above: Order Comment: Order Date: 03/27/25 Order Info: 0184- - CBCD Performed By: #### L 500.4050, L100.0100, L501.2450 #### [facility] Laboratory [address] [place], [address] RDW SD 37.4 fl Normal 35.1-43.9 [facility] Comment on above: Order Comment: Order Date: 03/27/25 Order Info: 0184- - CBCD Performed By: #### L 500.4050, L100.0100, L501.2450 #### [facility] Laboratory [address] [place], [address] WBC (Bld) [#/Vol] 9.9 10*3/uL Normal 4.4-11.0 [facility] Comment on above: Order Comment: Order Date: 03/27/25 Order Info: 0184-1 - CBCD Performed By: #### L 500.4050, L100.0100, L501.2450 #### [facility] Laboratory [address] [place], [address] Carbon dioxide, total [Moles /volume] in Central venous bloodOrdered By: Geovanna Kendrick on 03-27-2025 CO2 [Moles/Vol] 23.2 mmol/L 21.0-32.0 [facility] Chloride assayOrdered By: aBrt Kendrick on 03-27-2025 Chloride [Moles/Vol] 100 mmol/L 98-108 [facility] Comprehensive Metabolic Prof ilon 03-27-2025 Albumin [Mass/Vol] 4.3 g/dL Normal 3.5-5.0 [facility] Comment on above: Order Comment: Order Date: 03/27/25 Order Info: 0786-1 - CMP Order Info: 3040-3 - LIPASE Performed By: #### L 500.4050, L100.0100, L501.2450 #### [facility] Laboratory [address] [place], [address] Albumin/Globulin [Mass ratio] 1.3 {ratio} Normal 0.9-2.4 [facility] Comment on above: Order Comment: Order Date: 03/27/25 Order Info: 0786-1 - CMP Order Info: 3040-3 - LIPASE Performed By: #### L 500.4050, L100.0100, L501.2450 #### [facility] Laboratory [address] [place], [address] ALK PHOS 93 U/L Normal 40-129 [facility] Comment on above: Order Comment: Order Date: 03/27/25 Order Info: 0786-1 - CMP Order Info: 3040-3 - LIPASE Performed By: #### L 500.4050, L100.0100, L501.2450 #### [facility] [address] [place], [address] ALT [Catalytic activity/Vol] 34 U/L Normal <=46 [facility] Comment on above: Order Comment: Order Date: 03/27/25 Order Info: 0786-1 - CMP Order Info: 3040-3 - LIPASE Performed By: #### L 500.4050, L100.0100, L501.2450 #### [facility] Laboratory [address] [place], [address] AST [Catalytic activity/Vol] 34 U/L Normal <=37 [facility] Comment on above: Order Comment: Order Date: 03/27/25 Order Info: 0786-1 - CMP Order Info: 3040-3 - LIPASE Performed By: #### L 500.4050, L100.0100, L501.2450 #### [facility] Laboratory [address] [place], [address] Bilirubin [Mass/Vol] 0.54 mg/dL Normal 0.00-1.30 [facility] Comment on above: Order Comment: Order Date: 03/27/25 Order Info: 0786-1 - CMP Order Info: 3040-3 - LIPASE Performed By: #### L 500.4050, L100.0100, L501.2450 #### [facility] Laboratory [address] [place], [address] BUN/CRE 12.3 RATIO Normal 10-20 [facility] Comment on above: Order Comment: Order Date: 03/27/25 Order Info: 0786-1 - CMP Order Info: 3040-3 - LIPASE Performed By: #### L 500.4050, L100.0100, L501.2450 #### [facility] Laboratory [address] [place], [address] Calcium [Mass/Vol] 9.2 mg/dL Normal 7.6-11.0 [facility] Comment on above: Order Comment: Order Date: 03/27/25 Order Info: 0786-1 - CMP Order Info: 3040-3 - LIPASE Performed By: #### L 500.4050, L100.0100, L501.2450 #### [facility] Laboratory [address] [place], [address] Chloride [Moles/Vol] 100 mmol/L Normal 98-108 [facility] Comment on above: Order Comment: Order Date: 03/27/25 Order Info: 0786-1 - CMP Order Info: 3040-3 - LIPASE Performed By: #### L 500.4050, L100.0100, L501.2450 #### [facility] [address] [place], [address] CO2 [Moles/Vol] 23.2 mmol/L Normal 21.0-32.0 [facility] Comment on above: Order Comment: Order Date: 03/27/25 Order Info: 0786-1 - CMP Order Info: 3040-3 - LIPASE Performed By: #### L 500.4050, L100.0100, L501.2450 #### [facility] [address] [place], [address] Creatinine [Mass/Vol] 0.81 mg/dL Normal 0.70-1.20 [facility] Comment on above: Order Comment: Order Date: 03/27/25 Order Info: 0786-1 - CMP Order Info: 3040-3 - LIPASE Performed By: #### L 500.4050, L100.0100, L501.2450 #### [facility] Laboratory [address] [place], [address] GAP 15 Normal 5-15 [facility] Comment on above: Order Comment: Order Date: 03/27/25 Order Info: 0786-1 - CMP Order Info: 3040-3 - LIPASE Performed By: #### L 500.4050, L100.0100, L501.2450 #### [facility] Laboratory [address] [place], [address] GFR/1.73 sq M.predicted among non-blacks MDRD (S/P/Bld) [Vol rate/Area] 113 mL/min/{1.73_m2} Normal >60 [facility] Comment on above: Order Comment: Order Date: 03/27/25 Order Info: 0786-1 - CMP Order Info: 3040-3 - LIPASE Result Comment: mL/m in/1.73m2 CKD-EPI Creatinine Equation (2020) Performed By: #### L 500.4050, L100.0100, L501.2450 #### [facility] Laboratory [address] [place], [address] Globulin (S) [Mass/Vol] 3.4 g/dL Normal 2.2-4.2 [facility] Comment on above: Order Comment: Order Date: 03/27/25 Order Info: 0786-1 - CMP Order Info: 3040-3 - LIPASE Performed By: #### L 500.4050, L100.0100, L501.2450 #### [facility] Laboratory [address] [place], [address] Glucose [Mass/Vol] 115 mg/dL High 70-99 [facility] Comment on above: Order Comment: Order Date: 03/27/25 Order Info: 0786-1 - CMP Order Info: 3040-3 - LIPASE Performed By: #### L 500.4050, L100.0100, L501.2450 #### [facility] Laboratory [address] [place], [address] Potassium [Moles/Vol] 3.3 mmol/L Normal 3.3-5.1 [facility] Comment on above: Order Comment: Order Date: 03/27/25 Order Info: 0786-1 - CMP Order Info: 3040-3 - LIPASE Performed By: #### L 500.4050, L100.0100, L501.2450 #### [facility] [address] [place], [address] Sodium [Moles/Vol] 139 mmol/L Normal 133-145 [facility] Comment on above: Order Comment: Order Date: 03/27/25 Order Info: 0786-1 - CMP Order Info: 3040-3 - LIPASE Performed By: #### L 500.4050, L100.0100, L501.2450 #### [facility] [address] [place], [address] T PROT 7.7 g/dL Normal 5.9-8.4 [facility] Comment on above: Order Comment: Order Date: 03/27/25 Order Info: 0786-1 - CMP Order Info: 3040-3 - LIPASE Performed By: #### L 500.4050, L100.0100, L501.2450 #### [facility] [address] [place], [place], [address] Urea nitrogen [Mass/Vol] 10 mg/dL Normal 4-19 [facility] Comment on above: Order Comment: Order Date: 03/27/25 Order Info: 0786-1 - CMP Order Info: 3040-3 - LIPASE Performed By: #### L 500.4050, L100.0100, L501.2450 #### [facility] [address] [place], [place], [address] Eosinophil percentageOrdered By: Geovanna Kendrick on 03-27-2025 Eosinophils/100 WBC (Bld) 1.5 % 0-5 [facility] Erythrocyte distribution wid th ratioOrdered By: Geovanna Kendrick on 03-27-2025 Erythrocyte distribution width (RBC) [Ratio] 11.9 % 11.6-14.6 [facility] Erythrocyte distribution wid th standard deviationOrdered By: Geovanna Kendrick on 03-27-2025 Erythrocyte distribution width (RBC) [Ratio] 37.4 fl 35.1-43.9 [facility] Glomerular filtration rate ( GFR) estimation/1.73 sq m using serum, plasma, or whole bOrdered By: Geovanna Kendrick on 03-27-2025 GFR/1.73 sq M.predicted among non-blacks MDRD (S/P/Bld) [Vol rate/Area] 113 mL/min/{1.73_m2} >60 [facility] Comment on above: mL/min/1.73m2 CKD-EP I Creatinine Equation (2020) Hematocrit Auto (Bld) [Volum e fraction]Ordered By: Geovanna Kendrick on 03-27-2025 Hematocrit (Bld) [Volume fraction] 44.7 % 40-54 [facility] Hemoglobin measurementOrdere d By: Geovanna Kendrick on 03-27-2025 Hemoglobin (Bld) [Mass/Vol] 15.6 g/dL 13.0-16.5 [facility] Immature granulocytes/100 WB C Auto (Bld)Ordered By: Geovanna Kendrick on 03-27-2025 Immature granulocytes/100 WBC (Bld) 0.600 % 0.0-0.9 [facility] Comment on above: IG% - Immature Granu locytes (promyelocytes, myelocytes and metamyelocytes) > 1% indicates that a LEFT SHIFT is Present. Laboratory - Chemistry and C hemistry - challengeOrdered By: Geovanna Kendrick on 03-27-2025 AST [Catalytic activity/Vol] 34 U/L <38 [facility] Lipaseon 03-27-2025 Lipase [Catalytic activity/Vol] 31 U/L Normal 13-75 [facility] Comment on above: Order Comment: Order Date: 03/27/25 Order Info: 0786-1 - CMP Order Info: 3040-3 - LIPASE Result Comment: Emerald patel note: LIPASE revised reference range effective 22. New Lipase methodology. Expected to produce lower values than the previous assay method. NEW Reference Range: 13 - 75 U/L Performed By: #### L 500.4050, L100.0100, L501.2450 #### [facility] Laboratory [facility] [address] [place], [place], [address] Lipase measurementOrdered By : Geovanna Kendrick on 03-27-2025 Lipase [Catalytic activity/Vol] 31 U/L 13-75 [facility] Comment on above: Please note:LIPASE r evised reference range effective 22. New Lipase methodology. Expected to produce lower values than the previous assay method. NEW Reference Range: 13 - 75 U/L MCV (mean corpuscular volume ) determinationOrdered By: Geovanna Kendrick on 03-27-2025 MCV (RBC) [Entitic vol] 85.6 fL 80-94 [facility] Mean corpuscular hemoglobin (MCH) determinationOrdered By: Geovanna Kendrick on 03-27-2025 MCH (RBC) [Entitic mass] 29.9 pg 27.0-32.0 [facility] Mean corpuscular hemoglobin concentration (MCHC) determinationOrdered By: Geovanna Kendrick on 03-27-2025 MCHC (RBC) [Mass/Vol] 34.9 g/dL 32-36 [facility] Mean platelet volume determi nationOrdered By: Geovanna Kendrick on 03-27-2025 Platelet mean volume (Bld) [Entitic vol] 9.6 fL 6.2-12.0 [facility] Monocyte percentageOrdered B y: Geovanna Kendrick on 03-27-2025 Monocytes/100 WBC (Bld) 6.5 % 0-10 [facility] Neutrophil percentageOrdered By: Geovanna Kendrick on 03-27-2025 Neutrophils/100 WBC (Bld) 76.9 % High 47-70 [facility] Nucleated red blood cell per centageOrdered By: Geovanna Kendrick on 03-27-2025 Nucleated RBC/100 WBC (Bld) [Ratio] 0 % 0-5 [facility] Platelet countOrdered By: Bart Kendrick on 03-27-2025 Platelets (Bld) [#/Vol] 327 10*3/uL 150-450 [facility] Potassium measurement (mass/ volume)Ordered By: Geovanna Kendrick on 03-27-2025 Potassium (Unsp spec) [Mass/Vol] 3.3 mmol/L 3.3-5.1 [facility] RBC Auto (Bld) [#/Vol]Ordere d By: Geovanna Kendrick on 03-27-2025 RBC (Bld) [#/Vol] 5.22 10*6/uL 4.6-6.2 [facility] Serum creatinine measurement (mass/volume)Ordered By: Geovanna Kendrick on 03-27-2025 Creatinine [Mass/Vol] 0.81 mg/dL 0.70-1.20 [facility] Serum globulin measurementOr dered By: Geovanna Kendrick on 03-27-2025 Globulin (S) [Mass/Vol] 3.4 g/dL 2.2-4.2 [facility] Serum glucose measurement (m ass/volume)Ordered By: Geovanna Kendrick on 03-27-2025 Glucose [Mass/Vol] 115 mg/dL High 70-99 [facility] Serum or plasma alanine sanchez otransferase (ALT) measurementOrdered By: Geovanna Kendrick on 03-27-2025 ALT [Catalytic activity/Vol] 34 U/L <47 [facility] Serum or plasma albumin saroj urement (mass/volume)Ordered By: Geovanna Kendrick on 03-27-2025 Albumin [Mass/Vol] 4.3 g/dL 3.5-5.0 [facility] Serum or plasma albumin/glob ulin mass ratioOrdered By: Geovanna Kendrick on 03-27-2025 Albumin/Globulin [Mass ratio] 1.3 {ratio} 0.9-2.4 [facility] Serum or plasma alkaline timur sphatase measurementOrdered By: Geovanna Kendrick on 03-27-2025 ALP [Catalytic activity/Vol] 93 U/L 40-129 [facility] Serum or plasma calcium saroj urement (mass/volume)Ordered By: Geovanna Kendrick on 03-27-2025 Calcium [Mass/Vol] 9.2 mg/dL 7.6-11.0 [facility] Serum or plasma urea nitroge n measurement (mass/volume)Ordered By: Geovanna Kendrick on 03-27-2025 Urea nitrogen [Mass/Vol] 10 mg/dL 4-19 [facility] Sodium levelOrdered By: Geovanna Kendrick on 03-27-2025 Sodium [Moles/Vol] 139 mmol/L 133-145 [facility] Total proteinOrdered By: Cassie Kendrick on 03-27-2025 Protein [Mass/Vol] 7.7 g/dL 5.9-8.4 [facility] White blood cell (WBC) count Ordered By: Geovanna Kendrick on 03-27-2025 WBC (Bld) [#/Vol] 9.9 10*3/uL 4.4-11.0 [facility] CNOVon 03-23-2025 CNOV Office Visit (WOUCA) SONAM GUPTA ([id number]) 1980 M Date Time Provider Department 03/23/25 [...] PCP if symptoms not improving. Chay Moomaw, ETHYLBENZENE CONVERTER OPERATOR.MEDICARE COMPLIANCE AUDITOR Allergies As of Date: 03/23/2025 Noted Allergy [...] Status:Closed by CHAY SEWELL on 03/23/25 Normal [facility] Inital Evaluation (1) - PTon 11-14-2024 Inital Evaluation (1) - PT [facility] Physical Therapy [facility] [address] [place] [address] [address] [place] [address] / REHABILITATION SERVICES INITIAL EVALUATION MR#: [id number] Acct: [id number] Name: SONAM GUPTA Rep #: [id number] : 1980 44 From: Gen [facility] PT, [...] to PCP secondary to not improving from career based intervention coordinator. Pt notes he had recent x-rays which revealed compression to the L4-5 region. Pt reports he has numbness in L lateral thigh which has been present for 4 years. Pt notes he gets intermittent R LE radiculopathy intermittently that descends to the knee region. Pt reports sleep difficulty at this time secondary to pain. 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 For Medicare only, by signing this I certify the plan of care. Please let me know if there are questions or concerns regarding this plan of care. Physician Signature: Date : 11/14/24 1746 CC: Dr. Gaston Arroyo MD [facility] Signed Normal [facility] L/S Spine Min 4 Viewson 10-03 L/S Spine Min 4 Views [facility] Imaging Services [address] [facility] [place], [place] [address] L/S Spine Min 4 Views MR#: [id number] Acct: [id number] Name: SONAM GUPTA Rep #: [id number] : 1980 M 44 From: Cory Saba MD PCP: Dr. Gaston rAroyo MD Status: REG CLI Study: L/S Spine Min 4 Views Date of Exam: 10/31/24 Exam# [id number] Ordering Dr: Gaston Arroyo MD PROCEDURE: L/S SPINE MIN 4 VIEWS 10/31/2024 REASON FOR EXAM: BACK ACHE TECHNIQUE: Five views; AP, lateral, bilateral obliques and coned-down L5-S1 view COMPARISON: None available FINDINGS: 5 wea-alm-ctjhmoy lumbar vertebral bodies identified. No fracture or malalignment. No spondylolysis identified. L2-3: Moderate appearing disc space narrowing. L5-S1: Disc space narrowing and vacuum effect. No osseous lesion identified. RAD/L/S Spine Min 4 Views IMPRESSION: L2-3 and L5-S1 spondylosis/discogeni c change. Reading Location: [facility] CC: Dr. Gaston Arroyo MD [place]: Signed Normal [facility] Knee 4 or More Viewson 08-11 Knee 4 or More Views [facility] Imaging Services [address] [place] [address] Knee 4 or More Views MR#: [id number] Acct: [id number] Name: SONAM GUPTA Rep #: [id number] : 1980 M 43 From: Gael Townsend MD PCP: Dr. Gaston Arroyo MD Status: REG CLI Study: Knee 4 or More Views Date of Exam: 08/11/24 Exam# [id number] Ordering Dr: Gaston Arroyo MD [id number] STUDY: X-RAY - LEFT KNEE REASON FOR [...] EST , CC: Dr. Gaston Arroyo MD [place]: Signed Normal [facility] CNOVon 04-15-2024 CNOV Office Visit (UCWSTR ) SONAM GUPTA ([id number]) 1980 M Date Time Provider Department 04/15/24 10:15 AM [facility] WSTR During your visit today, we recorded the following information about you: Temperature Pulse Respiration Blood pressure 97.7 degrees 73/minute 18/minute 130/78 Weight 143.6 kg Phillip Castillo APRN.MEDICARE COMPLIANCE AUDITOR 04/15/2024 10:20 AM Signed Subjective HPI Nontoxic-appearing [...] of care. This note was generated using [employer] software. It may contain errors in wording, punctuation, or spelling. Phillip Castillo APRN.MEDICARE COMPLIANCE AUDITOR Allergies As of Date: 04/15/2024 Noted Allergy Reaction BACTRIM (SULFAMETHOXAZOLE-TRI METH*01/19/2023 (more content not included)... Normal [facility] Absolute lymphocyte countOrd ered By: Gaston Arroyo on 10-21-2023 Lymphocytes Auto (Unsp spec) [#/Vol] 1.89 10*3/uL 0.83-4.51 [facility] Automated lymphocyte count a s percentage of total leukocytesOrdered By: Gaston Arroyo on 10-21-2023 Lymphocytes/100 WBC Auto (Unsp spec) 19.8 % 19-41 [facility] Basophil percentageOrdered B y: Gaston Arroyo on 10-21-2023 Basophils/100 WBC (Bld) 1.2 % 0-1 [facility] Chloride [Moles/Vol] 103 mmol/L 98-107 [facility] Eosinophils/100 WBC (Bld) 3.3 % 0-5 [facility] Glucose [Mass/Vol] 96 mg/dL 74-106 [facility] Hemoglobin (Bld) [Mass/Vol] 15.3 g/dL 13.0-16.5 [facility] Monocytes/100 WBC (Bld) 6.6 % 0-10 [facility] Neutrophils (Bld) [#/Vol] 6.6 10*3/uL 2.0-7.7 [facility] Neutrophils/100 WBC (Bld) 68.8 % 47-70 [facility] Potassium [Moles/Vol] 3.3 mmol/L 3.5-5.1 [facility] Sodium [Moles/Vol] 138 mmol/L 136-145 [facility] WBC (Bld) [#/Vol] 9.6 10*3/uL 4.4-11.0 [facility] Determination of erythrocyte mean corpuscular volume (MCV)Ordered By: Gaston Arroyo on 10-21-2023 MCV (RBC) [Entitic vol] 85.1 fL 80-94 [facility] Erythrocyte distribution wid th ratioOrdered By: Gaston Arroyo on 10-21-2023 Erythrocyte distribution width (RBC) [Ratio] 12.5 % 11.6-14.6 [facility] Erythrocyte distribution wid th standard deviationOrdered By: Gaston Arroyo on 10-21-2023 Erythrocyte distribution width (RBC) [Entitic vol] 38.2 fL 35.1-43.9 [facility] Hematocrit Auto (Bld) [Volum e fraction]Ordered By: Gaston Arroyo on 10-21-2023 Hematocrit (Bld) [Volume fraction] 44.4 % 40-54 [facility] Immature granulocytes/100 WB C Auto (Bld)Ordered By: Gaston Arroyo on 10-21-2023 Immature granulocytes/100 WBC (Bld) 0.300 % 0.0-0.9 [facility] Comment on above: IG% - Immature Granu locytes (promyelocytes, myelocytes and metamyelocytes) > 1% indicates that a LEFT SHIFT is Present. Laboratory - Chemistry and C hemistry - challengeOrdered By: Gaston Arroyo on 10-21-2023 CO2 [Moles/Vol] 28.0 mmol/L 21.0-32.0 [facility] Magnesium [Mass/Vol] 2.2 mg/dL 1.6-2.6 [facility] Urea nitrogen/Creatinine [Mass ratio] 18.8 mg/mg 10-20 [facility] Laboratory - Hematology and Cell countsOrdered By: Gaston Arroyo on 10-21-2023 MCH (RBC) [Entitic mass] 29.3 pg 27.0-32.0 [facility] MCHC (RBC) [Mass/Vol] 34.5 g/dL 32-36 [facility] Nucleated RBC/100 WBC (Bld) [Ratio] 0 % 0-5 [facility] Platelet mean volume (Bld) [Entitic vol] 9.4 fL 6.2-12.0 [facility] Platelets (Bld) [#/Vol] 344 10*3/uL 150-450 [facility] No Panel InformationOrdered By: Gaston Arroyo on 10-21-2023 Estimated GFR (MDRD) Amer 149 mL/min >60 [facility] Comment on above: GFR Calc Estimated GFR (MDRD) Non-Af Amer 123 mL/min >60 [facility] Comment on above: Non- GFR Calc RBC Auto (Bld) [#/Vol]Ordere d By: Gaston Arroyo on 10-21-2023 RBC (Bld) [#/Vol] 5.22 10*6/uL 4.6-6.2 [facility] Serum or plasma calcium saroj urement (mass/volume)Ordered By: Gaston Arroyo on 10-21-2023 Calcium [Mass/Vol] 9.1 mg/dL 8.5-10.1 [facility] Serum or plasma creatinine m easurement (mass/volume)Ordered By: Gaston Arroyo on 10-21-2023 Creatinine [Mass/Vol] 0.75 mg/dL 0.70-1.30 [facility] Comment on above: The validity of the calculated GFR & GFRAA in patients over 70 years has not been determined. Clinical correlation is essential. Serum or plasma urea nitroge n measurement (mass/volume)Ordered By: Gaston Arroyo on 10-21-2023 Urea nitrogen [Mass/Vol] 14 mg/dL 7-18 [facility] Thin prep Papanicolaou smear with manual screeningOrdered By: Gaston Arroyo on 10-21-2023 Thin prep Papanicolaou smear with manual screening 7 5-15 [facility] Covid 19 Resultson 2 SARS-CoV-2 (COVID-19) RNA [...] You may also be contacted by the [place] [facility] of [facility] to see if any [...] or Naproxen (Aleve) can also be used. Iemo-xmy-bgomfny cough and cold medicines can be used according to the instructions on the package. Some ahlg-gvq-hkzipcu medicines also contain acetaminophen. Make sure you [...] water are not available, use alcohol-based hand matrix bath operator. Avoid touching your eyes, nose, and mouth [...] 24 denice (more content not included)... Normal [facility] INFLUENZA A/B, COVID 2019 PC R,SYMPTOMATICon 07-14-2022 INFLUENZA A, PCR Not detected Normal Not Detected [facility] Comment on above: Result Comment: Resp iratory virus testing is performed routinely by PCR for Influenza A/B and RSV. Not Detected results do not preclude Influenza A/B or RSV infections since the adequacy of sample collection or low viral burden may impact the clinical sensitivity of this test method. Performed By: #### C [facility] #### [address] [place] [address] INFLUENZA B, PCR Not detected Normal Not Detected [facility] Comment on above: Result Comment: Resp iratory virus testing is performed routinely by PCR for Influenza A/B and RSV. Not Detected results do not preclude Influenza A/B or RSV infections since the adequacy of sample collection or low viral burden may impact the clinical sensitivity of this test method. Performed By: #### C [facility] #### [place] [address] SARS-CoV-2 (COVID-19) RNA EVELYN+probe Ql (Unsp spec) Not detected Normal Not Detected [facility] Comment on above: Result Comment: . This test has received FDA Emergency Use Authorization (EUA) and has been verified by [facility]. This test is only authorized for the duration of time that circumstances exist to justify the authorization of the emergency use of in vitro diagnostic tests for the detection of SARS-CoV-2 virus and/or diagnosis of COVID-19 infection under section 564(b)(1) of the Act, 21 U.S.C. 360bbb-3(b)(1), unless the authorization is terminated or revoked sooner. [facility] is certified under CLIA-88 as qualified to perform high complexity testing. Testing is performed in the [facility] laboratory located at [address] [place] [address]. SARS-CoV-2/Flu/RSV Multiplex Test: Fact sheet for providers: https://www.fda.gov/media/267953/download Fact sheet for patients: https://www.fda.gov/media/955135/download Performed By: #### C [facility] #### [place] [address] Lab Specimen Source Nasal, Nasopharyngeal Normal [facility] Comment on above: Performed By: #### C [facility] #### [place] [address] Provider Note - ED v3on 07-03 Provider [...] SIGNS: T PRBP SpO2O2(LPM) %FiO2 Method 14-Jul-2022 11:00:[id number] 97 MDM MDM/ED COURSE: Discussed Findings with: [...] ill patient: no Electronic Signatures: Turner Patterson (ETHYLBENZENE CONVERTER OPERATOR-MEDICARE COMPLIANCE AUDITOR) (Signed 14-Jul-2022 11:22) Authored: ED Notes, HPI, PMH, ROS, PE, Results/Vital Signs, MDM/ED Course, Clinical Impression, Attestation, Chart Review, Scores Last Updated: 14-Jul-2022 11:22 by Turner Patterson (ETHYLBENZENE CONVERTER OPERATOR-MEDICARE COMPLIANCE AUDITOR) [facility] Absolute lymphocyte counton 05-20-2022 Lymphocytes Auto (Unsp spec) [#/Vol] 1.79 10*3/uL 0.83-4.51 [facility] Work Phone: Basophil percentageon 2021 Basophils/100 WBC (Bld) 1.4 % 0-1 [facility] Work Phone: Eosinophils/100 WBC (Bld) 5.1 % 0-5 [facility] Work Phone: Neutrophils (Bld) [#/Vol] 4.2 10*3/uL 2.0-7.7 [facility] Work Phone: Neutrophils/100 WBC (Bld) 59.3 % 47-70 [facility] Work Phone: WBC (Bld) [#/Vol] 7.0 10*3/uL 4.4-11.0 [facility] Work Phone: Bilirubin [Mass/Vol] 0.50 mg/dL 0.20-1.00 [facility] Work Phone: Comment on above: For patients on eltr ombopag therapy, use of Dimension [place] TBIL is not recommended. Chloride [Moles/Vol] 103 mmol/L 98-107 [facility] Work Phone: Cholesterol [Mass/Vol] 134 mg/dL <200 [facility] Work Phone: Comment on above: <200 mg/dL Desirable 200-240 mg/dL Borderline >240 mg/dL High Risk Glucose [Mass/Vol] 111 mg/dL 74-106 [facility] Work Phone: [phone] Comment on above: Fasting Glucose resu lt from 100 to 125 mg/dL suggests IMPAIRED HOMEOSTASIS per A.D.A. criteria. Potassium [Moles/Vol] 3.8 mmol/L 3.5-5.1 [facility] Work Phone: [phone] Protein [Mass/Vol] 7.5 g/dL 6.4-8.2 [facility] Work Phone: [phone] Sodium [Moles/Vol] 139 mmol/L 136-145 [facility] Work Phone: [phone] Triglyceride [Mass/Vol] 101 mg/dL <199 [facility] Work Phone: [phone] Comment on above: The drugs N-Acetylcy steine and Metamizole may falsely depress this assay.Serum Triglycerides Reference Interval Normal <150 mg/dL Borderline high 150 - 199 mg/dL High 200 - 499 mg/dL Very High > or = 500 mg/dL Blood erythrocytes count (nu mber/volume)on 05-20-2022 RBC (Bld) [#/Vol] 5.22 10*6/uL 4.6-6.2 [facility] Work Phone: [phone] Blood hemoglobin measurement (mass/volume)on 05-20-2022 Hemoglobin (Bld) [Mass/Vol] 15.6 g/dL 13.0-16.5 [facility] Work Phone: [phone] Blood lymphocytes/100 leukoc yteson 05-20-2022 Lymphocytes/100 WBC (Bld) 25.5 % 19-41 [facility] Work Phone: [phone] Blood monocytes/100 leukocyt eson 05-20-2022 Monocytes/100 WBC (Bld) 8.3 % 0-10 [facility] Work Phone: [phone] Blood platelet mean volumeon 05-20-2022 Platelet mean volume (Bld) [Entitic vol] 9.7 fL 6.2-12.0 [facility] Work Phone: [phone] Determination of erythrocyte mean corpuscular volume (MCV)on 05-20-2022 MCV (RBC) [Entitic vol] 88.7 fL 80-94 [facility] Work Phone: [phone] Hematocrit Auto (Bld) [Volum e fraction]on 05-20-2022 Hematocrit (Bld) [Volume fraction] 46.3 % 40-54 [facility] Work Phone: [phone] Laboratory - Chemistry and C hemistry - challengeon 05-20-2022 ALP [Catalytic activity/Vol] 75 U/L 45-117 [facility] Work Phone: ALT [Catalytic activity/Vol] 41 U/L 16-61 [facility] Work Phone: [phone] CO2 [Moles/Vol] 27.0 mmol/L 21.0-32.0 [facility] Work Phone: [phone] Globulin (S) [Mass/Vol] 3.9 g/dL 2.2-4.2 [facility] Work Phone: [phone] Urea nitrogen/Creatinine [Mass ratio] 19.2 mg/mg 10-20 [facility] Work Phone: [phone] Laboratory - Hematology and Cell countson 05-20-2022 Erythrocyte distribution width (RBC) [Entitic vol] 43.0 fL 35.1-43.9 [facility] Work Phone: [phone] Erythrocyte distribution width (RBC) [Ratio] 13.2 % 11.6-14.6 [facility] Work Phone: [phone] Immature granulocytes/100 WBC (Bld) 0.400 % 0.0-0.9 [facility] Work Phone: Comment on above: IG% - Immature Granu locytes (promyelocytes, myelocytes and metamyelocytes) > 1% indicates that a LEFT SHIFT is Present. MCH (RBC) [Entitic mass] 29.9 pg 27.0-32.0 [facility] Work Phone: Nucleated RBC/100 WBC (Bld) [Ratio] 0 % 0-5 [facility] Work Phone: MCHC Auto (RBC) [Mass/Vol]on 05-20-2022 MCHC (RBC) [Mass/Vol] 33.7 g/dL 32-36 [facility] Work Phone: No Panel Informationon 05-20 Estimated GFR (MDRD) Amer 123 mL/min >60 [facility] Work Phone: Comment on above: GFR Calc Estimated GFR (MDRD) Non-Af Amer 102 mL/min >60 [facility] Work Phone: Comment on above: Non- GFR Calc Platelets bldon 05-20-2022 Platelets (Bld) [#/Vol] 332 10*3/uL 150-450 [facility] Work Phone: [phone] Serum or plasma albumin saroj urement (mass/volume)on 05-20-2022 Albumin [Mass/Vol] 3.6 g/dL 3.2-5.0 [facility] Work Phone: [phone] Serum or plasma albumin/glob ulin mass ratioon 05-20-2022 Albumin/Globulin [Mass ratio] 0.9 {ratio} 0.9-2.4 [facility] Work Phone: [phone] Serum or plasma calcium saroj urement (mass/volume)on 05-20-2022 Calcium [Mass/Vol] 8.8 mg/dL 8.5-10.1 [facility] Work Phone: [phone] Serum or plasma cholesterol in HDL measurement (mass/volume)on 05-20-2022 Cholesterol in HDL [Mass/Vol] 37 mg/dL >40 [facility] Work Phone: Comment on above: The drugs N-Acetylcy steine and Metamizole may falsely depress this assay. Reference Range HDL <40 mg/dL Low HDL Cholesterol HDL >or= 60 mg/dL High HDL Cholesterol Serum or plasma cholesterol in VLDL measurement (mass/volume)on 05-20-2022 Cholesterol in VLDL [Mass/Vol] 20 mg/dL 5-40 [facility] Work Phone: [phone] Serum or plasma creatinine m easurement (mass/volume)on 05-20-2022 Creatinine [Mass/Vol] 0.88 mg/dL 0.70-1.30 [facility] Work Phone: Comment on above: The validity of the calculated GFR & GFRAA in patients over 70 years has not been determined. Clinical correlation is essential. Serum or plasma low density lipoprotein (LDL) cholesterol measurement (mass/volume)on 05-20-2022 Cholesterol in LDL [Mass/Vol] 77 mg/dL 0-130 [facility] Work Phone: Serum or plasma urea nitroge n measurement (mass/volume)on 05-20-2022 Urea nitrogen [Mass/Vol] 17 mg/dL 7-18 [facility] Work Phone: Thin prep Papanicolaou smear with manual screeningon 05-20-2022 Thin prep Papanicolaou smear with manual screening 29 U/L 15-37 [facility] Work Phone: Thin prep Papanicolaou smear with manual screening 9 5-15 [facility] Work Phone: Absolute lymphocyte counton 05-08-2022 Lymphocytes Auto (Unsp spec) [#/Vol] 1.90 10*3/uL 0.83-4.51 [facility] Work Phone: Basophil percentageon 2021 Basophils/100 WBC (Bld) 1.0 % 0-1 [facility] Work Phone: Chloride [Moles/Vol] 104 mmol/L 98-107 [facility] Work Phone: Eosinophils/100 WBC (Bld) 4.6 % 0-5 [facility] Work Phone: [phone] Glucose [Mass/Vol] 112 mg/dL 74-106 [facility] Work Phone: Comment on above: Fasting Glucose resu lt from 100 to 125 mg/dL suggests IMPAIRED HOMEOSTASIS per A.D.A. criteria. Neutrophils (Bld) [#/Vol] 4.8 10*3/uL 2.0-7.7 [facility] Work Phone: Neutrophils/100 WBC (Bld) 59.9 % 47-70 [facility] Work Phone: Potassium [Moles/Vol] 3.6 mmol/L 3.5-5.1 [facility] Work Phone: Sodium [Moles/Vol] 138 mmol/L 136-145 [facility] Work Phone: WBC (Bld) [#/Vol] 8.1 10*3/uL 4.4-11.0 [facility] Work Phone: Blood erythrocytes count (nu mber/volume)on 05-08-2022 RBC (Bld) [#/Vol] 5.21 10*6/uL 4.6-6.2 [facility] Work Phone: Blood hemoglobin measurement (mass/volume)on 05-08-2022 Hemoglobin (Bld) [Mass/Vol] 15.5 g/dL 13.0-16.5 [facility] Work Phone: Blood lymphocytes/100 leukoc yteson 05-08-2022 Lymphocytes/100 WBC (Bld) 23.6 % 19-41 [facility] Work Phone: Blood monocytes/100 leukocyt eson 05-08-2022 Monocytes/100 WBC (Bld) 10.4 % 0-10 [facility] Work Phone: [phone] Blood platelet mean volumeon 05-08-2022 Platelet mean volume (Bld) [Entitic vol] 9.5 fL 6.2-12.0 [facility] Work Phone: Determination of erythrocyte mean corpuscular volume (MCV)on 05-08-2022 MCV (RBC) [Entitic vol] 88.1 fL 80-94 [facility] Work Phone: Hematocrit Auto (Bld) [Volum e fraction]on 05-08-2022 Hematocrit (Bld) [Volume fraction] 45.9 % 40-54 [facility] Work Phone: Laboratory - Chemistry and C hemistry - challengeon 05-08-2022 CO2 [Moles/Vol] 27.0 mmol/L 21.0-32.0 [facility] Work Phone: [phone] Urea nitrogen/Creatinine [Mass ratio] 18.9 mg/mg 10-20 [facility] Work Phone: [phone] Laboratory - Hematology and Cell countson 05-08-2022 Erythrocyte distribution width (RBC) [Entitic vol] 40.9 fL 35.1-43.9 [facility] Work Phone: [phone] Erythrocyte distribution width (RBC) [Ratio] 12.7 % 11.6-14.6 [facility] Work Phone: [phone] Immature granulocytes/100 WBC (Bld) 0.500 % 0.0-0.9 [facility] Work Phone: [phone] Comment on above: IG% - Immature Granu locytes (promyelocytes, myelocytes and metamyelocytes) > 1% indicates that a LEFT SHIFT is Present. MCH (RBC) [Entitic mass] 29.8 pg 27.0-32.0 [facility] Work Phone: [phone] Nucleated RBC/100 WBC (Bld) [Ratio] 0 % 0-5 [facility] Work Phone: [phone] MCHC Auto (RBC) [Mass/Vol]on 05-08-2022 MCHC (RBC) [Mass/Vol] 33.8 g/dL 32-36 [facility] Work Phone: [phone] Panel Informationon 05-08 Estimated Creatinine Clearance Calc 113.78 ml/min [facility] Work Phone: [phone] Estimated GFR (MDRD) Amer 121 mL/min >60 [facility] Work Phone: [phone] Comment on above: GFR Calc Estimated GFR (MDRD) Non-Af Amer 100 mL/min >60 [facility] Work Phone: [phone] Comment on above: Non- GFR Calc Platelets bldon 05-08-2022 Platelets (Bld) [#/Vol] 308 10*3/uL 150-450 [facility] Work Phone: [phone] Serum or plasma calcium saroj urement (mass/volume)on 05-08-2022 Calcium [Mass/Vol] 8.8 mg/dL 8.5-10.1 [facility] Work Phone: [phone] Serum or plasma creatinine m easurement (mass/volume)on 05-08-2022 Creatinine [Mass/Vol] 0.90 mg/dL 0.70-1.30 [facility] Work Phone: [phone] Comment on above: The validity of the calculated GFR & GFRAA in patients over 70 years has not been determined. Clinical correlation is essential. Serum or plasma urea nitroge n measurement (mass/volume)on 05-08-2022 Urea nitrogen [Mass/Vol] 17 mg/dL 7-18 [facility] Work Phone: [phone] Thin prep Papanicolaou smear with manual screeningon 05-08-2022 Thin prep Papanicolaou smear with manual screening 7 5-15 [facility] Work Phone: [phone] Vancomycin troughon 05-07-20 Vancomycin trough [Mass/Vol] 15.8 ug/mL 5.0-15.0 [facility] Work Phone: Comment on above: VANCOMYCIN STANDARED DRUG THERAPY TROUGH LEVEL: 5.0 - 15.0 mg/L VANCOMYCIN HIGH INTENSITY THERAPY TROUGH LEVEL: 15.0 - 20.0 mg/L High Intensity therapy recommended for serious lifethreatening infections include:- Csavqymwce-Aoczicvhjufb-Veudccfxe (Ventilator/Healtcare Associated)-Sepsis PLEASE CONTACT PHARMACY SERVICES (#[id number]) FOR INTERPRETATIONOF RESULTS. Laboratory - Chemistry and C hemistry - challengeon 05-06-2022 Magnesium [Mass/Vol] 2.2 mg/dL 1.6-2.6 [facility] Work Phone: [phone] Bacteria identified Anaer cx Nom (Unsp spec) Anaerobic microbial culture No anaerobic bacteria isolated. [facility] Work Phone: [phone] Bacteria identified Cx Nom ( Wound) Wound Culture Stenotrophomonas maltophilia [facility] Work Phone: [phone] Wound Culture Staphylococcus saprophyticus [facility] Work Phone: [phone] Wound Culture Pseudomonas oryzihabitans [facility] Work Phone: Wound Culture Staphylococcus xylosus [facility] Work Phone: Gram stain for investigation of transfusion reaction Microscopic observation Gram stain Nom (Unsp spec) [facility] Work Phone: [phone] Vital Signs Date Time Vital Sign Value Performing Clinician Facility 03-23-2025 09:13-0400 Body temperature 97.3 [degF] Chay Moomaw ETHYLBENZENE CONVERTER OPERATOR.MEDICARE COMPLIANCE AUDITOR Work Phone: [facility] 03-23-2025 09:13-0400 Body weight 147.2 kg Chay Moomaw ETHYLBENZENE CONVERTER OPERATOR.MEDICARE COMPLIANCE AUDITOR Work Phone: [facility] 03-23-2025 09:13-0400 Diastolic blood pressure 88 mm[Hg] Chay Moomaw ETHYLBENZENE CONVERTER OPERATOR.MEDICARE COMPLIANCE AUDITOR Work Phone: [facility] 03-23-2025 09:13-0400 Heart rate 89 /min Chay Moomaw ETHYLBENZENE CONVERTER OPERATOR.MEDICARE COMPLIANCE AUDITOR Work Phone: [facility] 03-23-2025 09:13-0400 Respiratory rate 18 /min Chay Moomaw ETHYLBENZENE CONVERTER OPERATOR.MEDICARE COMPLIANCE AUDITOR Work Phone: [facility] 03-23-2025 09:13-0400 SaO2% (BldA) [Mass fraction] 97 % Chay Moomaw ETHYLBENZENE CONVERTER OPERATOR.MEDICARE COMPLIANCE AUDITOR Work Phone: [facility] 03-23-2025 09:13-0400 Systolic blood pressure 136 mm[Hg] Chay Moomaw ETHYLBENZENE CONVERTER OPERATOR.MEDICARE COMPLIANCE AUDITOR Work Phone: [facility] 04-15-2024 10:10-0400 Body temperature 97.7 [degF] Phillip Pendlesimón ETHYLBENZENE CONVERTER OPERATOR.MEDICARE COMPLIANCE AUDITOR Work Phone: [facility] 04-15-2024 10:10-0400 Body weight 143.6 kg Phillip Castillo ETHYLBENZENE CONVERTER OPERATOR.MEDICARE COMPLIANCE AUDITOR Work Phone: [facility] 04-15-2024 10:10-0400 Diastolic blood pressure 78 mm[Hg] Phillip Pendlebury ETHYLBENZENE CONVERTER OPERATOR.MEDICARE COMPLIANCE AUDITOR Work Phone: [facility] 04-15-2024 10:10-0400 Heart rate 73 /min Phillip Pendlebury ETHYLBENZENE CONVERTER OPERATOR.MEDICARE COMPLIANCE AUDITOR Work Phone: [facility] 04-15-2024 10:10-0400 Respiratory rate 18 /min Phillip Pendlebury ETHYLBENZENE CONVERTER OPERATOR.MEDICARE COMPLIANCE AUDITOR Work Phone: [facility] 04-15-2024 10:10-0400 SaO2% (BldA) [Mass fraction] 98 % Phillip Pendlebury ETHYLBENZENE CONVERTER OPERATOR.MEDICARE COMPLIANCE AUDITOR Work Phone: [facility] 04-15-2024 10:10-0400 Systolic blood pressure 130 mm[Hg] Phillip Pendlebury ETHYLBENZENE CONVERTER OPERATOR.MEDICARE COMPLIANCE AUDITOR Work Phone: [facility] 02-01-2024 16:49-0400 Body temperature 97.5 [degF] Becca Atwood ETHYLBENZENE CONVERTER OPERATOR.MEDICARE COMPLIANCE AUDITOR Work Phone: [facility] 02-01-2024 16:49-0400 Body weight 140 kg Becca Atwood ETHYLBENZENE CONVERTER OPERATOR.MEDICARE COMPLIANCE AUDITOR Work Phone: [facility] 02-01-2024 16:49-0400 Diastolic blood pressure 86 mm[Hg] Becca Atwood ETHYLBENZENE CONVERTER OPERATOR.MEDICARE COMPLIANCE AUDITOR Work Phone: [facility] 02-01-2024 16:49-0400 Heart rate 90 /min Becca Atwood ETHYLBENZENE CONVERTER OPERATOR.MEDICARE COMPLIANCE AUDITOR Work Phone: [facility] 02-01-2024 16:49-0400 Respiratory rate 21 /min Becca Atwood ETHYLBENZENE CONVERTER OPERATOR.MEDICARE COMPLIANCE AUDITOR Work Phone: [facility] 02-01-2024 16:49-0400 SaO2% (BldA) [Mass fraction] 98 % Becca Atwood ETHYLBENZENE CONVERTER OPERATOR.MEDICARE COMPLIANCE AUDITOR Work Phone: [facility] 02-01-2024 16:49-0400 Systolic blood pressure 142 mm[Hg] Becca Atwood ETHYLBENZENE CONVERTER OPERATOR.MEDICARE COMPLIANCE AUDITOR Work Phone: [facility] 04-30-2023 14:21-0400 Body temperature 98.71 [degF] Phillip Pendlebury ETHYLBENZENE CONVERTER OPERATOR.MEDICARE COMPLIANCE AUDITOR Work Phone: [facility] 04-30-2023 14:21-0400 Body weight 141.34 kg Phillip Pendlebury ETHYLBENZENE CONVERTER OPERATOR.MEDICARE COMPLIANCE AUDITOR Work Phone: [facility] 04-30-2023 14:21-0400 Diastolic blood pressure 85 mm[Hg] Phillip Pendlebury ETHYLBENZENE CONVERTER OPERATOR.MEDICARE COMPLIANCE AUDITOR Work Phone: [facility] 04-30-2023 14:21-0400 Heart rate 89 /min Phillip Pendlebury ETHYLBENZENE CONVERTER OPERATOR.MEDICARE COMPLIANCE AUDITOR Work Phone: [facility] 04-30-2023 14:21-0400 Respiratory rate 18 /min Phillip Pendlebury ETHYLBENZENE CONVERTER OPERATOR.MEDICARE COMPLIANCE AUDITOR Work Phone: [facility] 04-30-2023 14:21-0400 SaO2% (BldA) [Mass fraction] 98 % Phillip Pendlebury ETHYLBENZENE CONVERTER OPERATOR.MEDICARE COMPLIANCE AUDITOR Work Phone: [facility] 04-30-2023 14:21-0400 Systolic blood pressure 142 mm[Hg] Phillip Pendlebury ETHYLBENZENE CONVERTER OPERATOR.MEDICARE COMPLIANCE AUDITOR Work Phone: [facility] 01-19-2023 14:32-0400 Body temperature 98.01 [degF] James Nova MD Work Phone: [facility] 01-19-2023 14:32-0400 Body weight 148.6 kg James Nova MD Work Phone: [facility] 01-19-2023 14:32-0400 Diastolic blood pressure 78 mm[Hg] James Nova MD Work Phone: [facility] 01-19-2023 14:32-0400 Heart rate 79 /min James Nova MD Work Phone: [facility] 01-19-2023 14:32-0400 Respiratory rate 18 /min James Nova MD Work Phone: [facility] 01-19-2023 14:32-0400 SaO2% (BldA) [Mass fraction] 98 % James Nova MD Work Phone: [facility] 01-19-2023 14:32-0400 Systolic blood pressure 136 mm[Hg] James Nova MD Work Phone: [facility] 09-24-2022 17:30-0500 Body temperature 97.6 [degF] [facility] 09-24-2022 17:30-0500 Diastolic blood pressure 89 mm[Hg] [facility] 09-24-2022 17:30-0500 Heart rate 90 /min [facility] 09-24-2022 17:30-0500 Respiratory rate 16 /min [facility] 09-24-2022 17:30-0500 SaO2% (BldA) [Mass fraction] 98 % [facility] 09-24-2022 17:30-0500 Systolic blood pressure 166 mm[Hg] [facility] 09-24-2022 17:28-0500 Body height 177.8 cm [facility] 09-24-2022 17:28-0500 Body mass index (BMI) [Ratio] 48.2 kg/m2 [facility] 09-24-2022 17:28-0500 Body weight 152.3 kg [facility] 08-05-2022 14:28-0500 Body height 178 cm Gaston Arroyo Other Phone: [facility] 08-05-2022 14:28-0500 Body temperature 98.24 [degF] Gaston Arroyo Other Phone: [facility] 08-05-2022 14:28-0500 Diastolic blood pressure 80 mm[Hg] Gaston Arroyo Other Phone: [facility] 08-05-2022 14:28-0500 Heart rate 86 /min Gaston Arroyo Other Phone: [facility] 08-05-2022 14:28-0500 Respiratory rate 22 /min Gaston Arroyo Other Phone: [facility] 08-05-2022 14:28-0500 SaO2% (BldA) [Mass fraction] 97 % Gaston Arroyo Other Phone: [facility] 08-05-2022 14:28-0500 Systolic blood pressure 136 mm[Hg] Gaston Arroyo Other Phone: [facility] 07-14-2022 13:00-0500 Body height 178 cm Gaston Arroyo Other Phone: [facility] 07-14-2022 13:00-0500 Body temperature 98.6 [degF] Gaston Arroyo Other Phone: [facility] 07-14-2022 13:00-0500 Diastolic blood pressure 88 mm[Hg] Gaston Arroyo Other Phone: [facility] 07-14-2022 13:00-0500 Heart rate 94 /min Gaston Arryoo Other Phone: [facility] 07-14-2022 13:00-0500 Respiratory rate 14 /min Gaston Arroyo Other Phone: [facility] 07-14-2022 13:00-0500 SaO2% (BldA) [Mass fraction] 97 % Gaston Arroyo Other Phone: [facility] 07-14-2022 13:00-0500 Systolic blood pressure 142 mm[Hg] Gaston Arroyo Other Phone: [facility] 05-08-2022 09:00-0400 Body temperature 97.7 [degF] Dr. Gaston Arroyo Work Phone: [facility] Work Phone: 05-08-2022 09:00-0400 Diastolic blood pressure 73 mm[Hg] Dr. Gaston Arroyo Work Phone: [facility] Work Phone: 05-08-2022 09:00-0400 Heart rate 96 /min Dr. Gaston Arroyo Work Phone: [facility] Work Phone: 05-08-2022 09:00-0400 Respiratory rate 18 /min Dr. Gaston Arroyo Work Phone: [facility] Work Phone: 05-08-2022 09:00-0400 SaO2% (BldA) [Mass fraction] 96 % Dr. Gaston Arroyo Work Phone: [facility] Work Phone: 05-08-2022 09:00-0400 Systolic blood pressure 136 mm[Hg] Dr. Gaston Arroyo Work Phone: [facility] Work Phone: 05-08-2022 02:50-0400 Inhaled oxygen concentration 21 % Dr. Gaston Arroyo Work Phone: [facility] Work Phone: 05-08-2022 02:50-0400 Inhaled oxygen flow rate 2 L/min Dr. Gaston Arroyo Work Phone: [facility] Work Phone: 05-05-2022 10:43-0400 Body height 177.[address] Gaston Arroyo Work Phone: [facility] Work Phone: 05-05-2022 10:43-0400 Body weight 154.[address] Gaston Arroyo Work Phone: [facility] Work Phone: 05-04-2022 21:02-0400 Body mass index (BMI) [Ratio] 48.7 kg/m2 Dr. Gaston Arroyo Work Phone: [facility] Work Phone: 05-04-2022 17:03-0400 Body temperature 98.1 [degF] [facility] Work Phone: 05-04-2022 17:03-0400 Diastolic blood pressure 91 mm[Hg] [facility] Work Phone: 05-04-2022 17:03-0400 Heart rate 79 /min [facility] Work Phone: 05-04-2022 17:03-0400 Respiratory rate 18 /min [facility] Work Phone: 05-04-2022 17:03-0400 SaO2% (BldA) [Mass fraction] 98 % [facility] Work Phone: 05-04-2022 17:03-0400 Systolic blood pressure 154 mm[Hg] [facility] Work Phone: 05-04-2022 16:46-0400 Body height 177.8 cm [facility] Work Phone: 05-04-2022 16:46-0400 Body mass index (BMI) [Ratio] 48.7 kg/m2 [facility] Work Phone: 05-04-2022 16:46-0400 Body weight 154.22 kg [facility] Work Phone: Encounters Encounter Date Encounter Type Care Provider Facility Start: 06-02-2025 End: 06-02-2025 ambulatory Gaston Arroyo [facility] Start: 03-27-2025 End: 03-27-[address] Gaston Arroyo MD Work Phone: [facility] [place] Start: 03-27-2025 End: 03-27-2025 Patient encounter procedure Geovannared Dotsonner SENIOR RESEARCH CONSULTANT-C -[facility] [place] Work Phone: Start: 03-27-2025 End: 03-27-2025 ambulatory Gaston Arroyo Facility:[facility] Start: 03-23-2025 End: 03-23-2025 Patient encounter procedure Chay Sewell ETHYLBENZENE CONVERTER OPERATOR.MEDICARE COMPLIANCE AUDITOR Work Phone: [facility] Comment on above: Viral gastritis (Ashley lana Dx) Start: 03-23-2025 End: 03-23-2025 ambulatory GASTON ARROYO Facility:[facility] Start: 12-05-2024 End: 12-05-[address] Gaston Arroyo MD Work Phone: -Physical Therapy Start: 12-05-2024 End: 12-05-[address] Gaston Arroyo MD -Physical Therapy Work Phone: Start: 10-31-2024 End: 10-31-[address] Gaston Arroyo MD Work Phone: [facility] Work Phone: Start: 10-31-2024 End: 10-31-[address] Gaston Arroyo MD -[facility] [place] Work Phone: Start: 10-31-2024 End: 10-31-2024 ambulatory Gaston Arroyo Facility:[facility] Start: 08-11-2024 End: 08-11-[address] Gaston Arroyo MD -Radiology, [place] Work Phone: Start: 08-11-2024 End: 08-11-2024 ambulatory Gaston Arroyo Facility:[facility] Start: 04-15-2024 End: 04-15-2024 ambulatory GASTON ARROYO Facility:[facility] Start: 04-15-2024 End: 04-15-2024 Office outpatient visit 15 minutes Phillip Castillo APRN.MEDICARE COMPLIANCE AUDITOR Work Phone: [facility] Comment on above: Allergic conjunctivi tis of both eyes (Primary Dx) Start: 02-01-2024 End: 02-01-2024 Patient encounter procedure Becca Atwood ETHYLBENZENE CONVERTER OPERATOR.MEDICARE COMPLIANCE AUDITOR Work Phone: [facility] Comment on above: Laceration of right thumb without damage to nail, foreign body presence unspecified, initial encounter (Primary Dx); Encounter for immunization Start: 10-21-2023 End: 10-21-2023 ambulatory [facility] Work Phone: Start: 10-21-2023 End: 10-21-2023 Patient encounter procedure [facility] Start: 04-30-2023 End: 04-30-2023 Office outpatient visit 15 minutes Phillip Castillo APRN.MEDICARE COMPLIANCE AUDITOR Work Phone: [facility] Comment on above: Arm swelling (Primar y Dx); Bee sting, accidental or unintentional, initial encounter Start: 01-19-2023 End: 01-19-2023 Patient encounter procedure James Nova MD Work Phone: [facility] Comment on above: Abscess of nose (Ashley lana Dx) Start: 09-24-2022 End: 09-24-2022 Emergency department patient visit [facility] Start: 08-05-2022 End: 08-05-2022 Emergency department patient visit [facility] Start: 07-14-2022 End: 07-14-2022 Emergency department patient visit [facility] Start: 06-02-2022 End: 06-02-[address] Gaston Arroyo Work Phone: [facility] Work Phone: Start: 06-02-2022 End: 06-02-[address] Gaston Arroyo Work Phone: [facility] Start: 05-20-2022 End: 05-20-[address] Gaston Arroyo Work Phone: [facility] Work Phone: Start: 05-20-2022 End: 05-20-[address] Gaston Arroyo Work Phone: [facility] Start: 05-08-2022 Non-patient / Non-visit Dr. Teja Arroyo Work Phone: [facility] Start: 05-07-2022 Non-patient / Non-visit Dr. Teja Arroyo Work Phone: [facility] Start: 05-06-2022 Non-patient / Non-visit Dr. Teja Arroyo Work Phone: [facility] Start: 05-05-2022 Non-patient / Non-visit Dr. Teja Arroyo Work Phone: [facility] Start: 05-04-2022 Non-patient / Non-visit Dr. Teja Arroyo Work Phone: [facility] Start: 05-04-2022 End: 05-08-2022 Evaluation and management of inpatient Dr. Gaston Arroyo Work Phone: [facility]Medical Surgical 3 Start: 05-04-2022 Admission to [facility] Start: 05-04-2022 ambulatory [facility] Work Phone: Start: 10-10-2021 ambulatory Ms. [...] DTaP,Tdap,Td Vaccine (3 - Td or Tdap) [facility] Start: 04-03-2025 Influenza vaccination Influenza Vaccine (#1) [facility] Start: 04-03-2024 Covid-19 Vaccine ( season) Covid-19 Vaccine ( season) [facility] Start: 04-03-2024 Influenza vaccination Influenza Vaccine (#1) [facility] Start: 08-03-2023 Behavioral Health Screening Behavioral Health Screening [facility] Start: 04-03-2023 Covid-19 Vaccine ( season) Covid-19 Vaccine () [facility] Start: 04-03-2023 Influenza vaccination Influenza Vaccine (#1) [facility] Start: 08-03-2022 DEPRESSION ASSESSMENT DEPRESSION ASSESSMENT [facility] Start: 05-08-2022 Patient discharge [facility] Work Phone: Start: 05-05-2022 Wound care [facility] Work Phone: Start: 05-05-2022 Consultation [facility] Work Phone: Start: 05-05-2022 Continuous pulse oximetry [facility] Work Phone: Start: 05-04-2022 Following clinical pathway protocol [facility] Work Phone: Start: 05-04-2022 Referral to occupational therapist [facility] Work Phone: Start: 05-04-2022 Referral to service [facility] Work Phone: Start: 05-04-2022 End: 05-04-2022 [facility] Work Phone: Start: 05-04-2022 Application of intermittent pneumatic compression device [facility] Work Phone: Start: 05-04-2022 Catheterization of vein [facility] Work Phone: Start: 05-04-2022 Consultation for treatment [facility] Work Phone: Start: 05-04-2022 Elevation of affected extremity [facility] Work Phone: Start: 05-04-2022 Incentive spirometry [facility] Work Phone: Start: 05-04-2022 Vital signs measurements [facility] Work Phone: Start: 05-04-2022 Admission procedure [facility] Work Phone: Start: 05-04-2022 Consultation [facility] Work Phone: Start: 2017 Lipid 1996 panel - Serum or Plasma Lipid Screening [facility] Start: 2017 Lipid panel Lipid Screening [facility] Start: 2017 LIPID SCREEN LIPID SCREEN [facility] Start: 2009 HPV Vaccine (1 - 3-dose SCDM series) HPV Vaccine (1 - 3-dose SCDM series) [facility] Start: 2001 Hepatitis B Vaccine (1 of 3 - 19+ 3-dose series) Hepatitis B Vaccine (1 of 3 - 19+ 3-dose series) [facility] Start: 2001 Urine microalbumin profile [facility] Start: 2000 Anxiety Screening Anxiety Screening [facility] Start: 2000 Depression Screening Depression Screening [facility] Start: 2000 HEPATITIS C SCREENING HEPATITIS C SCREENING [facility] Start: 2000 Hepatitis C screening Hepatitis C Screening [facility] Start: 2000 HIV SCREENING HIV SCREENING [facility] Start: 2000 HIV screening HIV Screening [facility] Start: 1982 HEPATITIS B (1 of 3 - 3-dose series) HEPATITIS B (1 of 3 - 3-dose series) [facility] Start: 1982 Hepatitis B Vaccine (1 of 3 - 3-dose series) Hepatitis B Vaccine (1 of 3 - 3-dose series) [facility] Anaerobic microbial culture Anaerobic Culture [facility] Work Phone: Bacteria identified in Wound by Culture ABSCESS AND WOUND CULTURE WITH GRAM STAIN Microbiology Routine Abscess of nose 01/19/2023 2:53 PM EDT [facility] Work Phone: Microbial culture, routine Wound Culture [facility] Work Phone: Patient Education ED Drug Reaction, Other [facility] Work Phone: Patient referral [facility] Work Phone: Immunizations Immunization Date Immunization Notes Care Provider Azael valladares 02-01-2024 tetanus toxoid, reduced diphtheria toxoid, and acellular pertussis vaccine, adsorbed Becca Atwood ETHYLBENZENE CONVERTER OPERATOR.MEDICARE COMPLIANCE AUDITOR Work Phone: [facility] 06-18-2022 influenza virus vaccine, unspecified formulation Phillip Castillo ETHYLBENZENE CONVERTER OPERATOR.MEDICARE COMPLIANCE AUDITOR Work Phone: [facility] 08-05-2021 Covid (Pfizer) Dr. Gaston vásquez Work Phone: [facility] 12-06-2020 Covid (Moderna) Dr. Gaston perez Work Phone: [facility] 11-08-2020 Covid (Moderna) Dr. Gaston perez Work Phone: [facility] Payers Date Payer Category Payer Unknown [id number] 2024 Self-pay [id number] 2023 Private Health Insurance [id number] 2022 Private Health Insurance [id number] 2014 Unknown [facility] [id number] 1982 Unknown [id number] Private Health Insurance [employer] [id number] Unknown [id number] Unknown Unknown [id number] Unknown [id number] Unknown [id number] Unknown [id number] Unknown [id number] Social History Date Type Detail Facility Start: 05-04-2022 End: 09-24-2022 Tobacco smoking status [facility]IS Unknown if ever smoked [facility] Start: 1980 Sex Assigned At Male [facility] Start: 09-07-2022 End: 01-06-2024 Tobacco smoking status DCIS Ex-smoker [facility] History of tobacco use Current smoker [facility] History of tobacco use Cigarette Smoker C [facility] Start: 09-07-2022 Tobacco use and exposure Smokeless tobacco non-user [facility] Start: 01-19-2023 End: 03-23-2025 Alcohol intake Lifetime non-drinker (finding) [facility] Start: 1980 Sex Assigned At Not on file [facility] Start: 07-11-2020 End: 04-30-2023 History of Social function [facility] Start: 07-11-2020 End: 04-30-2023 Tobacco use panel [facility] Start: 03-13-2013 National Score (1-100), lower number is lower risk Not on file [facility] Start: 11-03-2024 Sex Male (finding) [facility] Goals Date Patient Goal Desired Activity /State Functional Status Date Assessment Result Facility 05-08-2022 Functional status Ambulates;Bathroom Priv ilege [facility] Work Phone: Mental Status Date Assessment Result Facility 05-08-2022 Cognitive function Voice/Name [facility] Work Phone: Clinical Notes 09-24-2022 to 03-27-2025 Chay Sewell, JOELLE.MEDICARE COMPLIANCE AUDITOR - 03/23/2025 9:19 AM EDT Note Date & Type Note Facility 03-27-2025 Radiology Diagnostic study note [facility] Imaging Services [address] [place], [place] [address] Acute Abdomen Inc Chest MR#: [id number] Acct: [id number] Name: SONAM GUPTA Rep #: [id number] : 1980 M 44 From: Galindo Billings MD PCP: Dr. Gaston Arroyo MD Status: REG C LI Study:Acute Abdomen Inc Chest Date of Exam: 03/27/25 Exam# [id number] Ordering Dr: Humberto Kendrick SENIOR RESEARCH CONSULTANT SENIOR RESEARCH CONSULTANT-C PROCEDURE: ACUTE ABDOMEN INC CHEST 03/27/2025 REASON [...] No urinary tract calcification is definitively identified. Uqyg-dn-fmqxfqrp degenerative changes are seen throughout the visualized spine. Reading Location: [place] [address] CC: SENIOR RESEARCH CONSULTANT-C Geovanna Kendrick; Dr. Gaston Arroyo MD ~ [place] Man: Signed [facility] 03-23-2025 Note HNO ID: [id number] Author: CHAY SEWELL APRN.MEDICARE COMPLIANCE AUDITOR Service: ? Author Type: Nurse Practitioner Type: [...] PCP if symptoms not improving. Chay Sewell APRN.[facility] 03-23-2025 History of Present illness Narrative Subjective [...] Chay Sewell APRN.YUE documented in this encounter [facility] 02-01-2025 Discharge summary Note Date/Time February 01, 2025 1:15p [facility] [address] [place] [address] [address] [place] [address] / REHABILITATION SERVICES DISCHARGE SUMMARY MR#: [id number] Acct: [id number] Name: SONAM GUPTA Rep #: [id number] : 1980 44 From: Gen Bolivar PT, [...] 1315 CC: Dr. Gaston Arroyo MD ~ [facility] Signed [facility] Work Phone: 1(256) 525-568307-02-2025 Discharge summary [facility] Physical Therapy [address] [place] [address] / REHABILITATION SERVICES DISCHARGE SUMMARY MR#: [id number] Acct: [id number] Name: SONAM GUPTA Rep #: [id number] : 1980 44 From: Gen Bolivar PT, [...] 1315 CC: Dr. Gaston Arroyo MD ~ [facility] Signed [facility]04-01-2025 Radiology Diagnostic study note [facility] Imaging Services [address] [place], [place] [address] L/S Spine Min 4 Views MR#: [id number] Acct: [id number] Name: SONAM GUPTA Rep #: [id number] : 1980 M 44 From: Florin Saba MD PCP: Dr. Gaston Arroyo MD Status: REG C KYLE Study:L/S Spine Min 4 Views Date of Exam: 10/31/24 Exam# [id number] Ordering Dr: Gaston Arroyo MD PROCEDURE: L/S SPINE MIN 4 VIEWS 10/31/2024 REASON FOR EXAM: BACK ACHE TECHNIQUE: Five views; AP, lateral, bilateral obliques and coned-down L5-S1 view COMPARISON: None available FINDINGS: 5 nhu-zor-zpqsqyl lumbar vertebral bodies identified. No fracture or malalignment. No spondylolysisidentified. L2-3: Moderate appearing disc space narrowing. L5-S1: Disc space narrowing and vacuum effect. No osseous lesion identified. RAD/L/S Spine Min 4 Views IMPRESSION: L2-3 and L5-S1 spondylosis/discogenic change. Reading Location: [facility] CC: Dr. Gaston Arroyo MD ~ [place] Man: Signed [facility]09-13-2024 NoteHNO ID: [id number] Author: PHILLIP CASTILLO APRN.MEDICARE COMPLIANCE AUDITOR Service: ? Author Type: Nurse Practitioner Type: [...] of care. This note was generated using Konokopia software. It may contain errors in wording, punctuation, or spelling. Phillip Castillo APRN.[facility]09-13-2024 History of Present illness Narrative* Phillip Castillo APRN.[facility] - 04/15/2024 10:11 AM EDT Subjective HPI [...] of care. This note was generated using Konokopia software. It may contain errors in wording, punctuation, or spelling. Phillip Castillo APRN.YUE [facility] History of Present illness Narrative* Becca Atwood APRN.MEDICARE COMPLIANCE AUDITOR - 02/01/2024 4:55 PM EDT This note was created using [employer]. Subjective Sonam Gupta is a 43 year old male. 43 year old male with PMH HTN presents for thumb injury. 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 The history is provided by the patient. No health education coordinator was used. 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 Encounter for immunization - ICD9: V03.89, ICD10: Z23 Tdap VIS provided Becca Atwood APRN.CNP [facility] History of Present illness Narrative* Phillip Castillo [...] of care. This note was generated using Konokopia software. It may contain errors in wording, punctuation,or spelling. 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 He has had hives with [...] evaluation. James Nova MD [facility] Charles [facility] September 24, 2022 6:30pm Note Date/Time September 24, 2022 6:01pm [facility] Medical Records Department [address] [place] [address] Emergency Department Summary 09/24/22 MR#: [id number] Acct: [id number] Name: SONAM GUPTA Rep #:[id number] : 1980 41 From: Jesus Manuel Charles [...] has only been on Bactrim once before. [facility] Medical History Essential hypertension REYES (obstructive sleep [...] Unknown] arginine 7 gram-glutam 7 gram-CaHMB 1.5 rqvg-cpiwx-ly-min oral pwd pkt (Tevin (with collagen)) 1 [...] your Primary Care Provider. Call [facility] ([phone]) or report to the closest Emergency Room. Call 911 if necessary. 09/24/22 1830 <Electronically signed by Jesus Manuel Charles MD> Cosigner Signature (if applicable): CC: Dr. Gaston Arroyo MD ~ Signed [facility] Work Phone: Evaluation note* Diagnosis Onset Date Resolution Status Fracture of toe, open acute Injury of foot, right acute Laceration of toe acute Traumatic amputation of toe acute [facility] Work Phone: Evaluation note* Diagnosis Onset Date Resolution Status Fracture of toe, open acute Injury of foot, right acute Laceration of toe acute Traumatic amputation of toe acute Essential hypertension chron ic Palpitations chronic [facility] Work Phone: Evaluation noteNo assessment information available [facility] Work Phone: Evaluation note* Diagnosis Abscess of nose- Primary Other diseases of nasal cavity and sinuses [facility]* Diagnosis Arm swelling- Primary Swelling of limb Bee sting, accidental or unintentional, initial encounter [facility]* Diagnosis Laceration of right thumb without damage to nail, foreign body presence unspecified, initial encounter- Primary Encounter for immunization Need for other specified prophylactic vaccination against single bacterial disease [facility]* Diagnosis Allergic conjunctivitis of both eyes- Primary Other chronic allergic conjunctivitis [facility]* Diagnosis Viral gastritis- Primary Unspecified gastritis and gastroduodenitis without mention of hemorrhage documented in this encounter [facility] for referral (narrative)No reason for referral information availableWLakeHealth [facility] Work Phone: Chief Complaint and Reason for [...] No May 04 2 3:32pm Power of Anthropology And Archeology Instructor No May 04 022 3:32pm Advance Directive Response Recorded Date/ Time Advance Directives No December 01, 2014 2:44pm Living Will No May 04 2 9:05pm Power of Anthropology And Archeology Instructor No May 04 2 022 9:05pm Advance Directive Response Recorded Date/ Time Advance Directives No December 01, 2014 1:44pm Living Will No May 04 2 8:05pm Power of Anthropology And Archeology Instructor No May 04 2 022 8:05pm Advance Directive Response Recorded Date/ Time Advance Directives No December 01, 2014 1:44pm Living Will No September 24, 2 023 5:30pm Power of Anthropology And Archeology Instructor No September 24, 2022 5:30pm Advance Directive Response Recorded Date/ Time Advance Directives No December 01, 2014 2:44pm Living Will No September 24, 2 023 6:30pm Power of Anthropology And Archeology Instructor No September 24, 2022 6:30pm Advance Directive [...] section and content) DATE CREATED AUTHOR 07/15/2022 [facility] DATE CREATED AUTHOR AUTHOR'S ORGANIZ ATION 07/23/2022 [facility] DATE CREATED AUTHOR AUTHOR'S ORGANIZ ATION 03/25/2025 [facility] DATE CREATED AUTHOR AUTHOR'S ORGANIZ ATION 06/04/2025 [facility] Care Teams (unrecognized sec tion and [...] Jesus Manuel Charles MD Emergency Provider Active Seniour Insight Manager Relationship Specialty Start Date End Date Gaston Arroyo MD PCP - General Family Medicine 03/13/13 Seniour Insight Manager Relationship Specialty Start Date End Date Gaston Arroyo MD PCP - General Family Medicine 03/13/13 Team Status: Inactive Member Role Status Dates Dr. Gaston Arroyo MD Primary Care Provider, Attending Provider Active Seniour Insight Manager Relationship Specialty Start Date End Date Gaston [...] December 05, 2024 End: December 05, 2024 Seniour Insight Manager Relationship Specialty Start Date End Date Gaston [...] End: March 27, 2025 Geovanna Kendrick NP SENIOR RESEARCH CONSULTANT-C Attending Provider Active S tart: March 27, 2025 End: March 27, 2025 Geovanna Kendrick NP SENIOR RESEARCH CONSULTANT-C Referring Provider Active S tart: March 27, 2025 End: March 27, 2025 Source Comments (unrecognize d section and content) In the event this informatio n is protected by the Federal Confidentiality of Alcohol and Drug Abuse Patient Records regulations: The Federal rules restrict any use of the information to criminally investigate or prosecute any alcohol or drug abuse patient.[facility] the event this information is protected by the Federal Confidentiality of Alcohol and Drug Abuse Patient Records regulations: The Federal rules restrict any use of the information to criminally investigate or prosecute any alcohol or drug abuse patient.[facility] Hospital[facility] the event this information is protected by the Federal Confidentiality of Alcohol and Drug Abuse Patient Records regulations: The Federal rules restrict any use of the information to criminally investigate or prosecute any alcohol or drug abuse patient.[facility] Hospital[facility] the event this information is protected by the Federal Confidentiality of Alcohol and Drug Abuse Patient Records regulations: The Federal rules restrict any use of the information to criminally investigate or prosecute any alcohol or drug abuse patient.[facility] Hospital[facility] the event this information is protected by the Federal Confidentiality of Alcohol and Drug Abuse Patient Records regulations: The Federal rules restrict any use of the information to criminally investigate or prosecute any alcohol or drug abuse patient.[facility] Reason for Visit (unrecogniz ed section and [...] BE BASED ON THE PRIMARY CLINICAL RECORDS. [employer] [facility]. provides no warranty or guarantee of the accuracy or completeness of information in this document.
[2025-07-14 19:15] LABS: AST(SGOT) 22 U/L (<=37); Alanine Aminotransfer ALT/SGPT 20 U/L (<=46); Albumin, Serum 4.3 g/dL (3.5-5.0); Alkaline Phosphatase 94 U/L (40-129); Anion Gap 13 (5-15); BUN 10 mg/dL (4-19); BUN/Creat Ratio 12.0 RATIO (10-20); Calcium,Total 9.4 mg/dL (7.6-11.0); Carbon Dioxide 24.2 mmol/L (21.0-32.0); Chloride 97 mmol/L (98-108); Estimated Creatinine Clearance 159.53 ml/min (50-250); Globulin 3.7 g/dL (2.2-4.2); Glucose 107 mg/dL (70-99); Lipase 27 U/L (13-75); Potassium 3.6 mmol/L (3.3-5.1)
[2025-07-14 19:33] VITALS: BP 123/62; PULSE 73; RESP 16; O2SAT 96
[2025-07-14 20:41] LABS: Color, Urine Amber (Yellow); Glucose, Dipstick Normal (Normal); Ketone-Dipstick Negative (Negative); Leukocyte Esterase-Dipstick 25 /ul (Negative); Nitrite-Dipstick Negative (Negative); Occult Blood-Urine Negative /ul (Negative); Protein-Dipstick 30 mg/dl (Negative); Specific Gravity, Urine 1.010 (1.002-1.030)
[2025-07-14 21:46] LABS: Urine Bilirubin Dipstick 1 mg/dL (Negative)
[2025-07-14 21:52] VITALS: BP 123/68; PULSE 70; O2SAT 97
[2025-07-14 21:53] LABS: Mucous, Urine 1+ /hpf (<or=2+); Red Blood Cells-Urine 0-5 SEEN /hpf (0-5); Squamous Epithelial Cells - UA 0-5 SEEN /hpf (0-5)
[2025-07-14 22:11] VITALS: BP 123/68; PULSE 70; RESP 16; TEMP 37.2; O2SAT 97
== END 2025-07-14 22:24 | disposition home or self-care (01) ==
PROVIDERS: Emergency Provider Surgery; PCP Family Medicine; Visit Provider Surgery
DX: K57.32 Diverticulitis of large intestine without perforation or abscess without bleeding (principal); K50.90 Crohn's disease, unspecified, without complications; K76.0 Fatty (change of) liver, not elsewhere classified; Z87.891 Personal history of nicotine dependence; I10 Essential (primary) hypertension
CPT/HCPCS: 74177; 80053; 81001; 83690; 85025; 96360; 96361; 99284; Q9967; A4216